=== PATIENT | male | born 1965 | race Caucasian/White ===

== ENCOUNTER → 2019-03-11 11:24 | Outpatient (CLI) | payer BC, SELFPAY ==
[2019-03-11 14:28] LABS: Absolute Neutrophil Count 6.4 X10^3/uL (2.0-7.7); Basophil# 0.02 X10^3/uL; Basophil% 0.2 % (0-1); Eosinophils% 1.1 % (0-5); Hematocrit 37.3 % (40-54); Hemoglobin 11.4 g/dL (13.0-16.5); Lymphocyte % 22.1 % (19-41); Mean Corp Hgb Conc 30.6 g/dL (32-36); Mean Corpuscular Hgb 25.1 pg (27.0-32.0); Mean Corpuscular Volume 82.2 fL (80-94); Mean Platelet Vol. 11.3 fl (6.2-12.0); Monocyte% 8.4 % (0-10); NRBC Flagged by Analyzer 0 % (0-5); Neutrophil # 6.41 X10^3/uL (2.7-7.7); Neutrophil % 67.6 % (47-70); Platelet Count 368 K/mm3 (150-450); RBC Distribution Width CV 14.4 % (11.6-14.6); Red Blood Count 4.54 M/mm3 (4.6-6.2); White Blood Count 9.5 K/mm3 (4.4-11.0)
[2019-03-11 14:42] LABS: 24 Hour Urine Protein 356.9 mg/24HR (<150 MG/24HR); 24HR. UA Prot. Total Volume 2150 mL; Urine Protein (24 Hour) 16.6 mg/dL (<11.9)
[2019-03-11 14:45] LABS: Creat.Clear Total Volume 2150 mL; Creatinine Clearance 103 ml/min (100-200); Creatinine Serum Creat 1.7 mg/dL (0.8-1.3); EST Glomerular Filtration Rate 46 mL/min (>60); Est Glom Filt Rate - Afr Amer 56 mL/min (>60)
[2019-03-11 14:45] LABS: Albumin, Serum 3.2 g/dL (3.2-5.0); BUN 24 mg/dL (7-18); BUN/Creat Ratio 14.5 RATIO (10-20); Calcium,Total 9.5 mg/dL (8.5-10.1); Chloride 104 mmol/L (98-107); Creatinine, Serum 1.66 mg/dL (0.70-1.30); EST Glomerular Filtration Rate 46 mL/min (>60); Est Glom Filt Rate - Afr Amer 56 mL/min (>60); Glucose 102 mg/dL (74-106); Iron 32 ug/dL (65-175); Iron Binding Capacity,Total 239 ug/dL (250-450); PERCENT IRON SATURATION 13.4 % (15.0-55.0); Phosphorus 3.3 mg/dL (2.5-4.9); Sodium Level 138 mmol/L (136-145)
[2019-03-11 14:46] LABS: Vitamin D,25 Hydroxy 8.4 ng/mL (29.95-100.01)
[2019-03-11 14:57] LABS: PTHIN 59.2 pg/mL (18.4-80.1)
[2019-03-15 12:45] LABS: Vitamin D 1,25-Dihydroxy <5.0 pg/mL (19.9-79.3)
== END ==
DX: I12.9 Hypertensive chronic kidney disease with stage 1 through stage 4 chronic kidney disease, or unspecified chronic kidney disease (principal); N18.3 Chronic kidney disease, stage 3 (moderate); R60.0 Localized edema; R60.1 Generalized edema; E55.9 Vitamin D deficiency, unspecified; N25.81 Secondary hyperparathyroidism of renal origin; D50.9 Iron deficiency anemia, unspecified; D63.1 Anemia in chronic kidney disease
CPT/HCPCS: 36415; 80069; 81050; 82306; 82575; 82652; 83540; 83550; 83970; 84156; 85025

== ENCOUNTER → 2019-08-05 15:09 | Outpatient (CLI) | payer SELFPAY ==
[2019-08-05 18:11] LABS: Absolute Lymphocyte Count 2.63 X10^3/uL (0.83-4.51); Absolute Neutrophil Count 4.1 X10^3/uL (2.0-7.7); Basophil# 0.03 X10^3/uL; Basophil% 0.4 % (0-1); Eosinophil# 0.24 X10^3/uL; Eosinophils% 3.1 % (0-5); Hematocrit 41.4 % (40-54); Hemoglobin 13.3 g/dL (13.0-16.5); Lymphocyte # 2.63 X10^3/ul (4.0); Lymphocyte % 34.2 % (19-41); Mean Corp Hgb Conc 32.1 g/dL (32-36); Mean Corpuscular Hgb 27.3 pg (27.0-32.0); Mean Corpuscular Volume 84.8 fL (80-94); Mean Platelet Vol. 11.1 fl (6.2-12.0); Monocyte# 0.67 X10^3/uL; Monocyte% 8.7 % (0-10); NRBC Flagged by Analyzer 0 % (0-5); Neutrophil # 4.06 X10^3/uL (2.7-7.7); Neutrophil % 52.9 % (47-70); Platelet Count 211 K/mm3 (150-450); RBC Distribution Width CV 15.5 % (11.6-14.6); RBC Distribution Width SD 46.6 fl (35.1-43.9); Red Blood Count 4.88 M/mm3 (4.6-6.2); White Blood Count 7.7 K/mm3 (4.4-11.0)
[2019-08-05 18:29] LABS: Vitamin D,25 Hydroxy 72.6 ng/mL
[2019-08-05 18:30] LABS: Albumin, Serum 3.5 g/dL (3.2-5.0); BUN 22 mg/dL (7-18); BUN/Creat Ratio 15.9 RATIO (10-20); Calcium,Total 9.5 mg/dL (8.5-10.1); Chloride 107 mmol/L (98-107); Creatinine, Serum 1.38 mg/dL (0.70-1.30); EST Glomerular Filtration Rate 57 mL/min (>60); Est Glom Filt Rate - Afr Amer 69 mL/min (>60); Ferritin 492 ng/mL (26-388); Glucose 88 mg/dL (74-106); Iron 72 ug/dL (65-175); Iron Binding Capacity,Total 270 ug/dL (250-450); Potassium 4.1 mmol/L (3.5-5.1); Sodium Level 140 mmol/L (136-145)
[2019-08-05 18:35] LABS: Microalbumin,Random Urine 29.5 mg/L (NO RANGE EST.)
[2019-08-06 10:52] LABS: PTHIN 61.2 pg/mL (18.4-80.1)
[2019-08-09 20:37] LABS: Vitamin D 1,25-Dihydroxy 38.6 pg/mL (19.9-79.3)
== END ==
DX: I12.9 Hypertensive chronic kidney disease with stage 1 through stage 4 chronic kidney disease, or unspecified chronic kidney disease (principal); N18.3 Chronic kidney disease, stage 3 (moderate); R60.0 Localized edema; R60.1 Generalized edema; E55.9 Vitamin D deficiency, unspecified; N25.81 Secondary hyperparathyroidism of renal origin; D50.9 Iron deficiency anemia, unspecified; D63.1 Anemia in chronic kidney disease
CPT/HCPCS: 36415; 80069; 82043; 82306; 82570; 82652; 82728; 83540; 83550; 83970; 85025

== ENCOUNTER → 2020-04-18 15:32 | Outpatient (CLI) | payer MEDICAID, SELFPAY ==
[2020-04-18 17:52] LABS: Absolute Lymphocyte Count 2.17 X10^3/uL (0.83-4.51); Absolute Neutrophil Count 4.2 X10^3/uL (2.0-7.7); Basophil# 0.04 X10^3/uL; Basophil% 0.5 % (0-1); Eosinophil# 0.33 X10^3/uL; Eosinophils% 4.5 % (0-5); Hematocrit 43.2 % (40-54); Hemoglobin 13.4 g/dL (13.0-16.5); Lymphocyte # 2.17 X10^3/ul (4.0); Lymphocyte % 29.5 % (19-41); Mean Corpuscular Hgb 27.5 pg (27.0-32.0); Mean Corpuscular Volume 88.7 fL (80-94); Mean Platelet Vol. 11.5 fl (6.2-12.0); Monocyte# 0.53 X10^3/uL; Monocyte% 7.2 % (0-10); NRBC Flagged by Analyzer 0 % (0-5); Neutrophil % 57.1 % (47-70); Platelet Count 261 K/mm3 (150-450); RBC Distribution Width CV 13.4 % (11.6-14.6); RBC Distribution Width SD 43.5 fl (35.1-43.9); Red Blood Count 4.87 M/mm3 (4.6-6.2); White Blood Count 7.4 K/mm3 (4.4-11.0)
[2020-04-18 18:04] LABS: Vitamin D,25 Hydroxy 59.1 ng/mL
[2020-04-18 18:20] LABS: ALB/GLOB Ratio 0.8 RATIO (0.9-2.4); AST(SGOT) 20 U/L (15-37); Alanine Aminotransfer ALT/SGPT 26 U/L (16-61); Albumin, Serum 3.4 g/dL (3.2-5.0); Alkaline Phosphatase 63 U/L (45-117); Anion Gap 8 (5-15); BUN 19 mg/dL (7-18); Calcium,Total 8.8 mg/dL (8.5-10.1); Chloride 107 mmol/L (98-107); Cholesterol 126 mg/dL (200); Creatinine, Serum 1.58 mg/dL (0.70-1.30); EST Glomerular Filtration Rate 49 mL/min (>60); Est Glom Filt Rate - Afr Amer 59 mL/min (>60); Globulin 4.4 g/dL (2.2-4.2); Glucose 91 mg/dL (74-106); High Density Lipoprotein 22 mg/dL; Potassium 4.2 mmol/L (3.5-5.1); Protein, Total 7.8 g/dL (6.4-8.2); Sodium Level 139 mmol/L (136-145); Thyroid Stim Hormone (TSH) 2.24 uIU/mL (0.358-3.74); Triglycerides 102 mg/dL; Uric Acid 11.6 mg/dL (3.5-7.2); Very Low Density Lipoprotein 20 mg/dL (5-40)
== END ==
PROVIDERS: Referring Provider Family Medicine; Visit Provider Family Medicine
DX: M10.00 Idiopathic gout, unspecified site (principal); R94.4 Abnormal results of kidney function studies; I10 Essential (primary) hypertension; Z13.29 Encounter for screening for other suspected endocrine disorder; E55.9 Vitamin D deficiency, unspecified
CPT/HCPCS: 36415; 80053; 80061; 82306; 84443; 84550; 85025

== ENCOUNTER → 2020-05-12 09:05 | Outpatient (CLI) | payer MEDICAID, SELFPAY ==
--- NOTE | 2020-05-12 | IMM_PTH ---
PATIENT: ALEJANDRA THORNTON LOC: LAB U#:[id number] AGE/SX: 59/M ROOM: RE05/12/[address]: Dr. Alfredo Chance MD : 1965 BED: DIS: SPEC #: [id number] RECD: 05/15/20 11:54 STATUS: FLORES REQ #: [id number] GABRIELLE: 05/12/20 00:[address]: Alfredo Chance DEPT: IMMUNOHISTOCHEMISTRY RECD BY: Edwige Marshall ENTERED: 05/15/20 11:56 SP TYPE: IMMUNO OTHR DR: Dr. Rudolph Marquez MD [facility] Tissues: Neck, NOS Procedures: RCC (add) SMA (add) NAPSIN A (add) Asa Ret (add) CD45 (add) CK20 (add) CK5-6 (add) CK7 (add) CK8 (add) DESMIN (add) FLORECITA (add) HEP PAR (add) MART1 (add) MPO (add) P53 (add) TTF1 (add) Vimentin (add) Pankeratin (initial) P40 (add) PSAP (add) S-100 (add) PHYSICIAN & INSTITUTION [place] [id number] SPECIMEN INFORMATION: Tissue Source: FNA, left neck mass Clinical Info: Left neck mass Specimen Number: [id number] CPT code: 21518, 19316 x20 METHODOLOGY: Deparaffinized sections of prefer/formalin-fixed tissue or PAP/DQ stained slides are incubated with monoclonal/polyclonal antibodies/oligonucleotide probes. Localization is made via biotin free immunoperoxidase method. Appropriate controls are performed and reacted as expected. Results on target cell population are indicated in the following table: RESULTS: ANTIBODY / CLONE RESULT AE1-3 (AE1/AE3/PCK26) negative CK7 (OV-TL12/30) negative CK8 (19jpokI99) negative CK20 (KS20.8) negative S-100 (4C4.9) negative TTF-1 (8G7G3/1) negative Napsin A (Rabbit Polyclonal) negative HepPar (OCh1E5) negative RCC (PN-15) negative PSAP (PASE/4LJ) negative CK5-6 (D5 & 1684) negative P40 (BC28) negative P53 (DO-7) negative CD45 (RP2/18) negative MPO (polyclonal) negative Vimentin (V9) positive Actin (1A4) negative Desmin (CE-R-11) negative CALRET (polyclonal) negative FLORECITA (E29) negative MART-1 (A-103) negative These tests were developed and their performance characteristics determined by [facility]. They may not have been cleared or approved by the U.S. Food and Drug Administration. The FDA has determined that such clearance or approval is not necessary. The above immunohistochemical/dualISH markers are ordered and reviewed by the Pathologist. INTERPRETATION: Fine needle aspiration, left neck mass: High-grade non-small cell neoplasm. Comment: The IHC profile does not suggest a particular primary. Clinical correlation is suggested. Case has been reviewed in consultation with Dr. Gonzales who concurs with the above diagnosis. IDC:SJ
--- NOTE | 2020-05-12 | ASPOS_PTH ---
PATIENT: ALEJANDRA THORNTON LOC: LAB U#:[id number] AGE/SX: 59/M ROOM: RE05/12/[address]: Dr. Alfredo Chance MD : 1965 BED: DIS: SPEC #: [id number] RECD: 05/12/20 10:04 STATUS: FLORES CARLIN #: [id number] GABRIELLE: 05/12/20 00:[address]: Alfredo Chance DEPT: CYTOLOGY RECD BY: Tylor Goodman ENTERED: 05/12/20 10:04 SP TYPE: ASP HERE OTHR DR: Dr. Rudolph Marquez MD [facility] Tissues: Neck, NOS Procedures: Surgery Specimen Level IV Cytology Other Fine Needle Asp on Site HEADER OPERATION: Fine needle aspiration left neck mass PRE-OP DIAGNOSIS: Left neck mass TISSUE SUBMITTED: FNA left neck mass DIAGNOSIS CYTOLOGY Fine needle aspiration, left neck mass (smears and cell block): High-grade malignant neoplasm. See comment. AM:milton 05/15/2020 COMMENT The specimen is evaluated at the time of FNA by Dr. Stone. Immediate Evaluation = Positive for malignant cells, non-small cell carcinoma. Immunohistochemistry ([id number]) supports the above diagnosis but does not suggest a primary. Sox-10 positivity can be seen in malignant melanomas. Clinical correlation is suggested. This case is reviewed in consultation with Dr. Vaughn of [employer]. The complete consultative report is viewable in EMR. Case has been reviewed in consultation with Dr. Gonzales who concurs with the above diagnosis. IDC:SJ CYTOLOGY STUDY Slides are reviewed. CYTOLOGY GROSS Received is 0.25 ml of reddish fluid labeled with the patient's name, and designated left neck mass. Four imprints and three paps are made from the submitted fluid and the rest is added to [employer]to[employer] for cell block preparation. Submitted for cytology study. / AM:milton 05/12/2020 TC:0 CPT: 75426, 55836, 25573, 96256 ADDENDUM ADDENDUM ADDENDUM ADDENDUM ADDENDUM ADDENDUM ADDENDUM ADDENDUM ADDENDUM ADDENDUM 07/21/2020 09:52 ADDENDUM 07/21/2020 09:52 ADDENDUM 07/21/2020 09:52 ADDENDUM 07/21/2020 09:52 ADDENDUM 07/21/2020 09:52 This addendum is added to incorporate an outside pathology consultation report. The case was examined at [facility] (#[id number]) and the following diagnosis was rendered. Fine needle aspiration, left neck mass: High grade malignant neoplasm. Please see complete above mentioned consultation report in EMR
== END ==
PROVIDERS: Referring Provider Otolaryngology; Visit Provider Otolaryngology
DX: R22.1 Localized swelling, mass and lump, neck (principal)
CPT/HCPCS: 10021; 88161; 88305; 88341; 88342

== ENCOUNTER → 2020-06-06 16:45 | Outpatient (CLI) | payer MEDICAID, SELFPAY ==
--- NOTE | 2020-06-06 16:00 | PET_ITS ---
EXAMINATION: FDG PET/CT ? Head to Pelvis INDICATIONS: A 54-year-old male with history of head and neck carcinoma presenting for apparent initial staging examination. COMPARISON EXAMINATION: None available INDEX LESION SIZE SUV INTERPRETATION Left lateral neck level IIA-B, III (n=3) 38.8 x 32.6-mm (largest) (frame 292) 15.7 (max) Fulfills quantitative criteria for viable neoplasm TECHNIQUE: Following the intravenous administration of 12.08 mCi of F-18 deoxyglucose via the right antecubital fossa, multiplanar image acquisitions of the head, neck, chest, abdomen and pelvis to level of mid thigh, obtained at one hour post radiopharmaceutical administration contemporaneously interpreted with the current CT of the head, neck, chest, abdomen and pelvis to level of mid thigh, dated 06/06/20 via coregistration reveal: SERUM GLUCOSE LEVEL: 99 mg/dl. HEIGHT: 70 inches. WEIGHT: 308 lbs. FINDINGS: 1. There is an increase in FDG distribution defined in the left lateral neck to include level IIA-B, III in three separate distinct nodular presentations. The calculated maximal standard uptake value is 15.7. The maximal axial diameter of the largest individual metabolic, morphologic abnormality on review of CT of the neck dated 06/06/20 is 38.8-mm (transverse) x 32.6-mm (AP). 2. Normal physiologic distribution of the radiopharmaceutical is apparent in the hepatic (2.9) and splenic parenchyma, both renal units, bladder and visualized intestinal tract. Symmetric glucose metabolism is evident in the occipital, frontal, parietal and temporal lobes of the cerebral cortex, as well as normal visualization of the basal ganglia and cerebellar hemispheres. Diffuse radiopharmaceutical concentration is noted in all four quadrants of the abdomen and pelvis, extending to the distal rectum-rectal vault. Prominent uptake is observed in the glenohumeral compartment of the right shoulder, both wrist articulations most consistent with activated leukocytes associated with an inflammatory process-degenerative arthritis, synovial inflammation. An increase in uptake is observed in the subcarinal mediastinum to the right of the midline which appears associated with the myocardial right atrial appendage. Pertinent CT findings are as follows: CHEST: There is atherosclerotic calcification defined in the thoracic aorta without evidence of dilatation-aneurysm formation. Coronary arterial calcification is observed. There are no parenchymal densities-nodules defined in the right and left hemithorax with discernible increased FDG concentration. Bilateral axillary soft tissue densities with fatty hilus are ametabolic. Subcentimeter mediastinal soft tissue reveals no evidence of increased tracer uptake. ABDOMEN AND PELVIS: There is borderline fatty metamorphosis-steatosis defined in the hepatic parenchyma. Calcifications are manifest in the bilateral kidneys. Bilateral fat containing inguinal hernias are observed. Right and left inguinal soft tissue densities with fatty hilus reveal no evidence of increased tracer uptake. Dystrophic calcification appears evident within the prostate gland, peripheral zones-right base without evidence of facilitated tracer uptake. SKELETAL: Degenerative changes are noted in the cervical, thoracic and lumbar spine without evidence of increased radiopharmaceutical concentration. PET/PET/CT Tumor Base -Thigh Init IMPRESSION: 1. ABNORMAL EXAMINATION INDICATIVE OF MALIGNANT VIABLE NEOPLASM. 2. Increased glucose concentration observed in the left lateral neck, multifocal in presentation fulfills quantitative criteria for viable neoplasm. 3. Enhanced tracer uptake noted in the distal rectum-rectal vault is most consistent with physiologic tracer uptake. If intraluminal soft tissue mass formation is a diagnostic consideration, correlation with direct visualization or digital examination is recommended. (Joselyn et al, Journal of Nuclear Medicine, 30:S276, 2003). 4. No other quantitatively significant hypermetabolic abnormalities are noted. There is no definitive scintigraphic evidence of distant metastatic disease. Electronic Signature Surinder Quan D.O. Accurate Quantification of SUVs for this report are calculated using the exclusive [employer]? Technology.??Exclusive U.S. Patent [employer]an? Technology (U.S. Patent No. [phone]). Electronically Signed: Surinder Quan DO at 15:44 EDT Tel , Service support ,
== END ==
PROVIDERS: Referring Provider Otolaryngology; Visit Provider Otolaryngology
DX: C76.0 Malignant neoplasm of head, face and neck (principal)
CPT/HCPCS: 78815; A9552

== ENCOUNTER → 2020-08-10 11:54 | Outpatient (CLI) | payer MEDICAID, SELFPAY ==
--- NOTE | 2020-08-10 12:12 | RAD_ITS ---
STUDY: X-RAY - LUMBAR SPINE REASON FOR EXAM: Male, 54 years old. LUMBAGO WITH SCIATICA TECHNIQUE: 3 view(s) of the lumbar spine were obtained. COMPARISON: None FINDINGS: Normal lumbar lordosis. There is no substantial scoliosis. There is a normal alignment of the vertebrae. Normal vertebral bodies and endplates. Normal disc space heights. The soft tissue structures are unremarkable. RAD/Lumbar Spine 2 or 3 Views IMPRESSION: Normal x-ray examination of the lumbar spine. Electronically Signed: Tom Swann MD at 12:58 EDT , Service support ,
[2020-08-10 13:06] LABS: PSA,Total - Annual Screen 0.86 ng/mL (0.00-4.00); Uric Acid 9.3 mg/dL (3.5-7.2)
== END ==
DX: M10.9 Gout, unspecified (principal); Z12.5 Encounter for screening for malignant neoplasm of prostate; Z12.11 Encounter for screening for malignant neoplasm of colon; M54.41 Lumbago with sciatica, right side
CPT/HCPCS: 36415; 72100; 84153; 84550; G0103

== ENCOUNTER → 2020-08-15 16:46 | Outpatient (CLI) | payer MEDICAID, SELFPAY | DX: M10.9 Gout, unspecified (principal); Z12.11 Encounter for screening for malignant neoplasm of colon; Z12.5 Encounter for screening for malignant neoplasm of prostate | CPT/HCPCS: 82274 ==

== ENCOUNTER → 2020-09-15 15:40 | Outpatient (CLI) | payer MEDICAID, SELFPAY ==
[2020-09-15 17:34] LABS: Albumin, Serum 3.3 g/dL (3.2-5.0); BUN 20 mg/dL (7-18); BUN/Creat Ratio 14.2 RATIO (10-20); Chloride 109 mmol/L (98-107); Creatinine, Serum 1.41 mg/dL (0.70-1.30); EST Glomerular Filtration Rate 55 mL/min (>60); Est Glom Filt Rate - Afr Amer 67 mL/min (>60); Glucose 143 mg/dL (74-106); Phosphorus 2.2 mg/dL (2.5-4.9); Potassium 3.8 mmol/L (3.5-5.1); Sodium Level 140 mmol/L (136-145); Uric Acid 10.4 mg/dL (3.5-7.2)
[2020-09-18 11:39] LABS: PTHIN 64.7 pg/mL (18.4-80.1)
== END ==
PROVIDERS: Referring Provider Internal Medicine Nephrology; Visit Provider Internal Medicine Nephrology
DX: N18.31 Chronic kidney disease, stage 3a (principal); M10.9 Gout, unspecified
CPT/HCPCS: 36415; 80069; 83970; 84550

== ENCOUNTER 2020-10-06 05:53 | Day surgery (SDC) | payer MEDICAID, SELFPAY ==
[2020-10-02 10:03] VITALS: BMI 43.4
[2020-10-04 10:31] VITALS: BMI 43.7
[2020-10-06 06:23] VITALS: BP 128/70; PULSE 74; RESP 16; TEMP 37; O2SAT 98; BMI 45.3
[2020-10-06] MEDS: Lactated Ringers 1,000 ML 100 ML IV (06:34)
--- NOTE | 2020-10-06 07:04 | PCM.HP.BLA ---
History and Physical Date of Admission: 10/06/20 Date of Service: 10/02/20 MR#:[id number] Acct:[id number] Name: ALEJANDRA THORNTON :1965 Age/Sex: 55/M Rep #:[id number] Provider:Dr. Antonette Tapia MD Location:[facility] Status:Signed Intake Vital Signs 10/02/20 10:02 10/02/20 10:03 Height 5 ft 10.5 in Weight: 306 lb 7.08 oz BMI 43.3 43.4 BP 123/85 H Blood Pressure Location Rt brachial Position Sitting Respiration 16 Intake Visit Reasons: port placement Chief Complaint: port placement Virtual Reality Specialist Required: No Is patient in pain?: No Allergies No Known Allergies Allergy (Verified 10/02/20 10:03) Medications allopurinol 100 mg tablet 100 mg PO DAILY 09/12/20 [History Confirmed 10/02/20] ergocalciferol (vitamin D2) 62.5 mcg (2,500 unit) capsule 5,000 unit PO DAILY cap 09/12/20 [History Confirmed 10/02/20] ferrous sulfate 325 mg (65 mg iron) tablet 325 mg PO DAILY 09/12/20 [History Confirmed 10/02/20] ramipril 10 mg capsule 10 mg PO DAILY 09/12/20 [History Confirmed 10/02/20] PFSH Medical History Arthritis Chronic renal failure Depression Gastroesophageal reflux Hypertension Kidney disease Medullary sponge kidney of both kidneys Morbid obesity Snoring SOB (shortness of breath) Surgical History History of appendectomy History of carpal tunnel surgery History of parotidectomy Family History Mother Liver disease Father Lung cancer Social History Smoking Status: Never smoker second hand exposure: No alcohol intake: never substance use type: does not use yohan/druze: None seatbelt use: never do you feel safe at home: Yes HPI HPI HPI: ALEJANDRA THORNTON, is a 55 M who presents to the office today for port placement due to metastatic melanoma status post left superficial parotidectomy and left selective neck dissection. Patient has chemo teaching on Friday this week. ROS General General: Yes fatigue; No weight change or appetite HEENT HEENT: Yes difficulty swallowing; No eye injury, eye surgery, swollen glands or hoarseness Endo Endocrine: No thyroid disease, diabetes mellitus or cold intolerance Skin Skin: No rash or changing moles Musc Musculoskeletal: Yes gout; No back problems, arthritis, rheumatoid arthritis or joint pain Cardio Cardiovascular: Yes high blood pressure; No murmur, pacemaker, heart disease, atrial fibrillation, heart attack, heart stent, palpitations, shortness of breat with exertion or chest pain Psych Psychiatric: Yes depression and anxiety; No hearing voices Resp Respiratory: Yes shortness of breath, Yes sleep apnea, No cough, No COPD, No asthma, No emphysema and No wheezing Gastro Gastrointestinal: No abdominal pain, No nausea or vomiting, No diarrhea, No constipation, No blood in stool, Yes acid reflux, Yes hemorrhoids, No ulcers, No gallbladder problem and No black,tarry stools Behzad Hematologic: No blood thinners, No blood disorders, No bleeding, No anemia and No blood clots Neuro Neurologic: No abnormal speech, No confusion, No dizziness, No localized weakness, No numbness and No sensory deficit Exam Const General: cooperative, healthy appearing, comfortable and no acute distress Neck Other: Well-healed left neck incision. Normal palpation of the right neck Chest Other: Normal palpation of bilateral upper chest. Resp Effort & Inspection: normal respiratory effort Cardio Rate: regular rate GI Inspection: non-distended Palpation: soft Skin General: no rashes or lesions noted Neuro General: patient oriented x3 Psych Affect: normal affect COVID (Procedure Consent) Procedure Criteria Procedure Criteria: Yes Elective The surgeon/proceduralist and patient have discussed in detail the risk of exposure to and/or potential harm posed by the COVID-19 virus with having a surgery/procedure at this time versus the risk of delaying the surgery/procedure. It is not possible to know either the risk of delaying the surgery or procedure or chance of getting an infection with perfect accuracy, but a joint decision was made between the patient and the surgeon/proceduralist to proceed at this time with the scheduled surgery/procedure as indicated on the consent form. Assessment and Plan Assessment and Plan (1) Encounter for care related to vascular access port: Status: Acute (2) Melanoma metastatic to head and neck region: Status: Acute Plan - Dr. Antonette Tapia MD: I have discussed above with the patient- Port-a-Cath placement. Right IJ Patient has been counseled as to the risks/benefits of the procedure. I have explained the risks of the surgery, including but not limited to: infection, bleeding, injury to any blood vessels/nerves, injury to lungs (such as pneumothorax or hemothorax and need for chest tube), not having any access, nonfunctioning of port due to thrombosis, infection of port, etc. the patient understands and agrees to proceed. I have answered all the patient's questions to the patient?s satisfaction and the patient has no further questions. Antonette Tapia M.D. Pager: [phone] [facility] [address] [place] [address], [address] [place] [address] Office: [phone] Coding Level of Care Code Off vis,new,level 3 Diagnoses Encounter for care related to vascular access port Z45.2 Melanoma metastatic to head and neck region C79.89; C43.9 10/02/20 1025<Electronically signed by Antonette Tapia MD>Date Antonette Tapia MD
[2020-10-06] MEDS: Lidocaine 1% /Epi 1:100 (50ml) 50 ML VIAL (07:36)
[2020-10-06] MEDS: Bupivacaine Mpf 0.5% 30 ML VIAL (07:36)
--- NOTE | 2020-10-06 08:02 | PCM.OPRPT ---
Report of Operation Date of Procedure: 10/06/20 Pre-Operative Diagnosis: z45.2, Malignant melanoma Post-Operative Diagnosis: Same Surgery/Procedure Performed:: 1. Placement of right IJ Port-A-Cath 2. Use of fluoroscopy 3. Use of ultrasound Surgeon: Antonette Tapia Type of Anesthesia: Local MAC Anesthesiologist: Rick Collins Special Medications: Ancef 3 g IV x1 Specimen's removed: None Estimated Blood Loss (mL): < 10 cc Fluids Replaced: 500 cc Description of Procedure: After informed consent was given, the patient was brought to the operating room and placed in the supine position. Appropriate time out protocol was followed. Patient was then given IV conscious sedation for anesthesia. The patient's right upper chest and neck were then prepped with a surgical skin preparation and sterile surgical drapes were placed. After proper landmarks were ascertained, the skin at the upper right chest area was then infiltrated with 1:1 mixture of 1% lidocaine with epinephrine and 0.5% marcaine. A needle trocar was then inserted into the right internal jugular vein with ultrasound guidance-multiple vessels were viewed with u/s and the right IJ was chosen-- and there was good aspiration of venous blood. A wire was then threaded into the needle trocar and this was visualized under fluoroscopy to ensure that the wire was in the superior vena cava. Once this was done, then the needle trocar was removed. A small skin derrell was made with an 11 blade knife at the wire entrance site. The dilator with the introducer sheath attached was then placed over the wire into the right internal jugular vein via the Seldinger technique and this was visualized under fluoroscopy. The dilator and sheath were in proper position as visualized by fluoroscopy. A subcutaneous pocket was then created caudad to the catheter insertion site. A transverse skin incision was made after the skin and subcutaneous tissues were infiltrated with local anesthetic. Blunt dissection was then used to create a space large enough for placement of the subcutaneous port. The catheter was then tunneled into the subcutaneous pocket. The wire and dilator were then removed. The catheter was then threaded into the introducer sheath and was positioned with its tip at the junction of the superior vena cava and the right atrium as visualized under fluoroscopy. The excess catheter was transected. The catheter was then attached to the subcutaneous port using manufacturers guidelines. The catheter was flushed with a heparin saline mixture prior to placement. Hemostasis was carefully controlled with electrocautery. The port was sutured to the subcutaneous fascia using 2-0 Vicryl suture at two sites. The port was then placed in the subcutaneous pocket. The incision were reapproximated with interrupted subdermal 3-0 vicryl sutures. The skin was reapproximated with 3-0 nylon suture in a interrupted fashion. Steristrips were used for reinforcement of the skin closure at IJ insertion site and a sterile opsite dressings were applied. The patient tolerated the procedure well. Implants Used: [employer] PowerPort isp M.R.I. 6Fr Lot [id number] [id number] Grafts/Implants Used: M.R.I. 6Fr Lot [id number] [id number] Complications none
--- NOTE | 2020-10-06 08:05 | DCINST_ITS ---
Discharge Instructions Procedure Port-A-Cath Diet Discharge Diet: Light diet - advance as tolerated Activity May shower in (days): 5 (Keep port site clean and dry x5 days. Neck incision okay to get wet after 1 day. Okay to lower shower and upper sponge bath. OR okay to taper off port site with a Ziploc bag to shower) Lifting Restrictions: No lifting > 15 pounds for 3 days with the arm on the side of the port Dressing / Incision Call your doctor if your incision/area has: Continuous Slow Oozing, Sudden Increased Bleeding, Increased Pain/ Swelling, Increased Redness, Foul Smelling Discharge and Swelling at the incision site Call your doctor if you observe: Fever of 101 or Higher Change Dressing in: 2 days Follow Up Care Please Follow Up With: Antonette Tapia MD When: In 10 days for permanent suture removal?call office for appointment Test Results: Test results from this visit will be discussed in further detail at your follow-up appointment, if applicable. Discharge Plan Admission Attending Provider: Antonette Tapia [facility] Providers: Mariza Coto Discharge Orders/Prescriptions Prescriptions: New hydrocodone-acetaminophen 5-325 mg tablet 1 tab PO Q6H PRN (Reason: pain) 3 Days Qty: 5 RF: 0 Continued allopurinol 100 mg tablet 100 mg PO DAILY RF: 0 ferrous sulfate [FeroSul] 325 mg (65 mg iron) tablet 325 mg PO DAILY RF: 0 ramipril 10 mg capsule 10 mg PO LUNCH RF: 0 ergocalciferol (vitamin D2) 62.5 mcg (2,500 unit) capsule 5,000 unit PO QMONTH RF: 0 lidocaine-prilocaine 2.5-2.5 % cream 1 applic topical ONCE PRN (Reason: Port access) 30 Days Qty: 30 RF: 2 sertraline 25 mg Tablet 25 mg PO DAILY RF: 0 [facility] - Disposition Disposition (needs filled in before D/C Order can be placed): Home, Self Care
[2020-10-06 08:10] VITALS: BP 124/74; BP 128/70; PULSE 67; RESP 16; TEMP 36.1; O2SAT 97
--- NOTE | 2020-10-06 08:13 | RAD_ITS ---
STUDY: X-RAY CHEST REASON FOR EXAM: Male, 55 years old. Port placement. TECHNIQUE: Single AP portable view of the chest. COMPARISON: None. FINDINGS: A right-sided portacatheter has been placed. The tip is at the junction of the superior vena cava and right atrium. The lungs are clear and expanded. There is no demonstrated pleural abnormality. There is mild cardiac enlargement. Normal mediastinum and radha. Normal visualized pulmonary arteries. Normal visualized aortic arch and descending thoracic aorta. There are degenerative changes of the visualized thoracic spine. Normal visualized ribs, clavicles, and shoulders. There is no demonstrated abnormality of the visualized soft tissue structures of the upper abdomen. RAD/CXR for Line Placement IMPRESSION: The tip of the right-sided portacatheter is at the junction of the superior vena cava and right atrium. Electronically Signed: Refugio Ayala MD at 8:34 EDT , Service support ,
[2020-10-06 08:15] VITALS: BP 111/73; BP 128/70; PULSE 73; RESP 16; O2SAT 97
[2020-10-06 08:20] VITALS: BP 115/85; BP 128/70; PULSE 63; RESP 16; O2SAT 96
[2020-10-06 08:25] VITALS: BP 128/70; PULSE 63; RESP 16; TEMP 36.2; O2SAT 96
[2020-10-06 09:00] VITALS: BP 128/70
== END 2020-10-06 09:22 | disposition home or self-care (01) ==
LOC: SDC 05:53 → AC 05:54
PROVIDERS: Referring Provider Surgery; Visit Provider Surgery
PROC: (CPT 36561; principal; 2020-10-06 07:15)
DX: Z45.2 Encounter for adjustment and management of vascular access device (principal); C43.9 Malignant melanoma of skin, unspecified; K21.9 Gastro-esophageal reflux disease without esophagitis; F32.9 Major depressive disorder, single episode, unspecified; I12.9 Hypertensive chronic kidney disease with stage 1 through stage 4 chronic kidney disease, or unspecified chronic kidney disease; N18.9 Chronic kidney disease, unspecified; Q61.5 Medullary cystic kidney; E66.01 Morbid (severe) obesity due to excess calories
CPT/HCPCS: 36561; 71045; 77001; 87426; C9803; J7120

== ENCOUNTER → 2020-11-23 12:59 | Outpatient (CLI) | payer MEDICAID, SELFPAY ==
--- NOTE | 2020-11-23 13:00 | SP.MBSS_ITS ---
Modified Barium Swallow - Patient Information Study Date: 11/23/20 Study Time: 13:00 Direct Billable Minutes: 90 Total Minutes procedure & reportin Diagnosis: Melanoma metastatic to head & neck region C79.89 Referring Physician: Bennie Julian Reason for Referral: Referred following clinical bedside swallowing evaluation completed as an outpatient to further assess the extent to which oropharyngeal swallow function has been impacted by left superficial parotidectomy and left selective neck dissection of levels 1A through 4 and elucidate need for dysphagia intervention w/ improved specificity of treatment to be provided pending objective findings. Medical History: 55-year-old male with stage IIIB (TX, N2B, M0) malignant melanoma with metastases in the left parotid and cervical lymph nodes. The primary was not detected despite ENT and dermatology evaluation and imaging by PET/CT. 07/20/2020: Patient underwent left superficial parotidectomy and left selective neck dissection of levels 1A through 4. : Seen by Dr. Julian, radiation oncology, advised adjuvant radiation but declined. Past Medical History: Arthritis; Cancer; Chronic renal failure; Depression; DVT (deep venous thrombosis); Gastric reflux; Gastroesophageal reflux; Gout; History of edema; Hypertension; Kidney disease; Loose teeth; Low iron; Medullary sponge kidney of both kidneys; Morbid obesity; Non-smoker; Restless legs; Snoring; SOB (shortness of breath) Surgical History: History of appendectomy; History of carpal tunnel surgery; History of parotidectomy Current Diet Ordered: regular textures/thin liquids Dentition: Natural Teeth, Missing Teeth Mental Status: WNL Respiratory Status: Oxygenating on Room Air - Penetration-Aspiration Scale Penetration-Aspiration Scale: OBJECTIVE ASSESSMENT OF SWALLOW FUNCTION (QUANTITATIVE ? PER TRIAL): PENETRATION / ASPIRATION SCALE (MARTIN): 1 = does not enter airway 2 = enters airway/above vocal folds/ejected 3 = enters airway/above vocal folds/not ejected 4 = enters airway/contacts vocal folds/ejected 5 = enters airway/contacts vocal folds/not ejected 6 = enters airway/below vocal folds/ejected 7 = enters airway/below vocal folds/not ejected despite effort 8 = enters airway/below vocal folds/no effort - Penetration-Aspiration Scale Score Thin Liquid via teaspoon Result: 1= does not enter airway Thin Liquid via teaspoon Trial 2 Result: 1= does not enter airway Thin Liquid via small single sip from cup Result: 1= does not enter airway Thin Liquid via sequential sips from cup Result: 2= enter airway/above vocal folds/ejected - undercoated the posterior laryngeal surface of the epiglottic w/ transient penetration, complete ejection Thin Liquid via single sip from straw Result: 1= does not enter airway Pudding Result: 1= does not enter airway Cookie Result: 1= does not enter airway Thin Liquid via small single sip from cup Trial 2 Result: 2= enter airway/above vocal folds/ejected - undercoated the posterior laryngeal surface of the epiglottic w/ transient penetration, complete ejection - Oral Phase Labial Seal: No Labial Escape Tongue Control During Bolus Hold: Cohesive bolus between tongue to palatal seal Bolus Preparation/Mastication: Timely and efficient chewing and mashing Bolus Transport/Lingual Motion: Repetitive/disorganized tongue motion Oral Residue: Residue collection on oral structures - oral tongue/tongue base reside collection - Pharyngeal Phase Initiation of Pharyngeal Swallow: Bolus head in valleculae Soft Palate Elevation: Trace column of contrast/air between soft palate and pharyngeal wall Laryngeal Elevation: Partial superior movement thyroid cart/partial apprx aryt- epig petiole Anterior Hyoid Excursion: Partial anterior movement Epiglottic Movement: Complete inversion Laryngeal Vestibule Closure at Height of Swallow: Complete; no air/contrast in laryngeal vestibule Pharyngeal Stripping Wave: Present - diminished Pharyngoesophageal Segment Opening: Complete distension and complete duration; no obstruction of flow Pharyngeal Residue: Collection of residue within or on pharyngeal structures - collection along aryepiglottic fold, cleared w/ re-swallow - Esophageal Phase Esophageal Clearance: Complete clearance - Treatment Strategies Effects of treatment strategies attemped:: Reduction in bolus volume = effective Double swallow = somewhat effective Liquid wash = somewhat effective - Diagnosis/Impression Diagnosis: mild oropharyngeal dysphagia Impression: This patient presents w/ mild oropharyngeal dysphagia attributed to metastatic melanoma of the head/neck requiring left superficial parotidectomy and left selective neck dissection of levels 1A through 4. Oropharyngeal swallow function is characterized by: * disorganized and repetitive lingual motion utilized for A-P bolus transportation * reduced base of tongue retraction resulting in residue accumulation on the oral tongue and tongue base post deglutition; double swallow and/or liquid wash were somewhat effective to clear residue * trace penetration of contrast between the velum and posterior pharyngeal wall w/out entrance into the nasopharynx * diminished pharyngeal contraction w/ little to no lower 1/2 of pharyngeal stripping wave evident; adequate upper 1/2 pharyngeal stripping wave which compensated to a degree for reduced BOT retraction; residue accumulation along the aryepiglottic folds, clear w/ additional swallow * reduced hyolaryngeal excursion resulting in transient laryngeal vestibule penetration * strong gag reflex noted w/ gagging on pudding texture * esophageal screening for bolus clearance was unremarkable - Recommendations Diet: Regular Textures, Thin Liquids Compensatory Strategies: Small Bites - chew thoroughly, Small Sips, Slow Rate, Multiple Swallows - as needed for oral/pharyngeal residue clearance, Alternate bites/solids and sips/liquids, Sitting upright, Remain sitting upright for 30 minutes after PO intake - GERD precautions Recommend Repeat Modified Barium Swallow: No Need for Skilled Speech Therapy Services: Yes Comment: Skilled dysphagia intervention is recommended for: * further education re: MBSS findings and recommended compensatory strategies * instruction w/ oropharyngeal strengthening exercises to target deficits identified under fluoroscopy for improve swallow function and reduced aspiration risk Recommended Referrals: ENT Consult - Consider further workup via ENT to assess d/t reported bump/lump like an inverted popcorn dowd on oral tongue - unable to visualize d/t strong gag reflex Education Completed: 1. Described result of evaluation., 2. Pt understands evaluation & agrees with goals and treatment plan. Comment: Images were reviewed w/ the patient following MBS conclusion w/ additional time spent providing education re: anatomy/physiology of swallow mechanism and of deficits identified under fluoroscopy. Results, recommendation and plan of care going forward were discussed, with the Patient verbalizing understanding and agreement with all recommendations and education provided. - Status Active ST Patient: Active - Contact Information [facility] Speech Therapy:: Phuong Maher M.A., [facility]-ROOFING MACHINE OPERATOR [facility] [address] [address] [phone] [email or web address] 11/23/20 14:17
== END ==
PROVIDERS: Referring Provider Student in an Organized Health Care Education/Training Program; Visit Provider Student in an Organized Health Care Education/Training Program
DX: C43.9 Malignant melanoma of skin, unspecified (principal); C79.89 Secondary malignant neoplasm of other specified sites
CPT/HCPCS: 74230; 92611

== ENCOUNTER 2020-12-13 06:37 | Day surgery (SDC) | payer MEDICAID, SELFPAY ==
[2020-12-13 06:56] VITALS: BP 133/93; PULSE 104; RESP 97; TEMP 36.3; O2SAT 97; BMI 43.1
[2020-12-13] MEDS: Lactated Ringers 1,000 ML 100 ML IV (07:07)
--- NOTE | 2020-12-13 07:46 | HP.PCM_ITS ---
History and Physical Date of Admission: 12/13/20 Date of Service: 11/20/20 Intake Vital Signs 11/20/20 13:00 Height 5 ft 10 in Weight: 307 lb 8 oz BMI 44.1 BP 107/66 Blood Pressure Location Rt brachial Position Sitting Respiration 20 H Pulse 86 Pulse Source NIBP Temp 97.6 F L Temp Source Temporal Pulse Oximetry (%) 96 Oxygen Delivery Method room air Intake Visit Reasons: CSCOPE, HEMORRHOIDS Chief Complaint: colonoscopy Business Continuity Specialist Required: No Is patient in pain?: No Allergies No Known Allergies Allergy (Verified 11/20/20 13:02) Medications allopurinol 100 mg tablet 100 mg PO DAILY 09/12/20 [History Confirmed 11/20/20] ergocalciferol (vitamin D2) 62.5 mcg (2,500 unit) capsule 5,000 unit PO QMONTH cap 09/12/20 [History Confirmed 11/20/20] ferrous sulfate 325 mg (65 mg iron) tablet 325 mg PO DAILY 09/12/20 [History Confirmed 11/20/20] ramipril 10 mg capsule 10 mg PO LUNCH 09/12/20 [History Confirmed 11/20/20] lidocaine-prilocaine 2.5 %-2.5 % topical cream 1 applic TOPICAL ONCE PRN 30 Days #30 g 10/04/20 [Rx Confirmed 11/20/20] Hydrocortisone 2.5%/lidocaine 5% suppository (cmpd) #1 pkg 11/20/20 [Rx Co nfirmed 11/20/20] pembrolizumab 50 mg intravenous solution 50 mg .ROUTE 11/20/20 [History Confirmed 11/20/20] sertraline 25 mg tablet 50 mg PO DAILY tab 11/20/20 [History Confirmed 11/20/20] PFSH Medical History Arthritis Cancer Chronic renal failure Depression DVT (deep venous thrombosis) Gastric reflux Gastroesophageal reflux Gout History of edema Hypertension Kidney disease Loose, teeth Low iron Medullary sponge kidney of both kidneys Morbid obesity Non-smoker Restless legs Snoring SOB (shortness of breath) Surgical History History of appendectomy History of carpal tunnel surgery History of parotidectomy Family History (Updated 11/20/20 @ 13:06 by Ninoska Cisse) Mother Liver disease Father Lung cancer Hypertension Social History Smoking Status: Never smoker second hand exposure: No alcohol intake: never substance use type: does not use yohan/mandaeism: None seatbelt use: never do you feel safe at home: Yes HPI HPI HPI: ALEJANDRA THORNTON, is a 55 M who presents to the office today for prior red blood per rectum and rectal pain with bowel movements. Patient states he has about 75% of the time states his pain can get as high as 9/10. Patient states he has bowel movements daily but they are hard. Patient is taking a stool softener just increased to 2 softeners daily patient did not take any extra fiber know how much he gets is not sure he drinks enough water as well. Patient is never had a previous colonoscopy. Denies any family history of colon cancer. Does have a significant past medical history for metastatic melanoma which he is currently undergoing treatment. Patient denies any chronic abdominal pain nausea or vomiting. Patient states he has heartburn only about twice a month. Patient states he does have a new issue with gag reflex question whether he feels something on the back of his tongue unable to see due to the gag reflex. Exam Const General: cooperative, healthy appearing, comfortable and no acute distress Neck Neck: normal visual inspection Resp Effort & Inspection: normal respiratory effort Cardio Rate: regular rate GI Inspection: non-distended Palpation: soft, no guarding and nontender Other: JOHNATHON: Internal hemorrhoids on exam at 12:00 there is an area that looks like a possible previously healed fistula as it appears to have a very small tract at 12:00 that Q-tip could fit. Patient denies ever knowing about previously having a fistula or having any wounds in that area. Skin General: no rashes or lesions noted Neuro General: patient oriented x3 Psych Affect: normal affect Assessment and Plan Assessment and Plan (1) BRBPR (bright red blood per rectum): Status: Acute (2) Internal hemorrhoid: Status: Acute (3) Malignant melanoma of unknown origin: Status: Acute (4) Melanoma metastatic to head and neck region: Status: Acute Plan - Dr. Antonette Tapia MD: We will give patient hydrocortisone/lidocaine suppositories for the internal hemorrhoids. Also recommend sitz bath's and increasing fiber and water intake. Discussed with patient that he may need to follow-up with ENT for the questionable feeling of a lump on his posterior tongue as I would not be able to see this well with the EGD. I have discussed the above with the patient. I have offered the patient colonoscopy for evaluation. I have explained the risks/benefits of the procedure and described the procedure. I have discussed the risks with the patient, including but not li mited to: infection, bleeding, perforation of the GI tract requiring emergency surgery, inability to complete the procedure, injury to any internal organs, complications of anesthesia, etc. - the patient understands and agrees to proceed. I have answered all the patient's questions to the patient's satisfaction and the patient has no further questions. The patient has been given instructions for the colon cleansing preparation. 1 day of clears, MiraLAX Dulcolax split prep. Antonette Tapia M.D. Pager: [phone] [facility] [address] [place] [address], [facility], [address] [place] [address] Office: [phone] Plan Details Other Medications: New: Hydrocortisone 2.5%/lidocaine 5% suppository (cmpd) (hydrocortisone 2.5%/lidocaine 5% suppository (compound)) insert into rectum twice daily 1 pkg 1RF Other Orders: Orders: Colonoscopy Today Follow Up: We will schedule colonoscopy Coding Level of Care Code Off vis,est,level 3 Diagnoses BRBPR (bright red blood per rectum) K62.5 Internal hemorrhoid K64.8 Malignant melanoma of unknown origin C43.9 Melanoma metastatic to head and neck region C79.89; C43.9 11/20/20 1326<Electronically signed by Antonette Tapia MD>Date Antonette Tapia MD
--- NOTE | 2020-12-13 08:00 | COLBX_PTH ---
PATIENT: ALEJANDRA THORNTON LOC: EN U#:[id number] AGE/SX: 55/M ROOM: RE12/13/[address]: Dr. Antonette Tapia MD : [id number] BED: DIS: 12/13/2020 SPEC #: [id number] RECD: 12/13/20 11:29 STATUS: FLORES TESFAYE #: [id number] GABRIELLE: 12/13/20 08:[address]: Antonette Tapia DEPT: SURGICAL PATHOLOGY RECD BY: Gela Ron ENTERED: 12/13/20 11:55 SP TYPE: COLON BX OTHR DR: Mariza Coto, [employer] Tissues: Ascending colon Procedures: Surgery Specimen Level IV HEADER OPERATION: Colonoscopy (MAC) PRE-OP DIAGNOSIS: Bright red blood per rectum, internal hemorrhoid TISSUE SUBMITTED: Ascending colon polyp biopsy MICROSCOPIC DIAGNOSIS Ascending colon polyp, biopsy: Tubular adenoma. SJ:milton 12/14/2020 MICROSCOPIC DESCRIPTION Slides are reviewed. GROSS DESCRIPTION Received in fixative is one container labeled with the patient's name and designated ascending polyp biopsy. The specimen consists of one irregular fragment of light rinaldi soft tissue that measures 0.5 x 0.5 x 0.1 cm. The specimen is totally submitted in one cassette. / SJ:milton 12/13/20 TC:1 CPT: 73455
[2020-12-13] MEDS: Glucagon 1 MG/ML Syringe (08:21)
[2020-12-13 08:35] VITALS: BP 107/76; BP 133/93; PULSE 87; RESP 16; TEMP 36.3; O2SAT 93
--- NOTE | 2020-12-13 08:39 | OP.CCLET_ITS ---
12/13/2020 Sherry Fritz [facility] Re : Colonoscopy procedure for Sergey Pringle [facility] This procedure was performed on Sunday, December 13, 2020. My impressions and recommendations are as follows: Impressions : - Hemorrhoids found on perianal exam. - One less than 5 mm polyp in the ascending colon, removed with a cold biopsy forceps. Resected and retrieved. - Non-bleeding internal hemorrhoids. - The examination was otherwise normal. Recommendations : - Discharge patient to home. - Resume previous diet. - Continue present medications. - Await pathology results. - Repeat colonoscopy in 5 years for surveillance based on pathology results. My findings are described in the full procedure note, which is enclosed. If I can be of further assistance, please feel free to contact me at Doctor phone number(s): , Work: . Sincerely, MD Antonette Lopez MD 12/13/2020 8:38:28 AM This report has been signed electronically.
--- NOTE | 2020-12-13 08:39 | OP.COLON_ITS ---
Patient Name: Sergey Curiel Procedure Date: 12/13/2020 7:01 AM Date of : 1965 Age: 55 Procedure: Colonoscopy Indications: Rectal bleeding Providers: Antonette Tapia MD Medicines: Monitored Anesthesia Care Patient Profile: This is a 55 year old male. Last Colonoscopy: none. The patient's first colonoscopy is today. Complications: No immediate complications. Procedure: Pre-Anesthesia Assessment: - Prior to the procedure, a History and Physical was performed, and patient medications and allergies were reviewed. The patient's tolerance of previous anesthesia was also reviewed. The risks and benefits of the procedure and the sedation options and risks were discussed with the patient. All questions were answered, and informed consent was obtained. Prior Anticoagulants: The patient has taken no previous anticoagulant or antiplatelet agents. ASA Grade Assessment: Per anesthesia. After reviewing the risks and benefits, the patient was deemed in satisfactory condition to undergo the procedure. After I obtained informed consent, the scope was passed under direct vision. Throughout the procedure, the patient's blood pressure, pulse, and oxygen saturations were monitored continuously. The pediatric colonoscope was introduced through the anus and advanced to the cecum, identified by the ileocecal valve-unable to intubate the cecum but able to visualize most of the cecum. The patient tolerated the procedure well. The quality of the bowel preparation was good. The colonoscopy was technically difficult and complex due to significant looping. Scope In: 7:54:12 AM Scope Withdrawal Time 0 hours 11 minutes 28 seconds Scope Out: 8:29:48 AM Total Procedure Duration Time 0 hours 35 minutes 36 seconds Findings: Hemorrhoids were found on perianal exam. at 12:00 on anus there is a superficial fistula tract only 1 cm in length. A less than 5 mm polyp was found in the ascending colon. The polyp was sessile. The polyp was removed with a cold biopsy forceps. Resection and retrieval were complete. Non-bleeding internal hemorrhoids were found. The hemorrhoids were Grade I (internal hemorrhoids that do not prolapse). The exam was otherwise without abnormality. Impression: - Hemorrhoids found on perianal exam. - One less than 5 mm polyp in the ascending colon, removed with a cold biopsy forceps. Resected and retrieved. - Non-bleeding internal hemorrhoids. - The examination was otherwise normal. Recommendation: - Discharge patient to home. - Resume previous diet. - Continue present medications. - Await pathology results. - Repeat colonoscopy in 5 years for surveillance based on pathology results. Procedure Code(s): --- Professional --- 93766, Colonoscopy, flexible; with biopsy, single or multiple Diagnosis Code(s): --- Professional --- K64.0, First degree hemorrhoids D12.2, Benign neoplasm of ascending colon K62.5, Hemorrhage of anus and rectum CPT copyright 2017 [employer]. All rights reserved. The codes documented in this report are preliminary and upon professional fee coder review may be revised to meet current compliance requirements. MD Antonette Lopez MD 12/13/2020 8:38:28 AM This report has been signed electronically. Number of Addenda: 0 Note Initiated On: 12/13/2020 7:01 AM
[2020-12-13 08:40] VITALS: BP 112/72; BP 133/93; PULSE 85; RESP 18; O2SAT 94
[2020-12-13 08:45] VITALS: BP 117/83; BP 133/93; PULSE 83; RESP 16; O2SAT 93
[2020-12-13 08:50] VITALS: BP 114/78; BP 133/93; PULSE 79; RESP 16; TEMP 36.4; O2SAT 94
[2020-12-13 09:09] VITALS: BP 133/93
== END 2020-12-13 09:36 | disposition home or self-care (01) ==
LOC: EN 06:37 → AC 06:38
PROVIDERS: Visit Provider Surgery
PROC: 0DJD8ZZ Inspection of Lower Intestinal Tract, Via Natural or Artificial Opening Endoscopic (ICD-10-PCS; CPT 45378; principal; 2020-12-13 07:55)
DX: D12.2 Benign neoplasm of ascending colon (principal); K64.0 First degree hemorrhoids; K62.5 Hemorrhage of anus and rectum; I12.9 Hypertensive chronic kidney disease with stage 1 through stage 4 chronic kidney disease, or unspecified chronic kidney disease; N18.9 Chronic kidney disease, unspecified; K21.9 Gastro-esophageal reflux disease without esophagitis; Q61.5 Medullary cystic kidney; M10.9 Gout, unspecified; F32.9 Major depressive disorder, single episode, unspecified; C43.9 Malignant melanoma of skin, unspecified; C79.89 Secondary malignant neoplasm of other specified sites
CPT/HCPCS: 45380; 88305; J7120; A4216; J1610; J2405

== ENCOUNTER 2020-12-27 14:00 | Outpatient (RCR) | payer MEDICAID, SELFPAY ==
[2020-10-10 10:11] VITALS: BMI 44.2
[2020-10-31 09:27] VITALS: BMI 44.2
--- NOTE | 2020-11-08 16:53 | HP.SP.AD_ITS ---
History - History Date of Eval: 11/08/20 Medical Diagnosis (from RX): Melanoma metastatic to head & neck region C79.89; Malignant melanoma of unk Previous speech therapy: No Other Relevant Medical History/Diagnoses/Surgery: 55-year-old male with stage IIIB (TX, N2B, M0) malignant melanoma with metastases in the left parotid and cervical lymph nodes. The primary was not detected despite ENT and dermatology evaluation and imaging by PET/CT. 05/04/2020: Patient was seen by [facility]. 05/12/2020: FNA of the left neck mass Pathology was consistent with high-grade malignant neoplasm not otherwise characterized. 06/06/2020: PET scan demons trated increased FDG distribution defined in the left lateral neck including level 2A and 3 and separate nodular presentations the maximum SUV is 15.7 and the maximum diameter of the largest lesion is 3.9 x 3.3 mm. No evidence of metastatic disease is identified. 06/14/2020: Pt was seen by ENT. On exam there is noted to be 2 fairly large adenopathy involving 1B and 2 on the left and measures close to 4-5 cm. NPL was carried out which demonstrated no evidence of mucosal lesions. 07/05/2020: CT neck with contrast demonstrated a heterogeneously enhancing nodular mass within level 1B of the neck on the left which measures approximately 43 mm in diameter. There are 2 heterogeneously enhancing nodular mass lesions within the level 2A of the neck on the left that measure 11 and 34 mm respectively. These are consistent with malignant lymph nodes. 07/20/2020: Patient underwent left superficial parotidectomy and left selective neck dissection of levels 1A through 4. Pathology demonstrated high- grade pleomorphic malignancy most consistent with metastatic melanoma measuring 5 cm within the left parotid gland. 2 lymph nodes obtained in this dissection were negative for malignancy 1/8 lymph nodes were positive for metastatic disease measuring 4.1 cm with no extranodal extension and level 1B, 0/8 lymph nodes were positive in level 2, 0/9 lymph nodes were positive in level 3. Submandibular gland was negative for malignancy. The initial superficial margin was 1 mm and reresection was obtained and negative for malignancy. Mitotic activity reaches 10 mitotic figures per 10 high-power danielson. Necrosis is present. No lymph vascular invasion or perineural invasion is present. The lesion is noted less than 1 mm from the superficial, posterior, and anterior margins the inferior margin is positive but is designated as not a true margin by the surgeon. 09/19/[address] Julian, radiation oncology, advised adjuvant radiation but declined. 09/2020 seen by dermatology at [facility], no primary cutaneous melanoma was identified. Past Medical History - Arthritis; Cancer; Chronic renal failure; Depression; DVT (deep venous thrombosis); Gastric reflux; Gastroesophageal reflux; Gout; History of edema; Hypertension; Kidney disease; Loose teeth; Low iron; Medullary sponge kidney of both kidneys; Morbid obesity; Non-smoker; Restless legs; Snoring; SOB (shortness of breath). Surgical History - History of appendectomy; History of carpal tunnel surgery; History of parotidectomy Smoking Status: Never smoker Hx Tobacco Use: No - Pain Is pain an issue with your current prescribed condition?: No Patient Allergies - Allergies Allergies No Known Allergies Allergy (Verified 10/31/20 09:27) Objective Oral Motor - Oral Status Dentition: Missing Teeth, Decay Objective Dysphagia - Administered by Administered by: Self - Thin Liquids Administred via: Cup, Straw, Spoon Symptoms: Throat Clearing Comments: Vocal quality change and throat clearing w/ 1/3 sips via cup. Delayed throat clearing w/ thin via straw. Tolerated sequential swallows via cup w/out overt s/s aspiration - Pureed Patient Report: sensation of residue in throat post deglutition; improved w/ liquid wash Comments: 2-3 swallows per bolus w/ suspected pharyngeal stasis - Regular Impaired Mastication: Mildly prolonged mastication, min oral residue, cleared w/ liquid wash Comments: pharyngeal residue suspected - Results Swallowing Within Normal Limits: No Swallowing Diagnosis: Oropharyngeal Phase Dysphagia Severity: Mild Dysphagia Assessment - Recommendations Modified Barium Swallow/Cookie Swallow Recommended: Yes - Diet Texture Recommendations Solids Other: Regular Liquids: Thin - Safety Saftey Precautions/Swallowing Recommendations (Check all that Apply): Alternate Liquids & Solids FOIS - Functional Oral Intake Scale Total oral diet with no restrictions: Level 7 SP Oncology PSS-HN - PSS-HN Test Normalcy of Diet: Full diet Scale Result:: 100 Public Eating: No restrictions of place, food or companions-eats out any opportunity Public eating scale: 100 Understandability of Speech: Always understandable Understandability of Speech Scale: 100 Other Impressions - Comments Cranial Nerve Examination -: TRIGEMINAL NERVE (V) ? impaired; decreased sensation to R side of the face, reduced floor of mouth tensing w/ jaw contraction. FACIAL NERVE (VII) ? no clinical abnormalities observed. VAGUS NERVE (X) ? no clinical abnormalities observed. HYPOGLOSSAL NERVE (XII) ? no clinical abnormalities observed Plan - Plan Plan: Will recommend the patient for skilled outpatient dysphagia therapy as clinically indicated following completion of recommended Modified Barium Swallow Study to objectively assess extent to which oropharyngeal swallow function has been impacted by left superficial parotidectomy and left selective neck dissection of levels 1A through 4. - Goal #1-5 Goal #1: The patient will consume least restrictive diet textures without overt s/s of aspiration with 90% accuracy with minimal verbal cues for use of compensatory strategies to decrease risk for aspiration. Goal #2: The patient will participate in MBS study to objectively assess swallow function and provide recommendations for safest, least restrictive diet and compensatory strategies to reduce risk for aspiration. Education - Patient has Indicated that the Following Identified Educational Needs: None The Patient has indicated that they have no educational or learning abilities that may effect their care.: Yes - Patient Instruction Patient Education: Diagnosis, Treatment Plan, Goals, Safety Precautions, Diet Level Other Education: Education provided re: impaired swallowing and increased risk for aspiration, aspiration related illnesses, weight loss, and malnutrition. Discussed importance of MBSS completion to objectively evaluate swallow function and to initiate dysphagia intervention as clinically indicated pending MBSS results. Person Taught: Patient Teaching Method: Discussion Response to teaching: Verbalize understanding
== END 2020-12-27 19:00 | disposition home or self-care (01) ==
LOC: SP 14:00
PROVIDERS: Referring Provider Student in an Organized Health Care Education/Training Program; Visit Provider Student in an Organized Health Care Education/Training Program
DX: C79.89 Secondary malignant neoplasm of other specified sites (principal); C43.9 Malignant melanoma of skin, unspecified
CPT/HCPCS: 92526; 92610

== ENCOUNTER → 2020-12-27 14:18 | Outpatient (CLI) | payer MEDICAID, SELFPAY ==
[2020-10-04 10:31] VITALS: BMI 43.7
[2020-12-27 16:17] LABS: Vitamin D,25 Hydroxy 40.4 ng/mL
[2020-12-27 16:21] LABS: Albumin, Serum 3.1 g/dL (3.2-5.0); BUN 23 mg/dL (7-18); Calcium,Total 9.5 mg/dL (8.5-10.1); Chloride 106 mmol/L (98-107); Creatinine, Serum 1.53 mg/dL (0.70-1.30); EST Glomerular Filtration Rate 50 mL/min (>60); Est Glom Filt Rate - Afr Amer 61 mL/min (>60); Glucose 139 mg/dL (74-106); Phosphorus 2.4 mg/dL (2.5-4.9); Potassium 3.9 mmol/L (3.5-5.1); Sodium Level 139 mmol/L (136-145); Uric Acid 9.4 mg/dL (3.5-7.2)
== END ==
PROVIDERS: Referring Provider Internal Medicine Nephrology; Visit Provider Internal Medicine Nephrology
DX: N18.31 Chronic kidney disease, stage 3a (principal); N17.9 Acute kidney failure, unspecified; E55.9 Vitamin D deficiency, unspecified; M10.9 Gout, unspecified
CPT/HCPCS: 36415; 80069; 82306; 84550

== ENCOUNTER → 2021-02-14 17:41 | Outpatient (CLI) | payer MEDICAID, SELFPAY ==
[2021-02-14 18:42] LABS: Free T3 2.9 pg/mL (2.18-3.98); T4 Free Direct 0.98 ng/dL (0.76-1.46)
[2021-02-17 08:53] LABS: Thyroid Peroxidase AB < 8 IU/mL (0-34)
== END ==
PROVIDERS: PCP Nurse Practitioner Adult Health; Visit Provider Nurse Practitioner Adult Health
DX: E03.9 Hypothyroidism, unspecified (principal)
CPT/HCPCS: 36415; 84439; 84481; 86376

== ENCOUNTER → 2021-03-20 07:15 | Outpatient (CLI) | payer MEDICAID, SELFPAY ==
--- NOTE | 2021-03-20 07:19 | CT_ITS ---
INDICATION: METASTATIC MELANOMA RESPONSE TO TREATMENT EXAMINATION: CT CHEST, ABDOMEN AND PELVIS WITH CONTRAST - CT Chest Abdomen And Pelvis W/ Contrast Injection TECHNIQUE: Helically acquired images were obtained of the chest, abdomen, and pelvis following IV contrast. CTA protocol with 3D reformats were performed. A radiation dose optimization technique was used for this scan. IV Contrast dosage and agent: 100 mL of ISOVUE-370 intravenous contrast Oral contrast: None. COMPARISON: 06/06/2020 PET scan.. FINDINGS: ----Chest: LUNGS, PLEURA AND LARGE AIRWAYS: A subtle 5 mm subpleural densities visualized in the lateral aspect of the inferior left lower lobe seen on axial series 8 image 50. The bronchovascular interstitial lung markings other is unremarkable, no evidence of parenchymal lung masses is seen. No evidence of focal lung infiltrates or consolidations. No pleural effusion or thickening. No pneumothorax. THYROID: No thyroid lesions. HEART AND PERICARDIUM: Heart size is normal. No pericardial effusion. VESSELS: Thoracic aorta is not dilated. No aortic dissection. No obvious central pulmonary embolism although this study was not performed with the pulmonary embolism protocol. MEDIASTINUM AND DIO: No mediastinal or hilar adenopathy. Esophagus is unremarkable. No hiatal hernia. BONES: No suspicious lytic or blastic abnormality. Degenerative bone changes seen. CHEST WALL: Right axillary lymph node visualized measuring 1.9 x 0.9 cm seen on axial series 2 image 73 demonstrates increase in size in comparison to the prior study where it was seen on the PET scan fusion images image 131-335. 3.1 x 3.5 x 2.4 cm soft tissue mass visualized in the right breast soft tissues seen on axial series 4image 1, on the prior study there was a subtle irregularity in the superficial/epidermis soft tissues that was seen at approximately the same location on axial series 3 image 130. Subcutaneous cyst visualized in the posterior chest soft tissues measuring 2.3 x 1.9 cm seen on axial series 2 image 1 demonstrates no significant change in comparison to the prior study consistent with a subcutaneous cyst most likely a sebaceous cyst. Abdomen/Pelvis: LIVER: Homogeneous. No focal mass. GALLBLADDER AND BILIARY TREE: No calcified gallstones. No gallbladder distension or wall edema. No intra- or extrahepatic biliary ductal dilation. PANCREAS: No focal cystic or solid mass. SPLEEN: Normal size without focal cystic or solid mass. ADRENAL GLANDS: No nodules. KIDNEYS AND URETERS: Normal renal size and position. No hydronephrosis. Scattered calcifications visualized within the kidneys bilaterally but no evidence of obstructive uropathy. PERITONEUM: No ascites or free air. No other fluid collection. BOWEL: No evidence of acute appendicitis. No stomach or bowel distension. No focal inflammatory change. LYMPH NODES: Scattered pelvic lymph nodes visualized most prominent along the iliac chain however these demonstrate no significant increase in size in comparison to the prior study and also on the prior study they did not demonstrate any increased metabolic activity. Seen on axial series 4 images 105 and 110. Bilateral inguinal lymphadenopathy seen. VESSELS: Aorta is non-dilated. URINARY BLADDER: Thickening of the wall of the urinary bladder however no evidence of bladder wall mass is seen. REPRODUCTIVE ORGANS: No pelvic masses. Calcifications visualized within the prostate gland. ABDOMINAL WALL: Bilateral inguinal hernia. No discrete abdominal or pelvic wall hernia. BONES: No lytic or blastic abnormality. CT/CT Chest, Abd, Pel w/Contrast IMPRESSION: 3.5 cm suspicious mass visualized in the right chest soft tissues demonstrating irregularity in its contour is longer than wider suspicious for malignancy. Right axillary lymph nodes demonstrates increase in size in comparison to the prior study. 2.3 cm cyst visualized in the left upper chest posterior subcutaneous soft tissues suggestive of a sebaceous cyst. Scattered lymph nodes visualized most prominent in the pelvis demonstrate no significant change in comparison to the prior study. Electronically Signed: Domingo Caceres MD at 11:58 EST Tel , Service support ,
--- NOTE | 2021-03-20 07:19 | CT_ITS ---
INDICATION: METASTATIC MELANOMA RESPONSE TO TREATMENT EXAMINATION: CT NECK WITH CONTRAST - CT Soft Tissue Neck W/ Contrast Injection TECHNIQUE: Helically acquired images were obtained of the neck following IV contrast. A radiation dose optimization technique was used for this scan. IV Contrast dosage and agent: 100 mL of ISOVUE-370 was administered. COMPARISON: 06/06/2020. FINDINGS: Surgical clips visualized in the left neck on axial series 3 image 68, the previously visualized the mass that was visualized along the anterior aspect of the left submandibular gland is not visualized this has been surgically excised, also noted is surgical excision of the left submandibular gland. Surgical clips visualized in the inferior posterior left parotid space seen on axial series 3 image 78, the previously visualized the 3.5 x 2.6 cm mass that was seen at this location is not visualized on today''s study, thus it has been surgically excised. Left submental, left level 1A lymph nodes seen on axial series 3 image 66 measuring 0.3 cm, on the prior study at this level there was a 0.5 cm lymph nodes. Suggesting suggestive of decrease in size. The previously visualized left submandibular, level 1B and to a lymph nodes level visualized on the prior study are not seen on today''s study. A 0.8 x 0.7 cm left medial supraclavicular lymph node visualized on axial series 3 image 59 is seen and is prominent in size, this was not seen on the prior study. Right submandibular, right level 1B lymph node is visualized on axial CT series 3 image 72 measuring 1.2 x 0.7 cm demonstrating increase in size in comparison to the prior study where it was visualized on axial series 3 image 62 and had measured 0.9 x 0.5 cm. Right submental, right level 1A lymph node visualized on axial series 3 image 62 measuring 0.6 x 0.7 cm this prominent in size, this was not visualized on the prior study. Right submental, right level 1A lymph node visualized on axial series 3 image 68 measuring 0.7 x 0.6 cm, on the prior study of dislocation there was a 0.4 cm lymph node seen. Right level 2A lymph node measuring 1.6 x 0.76 cm visualized on axial series 3 image 70 demonstrates slight prominence in size in comparison to the prior study where it was visualized on axial series 3 image 62 and had measured 1.3 x 0.73 cm. Multiple smaller right neck lymph nodes are visualized that demonstrates slight prominence in size. NASOPHARYNX: Unremarkable. SUPRAHYOID NECK: Unremarkable oropharynx, oral cavity, parapharyngeal space, and retropharyngeal space. INFRAHYOID NECK: Unremarkable larynx, hypopharynx, and supraglottis. THYROID: No focal lesions. SALIVARY GLANDS: Unremarkable. VASCULAR STRUCTURES: Unremarkable. VISUALIZED PORTIONS OF THE ORBITS, PARANASAL SINUSES, MASTOID AIR CELLS AND SKULL BASE: Unremarkable. BONES: Unremarkable. THORACIC INLET: Clear lung apices. CT/Soft Tissue Neck WITH Contrast IMPRESSION: The previously visualized left neck masses have been surgically excised. No evidence of residual or recurrent masses in the surgical beds. Cervical lymphadenopathy visualized as mentioned above. Electronically Signed: Domingo Caceres MD at 13:34 EST Tel , Service support ,
[2021-03-20] MEDS: 0.9% Saline Lock 10 ML Syringe IV (07:40)
== END ==
PROVIDERS: Referring Provider Internal Medicine Hematology & Oncology; Visit Provider Internal Medicine Hematology & Oncology
DX: C43.9 Malignant melanoma of skin, unspecified (principal); C79.89 Secondary malignant neoplasm of other specified sites
CPT/HCPCS: 70491; 71260; 74177; Q9967; A4216

== ENCOUNTER → 2021-03-22 07:16 | Outpatient (CLI) | payer MEDICAID, SELFPAY ==
--- NOTE | 2021-03-22 07:17 | NM_ITS ---
CLINICAL: 55-year-old male with history of malignant melanoma. WHOLE BODY 99m Tc MDP RADIONUCLIDE BONE SCINTIGRAPHY COMPARISON: [facility] PET/CT study report 06/06/2020 FINDINGS: Following the intravenous administration of 27.5 mCi of 99m Tc MDP, whole body bone images reveal: 1. Asymmetric increased radiopharmaceutical concentration is defined in the caudal aspect of the right sacroiliac joint. 2. Facilitated uptake is observed in the acromioclavicular and sternoclavicular compartments of both shoulders, bilateral knees and ankles, right-left mid and forefoot, sixth and 10th thoracic vertebra posteriorly on the left, second, fourth-fifth lumbar vertebra, bilateral posterior sacrum. 3. The remaining skeletal structures are scintigraphically unremarkable with normal-appearing renal images and urinary bladder activity identified. Enhanced uptake is noted in the bilateral maxilla most consistent with periostitis. NM/Bone Scan Whole Body IMPRESSION: 1. The increase in radiopharmaceutical concentration observed in the right sacroiliac joint, bilateral shoulders, right and left knees, ankles bilaterally, right-left midfoot and forefoot, thoracic and lumbar spine, sacrum is most consistent with degenerative arthritis. Plain film radiography correlation may be of benefit in the region of the right sacroiliac joint in the setting of known malignancy. 2. There is no definitive typical scintigraphic evidence of diffuse axial skeletal metastatic disease on the current examination. Electronically Signed: Surinder Quan DO at 7:15 EST Tel , Service support ,
[2021-03-22] MEDS: 0.9% Saline Lock 10 ML Syringe IV (07:55)
== END ==
PROVIDERS: Visit Provider Internal Medicine Hematology & Oncology
DX: C43.9 Malignant melanoma of skin, unspecified (principal); C79.89 Secondary malignant neoplasm of other specified sites
CPT/HCPCS: 78306; A9503; A4216

== ENCOUNTER 2021-04-04 15:58 | Outpatient (CLI) | payer MEDICAID, SELFPAY ==
--- NOTE | 2021-04-04 14:20 | BRBX_PTH ---
PATIENT: ALEJANDRA THORNTON LOC: [facility] U#:[id number] AGE/SX: 55/M ROOM: RE04/04/[address]: Dr. Alejandra Dimas MD : 1965 BED: DIS: 04/04/2021 SPEC #: [id number] RECD: 04/04/21 15:46 STATUS: FLORES TESFAYE #: [id number] GABRIELLE: 04/04/21 14:[address]: Alejandra Dimas DEPT: SURGICAL PATHOLOGY RECD BY: Gela Ron ENTERED: 04/05/21 07:26 SP TYPE: BREAST BX OTHR DR: [facility] Tissues: Right breast, NOS Procedures: Surgery Specimen Level IV HEADER OPERATION: Right breast biopsy PRE-OP DIAGNOSIS: Right breast mass TISSUE SUBMITTED: Right breast tissue MICROSCOPIC DIAGNOSIS Right breast mass, core biopsy: Consistent with gynecomastia. AM:milton 04/06/2021 MICROSCOPIC DESCRIPTION Slides are reviewed. GROSS DESCRIPTION Received in fixative is one container labeled with the patient's name and designated right breast. The specimen consists of multiple elongated fragments of rinaldi tissue that in aggregate measure 2 x 0.4 x 0.1 cm. The specimen is totally submitted in one cassette. / AM:milton 04/05/2021 TC:5 CPT: 39985
== END 2021-04-04 23:59 | disposition short-term general hospital (02) ==
LOC: LABSPEC 16:00
PROVIDERS: Visit Provider Surgery
DX: N63.10 Unspecified lump in the right breast, unspecified quadrant (principal)
CPT/HCPCS: 88305

== ENCOUNTER 2021-04-11 09:06 | Outpatient (CLI) | payer MEDICAID, SELFPAY ==
--- NOTE | 2021-04-11 09:11 | BI_ITS ---
MAMMOGRAPHY - BILATERAL DIAGNOSTIC REASON FOR EXAM: Male, 55 years old. Right breast mass seen on a CT scan. Prior ultrasound-guided biopsy of the mass in the right retroareolar region. PERTINENT HISTORY: Non-contributory. TECHNIQUE: Digital bilateral breast bernabe (3D mammographic acquisition) in the CC and MLO projections. 2-D mediolateral oblique (MLO) and craniocaudad (CC) views of both breasts were obtained. CAD: Full Field Digital Mammography with Computer Added Detection was performed. COMPARISON: None. FINDINGS: Breast Composition: Asymmetrical breast tissue is seen in the retroareolar region of the right breast. A tissue clip marker is seen within the asymmetrical breast tissue in the retroareolar region of the right breast. Bilateral axillary lymph nodes. The port of the right portacatheter is seen in the right axilla. Possible enlargement of the right axial lymph node. No other significant abnormalities are identified. BI/DIAG MAMM W/CAD, BILAT IMPRESSION: Status post biopsy of the asymmetrical soft tissue density in the retroareolar region of the right breast. Bilateral axillary lymph nodes. ASSESSMENT CATEGORY: BIRADS Category 2: Benign. A letter regarding these results will be sent to the patient by the facility within 30 days. Approximately 10% of breast cancers are not detected by mammography. A normal mammogram should not delay biopsy of a clinically suspicious abnormality. Electronically Signed: Refugio Ayala MD at 10:35 EST , Service support ,
== END 2021-04-11 23:59 | disposition short-term general hospital (02) ==
LOC: OPBI 09:07
PROVIDERS: Referring Provider Surgery; Visit Provider Surgery
DX: N63.10 Unspecified lump in the right breast, unspecified quadrant (principal)
CPT/HCPCS: 77062; 77066; G0279

== ENCOUNTER 2021-04-19 19:56 | Outpatient (CLI) | payer MEDICAID, SELFPAY | END 2021-04-19 23:59 | disposition short-term general hospital (02) | PROVIDERS: Visit Provider Nurse Practitioner Adult Health | DX: G47.00 Insomnia, unspecified (principal) | CPT/HCPCS: 95810 ==

== ENCOUNTER → 2021-12-17 | Outpatient (CLI) | payer MEDICAID, SELFPAY ==
--- NOTE | 2021-12-17 07:44 | CT_ITS ---
STUDY: CT SOFT TISSUE NECK WITH CONTRAST REASON FOR EXAM: Male, 56 years old. F/U MELANOMA WITH METS TO NECK LYMPH NODES. The patient is status post partial left parotidectomy. RADIATION DOSAGE (If Supplied By Facility): CTDIvol = ( 21.34 ) mGy, DLP = ( 2849.75 ) mGycm TECHNIQUE: The patient was scanned in a multi-detector CT scanner. High resolution transaxial imaging was performed following intravenous administration of IV 100mL Isovue-370. Sagittal and coronal images were reconstructed. Individualized dose optimization techniques were used for this CT. COMPARISON: Comparison is made with prior study dated 03/20/2021. FINDINGS: Once again, surgical clips are seen in the left side of the neck anterior to the left sternocleidomastoid muscle. This is unchanged. Surgical clips are once again seen within the deep portion of the left parotid gland. Normal bilateral teacher tutor spaces. Normal bilateral parapharyngeal spaces. Normal bilateral carotid spaces. Normal bilateral sublingual and submandibular glands and spaces. Normal visualized nasopharynx. Normal retropharyngeal space. Normal perivertebral space. Normal visualized bilateral faucial tonsils. The visualized tongue, tongue base and oropharynx are normal. There are minimally enlarged lymph nodes of the neck, with preservation of normal ewelina architecture, consistent with a reactive lymph hyperplasia. There is no demonstrated solid or cystic mass lesion. There is no abnormal contrast enhancement. Normal epiglottis, bilateral vallecula and hypopharynx. The pre-epiglottic and paraglottic adipose spaces are normal. Normal visualized bilateral piriform sinuses, aryepiglottic folds, vocal cords, and arytenoid-cricoid articulations. Normal subglottic trachea. Normal bilateral lobes of the thyroid gland. Normal visualized pulmonary apices. Partial opacification along the inferior aspect of the left maxillary sinus. There is degenerative changes of the cervical spine. CT/Soft Tissue Neck WITH Contrast IMPRESSION: Stable examination. No acute abnormality is seen. Electronically Signed: Refugio Ayala MD at 14:41 EDT ,
--- NOTE | 2021-12-17 07:48 | CT_ITS ---
STUDY: CT CHEST, ABDOMEN T PELVIS WITH CONTRAST REASON FOR EXAM: Male, 56 years old. F/U MELANOMA WITH METS TO NECK LYMPH NODES RADIATION DOSAGE (If Supplied By Facility): CTDIvol = ( 21.34 ) mGy, DLP = ( 2849.75 ) mGycm TECHNIQUE: Transaxial imaging was performed following intravenous administration of IV 100mL Isovue-370. Multiplanar coronal and sagittal images were reformatted. Individualized dose optimization techniques were used for this CT. COMPARISON: Comparison is made with prior examination dated 03/20/2021. FINDINGS: CHEST Stable 2.9 cm nodular density in the subareolar region of the right breast. A tissue clip marker is seen within it. Stable small benign-appearing bilateral axillary lymph nodes. The lungs are normal. There is no demonstrated pleural abnormality. Normal heart and pericardium. Normal mediastinum. Normal hilar regions. Normal unenhanced pulmonary arteries. Normal aorta arch and descending thoracic aorta. There are multi-level degenerative changes of the thoracic spine. There is no demonstrated abnormality of the visualized upper abdomen. ABDOMEN The visualized lung bases are unremarkable. The visualized portions of the heart are within normal limits. There is decreased attenuation of the liver consistent with steatosis. Normal gallbladder and extrahepatic biliary system. Normal spleen. Normal pancreas. Normal bilateral adrenal glands. Stable bilateral nonobstructive intrarenal calculi more prominent in the left kidney. Normal visualized stomach. Normal small intestine. There are scattered colonic diverticula consistent with diverticulosis. The appendix is visualized and appears normal. Normal abdominal aorta. Normal inferior vena cava. There is borderline retroperitoneal lymphadenopathy with enlarged nodes no greater than 10mm in the short axis diameter. There is a right-sided inguinal hernia containing adipose tissue. There are diffuse degenerative changes of the visualized lumbar spine. PELVIS Normal urinary bladder. Central prosthetic calcification. Normal visualized small intestine. Normal visualized colon. There is no pelvic fluid. There is no pelvic lymphadenopathy or mass lesion. Normal visualized pelvic arteries. CT/CT Chest, Abd, Pel w/Contrast IMPRESSION: Stable examination. No acute abnormality is seen. Electronically Signed: Refugio Ayala MD at 14:46 EDT ,
[2021-12-17 08:10] LABS: CREATININE FINGERSTICK 1.2 mg/dL (0.70-1.30); EGFR FINGERSTICK > 60.0000 mL/min (>60)
[2021-12-17 08:51] LABS: Absolute Lymphocyte Count 2.98 X10^3/uL (0.83-4.51); Absolute Neutrophil Count 3.9 X10^3/uL (2.0-7.7); Basophil# 0.03 X10^3/uL; Basophil% 0.4 % (0-1); Eosinophil# 0.34 X10^3/uL; Eosinophils% 4.2 % (0-5); Hematocrit 43.9 % (40-54); Hemoglobin 14.5 g/dL (13.0-16.5); Lymphocyte # 2.98 X10^3/ul (0.83-4.51); Lymphocyte % 36.6 % (19-41); Mean Corpuscular Hgb 29.6 pg (27.0-32.0); Mean Corpuscular Volume 89.6 fL (80-94); Mean Platelet Vol. 11.9 fl (6.2-12.0); Monocyte# 0.78 X10^3/uL; Monocyte% 9.6 % (0-10); NRBC Flagged by Analyzer 0 % (0-5); Neutrophil # 3.94 X10^3/uL (2.7-7.7); Neutrophil % 48.2 % (47-70); Platelet Count 172 K/mm3 (150-450); RBC Distribution Width CV 13.5 % (11.6-14.6); RBC Distribution Width SD 44.2 fl (35.1-43.9); White Blood Count 8.2 K/mm3 (4.4-11.0)
[2021-12-17 09:22] LABS: ALB/GLOB Ratio 0.9 RATIO (0.9-2.4); AST(SGOT) 46 U/L (15-37); Alanine Aminotransfer ALT/SGPT 76 U/L (16-61); Albumin, Serum 3.2 g/dL (3.2-5.0); Alkaline Phosphatase 91 U/L (45-117); Anion Gap 6 (5-15); BUN 21 mg/dL (7-18); BUN/Creat Ratio 14.8 RATIO (10-20); Calcium,Total 8.6 mg/dL (8.5-10.1); Chloride 108 mmol/L (98-107); Creatinine, Serum 1.42 mg/dL (0.70-1.30); EST Glomerular Filtration Rate 55 mL/min (>60); Est Glom Filt Rate - Afr Amer 66 mL/min (>60); Globulin 3.7 g/dL (2.2-4.2); Glucose 128 mg/dL (74-106); Magnesium 2.2 mg/dL (1.6-2.6); Phosphorus 2.8 mg/dL (2.5-4.9); Potassium 3.7 mmol/L (3.5-5.1); Protein, Total 6.9 g/dL (6.4-8.2); Sodium Level 142 mmol/L (136-145); T4 Free Direct 1.07 ng/dL (0.76-1.46); Thyroid Stim Hormone (TSH) 5.06 uIU/mL (0.358-3.74)
== END | disposition home or self-care (01) ==
PROVIDERS: Referring Provider Internal Medicine Hematology & Oncology; Visit Provider Internal Medicine Hematology & Oncology
DX: C43.9 Malignant melanoma of skin, unspecified (principal); C79.89 Secondary malignant neoplasm of other specified sites
CPT/HCPCS: 36415; 70491; 71260; 74177; 80053; 82533; 83735; 84100; 84439; 84443; 85025; Q9967

== ENCOUNTER → 2021-12-21 | Outpatient (CLI) | payer MEDICAID, SELFPAY ==
--- NOTE | 2021-12-21 07:40 | NM_ITS ---
CLINICAL: 56-year-old male history of malignant melanoma. WHOLE BODY 99m Tc MDP RADIONUCLIDE BONE SCINTIGRAPHY COMPARISON: Previous whole body bone scintigraphy study dated 03/22/2021 FINDINGS: Following the intravenous administration of 27.5 mCi of 99m Tc MDP, whole body bone images reveal: 1. Increased radiopharmaceutical concentration is redefined in the seventh and 10th thoracic vertebra, the third lumbar vertebra, right sacroiliac joint, the shoulder and knee articulations bilaterally, the left ankle and bilateral midfoot. 2. The remaining skeletal structures are scintigraphically unremarkable with normal-appearing renal images and urinary bladder activity identified. NM/Bone Scan Whole Body IMPRESSION: 1. The persistently increased radiotracer concentration noted in the thoracic and lumbar spine, right sacroiliac joint, the bilateral shoulders, both knee articulations, the left ankle and right-left midfoot remain consistent with degenerative arthritis. 2. Overall compared to the previous examination dated 03/22/2021, there is no significant interval change. There is no evidence of diffuse axial skeletal metastatic disease. Electronically Signed: Surinder Quan, at 9:03 EDT ,
== END | disposition home or self-care (01) ==
LOC: NM 07:37
PROVIDERS: Referring Provider Internal Medicine Hematology & Oncology; Visit Provider Internal Medicine Hematology & Oncology
DX: C79.89 Secondary malignant neoplasm of other specified sites (principal); C43.9 Malignant melanoma of skin, unspecified
CPT/HCPCS: 78306; A9503

== ENCOUNTER → 2022-04-23 | Outpatient (CLI) | payer MEDICAID, SELFPAY ==
--- NOTE | 2022-04-23 17:29 | CT_ITS ---
HISTORY: F/U MELANOMA, LEFT SIDE OF NECK - PAROTIDECTOMY AND SELECTIVE RESECTION OF MASS ONE YEAR AGO. TECHNIQUE: Helically acquired images were obtained of the neck after the intravenous administration of 100 mL Isovue 370. A radiation dose optimization technique was used for this scan. 324 images. COMPARISON: 12/17/2021, 03/20/2021. FINDINGS: NASOPHARYNX: Unremarkable. SUPRAHYOID NECK: Unremarkable oropharynx, oral cavity, parapharyngeal space, and retropharyngeal space. INFRAHYOID NECK: Unremarkable larynx, hypopharynx, and supraglottis. THYROID: Homogeneous with chronic small calcification in the left lobe. SALIVARY GLANDS: Chronic postoperative changes in the left neck with resection of the left submandibular gland and surgical clips at the deep parotid. Chronic scarring along the left sternocleidomastoid muscle. No rim-enhancing fluid collection or recurrent enhancing mass. LYMPH NODES: Stable 7 x 13 mm right level 2 lymph node. Scattered small lymph nodes in the left neck without pathologic enlargement. VASCULAR STRUCTURES: Mild carotid atherosclerosis. ORBITS: Symmetric contents without fluid collection or enhancing mass. PARANASAL SINUSES, MASTOID AIR CELLS: Mild maxillary and frontoethmoid mucosal thickening. Clear mastoid air cells. OSSEOUS STRUCTURES: Dental and periodontal disease. Mild degenerative changes of the cervical spine. No suspicious osteoblastic or osteolytic lesion. LUNG APICES: Clear. CT/Soft Tissue Neck WITH Contrast IMPRESSION: No significant interval change. Chronic postoperative changes of the left neck. Electronically Signed: Melba Johnson MD at 14:44 EST ,
== END | disposition home or self-care (01) ==
LOC: CT 17:29
PROVIDERS: Visit Provider Internal Medicine Hematology & Oncology
DX: C43.9 Malignant melanoma of skin, unspecified (principal); C79.89 Secondary malignant neoplasm of other specified sites
CPT/HCPCS: 70491; Q9967

== ENCOUNTER → 2022-10-15 | Outpatient (CLI) | payer MEDICAID, SELFPAY ==
--- NOTE | 2022-10-15 08:04 | CT_ITS ---
STUDY: CT SOFT TISSUE NECK WITH CONTRAST REASON FOR EXAM: Male, 57 years old. F/U METS MELANOMA UNKNOWN PRIMARY -- IV CONTRAST ONLY RADIATION DOSAGE (If Supplied By Facility): CTDIvol = ( 21.75 ) mGy, DLP = ( 2950.36 ) mGycm TECHNIQUE: The patient was scanned in a multi-detector CT scanner. High resolution transaxial imaging was performed following intravenous administration of IV 100mL Isovue-300. Sagittal and coronal images were reconstructed. Individualized dose optimization techniques were used for this CT. COMPARISON: Comparison is made with prior study dated April 23, 2022. FINDINGS: Normal bilateral parotid glands. Normal bilateral studio coordinator spaces. Normal bilateral parapharyngeal spaces. Normal bilateral carotid spaces. Once again, the patient is status post partial left neck dissection involving the left submandibular gland. There is postoperative scarring along the left sternocleidomastoid muscle. Normal visualized nasopharynx. Normal retropharyngeal space. Normal perivertebral space. Normal visualized bilateral faucial tonsils. The visualized tongue, tongue base and oropharynx are normal. Stable scattered small benign-appearing cervical lymph nodes. There is no demonstrated solid or cystic mass lesion. There is no abnormal contrast enhancement. Normal epiglottis, bilateral vallecula and hypopharynx. The pre-epiglottic and paraglottic adipose spaces are normal. Normal visualized bilateral piriform sinuses, aryepiglottic folds, vocal cords, and arytenoid-cricoid articulations. Normal subglottic trachea. Normal bilateral lobes of the thyroid gland. Normal visualized pulmonary apices. Normal visualized paranasal sinuses. There is degenerative changes of the cervical spine. CT/Soft Tissue Neck WITH Contrast IMPRESSION: Stable examination. Electronically Signed: Refugio Ayala MD at 13:10 EDT ,
--- NOTE | 2022-10-15 08:04 | CT_ITS ---
INDICATION: F/U METS MELANOMA UNKNOWN PRIMARY EXAMINATION: CT CHEST AND ABDOMEN WITH CONTRAST - CT Chest And Abdomen W/ Contrast Injection TECHNIQUE: Helically acquired images were obtained of the chest and abdomen. A radiation dose optimization technique was used for this scan. IV Contrast dosage and agent: RADIATION DOSE: Total DLP: 2950.36 mgy-cm Oral contrast: None. COMPARISON: December 17, 2021 FINDINGS: ----Chest: LUNGS, PLEURA AND LARGE AIRWAYS: No masses, consolidation, or edema. No pleural effusion or thickening. No pneumothorax. THYROID: No thyroid lesions. HEART AND PERICARDIUM: Heart size is normal. No pericardial effusion. VESSELS: Thoracic aorta is not dilated. MEDIASTINUM AND DIO: No mediastinal or hilar adenopathy. Esophagus is unremarkable. No hiatal hernia. BONES: No suspicious lytic or blastic abnormality. SOFT TISSUES: Again noted is subareolar soft tissue prominence in the breast soft tissues. ----Abdomen (without Pelvis): LIVER: Homogeneous. No focal mass. There is mild diffuse fatty infiltration of the liver. GALLBLADDER AND BILIARY TREE: No calcified gallstones. No gallbladder distension or wall edema. No intra- or extrahepatic biliary ductal dilation. PANCREAS: No focal cystic or solid mass. SPLEEN: Normal size without focal cystic or solid mass. ADRENAL GLANDS: No nodules. KIDNEYS AND URETERS: Punctate nonobstructing stones are noted in both kidneys without evidence for hydronephrosis. PERITONEUM: No ascites or free air. No other fluid collection. BOWEL: No evidence of acute appendicitis. No stomach or bowel distension. No focal inflammatory change. LYMPH NODES: No enlarged mesenteric or retroperitoneal lymph nodes. VESSELS: Aorta is non-dilated. ABDOMINAL WALL: No discrete abdominal wall hernia. BONES: No lytic or blastic abnormality. CT/CT Chest AND Abd W/ Contrast IMPRESSION: No acute intra-abdominal or pelvic pathology. Additional findings as described above. Electronically Signed: Naveed Cho, at 11:11 EDT ,
[2022-10-15 10:12] LABS: Absolute Lymphocyte Count 1.65 X10^3/uL (0.83-4.51); Absolute Neutrophil Count 3.9 X10^3/uL (2.0-7.7); Basophil# 0.02 X10^3/uL; Basophil% 0.3 % (0-1); Eosinophil# 0.22 X10^3/uL; Eosinophils% 3.5 % (0-5); Hematocrit 42.7 % (40-54); Hemoglobin 13.6 g/dL (13.0-16.5); Lymphocyte # 1.65 X10^3/ul (0.83-4.51); Mean Corp Hgb Conc 31.9 g/dL (32-36); Mean Corpuscular Hgb 28.5 pg (27.0-32.0); Mean Corpuscular Volume 89.5 fL (80-94); Monocyte# 0.53 X10^3/uL; Monocyte% 8.3 % (0-10); NRBC Flagged by Analyzer 0 % (0-5); Neutrophil # 3.86 X10^3/uL (2.7-7.7); Neutrophil % 60.8 % (47-70); Platelet Count 126 K/mm3 (150-450); RBC Distribution Width CV 14.3 % (11.6-14.6); RBC Distribution Width SD 46.2 fl (35.1-43.9); Red Blood Count 4.77 M/mm3 (4.6-6.2); White Blood Count 6.4 K/mm3 (4.4-11.0)
[2022-10-15 10:56] LABS: ALB/GLOB Ratio 0.9 RATIO (0.9-2.4); AST(SGOT) 29 U/L (15-37); Alanine Aminotransfer ALT/SGPT 44 U/L (16-61); Alkaline Phosphatase 70 U/L (45-117); Anion Gap 5 (5-15); BUN 23 mg/dL (7-18); BUN/Creat Ratio 16.3 RATIO (10-20); Calcium,Total 9.2 mg/dL (8.5-10.1); Chloride 109 mmol/L (98-107); Creatinine, Serum 1.41 mg/dL (0.70-1.30); EST Glomerular Filtration Rate 55 mL/min (>60); Est Glom Filt Rate - Afr Amer 66 mL/min (>60); Globulin 3.5 g/dL (2.2-4.2); Glucose 146 mg/dL (74-106); Protein, Total 6.5 g/dL (6.4-8.2); Sodium Level 138 mmol/L (136-145); T4 Free Direct 1.09 ng/dL (0.76-1.46)
[2022-10-15 16:45] LABS: Xtra Tube EP Lab EXTRA TUBE
== END | disposition home or self-care (01) ==
PROVIDERS: Referring Provider Internal Medicine Hematology & Oncology; Visit Provider Internal Medicine Hematology & Oncology
DX: C43.9 Malignant melanoma of skin, unspecified (principal); C79.89 Secondary malignant neoplasm of other specified sites
CPT/HCPCS: 36415; 70491; 71260; 74160; 80053; 84439; 84443; 85025; Q9967; A4216

== ENCOUNTER 2023-01-31 08:57 | Emergency (ER) | payer MEDICAID, SELFPAY ==
[2023-01-31 08:58] VITALS: BP 158/117; PULSE 102; RESP 20; TEMP 36; O2SAT 99; BMI 40.5
--- NOTE | 2023-01-31 09:09 | EKG12_ITS ---
Test Reason : DKA Blood Pressure : / mmHG Vent. Rate : 089 BPM Atrial Rate : 089 BPM P-R Int : 174 ms QRS Dur : 102 ms QT Int : 366 ms P-R-T Axes : 037 -02 043 degrees QTc Int : 445 ms Normal sinus rhythm Normal ECG Confirmed by JOSE JUAN KIRK, JADYN ([id number]), development editor KOFFI RAUSCH ([id number]) on 02/03/2023 8:27:14 AM Referred By: Confirmed By:REGGIE MANZANO MD
--- NOTE | 2023-01-31 09:12 | NURSING ---
NO OLD EKG
--- NOTE | 2023-01-31 09:22 | EDS_ITS ---
HPI History of Present Illness Chief Complaint: Flank Pain Detail of Chief Complaint: I feel terrible Informant: patient and spouse/S.O. Onset/Context/Timing Onset: Weeks Context: Gradual Onset Timing: Continuous Quality: Not feeling well, lack of energy, symptoms of new onset diabetes Location: Generalized Current Severity: Moderate Maximum Severity: Moderate Worsened by: Nothing Relieved by: Nothing Associated Symptoms Associated Symptoms: Polyuria, polydipsia and weight loss Narrative Narrative: Patient is a 57-year-old male with history of melanoma, morbid obesity, hypertension, chronic renal disease seen by Dr. Brunson, degenerative joint disease who presents because he does not feel well. He has not felt well for the past several weeks. He endorses thirst, dry mouth, lightheadedness, polyuria, polydipsia and nocturia. He denies history of diabetes. Patient denies headache, he does endorse by lateral blurred vision. He denies d ouble vision. He denies ringing his ears or decreased hearing. He denies rhinorrhea, congestion, postnasal drip or sore throat. He denies chest pain, pressure or tightness. He recently has been sleeping in a chair. He denies PND. He does endorses shortness of breath. He does have a cough. Cough is nonproductive. He has never smoked. He denies vomiting or diarrhea. He denies change in color, consistency or caliber of his stool. Prior similar symptoms: No Recent Illness/Hospitalization: Yes (Recent diagnosis melanoma with metastasis. Patient was seen by both [place]) [facility] Medical History Arthritis Cancer Chronic renal failure Depression DVT (deep venous thrombosis) Encounter for immunotherapy Gastric reflux Gastroesophageal reflux Generalized headaches Gout History of edema Hypertension Immunotherapy Impaired glucose tolerance Kidney disease Loose, teeth Low iron Medullary sponge kidney of both kidneys Morbid obesity Non-smoker Oral candidiasis Restless legs Snoring SOB (shortness of breath) Home Medications ramipril 10 mg capsule 10 mg PO LUNCH bp 09/12/20 [History Last Taken Unknown] Hydrocortisone 2.5%/lidocaine 5% suppository (cmpd) (hydrocortisone 2.5%/lidocaine 5% suppository (compound)) #1 pkg 11/20/20 [Rx Last Taken Unknown] allopurinol 100 mg tablet 300 mg PO DAILY gout 01/23/21 [History Last Taken Unknown] oxygen-air delivery systems 07/31/21 [History Last Taken Unknown] sertraline 100 mg tablet (Zoloft) 100 mg PO DAILY 12/17/21 [History Last Taken Unknown] metformin 500 mg tablet 500 mg PO BID #60 tabs 01/31/23 [Rx Last Taken Unknown] Allergy/AdvReac Type Severity Reaction Status Date / Time No Known Allergies Allergy Verified 10/22/22 13:12 Family History (Reviewed 01/31/23 @ 09: by Dr. Adam Mckeon MD) Mother Liver disease Father Lung cancer Hypertension Surgical History (Reviewed 01/31/23 @ 09: by Dr. Adam Mckeon MD) History of appendectomy History of carpal tunnel surgery History of parotidectomy History of surgery Social History (Reviewed 01/31/23 @ 09: by Dr. Adam Mckeon MD) Smoking Status: Never smoker second hand exposure: No alcohol intake: never substance use type: does not use yohan/catholic: None seatbelt use: never do you feel safe at home: Yes ROS ROS ED Constitutional Constitutional ED: Reports weight loss; Denies chills, fever(s), subjective or sweats Eyes Eyes: Reports blurry vision bilateral; Denies change in vision or diplopia ENT ENT ED: Denies ear pain, rhinorrhea or sore throat Cardiovascular Cardiovascular: Reports orthopnea; Denies chest pain, palpitations, paroxysmal nocturnal dyspnea or racing heartbeat Respiratory/Chest Respiratory/Chest: Reports cough, dyspnea, dyspnea on exertion and orthopnea; Denies paroxysmal nocturnal dyspnea Gastrointestinal Gastrointestinal: Denies abdominal pain, constipation, diarrhea, melena, nausea or vomiting Genitourinary Genitourinary ED: Denies dysuria or urinary frequency Musculoskeletal Musculoskeletal: Denies arthralgias or myalgias Integumentary Denies rash Neurologic Neurologic: Reports weakness; Denies headache(s) or paresthesias Psychiatric Psychiatric: Reports depression Endocrine Endocrinology: Reports polydipsia, polyphagia and polyuria; Denies cold intolerance or heat intolerance Hematologic/Lymphatic Hematologic/Lymphatic: Reports systems reviewed and no addt'l complaints, except as documented Allergic/Immunologic Allergic/Immunologic ED: Denies mouth swelling or tongue swelling EXAM Physical Exam Const Vital Signs: 01/31/23 08:58 01/31/23 09:25 01/31/23 11:35 Temperature 96.8 F L Temperature Source Temporal Pulse Rate 102 H 94 94 Respiratory Rate 20 H 20 H 23 H Blood Pressure 158/117 H 145/106 H 134/89 H Blood Pressure Mean 130 119 104 Pulse Ox 99 Oxygen Delivery Method Room Air Room Air 01/31/23 14:02 Temperature Temperature Source Pulse Rate Respiratory Rate 16 Blood Pressure Blood Pressure Mean Pulse Ox Oxygen Delivery Method Room Air Positive well nourished, well developed, obese and unkempt Constitutional Narrative: Patient appears ill. He does not appear toxic. General Appearance ED: unkempt, well developed and pallor; Negative for cyanotic or diaphoretic Nutritional Appearance: obese HEENT Reports dry mucous membranes HEENT Narrative: Head is atraumatic and normocephalic. Ears are normal. Nares are patent. There is no sinus tenderness, frontal, ethmoid or maxillary. Posterior pharynx is unremarkable. Scars noted neck due to resection of parotid and neck mass. Mouth ED: Yes dry mucous membranes Mouth: dry mucous membranes Eyes PERRL and EOMs intact bilaterally General Eye ED: Negative for pale conjunctiva or scleral icterus Neck no lymphadenopathy, supple and no JVD Chest Wall inspection of chest normal and palpation of chest normal Resp normal respiratory effort and clear to auscultation bilaterally Cardio regular rhythm, S1 normal heart sound, S2 normal heart sound and no murmurs Rate: tachycardic GI normal to inspection, nondistended, normoactive bowel sounds, non-tender, non- distended and no masses; Negative for hepatosplenomegaly Palpation: soft Back/Spine no CVA tenderness Back/Spine Narrative: Normal inspection. Thoracic Spine / Upper Back: Negative for thoracic spinal tenderness Lumbar Spine / Lower Back: Negative for lumbar spinal tenderness Extremity normal to inspection Extremity Narrative: 2 mm depression distal legs and feet. Patient has stigmata PAD. D.P.M. PT pulses are palpable diminished. General Extremety ED: Yes edema; Negative for tenderness General Extremity: edema Neuro oriented x3, CN's II-XII intact bilaterally and no sensory deficits noted Sensorium / Orientation: alert Motor Exam: strength 5/5 throughout Psych Appearance: unkempt Mood & Affect: depressed Skin no rashes or lesions noted and no wounds General Skin Exam: pallor; Negative for elasticity normal or jaundice MDM MDM MDM Narrative Medical decision making narrative: Patient's symptoms are consistent with new onset diabetes. PGT was obtained and is elevated. EKG was obtained to assess for cardiac ischemia and any changes which suggestive of hyperkalemia. ED DKA order set was initiated. Patient received fluids as clinically he is dehydrated. BMP was obtained to assess glucose and CO2 anion gap. Also to assess his electrolytes. Furthermore since he has known kidney disease to determine if his BUN and creatinine are elevated from baseline. Prior records were reviewed. Reviewed Dr. Busby's records. Which is quite complete. The note was authored October 22, 2022. History & Record Review Discussion w/independent historian: Patient and Significant other Additional record(s) reviewed:: Prior outpatient record, Prior ED visit and Prior labs Lab Data Attestation: I reviewed the patient's lab results. Lab results narrative: White count is 3.7 which is low and abnormal for patient. Differential is normal. H&H is normal. BMP is remarked for glucose of 412 with a normal CO2 and anion gap. Creatinine is elevated 1.82 and is elevated from baseline. GFR is 41. Urinalysis is remarkable for protein, glucose, ketones and occult blood. Microscopic is unremarkable. Labs: Laboratory Results - last 24 hr 01/31/23 01/31/23 01/31/23 09:11 09:28 09:39 WBC 3.7 L RBC 5.49 Hgb 15.5 Hct 46.9 MCV 85.4 MCH 28.2 MCHC 33.0 RDW Std Deviation 40.1 RDW Coeff of Kleber 12.9 Plt Count 78 L MPV 12.1 H Immature Gran % (Auto) 0.500 Neut % (Auto) 63.3 Lymph % (Auto) 26.5 Bond % (Auto) 9.1 Eos % (Auto) 0.3 Baso % (Auto) 0.3 Absolute Neuts (auto) 2.4 Absolute Lymphs (auto) 0.99 Nucleated RBC % 0 Platelet Estimate MOD DEC Sodium 131 L Potassium 3.6 Chloride 99 Carbon Dioxide 26.0 Anion Gap 6 BUN 28 H Creatinine 1.82 H Estim Creat Clear Calc 45.68 Est GFR (MDRD) Af Amer 49 L Est GFR (MDRD) Non-Af 41 L BUN/Creatinine Ratio 15.4 Glucose 412 H Hemoglobin A1c 12.7 H Calcium 8.5 Magnesium 1.9 Urine Color Yellow Urine Clarity Clear Urine pH 6.0 Ur Specific [place] 1.010 Urine Protein 30 H Urine Glucose (UA) 1000 H Urine Ketones 15 H Urine Occult Blood 25 H Urine Nitrite Negative Urine Bilirubin Negative Urine Urobilinogen Normal Ur Leukocyte Esterase Negative Urine RBC 0-5 SEEN Urine WBC 0 SEEN Ur Squamous Epith Cells 0-5 SEEN Urine Bacteria 0 SEEN Urine Mucus 0 SEEN POC Glucose 453 H* 01/31/23 01/31/23 01/31/23 11:19 12:14 12:15 WBC RBC Hgb Hct MCV MCH MCHC RDW Std Deviation RDW Coeff of Kleber Plt Count MPV Immature Gran % (Auto) Neut % (Auto) Lymph % (Auto) Bond % (Auto) Eos % (Auto) Baso % (Auto) Absolute Neuts (auto) Absolute Lymphs (auto) Nucleated RBC % Platelet Estimate Sodium 134 L 134 L Potassium 4.0 3.9 Chloride 101 104 Carbon Dioxide 25.0 29.0 Anion Gap 8 1 L BUN 25 H 26 H Creatinine 1.62 H 1.68 H Estim Creat Clear Calc 51.32 49.49 Est GFR (MDRD) Af Amer 57 L 54 L Est GFR (MDRD) Non-Af 47 L 45 L BUN/Creatinine Ratio 15.4 15.5 Glucose 364 H 349 H Hemoglobin A1c Calcium 7.9 L 8.2 L Magnesium Urine Color Urine Clarity Urine pH Ur Specific [place] Urine Protein Urine Glucose (UA) Urine Ketones Urine Occult Blood Urine Nitrite Urine Bilirubin Urine Urobilinogen Ur Leukocyte Esterase Urine RBC Urine WBC Ur Squamous Epith Cells Urine Bacteria Urine Mucus POC Glucose 340 H EKG Initial EKG: Attestation: I personally reviewed and interpreted this EKG as follows: Interpretation: Sinus Rhythm (Rate is 89. EKG is normal. MS interval is 174 ms. Castration 102 ms. QT durations are 6 6 ms. [place] is normal.) Treatment and Re-Evaluation :: Patient was reassessed at 1118. Patient appears better. He reports feeling better. He just received the insulin that was ordered. Will reassess in an hour. He is a candidate for outpatient treatment. He has an appointment to see his doctor in 1 week. He was informed that his creatinine is higher than baseline. He is requesting something to eat. Nurse was told to get him a diabetic diet. Patient was able to eat. Patient's blood sugars improved. Plan is discharged on metformin. He has an appointment with his doctor next week. Discharge Plan Triage Chief Complaint: Flank Pain Other Complaint: Abd Pain ED Provider: Adam Mckeon Dx/Rx/DC Orders Clinical Impression: New onset type 2 diabetes mellitus, Melanoma metastatic to head and neck region, Adult BMI 40.0-44.9 kg/sq m, Acute kidney injury superimposed on chronic kidney disease Instructions: ED Diet: Diabetes, ED Hyperglycemia New Susp Diabetes Prescriptions: New metformin 500 mg tablet 500 mg PO BID Qty: 60 0RF No Action ramipril 10 mg capsule 10 mg PO LUNCH allopurinol 100 mg tablet 300 mg PO DAILY (DME) hydrocortisone 2.5%/lidocaine 5% suppository (compound) Suppository See Rx Instructions .ROUTE .MEDSUPPLY Qty: 1 1RF Rx Instructions: insert into rectum twice daily (DME) Horizon Nasal Cpap System Device MISCELLANEOUS sertraline [Zoloft] 100 mg Tablet 100 mg PO DAILY Primary Care Provider: [facility] Sherry Verduzco Referrals: [facility] Sherry Verduzco [Primary Care Provider] - [facility] appointment Disposition Disposition: Home, Self Care
[2023-01-31 09:25] VITALS: BP 145/106; PULSE 94; RESP 20
[2023-01-31] MEDS: 0.9% Normal Saline (1000mL) 1,000 ML 1000 ML IV (09:27)
[2023-01-31 09:30] LABS: Bedside Glucose 453 mg/dL (74-106)
[2023-01-31 09:45] LABS: Absolute Lymphocyte Count 0.99 X10^3/uL (0.83-4.51); Absolute Neutrophil Count 2.4 X10^3/uL (2.0-7.7); Basophil# 0.01 X10^3/uL; Basophil% 0.3 % (0-1); Eosinophil# 0.01 X10^3/uL; Eosinophils% 0.3 % (0-5); Hematocrit 46.9 % (40-54); Hemoglobin 15.5 g/dL (13.0-16.5); Lymphocyte # 0.99 X10^3/ul (0.83-4.51); Lymphocyte % 26.5 % (19-41); Mean Corpuscular Hgb 28.2 pg (27.0-32.0); Mean Corpuscular Volume 85.4 fL (80-94); Mean Platelet Vol. 12.1 fl (6.2-12.0); Monocyte# 0.34 X10^3/uL; Monocyte% 9.1 % (0-10); NRBC Flagged by Analyzer 0 % (0-5); Neutrophil # 2.36 X10^3/uL (2.7-7.7); Neutrophil % 63.3 % (47-70); POSITIVE COUNT YES; Platelet Count 78 K/mm3 (150-450); RBC Distribution Width CV 12.9 % (11.6-14.6); RBC Distribution Width SD 40.1 fl (35.1-43.9); Red Blood Count 5.49 M/mm3 (4.6-6.2); White Blood Count 3.7 K/mm3 (4.4-11.0)
[2023-01-31 09:46] LABS: Bacteria 0 SEEN /hpf (None Seen); Mucous, Urine 0 SEEN /hpf (<or=2+); White Blood Cells 0 SEEN /hpf (0-5)
[2023-01-31 09:50] LABS: Anion Gap 6 (5-15); BUN 28 mg/dL (7-18); BUN/Creat Ratio 15.4 RATIO (10-20); Calcium,Total 8.5 mg/dL (8.5-10.1); Chloride 99 mmol/L (98-107); Creatinine, Serum 1.82 mg/dL (0.70-1.30); Differential Indicated SCAN CRITERIA MET; EST Glomerular Filtration Rate 41 mL/min (>60); Est Glom Filt Rate - Afr Amer 49 mL/min (>60); Estimated Creatinine Clearance 45.68 ml/min; Glucose 412 mg/dL (74-106); Magnesium 1.9 mg/dL (1.6-2.6); Potassium 3.6 mmol/L (3.5-5.1); Sodium Level 131 mmol/L (136-145)
[2023-01-31 10:17] LABS: Platelet Estimate MOD DEC (ADEQ)
[2023-01-31 10:18] LABS: Color, Urine Yellow (Yellow); Glucose, Dipstick 1000 mg/dl (Normal); Ketone-Dipstick 15 mg/dl (Negative); Leukocyte Esterase-Dipstick Negative /ul (Negative); Nitrite-Dipstick Negative (Negative); Occult Blood-Urine 25 /ul (Negative); Protein-Dipstick 30 mg/dl (Negative); Urine Bilirubin Dipstick Negative (Negative); Urine Clarity Clear (Clear); Urine Urobilinogen Normal (Normal)
[2023-01-31 10:27] LABS: Red Blood Cells-Urine 0-5 SEEN /hpf (0-5); Squamous Epithelial Cells - UA 0-5 SEEN /hpf (0-5)
[2023-01-31 11:07] LABS: Hemoglobin A1c 12.7 % (3.8-5.6)
[2023-01-31] MEDS: Insulin Lispro 100 UNIT/ML INSULN.PEN SC (11:15)
[2023-01-31 11:35] VITALS: BP 134/89; PULSE 94; RESP 23
[2023-01-31 11:52] LABS: Anion Gap 8 (5-15); BUN 25 mg/dL (7-18); BUN/Creat Ratio 15.4 RATIO (10-20); Calcium,Total 7.9 mg/dL (8.5-10.1); Chloride 101 mmol/L (98-107); Creatinine, Serum 1.62 mg/dL (0.70-1.30); EST Glomerular Filtration Rate 47 mL/min (>60); Est Glom Filt Rate - Afr Amer 57 mL/min (>60); Estimated Creatinine Clearance 51.32 ml/min; Glucose 364 mg/dL (74-106); Sodium Level 134 mmol/L (136-145)
[2023-01-31 12:31] LABS: Bedside Glucose 340 mg/dL (74-106)
[2023-01-31 12:38] LABS: Anion Gap 1 (5-15); BUN 26 mg/dL (7-18); BUN/Creat Ratio 15.5 RATIO (10-20); Calcium,Total 8.2 mg/dL (8.5-10.1); Chloride 104 mmol/L (98-107); Creatinine, Serum 1.68 mg/dL (0.70-1.30); EST Glomerular Filtration Rate 45 mL/min (>60); Est Glom Filt Rate - Afr Amer 54 mL/min (>60); Estimated Creatinine Clearance 49.49 ml/min; Glucose 349 mg/dL (74-106); Potassium 3.9 mmol/L (3.5-5.1); Sodium Level 134 mmol/L (136-145)
[2023-01-31 14:02] VITALS: RESP 16
[2023-01-31 14:39] VITALS: BP 125/82; PULSE 75; RESP 18; O2SAT 98
== END 2023-01-31 14:40 | disposition home or self-care (01) ==
PROVIDERS: Emergency Provider Emergency Medicine; Visit Provider Emergency Medicine
DX: N17.9 Acute kidney failure, unspecified (principal); C79.2 Secondary malignant neoplasm of skin; E11.22 Type 2 diabetes mellitus with diabetic chronic kidney disease; E66.01 Morbid (severe) obesity due to excess calories; Z68.41 Body mass index [BMI] 40.0-44.9, adult; Z80.1 Family history of malignant neoplasm of trachea, bronchus and lung; E86.0 Dehydration; M19.90 Unspecified osteoarthritis, unspecified site; R06.02 Shortness of breath; N18.9 Chronic kidney disease, unspecified; I12.9 Hypertensive chronic kidney disease with stage 1 through stage 4 chronic kidney disease, or unspecified chronic kidney disease; Z86.718 Personal history of other venous thrombosis and embolism; Z85.820 Personal history of malignant melanoma of skin
CPT/HCPCS: 80048; 81001; 82962; 83036; 83735; 85025; 93005; 96360; 96361; 99285; J7030; A4216

== ENCOUNTER → 2023-02-14 | Outpatient (CLI) | payer MEDICAID, SELFPAY ==
--- NOTE | 2023-02-14 13:34 | RAD_ITS ---
STUDY: X-RAY CHEST REASON FOR EXAM: Male, 57 years old. Dyspnea. TECHNIQUE: Frontal and lateral views of the chest. COMPARISON: Chest CT dated September 2022. FINDINGS: Mild hyperinflation with diffuse mild interstitial prominence most marked at both bases, right greater than left. There is no demonstrated pleural abnormality. Normal size heart. Normal mediastinum and radha. Normal visualized pulmonary arteries. Normal visualized aortic arch and descending thoracic aorta. Thoracic osteopenia with diffuse moderate thoracic spondylosis. Normal visualized ribs, clavicles, and shoulders. No abnormality of the visualized soft tissue structures of the upper abdomen. RAD/Chest PA and Lateral IMPRESSION: Mild interstitial prominence in both bases, right greater than left. No focal consolidation, acute or emergent finding. Electronically Signed: Yusuf Solomon MD at 14:28 EST ,
== END | disposition home or self-care (01) ==
LOC: RAD 13:31
PROVIDERS: Referring Provider Nurse Practitioner Family; Visit Provider Nurse Practitioner Family
DX: R06.09 Other forms of dyspnea (principal)
CPT/HCPCS: 71046

== ENCOUNTER → 2023-05-06 | Outpatient (CLI) | payer MEDICAID, SELFPAY ==
--- NOTE | 2023-05-06 06:52 | CT_ITS ---
STUDY: CT SOFT TISSUE NECK WITH CONTRAST REASON FOR EXAM: Male, 57 years old. F/U METS MELANOMA -- IV CONTRAST ONLY. History of melanoma in the left side of the neck. RADIATION DOSAGE (If Supplied By Facility): CTDIvol = ( 17.97 ) mGy, DLP = ( 1664.09 ) mGycm TECHNIQUE: The patient was scanned in a multi-detector CT scanner. High resolution transaxial imaging was performed following intravenous administration of IV 100mL Isovue-370. Sagittal and coronal images were reconstructed. Individualized dose optimization techniques were used for this CT. COMPARISON: Comparison is made with prior study dated October 15, 2022. FINDINGS: Normal bilateral parotid glands. Normal bilateral religious activities director spaces. Normal bilateral parapharyngeal spaces. Normal bilateral carotid spaces. Once again, the patient is status post partial left neck dissection involving the left submandibular gland. Stable postoperative scarring of the left sternocleidomastoid muscle. Normal visualized nasopharynx. Normal retropharyngeal space. Normal perivertebral space. Normal visualized bilateral faucial tonsils. The visualized tongue, tongue base and oropharynx are normal. Stable scattered small benign-appearing cervical lymph nodes. There is no demonstrated solid or cystic mass lesion. There is no abnormal contrast enhancement. Normal epiglottis, bilateral vallecula and hypopharynx. The pre-epiglottic and paraglottic adipose spaces are normal. Normal visualized bilateral piriform sinuses, aryepiglottic folds, vocal cords, and arytenoid-cricoid articulations. Normal subglottic trachea. Normal bilateral lobes of the thyroid gland. Normal visualized pulmonary apices. Normal visualized paranasal sinuses. There is degenerative changes of the cervical spine. CT/Soft Tissue Neck WITH Contrast IMPRESSION: Stable examination. Electronically Signed: Refugio Ayala MD at 11:02 EST ,
--- NOTE | 2023-05-06 06:52 | CT_ITS ---
STUDY: CT CHEST T ABDOMEN WITH CONTRAST REASON FOR EXAM: Male, 57 years old. F/U METS MELANOMA IV CONT ONLY RADIATION DOSAGE (If Supplied By Facility): CTDIvol = ( 17.97 ) mGy, DLP = ( 1664.09 ) mGycm TECHNIQUE: Transaxial imaging was performed following intravenous administration of IV 100mL Isovue-370. Multiplanar coronal and sagittal images were reformatted. Individualized dose optimization techniques were used for this CT. COMPARISON: Comparison is made with prior study dated October 15, 2022. FINDINGS: CHEST There is a 2.7 cm x 2 cm well-defined nodule in the subcutaneous tissues just beneath the skin line in the upper left posterior hemithorax. This was not imaged on prior study. This may represent a sebaceous cyst. The lungs are normal. There is no demonstrated pleural abnormality. There are calcifications of the coronary arteries. Normal mediastinum. Normal hilar regions. Normal unenhanced pulmonary arteries. Normal aorta arch and descending thoracic aorta. There are mild degenerative changes of the thoracic spine. There is no demonstrated abnormality of the visualized upper abdomen. ABDOMEN Normal liver. The gallbladder is contracted. There is mild splenomegaly. Normal pancreas. Normal bilateral adrenal glands. Bilateral cortical renal atrophy. There is a 8.4 mm calculus in the lower pole calyx of the left kidney. Normal visualized stomach. Normal small intestine. Normal colon. The appendix is visualized and appears normal. Normal abdominal aorta. Normal inferior vena cava. Normal retroperitoneum. There is a small umbilical hernia containing fat. There are mild degenerative changes of the visualized lumbar spine. CT/CT Chest AND Abd W/ Contrast IMPRESSION: Stable examination. Electronically Signed: Refugio Ayala MD at 11:06 [facility] ,
--- OUTSIDE RECORDS SUMMARY | 2023-05-06 06:54 | XMS RPT_ITS | CCD ---
Author Name Unknown Address [address] [place] [address] Organization [facility] Care Team Providers Care Advertising Sales Associate Name Role Phone None, No PCP Unavailable Unavailable Unavailable Unavailable Dora Darling Unavailable Unavailable Unavailable Unavailable Henri, Dr. Caceres Attending Unavailable Quiqueertsergei, Dr. Caceres Referring Unavailable Henri, Dr. Caceres Referring Unavailable Marisol James, Dr. Willard Fernandez Attending Unavailable Henri, Dr. Caceres Referring Unavailable Lavertu, Dr. Caceres Attending Unavailable Jimmy Julian DO Unavailable Robson KIRK, Alfredo Wilson Unavailable Reva Baeza MD Unavailable MORRIS FORD Attending Unavailable Allergies Allergy Classification Reported Allergen(s) Allergy Type Date of Onset Reaction(s) Facility (1 source) No Alert Propensity to adverse reactions to drug 1 [facility] Medications Current Medications Medication Drug Class(es) Dates Sig (Normalized) Sig (Original) 24 hr buPROPion hydrochloride 150 mg extended release oral tablet (5 sources) Aminoketone Start: 01-31-2023 take 1 tablet by mouth once daily before mealtime buPROPion XL (Wellbutrin XL) 150 mg 24 hr tablet Take 1 tablet (150 mg) by mouth once daily in the morning. Take before meals. 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] Onset: 3 03-12-2023 Chronic Genitourinary symptoms and ill-defined conditions (12 sources) H/O: kidney disease; Translations: [Personal history of other specified urinary system disorders] Episodic Other circulatory disease (12 sources) H/O: hypertension; Translations: [Personal history of other diseases of circulatory system] Episodic Other connective tissue disease (12 sources) H/O: arthritis; Translations: [Personal history of arthritis] Episodic Other ear and sense organ disorders (1 source) Impacted cerumen; Translations: [Impacted cerumen] Episodic Other gastrointestinal disorders (12 sources) History of gastroesophageal reflux disease; Translations: [Personal history of other diseases of digestive system] Episodic Other lower respiratory disease (7 sources) Snoring; Translations: [Other respiratory abnormalities] Episodic Other nutritional; endocrine; and metabolic disorders (4 sources) Body mass index 40+ - severely obese; Translations: [Body Mass Index 40.0-44.9, adult] Chronic Other nutritional; endocrine; and metabolic disorders (4 sources) Severe obesity; Translations: [Morbid obesity] Chronic Other upper respiratory infections (10 sources) Laryngitis due to gastroesophageal reflux; Translations: [Acute laryngitis without mention of obstruction] Episodic Residual codes; unclassified (7 sources) Obstructive sleep apnea syndrome; Translations: [Obstructive sleep apnea (adult)(pediatric)] Onset: 3 03-12-2023 Chronic Residual codes; unclassified (2 sources) Obstructive sleep apnea (adult) (pediatric); Translations: [Obstructive sleep apnea (adult) (pediatric)] Onset: 3 Chronic Residual codes; unclassified (12 sources) History of heartburn; Translations: [Personal history of other diseases of digestive system] Episodic Residual codes; unclassified (12 sources) History of clinical finding in subject; Translations: [Personal history of other specified diseases] Episodic Residual codes; unclassified (5 sources) H/O: respiratory disease; Translations: [Other specified personal history presenting hazards to health] Episodic Residual codes; unclassified (1 source) No current problems or disability; Translations: [Other specified conditions influencing health status] Onset: Episodic Screening and history of mental health and substance abuse codes (12 sources) H/O: depression; Translations: [Personal history of other mental disorders] Episodic Secondary malignancies (12 sources) Metastasis to head and neck lymph node; Translations: [Secondary and unspecified malignant neoplasm of lymph nodes of head, face, and neck] Chronic Past or Other Problems Problem Classification Problem Date Documented Da te Episodic/Chronic Unclassified (1 source) Onset: 03-12-2023 03-12-2023 Results Test Name Value Interpretation Reference Range Facil ity Vital Signs Date Time Vital Sign Value Performing Clinician Facility 03-12-2023 16:04-0500 Body height 177.8 cm Morris Ford MD Work Phone: [facility] 03-12-2023 16:04-0500 Body mass index (BMI) [Ratio] 38.15 kg/m2 Morris Ford MD Work Phone: [facility] 03-12-2023 16:04-0500 Body temperature 97.59 [degF] Morris Ford MD Work Phone: [facility] 03-12-2023 16:04-0500 Body weight 120.61 kg Morris Ford MD Work Phone: [facility] 11-06-2022 16:25-0400 Body height 177.8 cm No PCP None [facility] Work Phone: 11-06-2022 16:25-0400 Body mass index (BMI) [Ratio] 44.16 kg/m2 No PCP None QZ-Vztdmiwdsdbqso-Zn burban Work Phone: 11-06-2022 16:25-0400 Body surface area Derived from formula 2.51 m2 No PCP None FY-Yinobuoddlvkjg-N u burban Work Phone: 11-06-2022 16:25-0400 Body temperature 99 [degF] No PCP None [facility]Otolaryngolo gy-French [facility] Work Phone: 11-06-2022 16:25-0400 Body weight 139.62 kg No PCP None [facility]Otolaryngolog y-French [facility] Work Phone: 05-08-2022 16:22-0500 Body height 177.8 cm No PCP None [facility]tolaryngolog y-We [place] Work Phone: 05-08-2022 16:22-0500 Body mass index (BMI) [Ratio] 43.36 kg/m2 No PCP None TK-Grugbwkahubets-Ex [place] Work Phone: 05-08-2022 16:22-0500 Body surface area Derived from formula 2.49 m2 No PCP None MW-Grxtyrbluumced-T e st[place] Work Phone: 05-08-2022 16:22-0500 Body temperature 96.6 [degF] No PCP None [facility]Otolaryngolo gy-We [place] Work Phone: 05-08-2022 16:22-0500 Body weight 137.07 kg No PCP None [facility]Otolaryngolog y-We [place] Work Phone: 02-07-2021 10:06-0500 Body height 177.8 cm No PCP None [facility]Otolaryngolog y-Se idman Work Phone: 02-07-2021 10:06-0500 Body mass index (BMI) [Ratio] 44.09 kg/m2 No PCP None PX-Exfqdrrduvvdoi-Zl idman Work Phone: 02-07-2021 10:06-0500 Body surface area Derived from formula 2.51 m2 No PCP None MM-Qoahhrvtlipqpz-S e idman Work Phone: 02-07-2021 10:06-0500 Body temperature 96.5 [degF] No PCP None MG[facility]Otolaryngolo gy-Se idman Work Phone: 02-07-2021 10:06-0500 Body weight 139.37 kg No PCP None [facility]Otolaryngolog y-Se idman Work Phone: 02-07-2021 10:06-0500 Respiratory rate 18 /min No PCP None MG[facility]Otolaryngolo gy-Se idman Work Phone: 10-18-2020 16:43-0400 Body height 177.8 cm No PCP None [facility]Otolaryngolog y-French [facility] Work Phone: 10-18-2020 16:43-0400 Body mass index (BMI) [Ratio] 44.69 kg/m2 No PCP None PN-Wtwxzjysjehkbc-Cc burban Work Phone: 10-18-2020 16:43-0400 Body surface area Derived from formula 2.52 m2 No PCP None UT-Ohjoanoefteauj-E u burban Work Phone: 10-18-2020 16:43-0400 Body temperature 97.7 [degF] No PCP None MG-Otolaryngolo gy-French burban Work Phone: 10-18-2020 16:43-0400 Body weight 141.27 kg No PCP None [facility]Otolaryngolog y-French [facility] Work Phone: 07-28-2020 10:30-0400 Body height 177.8 cm No PCP None [facility]Otolaryngolog y-French [facility] Work Phone: 07-28-2020 10:30-0400 Body mass index (BMI) [Ratio] 44.27 kg/m2 No PCP None BE-Gbztgqbrlsiyyo-Fg burban Work Phone: 07-28-2020 10:30-0400 Body surface area Derived from formula 2.51 m2 No PCP None IM-Uirdhtkazmefkw-N u burban Work Phone: 07-28-2020 10:30-0400 Body weight 139.93 kg No PCP None [facility]-Otolaryngolog y-French [facility] Work Phone: 07-17-2020 11:14-0400 Body height 177.8 cm No PCP None [facility]Otolaryngolog y-French [facility] Work Phone: 07-17-2020 11:14-0400 Body mass index (BMI) [Ratio] 46.2 kg/m2 No PCP None BP-Excfvveltbtrpn-Fj burban Work Phone: 07-17-2020 11:14-0400 Body surface area Derived from formula 2.56 m2 No PCP None PO-Lojrfdqauunejf-K u burban Work Phone: 07-17-2020 11:14-0400 Body temperature 96.8 [degF] No PCP None MG-Otolaryngolo gy-French [facility] Work Phone: 07-17-2020 11:14-0400 Body weight 146.06 kg No PCP None [facility]-Otolaryngolog y-French [facility] Work Phone: 1965 00:00-0400 >na< Dora Darling Dept. of Dermato logy Encounters Encounter Date Encounter Type Care Provider Facility Start: 03-12-2023 End: 03-12-2023 ambulatory [facility] Ambulatory Start: 03-12-2023 End: 03-12-2023 Office outpatient visit 15 minutes Morris Ford MD Work Phone: [facility] Procedures Date Procedure Procedure Detail Performing Clinician Start: 09-13-2020 Dora ramirez Appendectomy No PCP None Decompression of median nerve No PCP None Plan of Treatment Date Care Activity Detail Author Start: 09-17-2023 End: 09-17-2023 Patient encounter procedure 09/17/2023 4:45 PM EDT Office Visit [facility] [address] [place] [address] [place] [address] [place] [address] [facility] Start: 03-12-2023 FUV, Provider: Morris Ford, Status: Pen, Time: 4:15 PM FUV, Provider: Morris Ford, Status: Pen, Time: 4:15 PM OA-Wtnunqxsugpbfk-Gpvr rban Work Phone: Start: 11-22-2022 Influenza vaccination Influenza Vacc ine (#1) [facility] Start: 11-06-2022 FUV, Provider: Morris Ford, Status: Pen, Time: 4:15 PM FUV, Provider: Morris Ford, Status: Pen, Time: 4:15 PM [facility] Work Phone: Start: 08-28-2022 FUV, Provider: Morris Ford, Status: Pen, Time: 4:15 PM FUV, Provider: Morris Ford, Status: Pen, Time: 4:15 PM EF-Mbdwakvgsvbcor-Mgcn light Work Phone: Start: 05-22-2022 VIRFUVHOME, Provider : Willard Leyva, Status: Pen, Time: 3:20 PM VIRFUVHOME, Provider: Willard Leyva, Status: Pen, Time: 3:20 PM HS-Owuzujizhzasmy-Xlvy light Work Phone: Start: 01-01-2021 COVID-19 Vaccine (2 - Booster for Jessica series) COVID-19 Vaccine (2 - Booster for Jessica series) [facility] Start: 10-25-2020 FUV, Provider: Morris Ford, Status: Pen, Time: 11:20 AM FUV, Provider: Morris Ford, Status: Pen, Time: 11:20 AM BB-Dhawusbwsoqdbk-Pmhm rban Work Phone: Start: 2014 Zoster Vaccines (1 of 2) Zoste r Vaccines (1 of 2) [facility] Start: 1986 DTaP/Tdap/Td Vaccine s (1 - Tdap) DTaP/Tdap/Td Vaccines (1 - Tdap) [facility] Start: 1982 Hepatitis C screening Hepatitis C Sc reening [facility] Start: 1965 MMR Vaccines (1 of 1 - Standard series) MMR Vaccines (1 of 1 - Standard series) [facility] Start: 1964 Hepatitis B Vaccines (1 of 3 - 3-dose series) Hepatitis B Vaccines (1 of 3 - 3-dose series) [facility] Start: 1964 [facility] Start: 1964 Lipid panel Lipid Panel [facility] Start: 1965 Screening for malign ant neoplasm of colon [facility] Start: 1965 Yearly Adult Physical Yearly Adult P hysical [facility] Immunizations Immunization Date Immunization Notes Care Provider Fa rex 1965 pneumococcal conjuga te vaccine, 7 valent Dora Darling Dept[facility] of Dermatology Payers Date Payer Category Payer Unknown 2020 Unknown [id number] 1965 Unknown [id number] 1965 Unknown [id number] [id number]. [id number] 1965 Unknown [id number] [id number]. [id number] 1965 Unknown [id number] Social History Date Type Detail Facility Start: 03-12-2023 Non-smoker Non-smoker [facility] Work Phone: Start: 09-13-2020 Dept. of D ermatology Start: 1965 Sex Assigned At Male [facility] Start: 03-12-2023 Tobacco smoking status NHIS Never smoked tobacco [facility] Work Phone: Start: 03-12-2023 Tobacco use and exposure Smokeless tobacco non-user [facility] Work Phone: Start: 03-12-20[address] use [address] [facility] [place] [facility] Work Phone: Start: 1965 Sex Assigned At Not on file U [facility] Work Phone: Start: 03-02-2023 End: 03-12-2023 Exposure to SARS-CoV-2 (event) Not sure [facility] Medical Equipment Procedure Code Equipment Code Equipment Origin al Text Equipment Identifier Dates use 1 LANCET to TEST BLOOD SUGAR four times a day [id number] Start: 02-05-2023 use 1 TEST STRIP to TEST BLOOD SUGAR four times a day [id number] Start: 03-06-2023 Goals Date Patient Goal Desired Activity /State History of Present illness Narrative 03-12-2023 Morris Ford MD - 03/12/2023 4:15 PM EST Note Date & Type Note Facility 03-12-2023 History of Present illness Narrative Provider Impressions Status post parotidectomy and neck dissection for what turned out to be a probable high-grade cancer. He was treated with Keytruda. He elected not to go ahead with radiation therapy. I cannot appreciate any obvious tumor recurrence. He will be scanned at home in the near future. Obstructive sleep apnea. Unfortunately the patient has not been able to tolerate the device. He was then tried on some other devices but could not afford the expense. I encouraged him to try to lose some weight. I will see him in 6 months. Chief Complaint Follow-up regarding the management of a neck malignancy. History of Present Illness This gentleman was seen in April at the request of a local colleague. For more than a year or so he had noticed some lumps on the left side of his neck. He denied any symptoms related to the mass and denies any symptoms related to the head and neck. He eventually got a PET scan that showed 2 significant areas of uptake in the left neck. There may be a slight area of uptake in the area of the base of tongue and adjacent lateral pharyngeal wall. He also had an needle aspirate that showed squamous cell carcinoma. After further review this turned out not the a squamous cell carcinoma but an adenocarcinoma. The endoscopy was negative. A CT scan of his neck was performed on July 05, 2020. It shows this lesion to probably arise from the parotid gland. There is a large ewelina metastasis. On July 20, 2020 he underwent a parotidectomy and neck dissection. He did not require any reconstruction. The final pathology report was consistent with a high-grade malignancy most likely a melanoma. He has been further evaluated at home he had a dermatology consult that showed no evidence of any primary lesion. He took Keytruda for about a year afterwards. He elected not to go ahead with radiation therapy. For the past a few months or so he has had a feeling of something stuck in his throat on the left side. He does have some issues with his stomach has frequent episodes of vomiting. He was also diagnosed with sleep apnea and was provided with the machine but was not able to use it and returned it. He had a CT scan of his neck that was done in September 2022. It was felt to be normal. He is due to get some further scanning in March. He had a recent chest x-ray at home. I cannot access those reports. He also has obstructive sleep apnea and has not been able to tolerate the CPAP. We looked at different options recently but his insurance would not cover it. He has lost 40 pounds recently. Physical Exam Examination of the parotid, neck, and thyroid field does not show any evidence of worrisome masses or adenopathies. His facial nerve function is normal. The intraoral exam is also negative for any mucosal lesions. At the same time his tongue occupies his entire mouth. The ear examination is negative. documented in this encounter [facility] Work Phone: History of Present illness Narrative 04-24-2022 Note Date & Type Note Facility 04-24-2022 History of Present illness Narrative This gentleman was seen in April at the request of a local colleague. For more than a year or so he had noticed some lumps on the left side of his neck. He denied any symptoms related to the mass and denies any symptoms related to the head and neck. He eventually got a PET scan that showed 2 significant areas of uptake in the left neck. There may be a slight area of uptake in the area of the base of tongue and adjacent lateral pharyngeal wall. He also had an needle aspirate that showed squamous cell carcinoma. After further review this turned out to not the a squamous cell carcinoma but an adenocarcinoma. The endoscopy was negative. A CT scan of his neck was performed on July 05, 2020. It shows this lesion to probably arise from the parotid gland. There is a large ewelina metastasis. On July 20, 2020 he underwent a parotidectomy and neck dissection. He did not require any reconstruction. The final pathology report was consistent with a high-grade malignancy most likely a melanoma. He has been further evaluated at home he had a dermatology consult that showed no evidence of any primary lesion. He took Keytruda for about a year afterwards. He elected not to go ahead with radiation therapy. For the past a few months or so he has had a feeling of something stuck in his throat on the left side. He does have some issues with his stomach has frequent episodes of vomiting. He was also diagnosed with sleep apnea and was provided with the machine but was not able to use it and returned it. He had a CT scan of his neck that was done on April 23, 2022. I personally reviewed that scan and cannot appreciate anything worrisome. TD-Iimpklxggcuieq-Xwmjgfbs Work Phone: Evaluation note Note Date & Type Note Facility Evaluation note N/A Dept. of Dermato logy Evaluation note Note Date & Type Note Facility documented in this encounter [facility] Work Phone: History of Present illness Narrative Note Date & Type Note Facility History of Present illness Narrative This gentleman was seen in April at the request of a local colleague. For more than a year or so he had noticed some lumps on the left side of his neck. He denied any symptoms related to the mass and denies any symptoms related to the head and neck. He eventually got a PET scan that showed 2 significant areas of uptake in the left neck. There may be a slight area of uptake in the area of the base of tongue and adjacent lateral pharyngeal wall. He also had an needle aspirate that showed squamous cell carcinoma. After further review this turned out to not the a squamous cell carcinoma but an adenocarcinoma. The endoscopy was negative. A CT scan of his neck was performed on July 05, 2020. It shows this lesion to probably arise from the parotid gland. There is a large ewelina metastasis. On July 20, 2020 he underwent a parotidectomy and neck dissection. He did not require any reconstruction. The final pathology report was consistent with a high-grade malignancy most likely a melanoma. He has been further evaluated at home he had a dermatology consult that showed no evidence of any primary lesion. He has been started on Keytruda. He elected not to go ahead with radiation therapy. He will be getting some repeat scans in early 2021.On further questioning this gentleman admits to significant snoring. RZ-Kiwymsghnyjujh-Cplnlex Work Phone: History of Present illness Narrative Note Date & Type Note Facility History of Present illness Narrative Mr. THORNTON , 1965, referred for an initial consultation with a long history of reported loud snoring, waking up feeling unrefreshed, excessive daytime fatigue. [place] Sleepiness Scale Score is [] /24. Fatigue Severity Scale Score is [] /63. Snoring VAS [] /10Sleep study histories: (personally reviewed raw data such as interpretation report, data sheet, hypnogram, and titration table)The patient has been previously diagnosed with obstructive sleep apnea (LILY), in a in lab sleep test performed on 04/19/2021, that showed an Apnea Hypopnea Index (AHI) of 34.3 events per hour. During that night, the lowest 02 saturation was 83 %, and the patient spent 0.8 minutes of total sleep time with 02 sat less than 88%. The apnea index (AI) was 0.0 events per hour. During supine sleep the AHI was N/A events per hour. Rigth side AHI 34.2 and Left side 34.7/hr.For nocturnal symptoms (without or prior to treatment), he endorses that there issnoring, witnessed apneas, nocturia and restless sleep.For daytime symptoms (without or prior to treatment), he endorses that there is morning headaches, irritability and depression.Patient does reports nasal obstruction. It does fluctuate, and has been treated with nasal corticosteroids without significant improvements. He does not have a history of nasal surgery or upper airway surgery. He does not have a history of nasal trauma. He does not describe a history of facial pressure type of headaches. He does not report a history of nasal drainage, denies epistaxis.NOSE- [] / 20Nasal Obstruction VAS- [] /10 [facility] Work Phone: History of Present illness Narrative Note Date & Type Note Facility History of Present illness Narrative This gentleman was seen in April at the request of a local colleague. For more than a year or so he had noticed some lumps on the left side of his neck. He denied any symptoms related to the mass and denies any symptoms related to the head and neck. He eventually got a PET scan that showed 2 significant areas of uptake in the left neck. There may be a slight area of uptake in the area of the base of tongue and adjacent lateral pharyngeal wall. He also had an needle aspirate that showed squamous cell carcinoma. After further review this turned out to not the a squamous cell carcinoma but an adenocarcinoma. The endoscopy was negative. A CT scan of his neck was performed on July 05, 2020. It shows this lesion to probably arise from the parotid gland. There is a large ewelina metastasis. On July 20, 2020 he underwent a parotidectomy and neck dissection. He did not require any reconstruction. The final pathology report was consistent with a high-grade malignancy most likely a melanoma. He has been further evaluated at home he had a dermatology consult that showed no evidence of any primary lesion. He took Keytruda for about a year afterwards. He elected not to go ahead with radiation therapy. For the past a few months or so he has had a feeling of something stuck in his throat on the left side. He does have some issues with his stomach has frequent episodes of vomiting. He was also diagnosed with sleep apnea and was provided with the machine but was not able to use it and returned it. He had a CT scan of his neck that was done in September 2022. I personally reviewed that scan and cannot appreciate anything worrisome. DI-Ddrjmbhukjkeih-Caccacnd Work Phone: Reason for referral (narrative) Note Date & Type Note Facility Dept. of Dermatology Summary Purpose Family History No Family History Records FoundUnknown Family Member Name Dates Details Family history of lung cance r: Other(V16.1, Z80.1) Status:Active Family history of liver dise ase: Other(V18.59, Z83.79) Status:Active Unknown Family Member Name Dates Details Family history of lung cance r: Other(V16.1, Z80.1) Status:Active Family history of liver dise ase: Other(V18.59, Z83.79) Status:Active Unknown Family Member Name Dates Details Family history of lung cance r: Other(V16.1, Z80.1) Status:Active Family history of liver dise ase: Other(V18.59, Z83.79) Status:Active Unknown Family Member Name Dates Details Family history of lung cance r: Other(V16.1, Z80.1) Status:Active Family history of liver dise ase: Other(V18.59, Z83.79) Status:Active Unknown Family Member Name Dates Details Family history of liver dise ase: Other(V18.59, Z83.79) Status:Active Family history of lung cance r: Other(V16.1, Z80.1) Status:Active Unknown Family Member Name Dates Details Family history of lung cance r: Other(V16.1, Z80.1) Status:Active Family history of liver dise ase: Other(V18.59, Z83.79) Status:Active Unknown Family Member Name Dates Details Family history of lung cance r: Other(V16.1, Z80.1) Status:Active Family history of liver dise ase: Other(V18.59, Z83.79) Status:Active Unknown Family Member Name Dates Details Family history of lung cance r: Other(V16.1, Z80.1) Status:Active Family history of liver dise ase: Other(V18.59, Z83.79) Status:Active Unknown Family Member Name Dates Details Family history of lung cance r: Other(V16.1, Z80.1) Status:Active Family history of liver dise ase: Other(V18.59, Z83.79) Status:Active Unknown Family Member Name Dates Details Family history of lung cance r: Other(V16.1, Z80.1) Status:Active Family history of liver dise ase: Other(V18.59, Z83.79) Status:Active Advance Directives No Advanced Directives Records FoundDocuments on File Type Date Recorded 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 Additional Source Comments (unrecognized sect ion and content) No Status Records FoundNo Status Records FoundNo Status Records FoundNo Status Records FoundNo Status Records FoundNo Status Records Found INFORMATION SOURCE (unrecogn ized section and content) DATE CREATED AUTHOR AUTHOR'S ORGANIZ ATION 07/11/2020 [facility] DATE CREATED AUTHOR AUTHOR'S ORGANIZ ATION 11/08/2022 [facility] DATE CREATED AUTHOR AUTHOR'S ORGANIZ ATION 11/08/2022 [employer] DATE CREATED AUTHOR AUTHOR'S ORGANIZ ATION 03/13/2023 [facility] DATE CREATED AUTHOR AUTHOR'S ORGANIZ ATION 03/16/[address] [facility] Reason for Visit (unrecogniz ed section and content) Care Teams (unrecognized sec tion and content) FOR RECORDS PERTAINING TO PATIENTS WHO ARE OR HAVE BEEN ENROLLED IN A CHEMICAL DEPENDENCY/SUBSTANCEABUSE PROGRAM, SOME INFORMATION MAY BE OMITTED. This clinical summary was aggregated from multiple sources. Caution should be exercised in using it in the provision of clinical care. This summary normalizes information from multiple sources, and as a consequence, information in this document may materially change the coding, format and clinical context of patient data. In addition, data may be omitted in some cases. CLINICAL DECISIONS SHOULD BE BASED ON THE PRIMARY CLINICAL RECORDS. [facility] [employer] provides no warranty or guarantee of the accuracy or completeness of information in this document.
[2023-05-06 07:25] LABS: CREATININE FINGERSTICK 2.4 mg/dL (0.70-1.30)
[2023-05-06 07:56] LABS: Absolute Lymphocyte Count 1.91 X10^3/uL (0.83-4.51); Absolute Neutrophil Count 3.5 X10^3/uL (2.0-7.7); Basophil# 0.04 X10^3/uL; Basophil% 0.6 % (0-1); Eosinophil# 0.21 X10^3/uL; Eosinophils% 3.4 % (0-5); Hematocrit 40.3 % (40-54); Hemoglobin 12.4 g/dL (13.0-16.5); Lymphocyte # 1.91 X10^3/ul (0.83-4.51); Lymphocyte % 30.6 % (19-41); Mean Corp Hgb Conc 30.8 g/dL (32-36); Mean Corpuscular Hgb 27.4 pg (27.0-32.0); Mean Platelet Vol. 11.4 fl (6.2-12.0); NRBC Flagged by Analyzer 0 % (0-5); Neutrophil # 3.53 X10^3/uL (2.7-7.7); Neutrophil % 56.6 % (47-70); Platelet Count 184 K/mm3 (150-450); RBC Distribution Width CV 14.7 % (11.6-14.6); RBC Distribution Width SD 47.5 fl (35.1-43.9); Red Blood Count 4.53 M/mm3 (4.6-6.2); White Blood Count 6.2 K/mm3 (4.4-11.0)
[2023-05-06 08:35] LABS: ALB/GLOB Ratio 0.9 RATIO (0.9-2.4); AST(SGOT) 24 U/L (15-37); Alanine Aminotransfer ALT/SGPT 31 U/L (16-61); Albumin, Serum 3.1 g/dL (3.2-5.0); Alkaline Phosphatase 62 U/L (45-117); Anion Gap 6 (5-15); BUN 38 mg/dL (7-18); BUN/Creat Ratio 20.9 RATIO (10-20); Calcium,Total 9.5 mg/dL (8.5-10.1); Chloride 108 mmol/L (98-107); Creatinine, Serum 1.82 mg/dL (0.70-1.30); EST Glomerular Filtration Rate 41 mL/min (>60); Est Glom Filt Rate - Afr Amer 49 mL/min (>60); Globulin 3.6 g/dL (2.2-4.2); Glucose 102 mg/dL (74-106); Potassium 4.3 mmol/L (3.5-5.1); Protein, Total 6.7 g/dL (6.4-8.2); Sodium Level 140 mmol/L (136-145); T4 Free Direct 0.97 ng/dL (0.76-1.46); Thyroid Stim Hormone (TSH) 2.74 uIU/mL (0.358-3.74)
== END | disposition home or self-care (01) ==
PROVIDERS: Referring Provider Internal Medicine Hematology & Oncology; Visit Provider Internal Medicine Hematology & Oncology
DX: C43.9 Malignant melanoma of skin, unspecified (principal); C79.89 Secondary malignant neoplasm of other specified sites
CPT/HCPCS: 36415; 70491; 71260; 74160; 80053; 84439; 84443; 85025; Q9967

== ENCOUNTER → 2023-05-13 | Outpatient (CLI) | payer MEDICAID, SELFPAY ==
[2023-05-13 13:55] LABS: Bacteria 0 SEEN /hpf (None Seen); Mucous, Urine 0 SEEN /hpf (<or=2+); Red Blood Cells-Urine 0 SEEN /hpf (0-5); Squamous Epithelial Cells - UA 0 SEEN /hpf (0-5); White Blood Cells 0 SEEN /hpf (0-5)
[2023-05-13 14:27] LABS: Color, Urine Yellow (Yellow); Glucose, Dipstick Normal (Normal); Ketone-Dipstick Negative (Negative); Leukocyte Esterase-Dipstick 25 /ul (Negative); Nitrite-Dipstick Negative (Negative); Occult Blood-Urine Negative /ul (Negative); Protein-Dipstick Negative (Negative); Urine Bilirubin Dipstick Negative (Negative); Urine Clarity Clear (Clear); Urine Urobilinogen Normal (Normal)
[2023-05-13 14:49] LABS: Microalbumin,Random Urine 15.5 mg/L (NO RANGE EST.); Microalbumin:Creatinine Ratio 15.6 mg/g CRE (<30 mg/g CRE)
== END | disposition home or self-care (01) ==
LOC: LABSPEC 13:54
PROVIDERS: Visit Provider Internal Medicine Nephrology
DX: E11.22 Type 2 diabetes mellitus with diabetic chronic kidney disease (principal)
CPT/HCPCS: 81001; 82043; 82570

== ENCOUNTER → 2023-12-03 | Outpatient (CLI) | payer MEDICAID, SELFPAY ==
--- NOTE | 2023-12-03 08:15 | CT_ITS ---
STUDY: CT CHEST T ABDOMEN WITH CONTRAST REASON FOR EXAM: Male, 58 years old. F/U MELANOMA IV CONTRAST ONLY RADIATION DOSAGE (If Supplied By Facility): CTDIvol = ( 24.15 ) mGy, DLP = ( 943.46 ) mGycm TECHNIQUE: Transaxial imaging was performed following intravenous administration of ISOVUE 370. Multiplanar coronal and sagittal images were reformatted. Individualized dose optimization techniques were used for this CT. COMPARISON: Comparison is made with prior study dated May 06, 2023. FINDINGS: CHEST There is a 2.3 cm x 2.2 cm well-defined nodule in the subcutaneous tissues overlying the left upper posterior hemithorax. The lungs are normal. There is no demonstrated pleural abnormality. Normal heart and pericardium. Normal mediastinum. Normal hilar regions. Normal unenhanced pulmonary arteries. Normal aorta arch and descending thoracic aorta. There are degenerative changes of the thoracic spine. There is no demonstrated abnormality of the visualized upper abdomen. ABDOMEN The visualized lung bases are unremarkable. The visualized portions of the heart are within normal limits. Normal liver. The gallbladder is contracted. Normal spleen. Normal pancreas. Normal bilateral adrenal glands. There are tiny nonobstructive intrarenal calculi in the lower pole of both kidneys. Normal visualized stomach. Normal small intestine. Normal colon. The appendix is visualized and appears normal. Normal abdominal aorta. Normal inferior vena cava. Normal retroperitoneum. Normal abdominal wall. There are mild degenerative changes of the visualized lumbar spine. CT/CT Chest AND Abd W/ Contrast IMPRESSION: Stable examination. Electronically Signed: Refugio Ayala MD at 15:05 EDT ,
--- NOTE | 2023-12-03 08:15 | CT_ITS ---
STUDY: CT SOFT TISSUE NECK WITH CONTRAST REASON FOR EXAM: Male, 58 years old. F/U MELANOMA -- IV CONTRAST ONLY RADIATION DOSAGE (If Supplied By Facility): CTDIvol = ( 16.99 ) mGy, DLP = ( 373.31 ) mGycm TECHNIQUE: The patient was scanned in a multi-detector CT scanner. High resolution transaxial imaging was performed following intravenous administration of ISOVUE 370. Sagittal and coronal images were reconstructed. Individualized dose optimization techniques were used for this CT. COMPARISON: Comparison is made with prior study dated May 06, 2019 FINDINGS: Normal bilateral parotid glands. 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 Normal bilateral parapharyngeal spaces. Normal bilateral carotid spaces. Once again, the patient is status post partial left neck dissection involving the left submandibular gland. Stable scarring involving the left sternocleidomastoid mastoid muscle. Normal visualized nasopharynx. Normal retropharyngeal space. Normal perivertebral space. Normal visualized bilateral faucial tonsils. The visualized tongue, tongue base and oropharynx are normal. The visualized cervical lymph nodes (levels I-) are within normal size limits, and maintain normal morphology. There is no demonstrated solid or cystic mass lesion. There is no abnormal contrast enhancement. Normal epiglottis, bilateral vallecula and hypopharynx. The pre-epiglottic and paraglottic adipose spaces are normal. Normal visualized bilateral piriform sinuses, aryepiglottic folds, vocal cords, and arytenoid-cricoid articulations. Normal subglottic trachea. Normal bilateral lobes of the thyroid gland. Normal visualized pulmonary apices. Normal visualized paranasal sinuses. There is degenerative changes of the cervical spine. CT/Soft Tissue Neck WITH Contrast IMPRESSION: Stable examination. Electronically Signed: Refugio Ayala MD at 15:06 EDT ,
[2023-12-03 08:58] LABS: Absolute Lymphocyte Count 2.54 X10^3/uL (0.83-4.51); Absolute Neutrophil Count 4.1 X10^3/uL (2.0-7.7); Basophil# 0.03 X10^3/uL; Basophil% 0.4 % (0-1); Eosinophils% 2.6 % (0-5); Hematocrit 44.3 % (40-54); Hemoglobin 14.1 g/dL (13.0-16.5); Lymphocyte # 2.54 X10^3/ul (0.83-4.51); Lymphocyte % 33.4 % (19-41); Mean Corp Hgb Conc 31.8 g/dL (32-36); Mean Corpuscular Hgb 27.4 pg (27.0-32.0); Mean Platelet Vol. 10.9 fl (6.2-12.0); Monocyte# 0.67 X10^3/uL; Monocyte% 8.8 % (0-10); NRBC Flagged by Analyzer 0 % (0-5); Neutrophil # 4.12 X10^3/uL (2.7-7.7); Neutrophil % 54.3 % (47-70); Platelet Count 164 K/mm3 (150-450); RBC Distribution Width CV 14.7 % (11.6-14.6); RBC Distribution Width SD 46.6 fl (35.1-43.9); Red Blood Count 5.15 M/mm3 (4.6-6.2); White Blood Count 7.6 K/mm3 (4.4-11.0)
[2023-12-03 09:16] LABS: Microalbumin,Random Urine 16.7 mg/L (NO RANGE EST.); Microalbumin:Creatinine Ratio 13.6 mg/g CRE (<30 mg/g CRE)
[2023-12-03 09:24] LABS: Vitamin B12 426 pg/mL (211-911)
[2023-12-03 09:54] LABS: ALB/GLOB Ratio 0.8 RATIO (0.9-2.4); AST(SGOT) < 3 U/L (15-37); Alanine Aminotransfer ALT/SGPT 20 U/L (16-61); Albumin, Serum 3.2 g/dL (3.2-5.0); Alkaline Phosphatase 77 U/L (45-117); Anion Gap 11 (5-15); BUN 31 mg/dL (7-18); BUN/Creat Ratio 15.8 RATIO (10-20); Calcium,Total 9.1 mg/dL (8.5-10.1); Chloride 103 mmol/L (98-107); Creatinine, Serum 1.96 mg/dL (0.70-1.30); EST Glomerular Filtration Rate 37 mL/min (>60); Est Glom Filt Rate - Afr Amer 45 mL/min (>60); Ferritin 481 ng/mL (26-388); Globulin 3.8 g/dL (2.2-4.2); Glucose 98 mg/dL (74-106); Iron 55 ug/dL (65-175); Iron Binding Capacity,Total 265 ug/dL (250-450); PERCENT IRON SATURATION 20.8 % (15.0-55.0); Potassium 4.2 mmol/L (3.5-5.1); Sodium Level 138 mmol/L (136-145); T4 Free Direct 1.01 ng/dL (0.76-1.46)
== END | disposition home or self-care (01) ==
LOC: CT 08:11
PROVIDERS: Referring Provider Internal Medicine Hematology & Oncology; Visit Provider Internal Medicine Hematology & Oncology
DX: Z01.812 Encounter for preprocedural laboratory examination (principal); C79.89 Secondary malignant neoplasm of other specified sites; C43.9 Malignant melanoma of skin, unspecified; N18.32 Chronic kidney disease, stage 3b; D64.9 Anemia, unspecified
CPT/HCPCS: 36415; 70491; 71260; 74160; 80053; 82043; 82570; 82607; 82728; 83540; 83550; 84100; 84439; 84443; 85025; Q9967

== ENCOUNTER → 2023-12-10 | Outpatient (CLI) | payer MEDICAID, SELFPAY ==
[2023-12-10 13:25] LABS: Cholesterol 151 mg/dL (200); High Density Lipoprotein 24 mg/dL; PSA,Total - Annual Screen 1.16 ng/mL (0.00-4.00); Triglycerides 81 mg/dL; Very Low Density Lipoprotein 16 mg/dL (5-40)
== END | disposition home or self-care (01) ==
LOC: VSLAB 09:07
PROVIDERS: PCP Nurse Practitioner Family; Visit Provider Nurse Practitioner Family
DX: Z13.220 Encounter for screening for lipoid disorders (principal); Z12.5 Encounter for screening for malignant neoplasm of prostate
CPT/HCPCS: 84153; 36415; 80061; G0103

== ENCOUNTER → 2024-01-13 | Outpatient (CLI) | payer MEDICAID, SELFPAY ==
--- NOTE | 2024-01-13 14:40 | RAD_ITS ---
STUDY: X-RAY - LEFT KNEE REASON FOR EXAM: Male, 58 years old. PAIN IN LEFT KNEE TECHNIQUE: 3 views of the left knee. COMPARISON: None. FINDINGS: Normal visualized distal femur. Normal visualized proximal tibia and fibula. Normal proximal tibiofibular articulation. There is no demonstrated fracture. There is moderate degenerative arthrosis of the medial femorotibial compartment with moderate joint space narrowing. There is mild degenerative arthrosis of the lateral femorotibial compartment. There is mild degenerative arthrosis of the patellofemoral articulation. There is a moderate volume joint effusion. The soft tissue structures are unremarkable. 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 Moderate joint effusion. No demonstrated fracture. Electronically Signed: Gray Brunson MD at 15:51 EDT ,
[2024-01-13 17:09] LABS: Absolute Lymphocyte Count 2.24 X10^3/uL (0.83-4.51); Absolute Neutrophil Count 5.2 X10^3/uL (2.0-7.7); Basophil# 0.04 X10^3/uL; Basophil% 0.5 % (0-1); Eosinophils% 2.3 % (0-5); Hematocrit 45.6 % (40-54); Hemoglobin 14.2 g/dL (13.0-16.5); Lymphocyte # 2.24 X10^3/ul (0.83-4.51); Lymphocyte % 26.1 % (19-41); Mean Corp Hgb Conc 31.1 g/dL (32-36); Mean Corpuscular Hgb 26.6 pg (27.0-32.0); Mean Corpuscular Volume 85.4 fL (80-94); Monocyte# 0.84 X10^3/uL; Monocyte% 9.8 % (0-10); NRBC Flagged by Analyzer 0 % (0-5); Neutrophil # 5.21 X10^3/uL (2.7-7.7); Neutrophil % 60.7 % (47-70); Platelet Count 238 K/mm3 (150-450); RBC Distribution Width CV 14.3 % (11.6-14.6); RBC Distribution Width SD 44.1 fl (35.1-43.9); Red Blood Count 5.34 M/mm3 (4.6-6.2); White Blood Count 8.6 K/mm3 (4.4-11.0)
[2024-01-13 17:14] LABS: Uric Acid 8.7 mg/dL (3.5-7.2)
[2024-01-13 17:24] LABS: D-Dimer Quantitative (DVT/PE) 1.03 FEU/ug/m (0.27-0.49)
[2024-01-13 17:39] LABS: Erythrocyte Sedimentation Rate 47 mm/hr (0-20)
== END | disposition home or self-care (01) ==
PROVIDERS: PCP Nurse Practitioner Family; Referring Provider Nurse Practitioner Family; Visit Provider Nurse Practitioner Family
DX: M25.562 Pain in left knee (principal); M79.662 Pain in left lower leg
CPT/HCPCS: 36415; 73562; 84550; 85025; 85379; 85652; 86140

== ENCOUNTER → 2024-01-14 | Outpatient (CLI) | payer MEDICAID, SELFPAY ==
--- NOTE | 2024-01-14 12:59 | VDLE_ITS ---
Reason For Study: LLE PAin RIGHT LEFT FV is compressible, spontaneous, phasic, GSV is normal. competent and demonstrates normal CFV is compressible, spontaneous, phasic, augmentation. competent, and demonstrates normal Procedure augmentation. This is a venous duplex using B-mode, color FV is compressible, spontaneous, phasic, flow and spectral Doppler. competent and demonstrates normal Exam performed in department. augmentation. The exam was diagnostic. POP V is compressible, spontaneous, phasic, A preliminary report was called and/or faxed competent and demonstrates normal to [facility] [place]. augmentation. T/P Trunk is compressible. PTV is compressible. LT PerV is compressible. VL/Venous Duplex US, Unilateral Interpretation Summary Deep veins of the left lower extremity are patent and compressible segmentally. There is no evidence of left lower extremity deep vein thrombosis. Valvular competence appears intac t within the proximal deep venous system on the left . The left great saphenous vein appears patent a nd compressible segmentally. The right femoral vein is patent and compressible. Ordering Physician: Marilyn Carbajal Referring Physician: Marilyn Carbajal Performed By: Srini Taylor, RVKatie
== END | disposition home or self-care (01) ==
LOC: CVS 12:54
PROVIDERS: PCP Nurse Practitioner Family; Referring Provider Nurse Practitioner Family; Visit Provider Nurse Practitioner Family
DX: M79.662 Pain in left lower leg (principal)
CPT/HCPCS: 93971

== ENCOUNTER → 2024-04-09 | Outpatient (CLI) | payer MEDICAID, SELFPAY ==
[2024-04-09 10:50] LABS: Erythrocyte Sedimentation Rate 35 mm/hr (0-20)
[2024-04-09 11:33] LABS: Uric Acid 8.2 mg/dL (3.5-7.2)
== END | disposition home or self-care (01) ==
LOC: LAB 10:24
PROVIDERS: PCP Nurse Practitioner Family
DX: M25.552 Pain in left hip (principal)
CPT/HCPCS: 36415; 84550; 85652; 86140

== ENCOUNTER → 2024-05-20 | Outpatient (CLI) | payer MEDICAID, SELFPAY ==
--- NOTE | 2024-05-20 12:58 | CT_ITS ---
PROCEDURE: CT CHEST AND ABD W/ CONTRAST REASON FOR EXAM: History of melanoma. TECHNIQUE: Chest and abdomen CT with intravenous contrast. No oral contrast. CONTRAST: 100 cc of Isovue-300. COMPARISON: Comparison is made with prior study dated December 03, 2023. FINDINGS: CT CHEST: The previously seen 2.3 cm x 2.2 cm well-defined nodule in the subcutaneous tissues overlying the left upper posterior hemithorax was not imaged at this time. Lymph nodes: No mediastinal, hilar, or axillary lymphadenopathy. Heart and Vasculature: Normal heart size. No pericardial effusion. Thoracic aorta and pulmonary arteries are unremarkable. Coronary artery calcification. Lungs and Airways: The lungs are normally expanded and clear. Pleura: No pleural effusion. No pneumothorax. CT ABDOMEN: Liver: Unremarkable. Gallbladder: Unremarkable. Spleen: Unremarkable. Pancreas: Unremarkable. Adrenals: Unremarkable. Kidneys: Tiny nonobstructive calculus in the lower pole calyx of the right kidney. There is an 8 mm nonobstructive calculus in the lower pole calyx of the left kidney. Bowel: Visualized loops of bowel in the upper abdomen are unremarkable. Lymph nodes: No suspicious lymph node enlargement at the upper abdomen. Vasculature: Major vascular structures at the upper abdomen are unremarkable. Peritoneum / Retroperitoneum: No ascites or free air at the upper abdomen. Bones: Degenerative changes of the spine. CT/CT Chest AND Abd W/ Contrast IMPRESSION: The previously seen nodular density in the upper posterior left hemithorax was not imaged on this examination. The remainder of the examination is unchanged. One or more dose reduction techniques were used (e.g., Automated exposure contr ol, adjustment of the mA and/or kV according to patient size, use of iterative reconstruction technique). Reading Location: [id number]
--- NOTE | 2024-05-20 13:10 | CT_ITS ---
PROCEDURE: CT SOFT TISSUE NECK WITH CONTRAST REASON FOR EXAM: FOLLOW-UP MELANOMA. TECHNIQUE: Contiguous axial scans of 2.5 mm slice thicknesses. Sagittal and coronal reconstruction images were obtained. One or more dose reduction techniques were used (e.g., automated exposure control, adjustment of mA and/or kv according to patient size, use of iterative reconstruction technique). CONTRAST: Isovue 370, 89 ml. COMPARISON: CT soft tissue neck dated 12/03/2023. FINDINGS: Airway: Midline and patent. Salivary glands: The left submandibular gland has been resected. The patient is status post partial left neck dissection. Remaining salivary glands are unremarkable. Lymph nodes: No cervical lymphadenopathy. Thyroid: Unremarkable. Vasculature: Carotid arteries and internal jugular veins are unremarkable. Orbits: Unremarkable at visualized levels. Paranasal sinuses and mastoids: Mild mucoperiosteal thickening, bilateral maxillary sinuses. Lung apices: Clear. Upper mediastinum: Visualized mediastinum is unremarkable. Bones: Unremarkable. Leftward deviation of the nasal septum. Beam hardening artifact related to dental enhancements. Multilevel spondylosis. Soft tissues: Stable scarring of the left sternocleidomastoid muscle. CT/Soft Tissue Neck WITH Contrast IMPRESSION: 1. Stable CT soft tissue neck when compared to the previous study. 2. Status post left partial neck resection. 3. Mild inflammation involving the maxillary sinuses. 4. Other nonacute findings detailed above Reading Location: [place] [id number]
[2024-05-20 13:29] LABS: CREATININE FINGERSTICK 1.6 mg/dL (0.70-1.30)
[2024-05-20 13:58] LABS: Absolute Lymphocyte Count 2.33 X10^3/uL (0.83-4.51); Absolute Neutrophil Count 4.7 X10^3/uL (2.0-7.7); Basophil# 0.06 X10^3/uL; Basophil% 0.7 % (0-1); Eosinophils% 2.5 % (0-5); Hematocrit 43.8 % (40-54); Hemoglobin 14.7 g/dL (13.0-16.5); Lymphocyte # 2.33 X10^3/ul (0.83-4.51); Mean Corp Hgb Conc 33.6 g/dL (32-36); Mean Corpuscular Hgb 28.4 pg (27.0-32.0); Mean Corpuscular Volume 84.6 fL (80-94); Mean Platelet Vol. 11.4 fl (6.2-12.0); Monocyte# 0.69 X10^3/uL; Monocyte% 8.6 % (0-10); NRBC Flagged by Analyzer 0 % (0-5); Neutrophil # 4.66 X10^3/uL (2.7-7.7); Neutrophil % 58.1 % (47-70); Platelet Count 224 K/mm3 (150-450); RBC Distribution Width CV 13.6 % (11.6-14.6); RBC Distribution Width SD 41.6 fl (35.1-43.9); Red Blood Count 5.18 M/mm3 (4.6-6.2)
[2024-05-20 15:01] LABS: ALB/GLOB Ratio 1.4 RATIO (0.9-2.4); AST(SGOT) 16 U/L (<=37); Alanine Aminotransfer ALT/SGPT 21 U/L (<=46); Alkaline Phosphatase 69 U/L (40-129); Anion Gap 10 (5-15); BUN 41 mg/dL (4-19); BUN/Creat Ratio 29.5 RATIO (10-20); Calcium 9.6 mg/dL (7.6-11.0); Carbon Dioxide 22.3 mmol/L (22.0-29.0); Chloride 101 mmol/L (96-108); Cholesterol 135 mg/dL (<=200); Creatinine, Serum 1.4 mg/dL (0.8-1.3); EST Glomerular Filtration Rate 59 (>60); Globulin 2.9 g/dL (2.2-4.2); Glucose 98 mg/dL (70-99); High Density Lipoprotein 26 mg/dL; Low Density Lipoprotein Calc. 82 mg/dL; Phosphorus 3.2 mg/dL (2.7-4.5); Potassium 4.9 mmol/L (3.3-5.1); Protein, Total 6.8 g/dL (5.9-8.4); Sodium Level 134 mmol/L (133-145); Total Bilirubin 0.22 mg/dL (0.00-1.30); Triglycerides 133 mg/dL; Uric Acid 6.6 mg/dL (3.5-7.2); Very Low Density Lipoprotein 27 mg/dL (5-40); cholesterol:hdl ratio screen 5.11
[2024-05-20 16:14] LABS: Microalbumin,Random Urine < 12.0 mg/L (NO RANGE EST.)
== END | disposition home or self-care (01) ==
LOC: CT 12:57
PROVIDERS: PCP Nurse Practitioner Family; Referring Provider Internal Medicine Hematology & Oncology; Visit Provider Internal Medicine Hematology & Oncology
DX: C43.9 Malignant melanoma of skin, unspecified (principal); C79.89 Secondary malignant neoplasm of other specified sites
CPT/HCPCS: 70491; 71260; 74160; 80053; 80061; 82043; 82570; 84100; 84439; 84443; 84550; 85025; Q9967; A4216

== ENCOUNTER → 2024-11-25 | Outpatient (CLI) | payer MEDICAID, SELFPAY ==
--- OUTSIDE RECORDS SUMMARY | 2024-11-25 06:58 | XMS RPT_ITS | CCD ---
Author Organization [facility] Care Team Providers Care Oncology Social Worker Name Role Phone None, No PCP Unavailable Unavailable Unavailable Unavailable Dora Darling Unavailable [facility], [facility] Primary Care Pro vider Peter GUERRIER, SENIOR PROGRAMMER-C Jayashree Attending Provider CHEY Coto-Satya Dawkins Referring Provider Dr. Reva Baeza Attending Provider [facility], [facility] Referring Provid er Dr. Antonette Tapia Attending Provider [facility], [facility] Primary Care Pro vider Dr. Reva Baeza Attending Provider Dr. Rudolph Larios Referring Provider Unavailable Unavailable [facility], [facility] Primary Care Pro vider Dr. Reva Baeza Attending Provider Dr. Rudolph Larios Referring Provider Dr. Morris Ford Attending Unavailable Dr. Morris Ford Referring Unavailable Dr. Morris Ford Referring Unavailable Dr. Willard Leyva Attending Unavailable Dr. Morris Ford Referring Unavailable Henri, Dr. Caceres Attending [facility], [facility] Primary Care Pro vider [facility], [facility] Referring Provid er Dr. Reva Baeza Attending Provider Jimmy Julian DO Unavailable Robson KIRK, Alfredo T Unavailable [phone] Reva Baeza MD Unavailable [facility], [facility] Pro vider [facility], [facility] Referring Provid er Dr. Reva Baeza Attending Provider MORRIS FORD Attending Unavailable MORRIS FORD Attending Unavailable Nelson SENIOR PROGRAMMER-C, Marilyn Primary Care Provider Beam SENIOR PROGRAMMER-C, Zebulun Attending Provider Beam SENIOR PROGRAMMER-C, Zebulun Referring Provider Aryan KIRK, Dr. Ardon Attending Provider Dr. Reva Baeza MD Referring Provider Nelson SENIOR PROGRAMMER-C, Marilyn Referring Provider Reva Baeza Attending Unavailable Reva Baeza Referring Unavailable Jessica Quiñones Consulting Unavailable [facility], [facility] Unavailable Reva Baeza Attending Unavailable Reva Baeza Referring Unavailable Nelson VSC, Marilyn Primary Care UnavailJessica Ferreira Attending Unavailable [facility], [facility] Unavailable Beam VSC, Yancy Attending Unavailable Beam VSC, Zeburadhan Referring Unavailable Nelson VSC, Marilyn Primary Care Unavailabl e Nelson VSC, Marilyn Primary Care Unavailabl e Nelson VSC, Marilyn Attending Unavailabl e Nelson VSC, Marilyn Referring Unavailabl e Nelson VSC, Marilyn Primary Care Unavailabl e Nelson VSC, Marilyn Attending Unavailabl e Nelson VSC, Marilyn Referring Unavailabl e Nelson VSC, Marilyn Primary Care Unavailabl e Nelson VSC, Marilyn Attending Unavailabl e Nelson VSC, Marilyn Attending UnavailJessica Ferreira Referring Unavailable Nelson VSC, Marilyn Primary Care Unavailabl e Reva Baeza Attending Unavailable Nelson VSC, Marilyn Referring Unavailabl e Nelson VSC, Marilyn Primary Care Unavailabl e Nelson VSC, Marilyn Primary Care Unavailabl e Estevan Moreno Attending Unavailable [facility] Referring Reva Patton Attending Unavailable [facility] Referring Arian walls Allergies Allergy Classification Reported Allergen(s) Allergy Type Date of Onset Reaction(s) Facility (1 source) No Alert Propensity to adverse reactions to drug Dept[facility] of [facility]atology Medications Current Medications Medication Drug Class(es) Dates Sig (Normalized) Sig (Original) allopurinol 300 mg oral tablet (20 sources) Xanthine Oxidase Inhibitor Start: 05-13-2023 take 1 tablet by mouth once daily Allopurinol 300 mg tablet Active 300 mg PO DAILY May 13, 2023 1:00am Start: 09-25-2021 Allopurinol 30 0 MG Oral Tablet Quantity: 90 Refills: 0 Ordered: 25-Sep-2021 DO Start : 25-Sep-2021 Active Start: 01-23-2021 End: 02-04-2023 take 3 tablets by mouth once daily Allopurinol 100 mg tablet Discontinued 300 mg PO DAILY January 23, 2021 9:25am February 04, 2023 4:27pm Start: 01-23-2021 End: 02-04-2023 take 300 mg by mouth once daily Allopurinol Discontinu ed 300 MG PO DAILY January 23, 2021 8:25am February 04, 2023 3:27pm Start: 06-15-2020 End: 01-23-2021 take 1 tablet by mouth once daily Allopurinol 100 mg tablet Discontinued 100 mg PO DAILY September 12, 2020 12:00am January 23, 2021 9:26am Hydrocortisone 2.5%/Lidocain e 5% Suppository (Cmpd) [Hydrocortisone 2.5%/Lidocaine 5% Suppository (Compound)] (Hydrocortisone ) suppository (6 sources) Start: 11-20-2020 Hydrocortisone 2.5%/Lidocaine 5% Suppository (Cmpd) [Hydrocortisone 2.5%/Lidocaine 5% Suppository (Compound)] (Hydrocortisone ) suppository Active 0 .ROUTE .MEDSUPPLY November 19, 2020 11:00pm insert into rectum twice daily Start: 11-20-2020 Hydrocortisone 2.5%/Lidocaine 5% Suppository (Cmpd) [Hydrocortisone 2.5%/Lidocaine 5% Suppository (Compound)] (Hydrocortisone ) suppository Active 0 .ROUTE .MEDSUPPLY 1 November 20, 2020 12:00am insert into rectum twice daily metFORMIN hydrochloride 500 mg oral tablet (6 sources) Biguanide Start: 05-27-2024 take 1 tablet by mouth once daily Metformin 500 mg tablet Active 500 mg PO daily May 27, 2024 12:06pm Start: 01-31-2023 End: 05-27-2024 take 1 tablet by mouth twice daily Metformin 500 mg tablet Discontinued 500 mg PO TWICE A DAY 60 January 31, 2023 1:00am May 27, 2024 12:06pm Oxygen-Air Delivery Systems (Horizon Nasal Cpap System) Device (6 sources) Start: 07-31-2021 Oxygen-Air Del migdalia Systems (Horizon Nasal Cpap System) Device Active [facility] July 31, 2021 12:00am Start: 07-31-2021 Oxygen-Air Del migdalia Systems (Horizon Nasal Cpap System) Device Active EACH July 30, 2021 11:00pm Start: 07-31-2021 Oxygen-Air Del migdalia Systems (Horizon Nasal Cpap System) Device Active EACH July 31, 2021 12:00am ramipril 10 mg oral capsule (19 sources) Angiotensin Converting Enzyme Inhibitor Start: 04-13-2020 take 1 capsule by mouth at lunch Ramipril 10 mg capsule Active 10 mg PO WITH LUNCH September 12, 2020 12:00am Completed/Discontinued Medications Medication Drug Class(es) Dates Sig (Normalized) Sig (Original) acetaminophen 325 mg / HYDROcodone bitartrate 5 mg oral tablet (6 sources) Opioid Agonist Start: 10-06-2020 End: 11-08-2020 Hydrocodone-Acetami nophen 5-325 mg tablet Discontinued 1 {tbl} PO EVERY 6 HOURS as needed for pain 5 October 06, 2020 November 08, 2020 8:56am Start: 10-06-2020 End: 11-08-2020 take 1 tablet by mouth every six hours Hydrocodone-Acetaminophen Discontinued 1 TABLET PO EVERY 6 HOURS 5 3 October 06, 2020 November 08, 2020 7:56am amitriptyline hydrochloride 25 mg oral tablet (5 sources) Tricyclic Antidepressant Start: 07-17-2021 take 1-2 tablets by mouth once daily in the evening for sleep Amitriptyline HCl - 25 MG Oral Tablet take 1 to 2 tablets by mouth every evening if needed for sleep Quantity: 60 Refills: 0 Ordered: 17-Jul-2021 DO Start : 17-Jul-2021 Active amoxicillin 500 mg oral capsule (1 source) Penicillin-class Antibacterial Start: 05-05-2022 Amoxicillin 500 MG Oral Capsule Quantity: 30 Refills: 0 Ordered: 05-May-2022 DO Start : 05-May-2022 Active 24 hr buPROPion hydrochloride 150 mg extended release oral tablet (9 sources) Aminoketone Start: 01-31-2023 End: 01-26-2024 take 1 tablet by mouth once daily in the morning Bupropion Hcl (Wellbutrin Xl) 150 mg tablet extended release 24 hr Discontinued 150 mg PO EVERY MORNING February 04, 2023 1:00am January 26, 2024 12:15pm Start: 04-08-2022 take 1 tablet by [facility] once daily in the morning buPROPion HCl ER (XL) 150 MG Oral Tablet Extended Release 24 Hour take 1 tablet by mouth every morning Quantity: 30 Refills: 0 Ordered: 08-Apr-2022 DO Start : 08-Apr-2022 Active ergocalciferol 0.0625 mg oral capsule (14 sources) Provitamin D2 Compound Start: 09-12-2020 End: 09-12-2020 Ergocalciferol (Vitamin D2) 62.5 mcg (2,500 unit) capsule Discontinued 62.5 ug PO DAILY September 12, 2020 12:00am September 12, 2020 11:08am Start: 04-13-2020 take 1 capsule by [facility] every week Vitamin D (Ergocalciferol) 1.25 MG (79477 UT) Oral Capsule take 1 capsule by mouth every week Quantity: 4 Refills: 0 Ordered: 27-May-2020 DO Start : 13-Apr-2020 Active ferrous sulfate 325 mg oral tablet (17 sources) Start: 04-13-2020 End: 07-23-2022 take 1 tablet by mouth once daily Ferrous Sulfate (Ferosul) 325 mg (65 mg iron) tablet Discontinued 325 mg PO DAILY September 12, 2020 12:00am July 23, 2022 1:00pm lidocaine hydrochloride 20 mg/ml mucous membrane topical solution (1 source) Antiarrhythmic, Amide Local Anesthetic Start: 05-05-2022 Lidocaine Viscous HCl - 2 % Mouth/Throat Solution SWISH AND SPIT 15 milliliters six times a day if needed for 5 days Quantity: 500 Refills: 0 Ordered: 05-May-2022 DO Start : 05-May-2022 Active lidocaine 25 mg/ml / prilocaine 25 mg/ml topical cream (4 sources) Antiarrhythmic, Amide Local Anesthetic Start: 10-04-2020 Lidocaine-Prilocai ne 2.5-2.5 % External Cream apply topically to affected area once daily for 30 DAYS if needed for PORT ACCESS Quantity: 30 Refills: 0 Ordered: 04-Oct-2020 DO Start : 04-Oct-2020 Active No Reported Medications (1 source) No Reported Medications Quantity: 0 Refills: 0 Ordered: 06-Nov-2022 DO Active nystatin 161943 unt/ml oral suspension (3 sources) Polyene Antifungal Start: 08-21-2021 take 5 mL by mouth every six hours Nystatin 110949 UNIT/ML Mouth/Throat Suspension swish and swallow 5 milliliters by mouth every 6 hours Quantity: 473 Refills: 0 Ordered: 21-Aug-2021 DO Start : 21-Aug-2021 Active omeprazole 40 mg delayed release oral capsule (1 source) Proton Pump Inhibitor Start: 05-08-2022 take 1 capsule by mouth once daily Omeprazole 40 MG Oral Capsule Delayed Release One (1) capsule by mouth daily Quantity: 90 Refills: 1 Ordered: 08-May-2022 Morris Ford MD Start : 08-May-2022 Active 4 ml pembrolizumab 25 mg/ml injection (7 sources) Programmed Receptor-1 Blocking Antibody Start: 10-18-2020 Keytruda 100 MG/4ML Intravenous Solution Every 3 weeks infusions, first treatment 10/10/20 Quantity: 0 Refills: 0 Ordered: 18-Oct-2020 DO Start : 18-Oct-2020 Active sertraline 100 mg oral tablet (20 sources) Serotonin Reuptake Inhibitor Start: 05-13-2023 End: 05-27-2024 Sertraline (Zoloft) 100 mg tablet Discontinued 150 mg PO DAILY May 13, 2023 4:25pm May 27, 2024 12:06pm Start: 02-04-2023 End: 05-13-2023 Sertraline (Zoloft) 100 mg t ablet Discontinued 50 mg PO DAILY February 04, 2023 4:26pm May 13, 2023 4:26pm Start: 01-31-2023 take 1 tablet by artie th once daily sertraline (Zoloft) 50 mg tablet Take 1 tablet (50 mg) by mouth once daily. 01/31/2023 Active Start: 04-08-2022 Sertraline HCl - 100 MG Oral Tablet Quantity: 45 Refills: 0 Ordered: 08-Apr-2022 DO Start : 08-Apr-2022 Active Start: 12-17-2021 End: 02-04-2023 take 1 tablet by mouth once daily Sertraline (Zoloft) 100 mg Tablet Discontinued 100 mg PO DAILY December 17, 2021 12:00am February 04, 2023 4:27pm Start: 09-06-2021 Sertraline HCl - 50 MG Oral Tablet Quantity: 90 Refills: 0 Ordered: 06-Sep-2021 DO Start : 06-Sep-2021 Active Start: 09-19-2020 End: 11-20-2020 take 1 tablet by mouth once daily Sertraline 25 mg Tablet Discontinued 25 mg PO DAILY October 03, 2020 12:00am November 20, 2020 1:04pm traZODone hydrochloride 50 mg oral tablet (1 source) Serotonin Reuptake Inhibitor Start: 04-08-2022 take 2-3 tablets by mouth 30 minutes before bedtime traZODone HCl - 50 MG Oral Tablet take 2 to 3 tablets by mouth 30 MINUTES BEFORE BEDTIME Quantity: 90 Refills: 0 Ordered: 08-Apr-2022 DO Start : 08-Apr-2022 Active Problems Active Problems Problem Classification Problem Date Documented Da te Episodic/Chronic Acute and unspecified renal failure (3 sources) Acute renal failure syndrome; Translations: [Acute kidney failure, unspecified] 02-08-2023 Episodic Allergic reactions (8 sources) Eruption due to drug; Translations: [Generalized skin eruption due to drugs and medicaments taken internally] Episodic Cancer of head and neck (20 sources) Malignant tumor of parotid gland; Translations: [Malignant neoplasm of parotid gland] Onset: 03-12-2023 Chronic Chronic kidney disease (6 sources) Chronic renal failure; Translations: [Chronic kidney disease, unspecified] 09-28-2020 Chronic Chronic kidney disease (1 source) Chronic kidney disease; Translations: [Chronic kidney disease, stage 3b] Onset: 4 Diabetes mellitus with complications (1 source) Type 2 diabetes mellitus with diabetic chronic kidney disease; Translations: [Type 2 diabetes mellitus with diabetic chronic kidney disease] Onset: 4 Chronic Diabetes mellitus without complication (4 sources) Type 2 diabetes mellitus; Translations: [Type 2 diabetes mellitus without complications] Onset: 5 02-08-2023 Chronic Diabetes mellitus without complication (6 sources) Impaired glucose tolerance; Translations: [Impaired glucose tolerance (oral)] 04-16-2022 Episodic Esophageal disorders (6 sources) Gastroesophageal reflux disease; Translations: [Gastro-esophageal reflux disease without esophagitis] 09-28-2020 Chronic Essential hypertension (6 sources) Hypertensive disorder; Translations: [Essential (primary) hypertension] 10-03-2020 Chronic Comment on above: controlled on meds Gastrointestinal hemorrhage (6 sources) Gastrointestinal hemorrhage; Translations: [Hemorrhage of anus and rectum] 11-20-2020 Episodic Genitourinary congenital anomalies (6 sources) Bilateral medullary sponge kidney; Translations: [Medullary cystic kidney] 09-28-2020 Chronic Genitourinary symptoms and ill-defined conditions (12 sources) H/O: kidney disease; Translations: [Personal history of other specified urinary system disorders] Episodic Headache; including migraine (6 sources) Generalized headache; Translations: [Generalized headache] 06-21-2021 Episodic Comment on above: Has not occurred in several days. No other [employer]CH complaints, neuro exam unchanged. Patient is to contact our office if headaches were to reoccur and we will discuss imaging. Hemorrhoids (6 sources) Internal hemorrhoids; Translations: [Other hemorrhoids] 11-20-2020 Episodic Melanomas of skin (16 sources) Malignant melanoma of unknown origin; Translations: [Malignant melanoma of skin, unspecified] Onset: 5 Chronic Mycoses (6 sources) Candidiasis of mouth; Translations: [Candidal stomatitis] 08-21-2021 Episodic Nonmalignant breast conditions (6 sources) Breast lump; Translations: [Unspecified lump in the right breast, unspecified quadrant] 04-04-2021 Episodic Osteoarthritis (1 source) Osteoarthritis of left knee joint; Translations: [Unilateral primary osteoarthritis, left knee] 01-26-2024 Chronic Other aftercare (6 sources) Device in situ; Translations: [Encounter for adjustment and management of vascular access device] 10-02-2020 Episodic Other aftercare (1 source) Encounter for adjustment and management of vascular access device; Translations: [Fitting and adjustment of vascular catheter] Episodic Other circulatory disease (12 sources) H/O: [...] Episodic Other nutritional; endocrine; and metabolic disorders (6 sources) Morbid obesity; Translations: [Morbid (severe) obesity due to excess calories] 09-28-2020 Chronic Other nutritional; endocrine; and metabolic disorders (10 sources) Body mass index 40+ - severely obese; Translations: [Body mass index (BMI) 40.0-44.9, adult] 05-03-2021 Chronic Other nutritional; endocrine; and metabolic disorders (4 sources) Severe obesity; Translations: [Morbid obesity] Chronic Other upper respiratory infections (10 sources) Laryngitis due to gastroesophageal reflux; Translations: [Acute laryngitis without mention of obstruction] Episodic Residual codes; unclassified (15 sources) Obstructive sleep apnea syndrome; Translations: [Obstructive sleep apnea (adult) (pediatric)] Onset: 3 05-03-2021 Chronic Comment on above: Overall AHI 34.3 Residual codes; unclassified (2 sources) Obstructive sleep [...] [Other specified conditions influencing health status] Onset: 1 Episodic Residual codes; unclassified (6 sources) Patient encounter status; Translations: [Encounter for other specified prophylactic measures] 06-21-2021 Episodic Residual codes; unclassified (1 source) Encounter for other specified prophylactic measures; Translations: [Need for prophylactic immunotherapy] Episodic Screening and history of mental health and substance abuse codes (12 sources) H/O: depression; Translations: [Personal history of other mental disorders] Episodic Secondary malignancies (12 sources) Metastasis to head and neck lymph node; Translations: [Secondary and unspecified malignant neoplasm of lymph nodes of head, face, and neck] Chronic Secondary malignancies (7 sources) Metastatic malignant melanoma ; Translations: [Secondary malignant neoplasm of other specified sites] 09-19-2020 Chronic Secondary malignancies (9 sources) Secondary malignant neoplasm of other specified sites; Translations: [Secondary malignant neoplasm of other specified sites] Onset: 5 Chronic Thyroid disorders (1 source) Hypothyroidism, unspecified; Translations: [Hypothyroidism, unspecified] Onset: 5 Chronic Past or Other Problems Problem Classification Problem Date Documented Da te Episodic/Chronic Other connective tissue disease (1 source) Pain in left lower leg; Translations: [Pain in left lower leg] Onset: 02-05-2024 Episodic Other non-traumatic joint disorders (1 source) Pain in left hip; Translations: [Pain in left hip] Onset: 05-05-2024 Episodic Other non-traumatic joint disorders (1 source) Pain in left knee; Translations: [Pain in left knee] Onset: 02-03-2024 Episodic Other screening for suspected conditions (not mental disorders or infectious disease) (2 sources) Encounter for screening for lipoid disorders; Translations: [Encounter for screening for lipoid disorders] Onset: 01-01-2024 Episodic Unclassified (2 sources) Onset: 03-12-2023 Resolved: 09-17-2023 03-12-2023 Results Test Name Value Interpretation Reference Range Facility Oncology Visit Reporton Oncology Visit Report [facility] [address] [place] [address] OFFICE VISIT Date of Service: 05/27/24 1056 MR#: [id number] Acct: [id number] Name: ALEJANDRA THORNTON Rep #: [id number] 2 : 1965 From: Reva Baeza MD Age/Sex: 58/M [place] [facility] [place]: Signed HPI Subjective Date of Service 05/27/24 Chief Complaint Metastatic melanoma History of Present Illness Alejandra Thornton is a 58-year-old male who noted a painless, progressively enlarging mass in the left neck/parotid area for almost a year before seeking any medical attention. His past medical history is notable for morbid obesity, hypertension, chronic renal failure (under care of Dr. Quiñones at [place]) and chronic degenerative joint disease. 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 05/04/2020: Patient was seen by [facility]. 05/12/2020: FNA of the left neck mass Pathology was consistent with high-grade malignant neoplasm not otherwise characterized. 06/06/2020: PET scan demonstrated increased FDG distribution defined in the left lateral neck including level 2A and 3 and separate nodular presentations the maximum SUV is 15.7 and the maximum diameter of the largest lesion is 3.9 x 3.3 mm. No evidence of metastatic disease is identified. 06/14/2020: was seen by ENT. On exam there is noted to be 2 fairly large adenopathy involving 1B and 2 on the left and measures close to 4-5 cm. NPL was carried out which demonstrated no evidence of mucosal lesions. 07/05/2020: CT neck with contrast demonstrated a heterogeneously enhancing nodular mass within level 1B of the neck on the left which measures approximately 43 mm in diameter. There are 2 heterogeneously enhancing nodular mass lesions within the level 2A of the neck on the left that measure 11 and 34 mm respectively. These are consistent with malignant lymph nodes. 07/20/2020: Patient underwent left superficial parotidectomy and left selective neck dissection of levels 1A through 4. Pathology demonstrated high-grade pleomorphic malignancy most consistent with metastatic melanoma measuring 5 cm within the left parotid gland. 2 lymph nodes obtained in this dissection were negative for malignancy 1/8 lymph nodes were positive for metastatic disease measuring 4.1 cm with no extranodal extension and level 1B, 0/8 lymph nodes were positive in level 2, 0/9 lymph nodes were positive in level 3. Submandibular gland was negative for malignancy. The initial superficial margin was 1 mm and reresection was obtained and negative for malignancy. Mitotic activity reaches 10 mitotic figures per 10 high-power danielson. Necrosis is present. No lymph vascular invasion or perineural invasion is present. The lesion is noted less than 1 mm from the superficial, posterior, and anterior margins the inferior margin is positive but is designated as not a true margin by the surgeon. 09/19/[address] Julian, radiation oncology, advised adjuvant radiation but declined. September 2020 seen by dermatology at [facility], no primary cutaneous melanoma was identified. March 20, 2021: CT soft tissue of the neck: IMPRESSION: The previously visualized left neck masses have been surgically excised. No evidence of residual or recurrent masses in the surgical beds. Cervical lymphadenopathy CT chest and abdomen: IMPRESSION: 3.5 cm suspicious mass visualized in the right chest soft tissues demonstrating irregularity in its contour is longer than wider suspicious for malignancy. Right axillary lymph nodes demonstrates increase in size in comparison to the prior study. 2.3 cm cyst visualized in the left upper chest posterior subcutaneous soft tissues suggestive of a sebaceous cyst. Scattered lymph nodes visualized most prominent in the pelvis demonstrate no significant change in comparison to the prior study. Bone scan: IMPRESSION: 1. The increase in radiopharmaceutical concentration observed in the right sacroiliac joint, bilateral shoulders, right and left knees, ankles bilaterally, right-left midfoot and forefoot, thoracic and lumbar spine, sacrum is most consistent with degenerative arthritis. Plain film radiography correlation may be of benefit in the region of the right sacroiliac joint in the setting of known malignancy. 2. There is no definitive typical scintigraphic evidence of diffuse axial skeletal metastatic disease on the current examination. December 17, 2021 CT soft tissues of the neck: IMPRESSION: Stable examination.??? No acute abnormality is seen. December 17, 2021 CT chest abdomen and pelvis: IMPRESSION: Stable examination.??? No acute abnormality is seen. December 21, 2021 bone scan: IMPRESSION: 1. The persistently increased radiotracer concentratio (more content not included)... Normal [facility] Absolute neutrophil countOrd ered By: Reva Baeza on 05-20-2024 Neutrophils (Bld) [#/Vol] 4.7 10*3/uL 2.0-7.7 [facility] Albumin DL <= 20 mg/L (U) [M ass/Vol]Ordered By: Reva Baeza on 05-20-2024 Urine Random Microalbumin < 12.0 mg/L NO RANGE EST. [facility] BUN/creatinine ratioOrdered By: [facility] 05-20-2024 Urea nitrogen/Creatinine [Mass ratio] 29.5 mg/mg High 10-20 [facility] Basophil percentageOrdered B y: Reva Baeza on 05-20-2024 Basophils/100 WBC (Bld) 0.7 % 0-1 [facility] Bilirubin, totalOrdered By: [facility] on 05-20-2024 Bilirubin [Mass/Vol] 0.22 mg/dL 0.00-1.30 [facility] CBC W/Diff, Automatedon 04-25 Absolute Lymph 2.33 X10 3/uL Normal 0.83-4.51 [facility] [facility] Comment on above: Order Comment: DR ROCHA ORDERED SHEREE RENAL ERIK CARBAJAL ORDERED CMP BCD TSH T4F TSHDR BAEZA ORDERED CBCD CMP TSH T4F Performed By: #### L 501.1400, L502.0250, L500.4050, L100.0100, L501.2300, L500.4100, L506.0400, L501.9520 ####[facility] [address] [place], [place], [id number] Absolute Neut 4.7 X10 3/uL Normal 2.0-7.7 [facility] Comment on above: Order Comment: DR ROCHA ORDERED SHEREE RENAL URICMARILYN CARBAJAL ORDERED CMP BCD TSH T4F TSHDR BAEZA ORDERED CBCD CMP TSH T4F Performed By: #### L 501.1400, L502.0250, L500.4050, L100.0100, L501.2300, L500.4100, L506.0400, L501.9520 ####[facility] [address] [place], [address] Basophils/100 WBC (Bld) 0.7 % Normal 0-1 [facility] Comment on above: Order Comment: DR ROCHA ORDERED SHEREE RENAL URICJOCELYNESSGARDENIA CARBAJAL ORDERED CMP BCD TSH T4F TSHDR ISCKARUS ORDERED CBCD CMP TSH T4F Performed By: #### L 501.1400, L502.0250, L500.4050, L100.0100, L501.2300, L500.4100, L506.0400, L501.9520 ####[facility] [address] [place], [address] Eosinophils/100 WBC (Bld) 2.5 % Normal 0-5 [facility] Comment on above: Order Comment: DR ROCHA ORDERED SHEREE RENAL URICMARILYN CARBAJAL ORDERED CMP BCD TSH T4F TSHDR ISCKARUS ORDERED CBCD CMP TSH T4F Performed By: #### L 501.1400, L502.0250, L500.4050, L100.0100, L501.2300, L500.4100, L506.0400, L501.9520 ####[facility] [address] [place], [address] Erythrocyte distribution width (RBC) [Ratio] 13.6 % Normal 11.6-14.6 [facility] Comment on above: Order Comment: DR ROCHA ORDERED MIACRE RENAL URICJOCELYNESSICA NELSON ORDERED CMP BCD TSH T4F TSHDR ISCKARUS ORDERED CBCD CMP TSH T4F Performed By: #### L 501.1400, L502.0250, L500.4050, L100.0100, L501.2300, L500.4100, L506.0400, L501.9520 ####[facility] [address] [place], [address] Hematocrit (Bld) [Volume fraction] 43.8 % Normal 40-54 [facility] Comment on above: Order Comment: DR ROCHA ORDERED MIACRE RENAL URICJESSICA NELSON ORDERED CMP BCD TSH T4F TSHDR ISCKARUS ORDERED CBCD CMP TSH T4F Performed By: #### L 501.1400, L502.0250, L500.4050, L100.0100, L501.2300, L500.4100, L506.0400, L501.9520 ####[facility] [address] [place], [address] Hemoglobin (Bld) [Mass/Vol] 14.7 g/dL Normal 13.0-16.5 [facility] Comment on above: Order Comment: DR ROCHA ORDERED SHEREE RENAL URICJESSICA NELSON ORDERED CMP BCD TSH T4F TSHDR ISCKARUS ORDERED CBCD CMP TSH T4F Performed By: #### L 501.1400, L502.0250, L500.4050, L100.0100, L501.2300, L500.4100, L506.0400, L501.9520 ####[facility] [address] [place], [address] IG% 1.100 High 0.0-0.9 [facility] Comment on above: Order Comment: DR ROCHA ORDERED SHEREE RENAL URICJOCELYNESSICA NELSON ORDERED CMP BCD TSH T4F TSHDR ISCKARUS ORDERED CBCD CMP TSH T4F Result Comment: IG% - Immature Granulocytes (promyelocytes, myelocytes and metamyelocytes) > 1% indicates that a LEFT SHIFT is Present. Performed By: #### L 501.1400, L502.0250, L500.4050, L100.0100, L501.2300, L500.4100, L506.0400, L501.9520 ####[facility] [address] [place], [address] Lymphocytes/100 WBC (Bld) 29.0 % Normal 19-41 [facility] Comment on above: Order Comment: DR ROCHA ORDERED SHEREE RENAL URICJOCELYNESSICA NELSON ORDERED CMP BCD TSH T4F TSHDR ISCKARUS ORDERED CBCD CMP TSH T4F Performed By: #### L 501.1400, L502.0250, L500.4050, L100.0100, L501.2300, L500.4100, L506.0400, L501.9520 ####[facility] [address] [place], [address] MCH (RBC) [Entitic mass] 28.4 pg Normal 27.0-32.0 [facility] Comment on above: Order Comment: DR ROCHA ORDERED SHEREE RENAL URICJOCELYNESSICA NELSON ORDERED CMP BCD TSH T4F TSHDR ISCKARUS ORDERED CBCD CMP TSH T4F Performed By: #### L 501.1400, L502.0250, L500.4050, L100.0100, L501.2300, L500.4100, L506.0400, L501.9520 ####[facility] [address] [place], [address] MCHC (RBC) [Mass/Vol] 33.6 g/dL Normal 32-36 [facility] Comment on above: Order Comment: DR ROCHA ORDERED SHEREE RENAL URICMARILYN CARBAJAL ORDERED CMP BCD TSH T4F TSHDR ISCKARUS ORDERED CBCD CMP TSH T4F Performed By: #### L 501.1400, L502.0250, L500.4050, L100.0100, L501.2300, L500.4100, L506.0400, L501.9520 ####[facility] [address], [address] MCV (RBC) [Entitic vol] 84.6 fL Normal 80-94 [facility] Comment on above: Order Comment: DR ROCHA ORDERED SHEREE RENAL URICJOCELYNESSICA NELSON ORDERED CMP BCD TSH T4F TSHDR ISCKARUS ORDERED CBCD CMP TSH T4F Performed By: #### L 501.1400, L502.0250, L500.4050, L100.0100, L501.2300, L500.4100, L506.0400, L501.9520 ####[facility] [address] [place], [address] Monocytes/100 WBC (Bld) 8.6 % Normal 0-10 [facility] Comment on above: Order Comment: DR ROCHA ORDERED MIACRE RENAL URICJESSICA NELSON ORDERED CMP BCD TSH T4F TSHDR ISCKARUS ORDERED CBCD CMP TSH T4F Performed By: #### L 501.1400, L502.0250, L500.4050, L100.0100, L501.2300, L500.4100, L506.0400, L501.9520 ####[facility] [address] [place], [address] Neutrophils/100 WBC (Bld) 58.1 % Normal 47-70 [facility] Comment on above: Order Comment: DR ROCHA ORDERED SHEREE RENAL URICJOCELYNESSICA NELSON ORDERED CMP BCD TSH T4F TSHDR ISCKARUS ORDERED CBCD CMP TSH T4F Performed By: #### L 501.1400, L502.0250, L500.4050, L100.0100, L501.2300, L500.4100, L506.0400, L501.9520 ####[facility] [address] [place], [address] Nucleated RBC (Bld) [#/Vol] 0 10*3/uL Normal 0-5 [facility] Comment on above: Order Comment: DR ROCHA ORDERED SHEREE RENAL URICJOCELYNESSICA NELSON ORDERED CMP BCD TSH T4F TSHDR ISCKARUS ORDERED CBCD CMP TSH T4F Performed By: #### L 501.1400, L502.0250, L500.4050, L100.0100, L501.2300, L500.4100, L506.0400, L501.9520 ####[facility] [address] [place], [address] Platelet mean volume (Bld) [Entitic vol] 11.4 fL Normal 6.2-12.0 [facility] Comment on above: Order Comment: DR ROCHA ORDERED MIACRE RENAL URICJESSICA NELSON ORDERED CMP BCD TSH T4F TSHDR ISCKARUS ORDERED CBCD CMP TSH T4F Performed By: #### L 501.1400, L502.0250, L500.4050, L100.0100, L501.2300, L500.4100, L506.0400, L501.9520 ####[facility] [address] [place], [address] Platelets (Bld) [#/Vol] 224 10*3/uL Normal 150-450 [facility] Comment on above: Order Comment: DR ROCHA ORDERED BENJAMINCRE RENAL URICJESSICA NELSON ORDERED CMP BCD TSH T4F TSHDR ISCKARUS ORDERED CBCD CMP TSH T4F Performed By: #### L 501.1400, L502.0250, L500.4050, L100.0100, L501.2300, L500.4100, L506.0400, L501.9520 ####[facility] [address] [place], [address] RBC (Bld) [#/Vol] 5.18 10*6/uL Normal 4.6-6.2 [facility] Comment on above: Order Comment: DR ROCHA ORDERED SHEREE RENAL URICJOCELYNESSICA NELSON ORDERED CMP BCD TSH T4F TSHDR ISCKARUS ORDERED CBCD CMP TSH T4F Performed By: #### L 501.1400, L502.0250, L500.4050, L100.0100, L501.2300, L500.4100, L506.0400, L501.9520 ####[facility] [address] [place], [address] RDW SD 41.6 fl Normal 35.1-43.9 [facility] Comment on above: Order Comment: DR ROCHA ORDERED MIACRE RENAL URICJESSICA NELSON ORDERED CMP BCD TSH T4F TSHDR ISCKARUS ORDERED CBCD CMP TSH T4F Performed By: #### L 501.1400, L502.0250, L500.4050, L100.0100, L501.2300, L500.4100, L506.0400, L501.9520 ####[facility] [address] [place], [address] WBC (Bld) [#/Vol] 8.0 10*3/uL Normal 4.4-11.0 [facility] Comment on above: Order Comment: DR ROCHA ORDERED MIACRE RENAL URICMARILYN CARBAJAL ORDERED CMP BCD TSH T4F TSHDR ARYAN ORDERED CBCD CMP TSH T4F Performed By: #### L 501.1400, L502.0250, L500.4050, L100.0100, L501.2300, L500.4100, L506.0400, L501.9520 ####[facility] [address] [place], [address] CREATININE FINGERSTICKon Creatinine [Mass/Vol] 1.6 mg/dL High 0.70-1.30 [facility] Comment on above: Performed By: #### L 9100.0200 ####[facility] [address] [place], [address] GFR/1.73 sq M.predicted among non-blacks MDRD (S/P/Bld) [Vol rate/Area] 47.0000 mL/min/{1.73_m2} Low >60 [facility] Comment on above: Performed By: #### L 9100.0200 ####[facility] [address] 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 TECHNIQUE: Chest and abdomen CT with intravenous contrast. No oral contrast. CONTRAST: 100 cc of Isovue-300. COMPARISON: Comparison is made with prior study dated December 03, 2023. FINDINGS: CT CHEST: The previously seen 2.3 cm x 2.2 cm well-defined nodule in the subcutaneous tissues overlying the left upper posterior hemithorax was not imaged at this time. Lymph nodes: No mediastinal, hilar, or axillary lymphadenopathy. Heart and Vasculature: Normal heart size. No pericardial effusion. Thoracic aorta and pulmonary arteries are unremarkable. Coronary artery calcification. Lungs and Airways: The lungs are normally expanded and clear. Pleura: No pleural effusion. No pneumothorax. CT ABDOMEN: Liver: Unremarkable. Gallbladder: Unremarkable. Spleen: Unremarkable. Pancreas: Unremarkable. Adrenals: Unremarkable. Kidneys: Tiny nonobstructive calculus in the lower pole calyx of the right kidney. There is an 8 mm nonobstructive calculus in the lower pole calyx of the left kidney. Bowel: Visualized loops of bowel in the upper abdomen are unremarkable. Lymph nodes: No suspicious lymph node enlargement at the upper abdomen. Vasculature: Major vascular structures at the upper abdomen are unremarkable. Peritoneum / Retroperitoneum: No ascites or free air at the upper abdomen. Bones: Degenerative changes of the spine. CT/CT Chest AND Abd W/ Contrast IMPRESSION: The previously seen nodular density in the upper posterior left hemithorax was not imaged on this examination. The remainder of the examination is unchanged. One or more dose reduction techniques were used (e.g., Automated exposure control, adjustment of the mA and/or kV according to patient size, use of iterative reconstruction technique). Reading Location: [id number] CC: [facility] ADELINE Carbajal; Dr. Reva Baeza MD Oenologist: Signed Normal [facility] Calculated very low density lipoprotein (VLDL) cholesterol measurementOrdered By: Reva Baeza on 05-20-2024 VLDL Cholesterol 27 mg/dL 5-40 [facility] Carbon dioxide measurementOr dered By: Reva Baeza on 05-20-2024 CO2 [Moles/Vol] 22.3 mmol/L 22.0-29.0 [facility] Chloride measurementOrdered By: Reva Baeza on 05-20-2024 Chloride [Moles/Vol] 101 mmol/L 96-108 [facility] Comprehensive Metabolic Prof ilon 05-20-2024 Albumin [Mass/Vol] 4.0 g/dL Normal 3.5-5.0 [facility] Comment on above: Order Comment: DR ROCHA ORDERED SHEREE RENAL URICMARILYN CARBAJAL ORDERED CMP BCD TSH T4F TSHDR ARYAN ORDERED CBCD CMP TSH T4F Performed By: #### L 501.1400, L502.0250, L500.4050, L100.0100, L501.2300, L500.4100, L506.0400, L501.9520 ####[facility] [address] [place], [place], [phone] Albumin/Globulin [Mass ratio] 1.4 {ratio} Normal 0.9-2.4 [facility] Comment on above: Order Comment: DR ROCHA ORDERED SHEREE RENAL ERIK CARBAJAL ORDERED CMP BCD TSH T4F TSHDR ARYAN ORDERED CBCD CMP TSH T4F Performed By: #### L 501.1400, L502.0250, L500.4050, L100.0100, L501.2300, L500.4100, L506.0400, L501.9520 ####[facility] [address] [place], [place], [phone] ALK PHOS 69 U/L Normal 40-129 [facility] Comment on above: Order Comment: DR ROCHA ORDERED SHEREE RENAL URICMARILYN CARBAJAL ORDERED CMP BCD TSH T4F TSHDR ARYAN ORDERED CBCD CMP TSH T4F Performed By: #### L 501.1400, L502.0250, L500.4050, L100.0100, L501.2300, L500.4100, L506.0400, L501.9520 ####[facility] [address] [place], [place], [phone] ALT [Catalytic activity/Vol] 21 U/L Normal <=46 [facility] Comment on above: Order Comment: DR ROCHA ORDERED MIACRE RENAL URICJOCELYNESSICA NELSON ORDERED CMP BCD TSH T4F TSHDR ISCKARUS ORDERED CBCD CMP TSH T4F Performed By: #### L 501.1400, L502.0250, L500.4050, L100.0100, L501.2300, L500.4100, L506.0400, L501.9520 ####[facility] [address] [place], [address] Anion gap [Moles/Vol] 10 mmol/L Normal 5-15 [facility] Comment on above: Order Comment: DR ROCHA ORDERED BENJAMINCRE RENAL URICJOCELYNESSICA NELSON ORDERED CMP BCD TSH T4F TSHDR ISCKARUS ORDERED CBCD CMP TSH T4F Performed By: #### L 501.1400, L502.0250, L500.4050, L100.0100, L501.2300, L500.4100, L506.0400, L501.9520 ####[facility] [address] [place], [place], [phone] AST [Catalytic activity/Vol] 16 U/L Normal <=37 [facility] Comment on above: Order Comment: DR ROCHA ORDERED SHEREE RENAL URICJOCELYNESSICA NELSON ORDERED CMP BCD TSH T4F TSHDR ISCKARUS ORDERED CBCD CMP TSH T4F Performed By: #### L 501.1400, L502.0250, L500.4050, L100.0100, L501.2300, L500.4100, L506.0400, L501.9520 ####[facility] [address] [place], [place], [phone] Bilirubin [Mass/Vol] 0.22 mg/dL Normal 0.00-1.30 [facility] Comment on above: Order Comment: DR ROCHA ORDERED MIACRE RENAL URICJESSICA NELSON ORDERED CMP BCD TSH T4F TSHDR ISCKARUS ORDERED CBCD CMP TSH T4F Performed By: #### L 501.1400, L502.0250, L500.4050, L100.0100, L501.2300, L500.4100, L506.0400, L501.9520 ####[facility] [address] [place], [address] BUN/CRE 29.5 RATIO High 10-20 [facility] Comment on above: Order Comment: DR ROCHA ORDERED MIACRE RENAL URICJESSICA NELSON ORDERED CMP BCD TSH T4F TSHDR ISCKARUS ORDERED CBCD CMP TSH T4F Performed By: #### L 501.1400, L502.0250, L500.4050, L100.0100, L501.2300, L500.4100, L506.0400, L501.9520 ####[facility] [address] [place], [place], [phone] Calcium [Mass/Vol] 9.6 mg/dL Normal 7.6-11.0 [facility] Comment on above: Order Comment: DR ROCHA ORDERED SHEREE RENAL URICJOCELYNESSICA NELSON ORDERED CMP BCD TSH T4F TSHDR ISCKARUS ORDERED CBCD CMP TSH T4F Performed By: #### L 501.1400, L502.0250, L500.4050, L100.0100, L501.2300, L500.4100, L506.0400, L501.9520 ####[facility] [address] [place], [address] Chloride [Moles/Vol] 101 mmol/L Normal 96-108 [facility] Comment on above: Order Comment: DR ROCHA ORDERED MIAISAÍAS RENAL URICJOCELYNESSICA NELSON ORDERED CMP BCD TSH T4F TSHDR ISCKARUS ORDERED CBCD CMP TSH T4F Performed By: #### L 501.1400, L502.0250, L500.4050, L100.0100, L501.2300, L500.4100, L506.0400, L501.9520 ####[facility] [address] [place], [address] CO2 [Moles/Vol] 22.3 mmol/L Normal 22.0-29.0 [facility] Comment on above: Order Comment: DR ROCHA ORDERED SHEREE RENAL URICMARILYN CARBAJAL ORDERED CMP BCD TSH T4F TSHDR ISCKARUS ORDERED CBCD CMP TSH T4F Performed By: #### L 501.1400, L502.0250, L500.4050, L100.0100, L501.2300, L500.4100, L506.0400, L501.9520 ####[facility] [address] [place], [place], [phone]) Creatinine [Mass/Vol] 1.4 mg/dL High 0.8-1.3 [facility] Comment on above: Order Comment: DR ROCHA ORDERED SHEREE RENAL ERIK CARBAJAL ORDERED CMP BCD TSH T4F TSHDR ISCKARUS ORDERED CBCD CMP TSH T4F Performed By: #### L 501.1400, L502.0250, L500.4050, L100.0100, L501.2300, L500.4100, L506.0400, L501.9520 ####[facility] [address] [place], [place], [phone]) GFR/1.73 sq M.predicted among non-blacks MDRD (S/P/Bld) [Vol rate/Area] 59 mL/min/{1.73_m2} Low >60 [facility] Comment on above: Order Comment: DR ROCHA ORDERED SHEREE RENAL ERIK CARBAJAL ORDERED CMP BCD TSH T4F TSHDR ISCKARUS ORDERED CBCD CMP TSH T4F Result Comment: mL/m in/1.73m2 CKD-EPI Creatinine Equation (2020) Performed By: #### L 501.1400, L502.0250, L500.4050, L100.0100, L501.2300, L500.4100, L506.0400, L501.9520 ####[facility] [address] [place], [address] Globulin (S) [Mass/Vol] 2.9 g/dL Normal 2.2-4.2 [facility] Comment on above: Order Comment: DR ROCHA ORDERED MIACRE RENAL URICJESSICA NELSON ORDERED CMP BCD TSH T4F TSHDR ISCKARUS ORDERED CBCD CMP TSH T4F Performed By: #### L 501.1400, L502.0250, L500.4050, L100.0100, L501.2300, L500.4100, L506.0400, L501.9520 ####[facility] [address] [place], [address] Glucose [Mass/Vol] 98 mg/dL Normal 70-99 [facility] Comment on above: Order Comment: DR ROCHA ORDERED MIACRE RENAL URICJESSICA NELSON ORDERED CMP BCD TSH T4F TSHDR ISCKARUS ORDERED CBCD CMP TSH T4F Performed By: #### L 501.1400, L502.0250, L500.4050, L100.0100, L501.2300, L500.4100, L506.0400, L501.9520 ####[facility] [address] [place], [address] Potassium [Moles/Vol] 4.9 mmol/L Normal 3.3-5.1 [facility] Comment on above: Order Comment: DR ROCHA ORDERED MIACRE RENAL URICJOCELYNESSICA NELSON ORDERED CMP BCD TSH T4F TSHDR ISCKARUS ORDERED CBCD CMP TSH T4F Performed By: #### L 501.1400, L502.0250, L500.4050, L100.0100, L501.2300, L500.4100, L506.0400, L501.9520 ####[facility] [address] [place], [address] Sodium [Moles/Vol] 134 mmol/L Normal 133-145 [facility] Comment on above: Order Comment: DR ROCHA ORDERED MIACRE RENAL URICJESSICA NELSON ORDERED CMP BCD TSH T4F TSHDR ISCKARUS ORDERED CBCD CMP TSH T4F Performed By: #### L 501.1400, L502.0250, L500.4050, L100.0100, L501.2300, L500.4100, L506.0400, L501.9520 ####[facility] [address] [place], [place], [phone] T PROT 6.8 g/dL Normal 5.9-8.4 [facility] Comment on above: Order Comment: DR ROCHA ORDERED SHEREE RENAL URICJOCELYNESSICA NELSON ORDERED CMP BCD TSH T4F TSHDR ARYAN ORDERED CBCD CMP TSH T4F Performed By: #### L 501.1400, L502.0250, L500.4050, L100.0100, L501.2300, L500.4100, L506.0400, L501.9520 ####[facility] [address] [place], [place], [phone] Urea nitrogen [Mass/Vol] 41 mg/dL High 4-19 [facility] Comment on above: Order Comment: DR ROCHA ORDERED SHEREE RENAL URICJOCELYNESSICA NELSON ORDERED CMP BCD TSH T4F TSHDR ISCROSALESUS ORDERED CBCD CMP TSH T4F Performed By: #### L 501.1400, L502.0250, L500.4050, L100.0100, L501.2300, L500.4100, L506.0400, L501.9520 ####[facility] [address] [place], [place], [phone] Creatinine Unsp time (U) [Ma ss/Vol]Ordered By: Reva Baeza on 05-20-2024 Creatinine (U) [Mass/Vol] 44.40 mg/dL NO RANGE EST. [facility] Creatinine measurement at dsideOrdered By: Reva Baeza on 05-20-2024 Creatinine [Mass/Vol] 1.6 mg/dL High 0.70-1.30 [facility] EGFROrdered By: Reva chaudhary on 05-20-2024 GFR/1.73 sq M.predicted among non-blacks MDRD (S/P/Bld) [Vol rate/Area] 47.0000 mL/min/{1.73_m2} Low >60 [facility] Eosinophil percentageOrdered By: Reva Baeza on 05-20-2024 Eosinophils/100 WBC (Bld) 2.5 % 0-5 [facility] Erythrocyte distribution wid th ratioOrdered By: Reva Baeza on 05-20-2024 Erythrocyte distribution width (RBC) [Ratio] 13.6 % 11.6-14.6 [facility] Erythrocyte distribution wid th standard deviationOrdered By: Reva Baeza on 05-20-2024 Erythrocyte distribution width (RBC) [Entitic vol] 41.6 fL 35.1-43.9 [facility] GFR/1.73 sq M.predicted jen g non-blacks MDRD (S/P/Bld) [Vol rate/Area]Ordered By: Reva Baeza on 05-20-2024 Estimated GFR (MDRD) Non-Af Amer 59 Low >60 [facility] Comment on above: mL/min/1.73m2 CKD-EP I Creatinine Equation (2020) Hematocrit Auto (Bld) [Volum e fraction]Ordered By: Reva Baeza on 05-20-2024 Hematocrit (Bld) [Volume fraction] 43.8 % 40-54 [facility] Hemoglobin measurementOrdere d By: Reva Baeza on 05-20-2024 Hemoglobin (Bld) [Mass/Vol] 14.7 g/dL 13.0-16.5 [facility] Immature granulocytes/100 WB C Auto (Bld)Ordered By: Reva Baeza on 05-20-2024 Immature granulocytes/100 WBC (Bld) 1.100 % High 0.0-0.9 [facility] Comment on above: IG% - Immature Granu locytes (promyelocytes, myelocytes and metamyelocytes) > 1% indicates that a LEFT SHIFT is Present. LDL calc ser/plasOrdered By: Reva Baeza on 05-20-2024 LDL Cholesterol, Calculated 82 mg/dL [facility] Comment on above: Xscjelufrj=883-200 m g/dL & Higher Byvz=686 mg/dL or greater Laboratory - Chemistry and C hemistry - challengeOrdered By: Reva Baeza on 05-20-2024 AST [Catalytic activity/Vol] 16 U/L <38 [facility] Lipid Profileon 05-20-2024 CHOL:HDL 5.11 Normal [facility] Comment on above: Order Comment: DR ROCHA ORDERED MIACRE RENAL URICJESSICA NELSON ORDERED CMP BCD TSH T4F TSHDR ISCYULISSA ORDERED CBCD CMP TSH T4F Performed By: #### L 501.1400, L502.0250, L500.4050, L100.0100, L501.2300, L500.4100, L506.0400, L501.9520 ####[facility] [address] [place], [place], [phone] Cholesterol [Mass/Vol] 135 mg/dL Normal <=200 [facility] Comment on above: Order Comment: DR ROCHA ORDERED MIACRE RENAL URICJOCELYNESSICA NELSON ORDERED CMP BCD TSH T4F TSHDR ARYAN ORDERED CBCD CMP TSH T4F Result Comment: Chol esterol level, Desirable <200 mg/dL Borderline high cholesterol 200-239 mg/dL High cholesterol >=240 mg/dL Recommendations of the NCEP Adult Treatment Panel for the following risk-cutoff thresholds for the [place] population. Performed By: #### L 501.1400, L502.0250, L500.4050, L100.0100, L501.2300, L500.4100, L506.0400, L501.9520 ####[facility] [id number] [place], [place], [id number] Cholesterol in HDL [Mass/Vol] 26 mg/dL Low [facility] Comment on above: Order Comment: DR ROCHA ORDERED MIACRE RENAL URICJOCELYNESSICA NELSON ORDERED CMP BCD TSH T4F TSHDR ARYAN ORDERED CBCD CMP TSH T4F Result Comment: [place] on[facility] Cholesterol Education Program (NCEP) guidelines: <40 mg/dL: Low HDL-cholesterol (major risk factor for CHD) >= 60 mg/dL: High HDL-cholesterol (negative risk factor for CHD) HDL-cholesterol is affected by a number of factors, e.g. smoking, exercise, hormones, sex and age. Performed By: #### L 501.1400, L502.0250, L500.4050, L100.0100, L501.2300, L500.4100, L506.0400, L501.9520 ####[facility] [id number] [place], [address] Cholesterol in LDL [Mass/Vol] 82 mg/dL Normal [facility] Comment on above: Order Comment: DR ROHCA ORDERED MIACRE RENAL URICJESSICA NELSON ORDERED CMP BCD TSH T4F TSHDR ISCKARUS ORDERED CBCD CMP TSH T4F Result Comment: Bord xsaqoc=541-897 mg/dL Higher Wlts=806 mg/dL or greater Performed By: #### L 501.1400, L502.0250, L500.4050, L100.0100, L501.2300, L500.4100, L506.0400, L501.9520 ####[facility] [id number] [place], [place], [phone] Cholesterol in VLDL [Mass/Vol] 27 mg/dL Normal 5-40 [facility] Comment on above: Order Comment: DR ROCHA ORDERED SHEREE RENAL URICJESSICA NELSON ORDERED CMP BCD TSH T4F TSHDR ISCKARUS ORDERED CBCD CMP TSH T4F Performed By: #### L 501.1400, L502.0250, L500.4050, L100.0100, L501.2300, L500.4100, L506.0400, L501.9520 ####[facility] [id number] [place], [address] Triglyceride [Mass/Vol] 133 mg/dL Normal [facility] Comment on above: Order Comment: DR ROCHA ORDERED MIACRE RENAL URICJESSICA NELSON ORDERED CMP BCD TSH T4F TSHDR ISCKARUS ORDERED CBCD CMP TSH T4F Result Comment: The drugs N-Acetylcysteine and Metamizole may falsely depress this assay. Normal range: <150 mg/dL Borderline High: 150-199 mg/dL High: 200-499 mg/dL Very High: >500 mg/dL Performed By: #### L 501.1400, L502.0250, L500.4050, L100.0100, L501.2300, L500.4100, L506.0400, L501.9520 ####[facility] [id number] [place], [address] Lymphocytes Auto (Unsp spec) [#/Vol]Ordered By: Reva Baeza on 05-20-2024 Lymphocytes (Bld) [#/Vol] 2.33 10*3/uL 0.83-4.51 [facility] Lymphocytes/100 WBC Auto (Un sp spec)Ordered By: Reva Baeza on 05-20-2024 Lymphocytes/100 WBC (Bld) 29.0 % 19-41 [facility] MCV (mean corpuscular volume ) determinationOrdered By: Reva Baeza on 05-20-2024 MCV (RBC) [Entitic vol] 84.6 fL 80-94 [facility] Mean corpuscular hemoglobin (MCH) determinationOrdered By: Reva Baeza on 05-20-2024 MCH (RBC) [Entitic mass] 28.4 pg 27.0-32.0 [facility] Mean corpuscular hemoglobin concentration (MCHC) determinationOrdered By: Reva Baeza on 05-20-2024 MCHC (RBC) [Mass/Vol] 33.6 g/dL 32-36 [facility] Mean platelet volume determi nationOrdered By: [facility] on 05-20-2024 Platelet mean volume (Bld) [Entitic vol] 11.4 fL 6.2-12.0 [facility] Microalb:Creat Ratio,Random URon 05-20-2024 MALB:CREAT Normal [facility] Comment on above: Result Comment: UNAB LE TO CALCULATE Performed By: #### L 9100.0200 #### [facility] [address] [place], [id number] Microalbumin/creat ratio urO rdered By: Reva Baeza on 05-20-2024 Urine Microalbumin/Creatinin e Ratio See comment [facility] Comment on above: UNABLE TO CALCULATE Monocyte percentageOrdered B y: Reva Baeza on 05-20-2024 Monocytes/100 WBC (Bld) 8.6 % 0-10 [facility] Neutrophil percentageOrdered By: Reva Baeza on 05-20-2024 Neutrophils/100 WBC (Bld) 58.1 % 47-70 [facility] Nucleated red blood cell per centageOrdered By: Reva Baeza on 05-20-2024 Nucleated RBC/100 WBC (Bld) [Ratio] 0 % 0-5 [facility] Phosphoruson 05-20-2024 Phosphate [Mass/Vol] 3.2 mg/dL Normal 2.7-4.5 [facility] Comment on above: Order Comment: DR ROCHA ORDERED MIACRE RENAL URICJELORENE CARBAJAL ORDERED CMP BCD TSH T4F TSHDR ARYAN ORDERED CBCD CMP TSH T4F Performed By: #### L 501.1400, L502.0250, L500.4050, L100.0100, L501.2300, L500.4100, L506.0400, L501.9520 ####[facility] [address] [place], [address] Platelet countOrdered By: Robert Baeza on 05-20-2024 Platelets (Bld) [#/Vol] 224 10*3/uL 150-450 [facility] RBC Auto (Bld) [#/Vol]Ordere d By: Reva Baeza on 05-20-2024 RBC (Bld) [#/Vol] 5.18 10*6/uL 4.6-6.2 [facility] Screening total cholesterol/ high density lipoprotein (HDL) cholesterol ratioOrdered By: Reva Baeza on 05-20-2024 Cholesterol.total/Chol esterol in HDL [Mass ratio] 5.11 {ratio} [facility] Serum creatinine measurement (mass/volume)Ordered By: Reva Baeza on 05-20-2024 Creatinine [Mass/Vol] 1.4 mg/dL High 0.70-1.20 [facility] Serum globulin measurementOr dered By: Reva Baeza on 05-20-2024 Globulin (S) [Mass/Vol] 2.9 g/dL 2.2-4.2 [facility] Serum glucose measurement (m ass/volume)Ordered By: Reva Baeza on 05-20-2024 Glucose [Mass/Vol] 98 mg/dL 70-99 [facility] Serum or plasma alanine hutchins otransferase (ALT) measurementOrdered By: Reva Baeza on 05-20-2024 ALT [Catalytic activity/Vol] 21 U/L <47 [facility] Serum or plasma albumin chandrakant urement (mass/volume)Ordered By: Reva Baeza on 05-20-2024 Albumin [Mass/Vol] 4.0 g/dL 3.5-5.0 [facility] Serum or plasma albumin/glob ulin mass ratioOrdered By: Reva Baeza on 05-20-2024 Albumin/Globulin [Mass ratio] 1.4 {ratio} 0.9-2.4 [facility] Serum or plasma alkaline lary sphatase measurementOrdered By: Reva Baeza on 05-20-2024 ALP [Catalytic activity/Vol] 69 U/L 40-129 [facility] Serum or plasma anion gap de termination (moles/volume)Ordered By: Reva Baeza on 05-20-2024 Anion gap [Moles/Vol] 10 mmol/L 5-15 [facility] Serum or plasma calcium chandrakant urement (mass/volume)Ordered By: Reva Baeza on 05-20-2024 Calcium [Mass/Vol] 9.6 mg/dL 7.6-11.0 [facility] Serum or plasma cholesterol in HDL measurement (mass/volume)Ordered By: Reva Baeza on 05-20-2024 Cholesterol in HDL [Mass/Vol] 26 mg/dL Low >40 [facility] Comment on above: National Cholesterol Education Program (NCEP) guidelines:<40 mg/dL: Low HDL-cholesterol (major risk factor for CHD)>= 60 mg/dL: High HDL-cholesterol (negative risk factor for CHD)HDL-cholesterol is affected by a number of factors, e.g. smoking, exercise, hormones, sex and age. Serum or plasma cholesterol measurement (mass/volume)Ordered By: Reva Baeza on 05-20-2024 Cholesterol [Mass/Vol] 135 mg/dL <201 [facility] Comment on above: Cholesterol level, D esirable <200 mg/dLBorderline high cholesterol 200-239 mg/dLHigh cholesterol >=240 mg/dLRecommendations of the NCEP Adult Treatment Panel for the following risk-cutoff thresholds for the [place] population. Serum or plasma potassium me asurementOrdered By: Reva Baeza on 05-20-2024 Potassium [Moles/Vol] 4.9 mmol/L 3.3-5.1 [facility] Serum or plasma sodium measu rement (moles/volume)Ordered By: Reva Baeza on 05-20-2024 Sodium [Moles/Vol] 134 mmol/L 133-145 [facility] Serum or plasma urea nitroge n measurement (mass/volume)Ordered By: Reva Baeza on 05-20-2024 Urea nitrogen [Mass/Vol] 41 mg/dL High 4-19 [facility] Serum or plasma uric acid me asurement (mass/volume)Ordered By: Reva Baeza on 05-20-2024 Urate [Mass/Vol] 6.6 mg/dL 3.5-7.2 [facility] Comment on above: The drugs N-Acetylcy steine and Metamizole may falsely depress this assay. Serum phosphorus measurement Ordered By: Reva Baeza on 05-20-2024 Phosphorus Level 3.2 mg/dL 2.7-4.5 [facility] Soft Tissue Neck WITH Contra ston 05-20-2024 Soft Tissue Neck WITH Contrast [facility] [address] [place], [place] [id number] Soft Tissue Neck WITH Contrast MR#: [id number] Acct: [id number] Name: ALEJANDRA THORNTON Rep #: [id number] : 1965 M 58 From: Rudolph French MD PCP: IRAIDA Jack, SENIOR PROGRAMMER-C Status: REG CLI Study: Soft Tissue Neck WITH Contrast Date of Exam: 0 05/20/24 Exam# [id number] Ordering Dr: Reva Baeza MD PROCEDURE: CT SOFT TISSUE NECK WITH CONTRAST REASON FOR EXAM: FOLLOW-UP MELANOMA. TECHNIQUE: Contiguous axial scans of 2.5 mm slice thicknesses. Sagittal and coronal reconstruction images were obtained. One or more dose reduction techniques were used (e.g., automated exposure control, adjustment of mA and/or kv according to patient size, use of iterative reconstruction technique). CONTRAST: Isovue 370, 89 ml. COMPARISON: CT soft tissue neck dated 12/03/2023. FINDINGS: Airway: Midline and patent. Salivary glands: The left submandibular gland has been resected. The patient is status post partial left neck dissection. Remaining salivary glands are unremarkable. Lymph nodes: No cervical lymphadenopathy. Thyroid: Unremarkable. Vasculature: Carotid arteries and internal jugular veins are unremarkable. Orbits: Unremarkable at visualized levels. Paranasal sinuses and mastoids: Mild mucoperiosteal thickening, bilateral maxillary sinuses. Lung apices: Clear. Upper mediastinum: Visualized mediastinum is unremarkable. Bones: Unremarkable. Leftward deviation of the nasal septum. Beam hardening artifact related to dental enhancements. Multilevel spondylosis. Soft tissues: Stable scarring of the left sternocleidomastoid muscle. CT/Soft Tissue Neck WITH Contrast IMPRESSION: 1. Stable CT soft tissue neck when compared to the previous study. 2. Status post left partial neck resection. 3. Mild inflammation involving the maxillary sinuses. 4. Other nonacute findings detailed above Reading Location: [place] [address] CC: [facility] SENIOR PROGRAMMER-C Marilyn Carbajal; Dr. Reva Baeza MD Oenologist: Signed Normal [facility] T4 Free Directon 05-20-2024 T4 FREE DIRECT 1.20 ng/dL Normal 0.76-1.46 [facility] Comment on above: Order Comment: DR ROCHA ORDERED MIACRE RENAL URICMARILYN CARBAJAL ORDERED CMP BCD TSH T4F TSHDR ARYAN ORDERED CBCD CMP TSH T4F Performed By: #### L 9100.0200 #### [facility] [address] [place], [address] T4 freeOrdered By: Reva rangel on 05-20-2024 Free T4 [Mass/Vol] 1.20 ng/dL 0.76-1.46 [facility] TSH DL <= 0.005 mIU/L QnOrde red By: Reva Kleinus on 05-20-2024 Thyroid Stimulating Hormone (TSH) 3.620 uIU/mL 0.300-4.200 [facility] Thyroid Stim Hormone (TSH)on 05-20-2024 TSH 3.620 uIU/mL Normal 0.300-4.200 [facility] Comment on above: Order Comment: DR ROCHA ORDERED SHEREE RENAL URICMARILYN CARBAJAL ORDERED CMP BCD TSH T4F TSHDR BAEAZ ORDERED CBCD CMP TSH T4F Performed By: #### L 501.1400, L502.0250, L500.4050, L100.0100, L501.2300, L500.4100, L506.0400, L501.9520 ####[facility] [address] [place], [place], [id number] Total proteinOrdered By: Ricco burnham Aryan on 05-20-2024 Protein [Mass/Vol] 6.8 g/dL 5.9-8.4 [facility] Triglycerides measurementOrd ered By: Reva Aryan on 05-20-2024 Triglyceride [Mass/Vol] 133 mg/dL <199 [facility] Comment on above: The drugs N-Acetylcy steine and Metamizole may falsely depress this assay. Normal range: <150 mg/dLBorderline High: 150-199 mg/dLHigh: 200-499 mg/dLVery High: >500 mg/dL Uric Acidon 05-20-2024 URIC 6.6 mg/dL Normal 3.5-7.2 [facility] Comment on above: Order Comment: DR ROCHA ORDERED SHEREE RENAL URICMARILYN CARBAJAL ORDERED CMP BCD TSH T4F TSHDR BAEZA ORDERED CBCD CMP TSH T4F Result Comment: The drugs N-Acetylcysteine and Metamizole may falsely depress this assay. Performed By: #### L 501.1400, L502.0250, L500.4050, L100.0100, L501.2300, L500.4100, L506.0400, L501.9520 ####[facility] [address] [place], [place], [id number] White blood cell (WBC) count Ordered By: Reva Baeza on 05-20-2024 WBC (Bld) [#/Vol] 8.0 10*3/uL 4.4-11.0 [facility] C-reactive protein measureme nt by high sensitivity methodOrdered By: Martinelun Beam on 04-09-2024 C-Reactive Protein Extended Range 129.00 mg/L High 0.0-3.0 [facility] Comment on above: C-Reactive Protein ( CRP) provides useful information for thediagnosis, therapy and monitoring of inflammatory processesand associated diseases. For the evaluation of Relative Riskfor Cardiovascular Disease, a High Sensitivity CRP (HSCRP)should be ordered. CRPon 04-09-2024 C-REACTIVE PROT 129.00 mg/L High 0.0-3.0 [facility] Comment on above: Result Comment: C-Re active Protein (CRP) provides useful information for the diagnosis, therapy and monitoring of inflammatory processes and associated diseases. For the evaluation of Relative Risk for Cardiovascular Disease, a High Sensitivity CRP (HSCRP) should be ordered. Performed By: #### L 501.1400, L101.9900, L501.6710 ####[facility] [address] [place], [place], [id number] Erythrocyte Sed Rateon 04-09 SED RATE 35 mm/hr High 0-20 [facility] Comment on above: Performed By: #### L 501.1400, L101.9900, L501.6710 ####[facility] [address] [place], [address] Erythrocyte sedimentation ra teOrdered By: Marcelinobulun Beam on 04-09-2024 ESR (Bld) [Velocity] 35 mm/h High 0-20 [facility] Serum or plasma uric acid me asurement (mass/volume)Ordered By: Eunicen Beam on 04-09-2024 Urate [Mass/Vol] 8.2 mg/dL High 3.5-7.2 [facility] Comment on above: The drugs N-Acetylcy steine and Metamizole may falsely depress this assay. Uric Acidon 01-17-2025 URIC 8.2 mg/dL High 3.5-7.2 [facility] Comment on above: Result Comment: The drugs N-Acetylcysteine and Metamizole may falsely depress this assay. Performed By: #### L 501.1400, L101.9900, L501.6710 ####[facility] [address] [place], [address] Orthopedic Visit Reporton Orthopedic Visit Report [facility] [address] [place] [address] 5 [place] [address] OFFICE VISIT Date of Service: 01/26/24 MR#: [id number] Acct: [id number] Name: ALEJANDRA THORNTON Rep #: [id number] : 1965 Provider: Dr. Estevan Whalen so, DO Age/Sex: 58/M Location: [facility] [place] Status: Signed Intake Vital Signs 12/11/23 12:09 01/14/24 16:13 01/26/24 11:14 Height 5 ft 10 in 5 ft 10 in 5 ft 10 in Weight: 257 lb 260 lb 8 oz BMI 36.8 37.3 BP 109/77 Blood Pressure Location Lt brachial Position Sitting Respiration 16 Pulse 78 Pulse Source Monitor Temp 97.9 F Pulse Oximetry (%) 97 Oxygen Delivery Method room air Intake Visit Reasons: LEFT KNEE Chief Complaint: left knee Accompanied by: Self Allergies No Known Allergies Allergy (Verified 01/26/24 11:14) Medications ???Medication ???Instructions ???Recorded ???Confirmed ???Type ramipril 10 mg capsule 10 mg PO LUNCH bp 09/12/20 01/26/24 History Hydrocortisone 2.5%/lidocaine 5% #1 pkg 11/20/20 01/26/24 Rx suppository (cmpd) (hydrocortisone 2.5%/lidocaine 5% suppository (compound)) oxygen-air delivery systems 07/31/21 01/26/24 History metformin 500 mg tablet 500 mg PO BID #60 tabs 01/31/23 01/26/24 Rx allopurinol 300 mg tablet 300 mg PO DAILY 05/13/23 01/26/24 History sertraline 100 mg tablet (Zoloft) 150 mg PO DAILY 05/13/23 01/26/24 History PFSH Medical History Diabetes Impaired glucose tolerance Oral candidiasis Generalized headaches Encounter for immunotherapy Immunotherapy Loose, teeth Cancer Gout Low iron DVT (deep venous thrombosis) Restless legs Gastric reflux Non-smoker History of edema Medullary sponge kidney of both kidneys Morbid obesity Chronic renal failure Snoring SOB (shortness of breath) Kidney disease Hypertension Gastroesophageal reflux Depression Arthritis Surgical History History of surgery History of parotidectomy History of carpal tunnel surgery History of appendectomy Family History Mother Liver disease Father Lung cancer Hypertension Social History Smoking Status: Never smoker second hand exposure: No alcohol intake: never substance use type: does not use yohan/islam: None seatbelt use: never do you feel safe at home: Yes HPI LEFT KNEE Details: This documentation accurately reflects the service provided and the decisions made by me, Dr. Estevan Moreno, DO 01/26/24 0805. Part of today???s visit was documented by Camryn IGLESIAS, acting as scribe. ALEJANDRA THORNTON is a 58 year old M with medical history significant for but not limited to obesity, LILY, malignant melanoma, immunotherapy, gout, history of DVT, GI bleed, medullary sponge kidney, renal failure, oral candidiasis, diabetes here today for left knee pain. He states the knee has bothered him intermittently for many years but 6-8 weeks ago his knee swelled and he had to use crutches. He also had been taking naproxen which helped take the edge off. The pain then subsided but came back a week later and went to an urgent care and was prescribed a steroid for 5 days then [facility] and [facility] did some blood work and gave him a steroid dose pack. He states that the steroids give him a lot of relief. He states that the pain has been in different areas on the knee. He denies injury or previous surgery. Denies injections and physical therapy. Denies mechanical symptoms. He occasionally feel instability in the knee. He was diagnsed with the melanoma about 4 years ago and was on Keytruda for 2-3 years. He did have it removed. Ortho Exam General General: Yes no acute distress Neurologic: Yes alert and Yes oriented x3 Psychologic: Yes reasonable and appropriate Right Knee Patella Translation: 1 Left Knee Skin/Wound: No ecchymosis and No erythema Knee ROM: Yes ROM-Extension -20 to 0 and Yes ROM-Flexion 0-140 (118) Examination: No med jt line tenderness, No Lat jt line tenderness, No TTP inf pole patella, No Crepitus, No Pain with flexion and No Pina's Test Stability: NML: Anterior Drawer, NML: Edouard, NML: Posterior Drawer, NML: Valgus 0, NML: Valgus 30 and NML: Varus 0 Patella Translation: 1 Patella Grind: No KNEE: prominent tibial tubercle fixed verus deformity Supplemental Info 01/13/2024 x-ray left knee: There is moderate medial joint space narrowing with subchondral cystic changes and spurring varus deformity 12/21/2021 bone scan: 1. The persistently increased radiotracer concentration noted in the thoracic and lumbar spine, right sacroiliac joint, the bilateral shoulders (more content not included)... Normal [facility] Venous Duplex US, Unilateral on 01-14-2024 Venous Duplex US, Unilateral [facility] [address] [place] [address] Venous Duplex US, Unilateral 01/14/24 1302 MR#: [id number] Acct: [id number] Name: ALEJANDRA THORNTON Rep #: [id number] : 1965 58 From: Del Doll MD Attending Dr: Marilyn Carbajal, [facility], SENIOR PROGRAMMER-C Status : REG CLI Ordering Dr: Marilyn Carbajal [facility] SENIOR PROGRAMMER-C Date: 01/13 Location: [facility] Sex: M C Admitted: Reason For Study: LLE PAin RIGHT LEFT FV is compressible, spontaneous, phasic, GSV is normal. competent and demonstrates normal CFV is compressible, spontaneous, phasic, augmentation. competent, and demonstrates normal Procedure augmentation. This is a venous duplex using B-mode, color FV is compressible, spontaneous, phasic, flow and spectral Doppler. competent and demonstrates normal Exam performed in department. augmentation. The exam was diagnostic. POP V is compressible, spontaneous, phasic, A preliminary report was called and/or faxed competent and demonstrates normal to [facility]. augmentation. T/P Trunk is compressible. PTV is compressible. LT PerV is compressible. VL/Venous Duplex US, Unilateral Interpretation Summary Deep veins of the left lower extremity are patent and compressible segmentally. There is no evidence of left lower extremity deep vein thrombosis. Valvular competence appears intact within the proximal deep venous system on the left . The left great saphenous vein appears patent and compressible segmentally. The right femoral vein is patent and compressible. ___ Ordering Physician: Marilyn Carbajal Referring Physician: Marilyn Carbajal Performed By: Srini Taylor, RVT 01/14/241736 Date Del Doll MD CC: [facility] SENIOR PROGRAMMER-C Marilyn Carbajal Date Dictated: 01/14/24 1302 Date Transcribed: 01/14/241736 Oenologist: Signed Normal [facility] CBC W/Diff, Automatedon 10-2 Absolute Lymph 2.24 X10 3/uL Normal 0.83-4.51 [facility] Comment on above: Performed By: #### L 501.6710, L300.8000, L501.1400, L101.9900, L100.0100 ####[facility] [address] [place], [address] Absolute Neut 5.2 X10 3/uL Normal 2.0-7.7 [facility] Comment on above: Performed By: #### L 501.6710, L300.8000, L501.1400, L101.9900, L100.0100 ####[facility] [address] [place], [address] Basophils/100 WBC (Bld) 0.5 % Normal 0-1 [facility] Comment on above: Performed By: #### L 501.6710, L300.8000, L501.1400, L101.9900, L100.0100 ####[facility] [address] [place], [address] Eosinophils/100 WBC (Bld) 2.3 % Normal 0-5 [facility] Comment on above: Performed By: #### L 501.6710, L300.8000, L501.1400, L101.9900, L100.0100 ####[facility] [address] [place], [address] Erythrocyte distribution width (RBC) [Ratio] 14.3 % Normal 11.6-14.6 [facility] Comment on above: Performed By: #### L 501.6710, L300.8000, L501.1400, L101.9900, L100.0100 ####[facility] [address] [place], [address] Hematocrit (Bld) [Volume fraction] 45.6 % Normal 40-54 [facility] Comment on above: Performed By: #### L 501.6710, L300.8000, L501.1400, L101.9900, L100.0100 ####[facility] [address] [place], [address] Hemoglobin (Bld) [Mass/Vol] 14.2 g/dL Normal 13.0-16.5 [facility] Comment on above: Performed By: #### L 501.6710, L300.8000, L501.1400, L101.9900, L100.0100 ####[facility] [address] [place], [address] IG% 0.600 Normal 0.0-0.9 [facility] Comment on above: Result Comment: IG% - Immature Granulocytes (promyelocytes, myelocytes and metamyelocytes) > 1% indicates that a LEFT SHIFT is Present. Performed By: #### L 501.6710, L300.8000, L501.1400, L101.9900, L100.0100 ####[facility] [address] [place], [address] Lymphocytes/100 WBC (Bld) 26.1 % Normal 19-41 [facility] Comment on above: Performed By: #### L 501.6710, L300.8000, L501.1400, L101.9900, L100.0100 ####[facility] [address] [place], [address] MCH (RBC) [Entitic mass] 26.6 pg Low 27.0-32.0 [facility] Comment on above: Performed By: #### L 501.6710, L300.8000, L501.1400, L101.9900, L100.0100 ####[facility] [address] [place], [address] MCHC (RBC) [Mass/Vol] 31.1 g/dL Low 32-36 [facility] Comment on above: Performed By: #### L 501.6710, L300.8000, L501.1400, L101.9900, L100.0100 ####[facility] [address] [place], [address] MCV (RBC) [Entitic vol] 85.4 fL Normal 80-94 [facility] Comment on above: Performed By: #### L 501.6710, L300.8000, L501.1400, L101.9900, L100.0100 ####[facility] [address] [place], [address] Monocytes/100 WBC (Bld) 9.8 % Normal 0-10 [facility] Comment on above: Performed By: #### L 501.6710, L300.8000, L501.1400, L101.9900, L100.0100 ####[facility] [address] [place], [address] Neutrophils/100 WBC (Bld) 60.7 % Normal 47-70 [facility] Comment on above: Performed By: #### L 501.6710, L300.8000, L501.1400, L101.9900, L100.0100 ####[facility] [address] [place], [address] Nucleated RBC (Bld) [#/Vol] 0 10*3/uL Normal 0-5 [facility] Comment on above: Performed By: #### L 501.6710, L300.8000, L501.1400, L101.9900, L100.0100 ####[facility] [address] [place], [address] Platelet mean volume (Bld) [Entitic vol] 11.0 fL Normal 6.2-12.0 [facility] Comment on above: Performed By: #### L 501.6710, L300.8000, L501.1400, L101.9900, L100.0100 ####[facility] [address] [place], [address] Platelets (Bld) [#/Vol] 238 10*3/uL Normal 150-450 [facility] Comment on above: Performed By: #### L 501.6710, L300.8000, L501.1400, L101.9900, L100.0100 ####[facility] [address] [place], [address] RBC (Bld) [#/Vol] 5.34 10*6/uL Normal 4.6-6.2 [facility] Comment on above: Performed By: #### L 501.6710, L300.8000, L501.1400, L101.9900, L100.0100 ####[facility] [address] [place], [address] RDW SD 44.1 fl High 35.1-43.9 [facility] Comment on above: Performed By: #### L 501.6710, L300.8000, L501.1400, L101.9900, L100.0100 ####[facility] [address] [place], [address] WBC (Bld) [#/Vol] 8.6 10*3/uL Normal 4.4-11.0 [facility] Comment on above: Performed By: #### L 501.6710, L300.8000, L501.1400, L101.9900, L100.0100 ####[facility] [address] [place], [address] CRPon 01-13-2024 C-REACTIVE PROT 17.60 mg/L High 0.0-3.0 [facility] Comment on above: Result Comment: C-Re active Protein (CRP) provides useful information for the diagnosis, therapy and monitoring of inflammatory processes and associated diseases. For the evaluation of Relative Risk for Cardiovascular Disease, a High Sensitivity CRP (HSCRP) should be ordered. Performed By: #### L 501.6710, L300.8000, L501.1400, L101.9900, L100.0100 ####[facility] [address] [place], [address] D-Dimer Quantitative (DVT/PE )on 01-13-2024 D-DIMER QUANT 1.03 FEU/ug/m Invalid Interpretation Code 0.27-0.49 [facility] Comment on above: Result Comment: D-Di chris ELEVATED (>0.49): Additional studies and clinical assessments are indicated to conclude diagnosis of: Deep Vein Thrombosis (DVT) or Pulmonary Embolism (PE) Performed By: #### L 501.6710, L300.8000, L501.1400, L101.9900, L100.0100 ####[facility] [address] [place], [address] Erythrocyte Sed Rateon 01-12 SED RATE 47 mm/hr High 0-20 [facility] Comment on above: Performed By: #### L 501.6710, L300.8000, L501.1400, L101.9900, L100.0100 ####[facility] [address] [place], [address] Knee 3 Viewson 01-13-2024 Knee 3 Views [facility] [address] [place] [address] Knee 3 Views MR#: [id number] Acct: [id number] Name: ALEJANDRA THORNTON Rep #: [id number] : 1965 M 58 From: Gray Quiñones MD PCP: Marilyn Carbajal Satya, SENIOR PROGRAMMER-C Status: REG CLI Study: Knee 3 Views Date of Exam: 01/13/24 Exam# [id number] Ordering Dr: Marilyn Carbajal Satya SENIOR PROGRAMMER-C [id number] STUDY: X-RAY - LEFT KNEE REASON FOR EXAM: Male, 58 years old. PAIN IN LEFT KNEE TECHNIQUE: 3 views of the left knee. COMPARISON: None. FINDINGS: Normal visualized distal femur. Normal visualized proximal tibia and fibula. Normal proximal tibiofibular articulation. There is no demonstrated fracture. There is moderate degenerative arthrosis of the medial femorotibial compartment with moderate joint space narrowing. There is mild degenerative arthrosis of the lateral femorotibial compartment. There is mild degenerative arthrosis of the patellofemoral articulation. There is a moderate volume joint effusion. The soft tissue structures are unremarkable. 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 Moderate joint effusion. No demonstrated fracture. Electronically Signed: Gray Quiñones MD at 15:51 EDT Reading Location ID and State: [facility] / [place] , Service support , CC: [facility] ADELINE Carbajal Oenologist: Signed Normal [facility] Uric Acidon 01-13-2024 URIC 8.7 mg/dL High 3.5-7.2 [facility] Comment on above: Result Comment: The drugs N-Acetylcysteine and Metamizole may falsely depress this assay. Performed By: #### L 501.6710, L300.8000, L501.1400, L101.9900, L100.0100 ####[facility] [address] [facility] [place], [address] Oncology Visit Reporton 11-22 Oncology Visit Report [facility] [address] [facility] [place] [address] OFFICE VISIT Date of Service: 12/11/23 1204 MR#: [id number] Acct: [id number] Name: ALEJANDRA THORNTON Rep #: [id number] : 1965 From: Reva Baeza MD Age/Sex: 58/M Location: [facility] Status: Signed HPI Subjective Date of Service 12/11/23 Chief Complaint Metastatic melanoma History of Present Illness Alejandra Thornton is a 58-year-old male who noted a painless, progressively enlarging mass in the left neck/parotid area for almost a year before seeking any medical attention. His past medical history is notable for morbid obesity, hypertension, chronic renal failure (under care of Dr. Quiñones at [facility]) and chronic degenerative joint disease. 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 05/04/2020: Patient was seen by [facility]. 05/12/2020: FNA of the left neck mass Pathology was consistent with high-grade malignant neoplasm not otherwise characterized. 06/06/2020: PET scan demonstrated increased FDG distribution defined in the left lateral neck including level 2A and 3 and separate nodular presentations the maximum SUV is 15.7 and the maximum diameter of the largest lesion is 3.9 x 3.3 mm. No evidence of metastatic disease is identified. 06/14/2020: was seen by ENT. On exam there is noted to be 2 fairly large adenopathy involving 1B and 2 on the left and measures close to 4-5 cm. NPL was carried out which demonstrated no evidence of mucosal lesions. 07/05/2020: CT neck with contrast demonstrated a heterogeneously enhancing nodular mass within level 1B of the neck on the left which measures approximately 43 mm in diameter. There are 2 heterogeneously enhancing nodular mass lesions within the level 2A of the neck on the left that measure 11 and 34 mm respectively. These are consistent with malignant lymph nodes. 07/20/2020: Patient underwent left superficial parotidectomy and left selective neck dissection of levels 1A through 4. Pathology demonstrated high-grade pleomorphic malignancy most consistent with metastatic melanoma measuring 5 cm within the left parotid gland. 2 lymph nodes obtained in this dissection were negative for malignancy 1/8 lymph nodes were positive for metastatic disease measuring 4.1 cm with no extranodal extension and level 1B, 0/8 lymph nodes were positive in level 2, 0/9 lymph nodes were positive in level 3. Submandibular gland was negative for malignancy. The initial superficial margin was 1 mm and reresection was obtained and negative for malignancy. Mitotic activity reaches 10 mitotic figures per 10 high-power danielson. Necrosis is present. No lymph vascular invasion or perineural invasion is present. The lesion is noted less than 1 mm from the superficial, posterior, and anterior margins the inferior margin is positive but is designated as not a true margin by the surgeon. 09/19/[address] Julian, radiation oncology, advised adjuvant radiation but declined. September 2020 seen by dermatology at [facility], no primary cutaneous melanoma was identified. March 20, 2021: CT soft tissue of the neck: IMPRESSION: The previously visualized left neck masses have been surgically excised. No evidence of residual or recurrent masses in the surgical beds. Cervical lymphadenopathy CT chest and abdomen: IMPRESSION: 3.5 cm suspicious mass visualized in the right chest soft tissues demonstrating irregularity in its contour is longer than wider suspicious for malignancy. Right axillary lymph nodes demonstrates increase in size in comparison to the prior study. 2.3 cm cyst visualized in the left upper chest posterior subcutaneous soft tissues suggestive of a sebaceous cyst. Scattered lymph nodes visualized most prominent in the pelvis demonstrate no significant change in comparison to the prior study. Bone scan: IMPRESSION: 1. The increase in radiopharmaceutical concentration observed in the right sacroiliac joint, bilateral shoulders, right and left knees, ankles bilaterally, right-left midfoot and forefoot, thoracic and lumbar spine, sacrum is most consistent with degenerative arthritis. Plain film radiography correlation may be of benefit in the region of the right sacroiliac joint in the setting of known malignancy. 2. There is no definitive typical scintigraphic evidence of diffuse axial skeletal metastatic disease on the current examination. December 17, 2021 CT soft tissues of the neck: IMPRESSION: Stable examination.??? No acute abnormality is seen. December 17, 2021 CT chest abdomen and pelvis: IMPRESSION: Stable examination.??? No acute abnormality is seen. December 21, 2021 bone scan: IMPRESSION: 1. The persistently increased radiotracer concentratio (more content not included)... Normal [facility] Lipid Profileon 12-10-2023 Cholesterol [Mass/Vol] 151 mg/dL Normal 200 [facility] Comment on above: Result Comment: <200 mg/dL Desirable 200-240 mg/dL Borderline >240 mg/dL High Risk Performed By: #### L 501.9910, L500.4100 ####[facility] [address] [place], [address] Cholesterol in HDL [Mass/Vol] 24 mg/dL Low [facility] Comment on above: Result Comment: The drugs N-Acetylcysteine and Metamizole may falsely depress this assay. Reference Range HDL <40 mg/dL Low HDL Cholesterol HDL >or= 60 mg/dL High HDL Cholesterol Performed By: #### L 501.9910, L500.4100 ####[facility] [address] [place], [address] Cholesterol in LDL [Mass/Vol] 111 mg/dL Normal 0-130 [facility] Comment on above: Performed By: #### L 501.9910, L500.4100 ####[facility] [address] [place], [address] Cholesterol in VLDL [Mass/Vol] 16 mg/dL Normal 5-40 [facility] Comment on above: Performed By: #### L 501.9910, L500.4100 ####[facility] [address] [place], [address] Triglyceride [Mass/Vol] 81 mg/dL Normal [facility] Comment on above: Result Comment: The drugs N-Acetylcysteine and Metamizole may falsely depress this assay. Serum Triglycerides Reference Interval Normal <150 mg/dL Borderline high 150 - 199 mg/dL High 200 - 499 mg/dL Very High > or = 500 mg/dL Performed By: #### L 501.9910, L500.4100 ####[facility] [address] [place], [address] PSA,Total - Annual Screenon 12-10-2023 PSA,TOT SCREEN 1.16 ng/mL Normal 0.00-4.00 [facility] Comment on above: Result Comment: This test was performed using the TPSA assay method for the SAVORTEX chemistry system. Values obtained with different assay methods cannot be used interchangably. When changing PSA assays in the course of monitoring a patient, additional sequential testing should be carried out to confirm baseline values. Performed By: #### L 501.9910, L500.4100 ####[facility] [address] [place], [address] CBC W/Diff, Automatedon 11-22 Absolute Lymph 2.54 X10 3/uL Normal 0.83-4.51 [facility] Comment on above: Order Comment: RENAL AND URINE FOR DR. QUIÑONES Performed By: #### L 503.6550, L503.0105, L100.0100, L502.0250, L503.6030, L500.4050, L501.2300, L501.9520, L506.0400 #### [facility] [address] [place], [address] Absolute Neut 4.1 X10 3/uL Normal 2.0-7.7 [facility] Comment on above: Order Comment: RENAL AND URINE FOR DR. QUIÑONES Performed By: #### L 503.6550, L503.0105, L100.0100, L502.0250, L503.6030, L500.4050, L501.2300, L501.9520, L506.0400 #### [facility] [address] [place], [address] Basophils/100 WBC (Bld) 0.4 % Normal 0-1 [facility] Comment on above: Order Comment: RENAL AND URINE FOR DR. QUIÑONES Performed By: #### L 503.6550, L503.0105, L100.0100, L502.0250, L503.6030, L500.4050, L501.2300, L501.9520, L506.0400 #### [facility] [address] [place], [address] Eosinophils/100 WBC (Bld) 2.6 % Normal 0-5 [facility] Comment on above: Order Comment: RENAL AND URINE FOR DR. QUIÑONES Performed By: #### L 503.6550, L503.0105, L100.0100, L502.0250, L503.6030, L500.4050, L501.2300, L501.9520, L506.0400 #### [facility] [address] [place], [address] Erythrocyte distribution width (RBC) [Ratio] 14.7 % High 11.6-14.6 [facility] Comment on above: Order Comment: RENAL AND URINE FOR DR. QUIÑONES Performed By: #### L 503.6550, L503.0105, L100.0100, L502.0250, L503.6030, L500.4050, L501.2300, L501.9520, L506.0400 #### [facility] [address] [place], [address] Hematocrit (Bld) [Volume fraction] 44.3 % Normal 40-54 [facility] Comment on above: Order Comment: RENAL AND URINE FOR DR. QUIÑONES Performed By: #### L 503.6550, L503.0105, L100.0100, L502.0250, L503.6030, L500.4050, L501.2300, L501.9520, L506.0400 #### [facility] [address] [place], [address] Hemoglobin (Bld) [Mass/Vol] 14.1 g/dL Normal 13.0-16.5 [facility] Comment on above: Order Comment: RENAL AND URINE FOR DR. QUIÑONES Performed By: #### L 503.6550, L503.0105, L100.0100, L502.0250, L503.6030, L500.4050, L501.2300, L501.9520, L506.0400 #### [facility] [address] [place], [address] IG% 0.500 Normal 0.0-0.9 [facility] Comment on above: Order Comment: RENAL AND URINE FOR DR. QUIÑONES Result Comment: IG% - Immature Granulocytes (promyelocytes, myelocytes and metamyelocytes) > 1% indicates that a LEFT SHIFT is Present. Performed By: #### L 503.6550, L503.0105, L100.0100, L502.0250, L503.6030, L500.4050, L501.2300, L501.9520, L506.0400 #### [facility] [address] [place], [address] Lymphocytes/100 WBC (Bld) 33.4 % Normal 19-41 [facility] Comment on above: Order Comment: RENAL AND URINE FOR DR. QUIÑONES Performed By: #### L 503.6550, L503.0105, L100.0100, L502.0250, L503.6030, L500.4050, L501.2300, L501.9520, L506.0400 #### [facility] [address] [facility] [place], [address] MCH (RBC) [Entitic mass] 27.4 pg Normal 27.0-32.0 [facility] Comment on above: Order Comment: RENAL AND URINE FOR DR. QUIÑONES Performed By: #### L 503.6550, L503.0105, L100.0100, L502.0250, L503.6030, L500.4050, L501.2300, L501.9520, L506.0400 #### [facility] [address] [facility] [place], [address] MCHC (RBC) [Mass/Vol] 31.8 g/dL Low 32-36 [facility] Comment on above: Order Comment: RENAL AND URINE FOR DR. QUIÑONES Performed By: #### L 503.6550, L503.0105, L100.0100, L502.0250, L503.6030, L500.4050, L501.2300, L501.9520, L506.0400 #### [facility] [address] [facility] [place], [address] MCV (RBC) [Entitic vol] 86.0 fL Normal 80-94 [facility] Comment on above: Order Comment: RENAL AND URINE FOR DR. QUIÑONES Performed By: #### L 503.6550, L503.0105, L100.0100, L502.0250, L503.6030, L500.4050, L501.2300, L501.9520, L506.0400 #### [facility] [address] [facility] [place], [address] Monocytes/100 WBC (Bld) 8.8 % Normal 0-10 [facility] Comment on above: Order Comment: RENAL AND URINE FOR DR. QUÑIONES Performed By: #### L 503.6550, L503.0105, L100.0100, L502.0250, L503.6030, L500.4050, L501.2300, L501.9520, L506.0400 #### [facility] [address] [place], [address] Neutrophils/100 WBC (Bld) 54.3 % Normal 47-70 [facility] Comment on above: Order Comment: RENAL AND URINE FOR DR. QUIÑONES Performed By: #### L 503.6550, L503.0105, L100.0100, L502.0250, L503.6030, L500.4050, L501.2300, L501.9520, L506.0400 #### [facility] [address] [place], [address] Nucleated RBC (Bld) [#/Vol] 0 10*3/uL Normal 0-5 [facility] Comment on above: Order Comment: RENAL AND URINE FOR DR. QUIÑONES Performed By: #### L 503.6550, L503.0105, L100.0100, L502.0250, L503.6030, L500.4050, L501.2300, L501.9520, L506.0400 #### [facility] [address] [place], [address] Platelet mean volume (Bld) [Entitic vol] 10.9 fL Normal 6.2-12.0 [facility] Comment on above: Order Comment: RENAL AND URINE FOR DR. QUIÑONES Performed By: #### L 503.6550, L503.0105, L100.0100, L502.0250, L503.6030, L500.4050, L501.2300, L501.9520, L506.0400 #### [facility] [address] [place], [address] Platelets (Bld) [#/Vol] 164 10*3/uL Normal 150-450 [facility] Comment on above: Order Comment: RENAL AND URINE FOR DR. QUIÑONES Performed By: #### L 503.6550, L503.0105, L100.0100, L502.0250, L503.6030, L500.4050, L501.2300, L501.9520, L506.0400 #### [facility] [address] [place], [address] RBC (Bld) [#/Vol] 5.15 10*6/uL Normal 4.6-6.2 [facility] Comment on above: Order Comment: RENAL AND URINE FOR DR. QUIÑONES Performed By: #### L 503.6550, L503.0105, L100.0100, L502.0250, L503.6030, L500.4050, L501.2300, L501.9520, L506.0400 #### [facility] [address] [place], [place], [phone] (762) RDW SD 46.6 fl High 35.1-43.9 [facility] Comment on above: Order Comment: RENAL AND URINE FOR DR. QUIÑONES Performed By: #### L 503.6550, L503.0105, L100.0100, L502.0250, L503.6030, L500.4050, L501.2300, L501.9520, L506.0400 #### [facility] [address] [place], [address] WBC (Bld) [#/Vol] 7.6 10*3/uL Normal 4.4-11.0 [facility] Comment on above: Order Comment: RENAL AND URINE FOR DR. QUIÑONES Performed By: #### L 503.6550, L503.0105, L100.0100, L502.0250, L503.6030, L500.4050, L501.2300, L501.9520, L506.0400 #### [facility] [address] [place], [place], [phone] ([phone]) CREATININE FINGERSTICKon Creatinine [Mass/Vol] 2.0 mg/dL High 0.70-1.30 [facility] Comment on above: Performed By: #### L 9100.0200 #### [facility] [address] [place], [address] GFR/1.73 sq M.predicted among non-blacks MDRD (S/P/Bld) [Vol rate/Area] 37.0000 mL/min/{1.73_m2} Low >60 [facility] Comment on above: Performed By: #### L 9100.0200 #### [facility] [address] [place], [address] CT Chest AND Abd W/ Contrast on 12-03-2023 CT Chest AND Abd W/ Contrast [facility] Imaging Services [address] [facility] [place], [place] [address] CT Chest AND Abd W/ Contrast MR#: [id number] Acct: [id number] Name: ALEJANDRA THORNTON Rep #: [id number] : 1965 M 58 From: Refugio mary MD PCP: [facility] Status: REG CLI Study: CT Chest AND Abd W/ Contrast Date of Exam: 02/14 Exam# [id number] Ordering Dr: Reva Baeza MD [id number] STUDY: CT CHEST T ABDOMEN WITH CONTRAST REASON FOR EXAM: Male, 58 years old. F/U MELANOMA IV CONTRAST ONLY RADIATION DOSAGE (If Supplied By Facility): CTDIvol = ( 24.15 ) mGy, DLP = ( 943.46 ) mGycm TECHNIQUE: Transaxial imaging was performed following intravenous administration of ISOVUE 370. Multiplanar coronal and sagittal images were reformatted. Individualized dose optimization techniques were used for this CT. COMPARISON: Comparison is made with prior study dated May 06, 2023. FINDINGS: CHEST There is a 2.3 cm x 2.2 cm well-defined nodule in the subcutaneous tissues overlying the left upper posterior hemithorax. The lungs are normal. There is no demonstrated pleural abnormality. Normal heart and pericardium. Normal mediastinum. Normal hilar regions. Normal unenhanced pulmonary arteries. Normal aorta arch and descending thoracic aorta. There are degenerative changes of the thoracic spine. There is no demonstrated abnormality of the visualized upper abdomen. ABDOMEN The visualized lung bases are unremarkable. The visualized portions of the heart are within normal limits. Normal liver. The gallbladder is contracted. Normal spleen. Normal pancreas. Normal bilateral adrenal glands. There are tiny nonobstructive intrarenal calculi in the lower pole of both kidneys. Normal visualized stomach. Normal small intestine. Normal colon. The appendix is visualized and appears normal. Normal abdominal aorta. Normal inferior vena cava. Normal retroperitoneum. Normal abdominal wall. There are mild degenerative changes of the visualized lumbar spine. CT/CT Chest AND Abd W/ Contrast IMPRESSION: Stable examination. Electronically Signed: Refugio Ayala MD at 15:05 EDT Reading Location ID and State: [facility] / [place] , Service support , CC: Dr. Reva Baeza MD; [facility] Oenologist: Signed Normal [facility] Comprehensive Metabolic Prof neon 12-03-2023 Albumin [Mass/Vol] 3.2 g/dL Normal 3.2-5.0 [facility] Comment on above: Order Comment: RENAL AND URINE FOR DR. NURIA MORENO ORDERS DONE NOW-SWRIGHT Performed By: #### L 503.3550, L503.0105, L100.0100, L502.0250, L503.6030, L500.4050, L501.2300, L501.9520, L506.0400 #### [facility] [place], [address] Albumin/Globulin [Mass ratio] 0.8 {ratio} Low 0.9-2.4 [facility] Comment on above: Order Comment: RENAL AND URINE FOR DR. NURIA SUMMERS WANTED ISKARUS ORDERS DONE NOW-SWRIGHT Performed By: #### L 503.6550, L503.0105, L100.0100, L502.0250, L503.6030, L500.4050, L501.2300, L501.9520, L506.0400 #### [facility] [address] [place], [address] ALK P 77 U/L Normal 45-117 [facility] Comment on above: Order Comment: RENAL AND URINE FOR DR. NURIA SUMMERS WANTED ISKARUS ORDERS DONE NOW-SWRIGHT Performed By: #### L 503.6550, L503.0105, L100.0100, L502.0250, L503.6030, L500.4050, L501.2300, L501.9520, L506.0400 #### [facility] [address] [place], [address] ALT [Catalytic activity/Vol] 20 U/L Normal 16-61 [facility] Comment on above: Order Comment: RENAL AND URINE FOR DR. NURIA SUMMERS WANTED ISKARUS ORDERS DONE NOW-SWRIGHT Performed By: #### L 503.6550, L503.0105, L100.0100, L502.0250, L503.6030, L500.4050, L501.2300, L501.9520, L506.0400 #### [facility] [address] [place], [address] AST [Catalytic activity/Vol] U/L Low 15-37 [facility] Comment on above: Order Comment: RENAL AND URINE FOR DR. NURIA SUMMERS WANTED ISKARUS ORDERS DONE NOW-SWRIGHT Performed By: #### L 503.6550, L503.0105, L100.0100, L502.0250, L503.6030, L500.4050, L501.2300, L501.9520, L506.0400 #### [facility] [address] [place], [address] Bilirubin [Mass/Vol] 0.60 mg/dL Normal 0.20-1.00 [facility] Comment on above: Order Comment: RENAL AND URINE FOR DR. NURIA SUMMERS WANTED ISKARUS ORDERS DONE NOW-SWRIGHT Result Comment: For patients on eltrombopag therapy, use of Dimension [place] TBIL is not recommended. Performed By: #### L 503.6550, L503.0105, L100.0100, L502.0250, L503.6030, L500.4050, L501.2300, L501.9520, L506.0400 #### [facility] [address] [place], [address] BUN/CRE 15.8 RATIO Normal 10-20 [facility] Comment on above: Order Comment: RENAL AND URINE FOR DR. NURIA SUMMERS WANTED ISKARUS ORDERS DONE NOW-SWRIGHT Performed By: #### L 503.6550, L503.0105, L100.0100, L502.0250, L503.6030, L500.4050, L501.2300, L501.9520, L506.0400 #### [facility] [address] [place], [address] CA,Total 9.1 mg/dL Normal 8.5-10.1 [facility] Comment on above: Order Comment: RENAL AND URINE FOR DR. NURIA SUMMERS WANTED ISKARUS ORDERS DONE NOW-SWRIGHT Performed By: #### L 503.6550, L503.0105, L100.0100, L502.0250, L503.6030, L500.4050, L501.2300, L501.9520, L506.0400 #### [facility] [address] [place], [address] Chloride [Moles/Vol] 103 mmol/L Normal 98-107 [facility] Comment on above: Order Comment: RENAL AND URINE FOR DR. NURIA SUMMERS WANTED ISKARUS ORDERS DONE NOW-SWRIGHT Performed By: #### L 503.6550, L503.0105, L100.0100, L502.0250, L503.6030, L500.4050, L501.2300, L501.9520, L506.0400 #### [facility] [address] [place], [address] CO2 [Moles/Vol] 24.0 mmol/L Normal 21.0-32.0 [facility] Comment on above: Order Comment: RENAL AND URINE FOR DR. NURIA SUMMERS WANTED ISKARUS ORDERS DONE NOW-SWRIGHT Performed By: #### L 503.6550, L503.0105, L100.0100, L502.0250, L503.6030, L500.4050, L501.2300, L501.9520, L506.0400 #### [facility] [address] [place], [address] Creatinine [Mass/Vol] 1.96 mg/dL High 0.70-1.30 [facility] Comment on above: Order Comment: RENAL AND URINE FOR DR. NURIA SUMMERS WANTED ISKARUS ORDERS DONE NOW-SWRIGHT Result Comment: The validity of the calculated GFR GFRAA in patients over 70 years has not been determined. Clinical correlation is essential. Performed By: #### L 503.6550, L503.0105, L100.0100, L502.0250, L503.6030, L500.4050, L501.2300, L501.9520, L506.0400 #### [facility] [address] [place], [address] EST GFR - AA 45 mL/min Low >60 [facility] Comment on above: Order Comment: RENAL AND URINE FOR DR. NURIA SUMMERS WANTED ISKARUS ORDERS DONE NOW-SWRIGHT Result Comment: Afri can [place] GFR Calc Performed By: #### L 503.6550, L503.0105, L100.0100, L502.0250, L503.6030, L500.4050, L501.2300, L501.9520, L506.0400 #### [facility] [address] [place], [place], [phone] (608) GAP 11 Normal 5-15 [facility] Comment on above: Order Comment: RENAL AND URINE FOR DR. NURIA SUMMERS WANTED ISKARUS ORDERS DONE NOW-SWRIGHT Performed By: #### L 503.6550, L503.0105, L100.0100, L502.0250, L503.6030, L500.4050, L501.2300, L501.9520, L506.0400 #### [facility] [address] [place], [place], [id number] GFR/1.73 sq M.predicted among non-blacks MDRD (S/P/Bld) [Vol rate/Area] 37 mL/min/{1.73_m2} Low >60 [facility] Comment on above: Order Comment: RENAL AND URINE FOR DR. NURIA SUMMERS WANTED ISKARUS ORDERS DONE NOW-SWRIGHT Result Comment: Non- GFR Calc Performed By: #### L 503.6550, L503.0105, L100.0100, L502.0250, L503.6030, L500.4050, L501.2300, L501.9520, L506.0400 #### [facility] [address] [place], [place], [id number] Globulin (S) [Mass/Vol] 3.8 g/dL Normal 2.2-4.2 [facility] Comment on above: Order Comment: RENAL AND URINE FOR DR. NURIA SUMMERS WANTED ISKARUS ORDERS DONE NOW-SWRIGHT Performed By: #### L 503.6550, L503.0105, L100.0100, L502.0250, L503.6030, L500.4050, L501.2300, L501.9520, L506.0400 #### [facility] [address] [place], [address] Glucose [Mass/Vol] 98 mg/dL Normal 74-106 [facility] Comment on above: Order Comment: RENAL AND URINE FOR DR. NURIA SUMMERS WANTED ISKARUS ORDERS DONE NOW-SWRIGHT Performed By: #### L 503.6550, L503.0105, L100.0100, L502.0250, L503.6030, L500.4050, L501.2300, L501.9520, L506.0400 #### [facility] [address] [place], [address] Potassium [Moles/Vol] 4.2 mmol/L Normal 3.5-5.1 [facility] Comment on above: Order Comment: RENAL AND URINE FOR DR. NURIA SUMMERS WANTED ISKARUS ORDERS DONE NOW-SWRIGHT Performed By: #### L 503.6550, L503.0105, L100.0100, L502.0250, L503.6030, L500.4050, L501.2300, L501.9520, L506.0400 #### [facility] [address] [place], [address] Sodium [Moles/Vol] 138 mmol/L Normal 136-145 [facility] Comment on above: Order Comment: RENAL AND URINE FOR DR. NURIA SUMMERS WANTED ISKARUS ORDERS DONE NOW-SWRIGHT Performed By: #### L 503.6550, L503.0105, L100.0100, L502.0250, L503.6030, L500.4050, L501.2300, L501.9520, L506.0400 #### [facility] [address] [place], [address] T PROT 7.0 g/dL Normal 6.4-8.2 [facility] Comment on above: Order Comment: RENAL AND URINE FOR DR. NURIA SUMMERS WANTED ISKARUS ORDERS DONE NOW-SWRIGHT Performed By: #### L 503.6550, L503.0105, L100.0100, L502.0250, L503.6030, L500.4050, L501.2300, L501.9520, L506.0400 #### [facility] [address] [place], [place], [id number] Urea nitrogen [Mass/Vol] 31 mg/dL High 7-18 [facility] Comment on above: Order Comment: RENAL AND URINE FOR DR. NURIA MORENO ORDERS DONE NOW-SWRIGHT Performed By: #### L 503.6550, L503.0105, L100.0100, L502.0250, L503.6030, L500.4050, L501.2300, L501.9520, L506.0400 #### [facility] [address] [place], [address] (334) Ferritinon 12-03-2023 Ferritin [Mass/Vol] 481 ng/mL High 26-388 [facility] Comment on above: Order Comment: RENAL AND URINE FOR DR. JE MORENO ORDERS DONE NOW-SWRIGHT Performed By: #### L 503.6550, L503.0105, L100.0100, L502.0250, L503.6030, L500.4050, L501.2300, L501.9520, L506.0400 ####[facility] [id number] [place], [address] Iron+Iron Binding Capacityon 12-03-2023 Iron [Mass/Vol] 55 ug/dL Low 65-175 [facility] Comment on above: Order Comment: RENAL AND URINE FOR DR. JE MORENO ORDERS DONE NOW-SWRIGHT Performed By: #### L 503.6550, L503.0105, L100.0100, L502.0250, L503.6030, L500.4050, L501.2300, L501.9520, L506.0400 ####[facility] [id number] [place], [address] IRON SATURATION 20.8 Normal 15.0-55.0 [facility] Comment on above: Order Comment: RENAL AND URINE FOR DR. WOOTEN WANTED ISROSALESUS ORDERS DONE NOW-SWRIGHT Performed By: #### L 503.6550, L503.0105, L100.0100, L502.0250, L503.6030, L500.4050, L501.2300, L501.9520, L506.0400 ####[facility] [address] [facility] [place], [address] TIBC 265 ug/dL Normal 250-450 [facility] Comment on above: Order Comment: RENAL AND URINE FOR DR. WOOTEN WANTED ISKARUS ORDERS DONE NOW-SWRIGHT Performed By: #### L 503.6550, L503.0105, L100.0100, L502.0250, L503.6030, L500.4050, L501.2300, L501.9520, L506.0400 ####[facility] [id number] [facility] [place], [place], [id number] Microalb:Creat Ratio,Random URon 12-03-2023 Creatinine [Mass/Vol] 123.00 mg/dL Normal NO RAN GE EST. [facility] Comment on above: Order Comment: RENAL AND URINE FOR DR. QUIÑONES Performed By: #### L 503.6550, L503.0105, L100.0100, L502.0250, L503.6030, L500.4050, L501.2300, L501.9520, L506.0400 #### [facility] [address] [place], [place], [id number] MALB:CRE 13.6 mg/g CRE Normal <30 mg/g CRE [facility] Comment on above: Order Comment: RENAL AND URINE FOR DR. QUIÑONES Performed By: #### L 503.6550, L503.0105, L100.0100, L502.0250, L503.6030, L500.4050, L501.2300, L501.9520, L506.0400 #### [facility] [address] [place], [address] MICROALBUMIN,UR 16.7 mg/L Normal NO RANGE EST. [facility] Comment on above: Order Comment: RENAL AND URINE FOR DR. QUIÑONES Performed By: #### L 503.6550, L503.0105, L100.0100, L502.0250, L503.6030, L500.4050, L501.2300, L501.9520, L506.0400 #### [facility] [address] [place], [address] Phosphoruson 12-03-2023 Phosphate [Mass/Vol] 3.0 mg/dL Normal 2.5-4.9 [facility] Comment on above: Order Comment: RENAL AND URINE FOR DR. QUIÑONES PT FERMIN MORENO ORDERS DONE NOW-SWRIGHT Performed By: #### L 503.6550, L503.0105, L100.0100, L502.0250, L503.6030, L500.4050, L501.2300, L501.9520, L506.0400 #### [facility] [address] [place], [address] Soft Tissue Neck WITH Contra ston 12-03-2023 Soft Tissue Neck WITH Contrast [facility] [address] [place] [address] Soft Tissue Neck WITH Contrast MR#: [id number] Acct: [id number] Name: ALEJANDRA THORNTON Rep #: [id number] : 1965 M 58 From: Refugio mary MD PCP: [facility] Status: REG CLI Study: Soft Tissue Neck WITH Contrast Date of Exam: 0 12/03/23 Exam# [id number] Ordering Dr: Reva Baeza MD [id number] STUDY: CT SOFT TISSUE NECK WITH CONTRAST REASON FOR EXAM: Male, 58 years old. F/U MELANOMA -- IV CONTRAST ONLY RADIATION DOSAGE (If Supplied By Facility): CTDIvol = ( 16.99 ) mGy, DLP = ( 373.31 ) mGycm TECHNIQUE: The patient was scanned in a multi-detector CT scanner. High resolution transaxial imaging was performed following intravenous administration of ISOVUE 370. Sagittal and coronal images were reconstructed. Individualized dose optimization techniques were used for this CT. COMPARISON: Comparison is made with prior study dated May 06, 2019 FINDINGS: Normal bilateral parotid glands. Normal bilateral equipment monitor phototypesetting spaces. Normal bilateral parapharyngeal spaces. Normal bilateral carotid spaces. Once again, the patient is status post partial left neck dissection involving the left submandibular gland. Stable scarring involving the left sternocleidomastoid mastoid muscle. Normal visualized nasopharynx. Normal retropharyngeal space. Normal perivertebral space. Normal visualized bilateral faucial tonsils. The visualized tongue, tongue base and oropharynx are normal. The visualized cervical lymph nodes (levels I-) are within normal size limits, and maintain normal morphology. There is no demonstrated solid or cystic mass lesion. There is no abnormal contrast enhancement. Normal epiglottis, bilateral vallecula and hypopharynx. The pre-epiglottic and paraglottic adipose spaces are normal. Normal visualized bilateral piriform sinuses, aryepiglottic folds, vocal cords, and arytenoid-cricoid articulations. Normal subglottic trachea. Normal bilateral lobes of the thyroid gland. Normal visualized pulmonary apices. Normal visualized paranasal sinuses. There is degenerative changes of the cervical spine. CT/Soft Tissue Neck WITH Contrast IMPRESSION: Stable examination. Electronically Signed: Refugio Ayala MD at 15:06 EDT , CC: Dr. Reva Baeza MD; [facility] Oenologist: Signed Normal [facility] T4 Free Directon 12-03-2023 T4 FREE DIRECT 1.01 ng/dL Normal 0.76-1.46 [facility] Comment on above: Order Comment: RENAL AND URINE FOR DR. QUIÑONESPT WANTED ISKARUS ORDERS DONE NOW-SWRIGHT Performed By: #### L 503.6550, L503.0105, L100.0100, L502.0250, L503.6030, L500.4050, L501.2300, L501.9520, L506.0400 ####[facility] [address] [place], [address] Thyroid Stim Hormone (TSH)on 12-03-2023 TSH 3.800 uIU/mL High 0.358-3.740 [facility] Comment on above: Order Comment: RENAL AND URINE FOR DR. QUIÑONES PT WANTED ISKARUS ORDERS DONE NOW-SWRIGHT Performed By: #### L 503.6550, L503.0105, L100.0100, L502.0250, L503.6030, L500.4050, L501.2300, L501.9520, L506.0400 #### [facility] [address] [place], [address] Vitamin B12on 12-03-2023 Cobalamin (Vitamin B12) [Mass/Vol] 426 pg/mL Normal 211-911 [facility] Comment on above: Order Comment: RENAL AND URINE FOR DR. QUIÑONES Performed By: #### L 503.6550, L503.0105, L100.0100, L502.0250, L503.6030, L500.4050, L501.2300, L501.9520, L506.0400 #### [facility] [address] [place], [address] Absolute lymphocyte countOrd ered By: Reva Baeza on 05-06-2023 Lymphocytes Auto (Unsp spec) [#/Vol] 1.91 10*3/uL 0.83-4.51 [facility] Automated lymphocyte count a s percentage of total leukocytesOrdered By: Reva Baeza on 05-06-2023 Lymphocytes/100 WBC Auto (Unsp spec) 30.6 % 19-41 [facility] Basophil percentageOrdered B y: Reva Baeza on 05-06-2023 Basophils/100 WBC (Bld) 0.6 % 0-1 [facility] Bilirubin [Mass/Vol] 0.30 mg/dL 0.20-1.00 [facility] Comment on above: For patients on eltr ombopag therapy, use of Dimension [place] TBIL is not recommended. Chloride [Moles/Vol] 108 mmol/L 98-107 [facility] Eosinophils/100 WBC (Bld) 3.4 % 0-5 [facility] Glucose [Mass/Vol] 102 mg/dL 74-106 [facility] Comment on above: Fasting Glucose resu lt from 100 to 125 mg/dL suggests IMPAIRED HOMEOSTASIS per A.D.A. criteria. Hemoglobin (Bld) [Mass/Vol] 12.4 g/dL 13.0-16.5 [facility] Monocytes/100 WBC (Bld) 8.0 % 0-10 [facility] Neutrophils (Bld) [#/Vol] 3.5 10*3/uL 2.0-7.7 [facility] Neutrophils/100 WBC (Bld) 56.6 % 47-70 [facility] Potassium [Moles/Vol] 4.3 mmol/L 3.5-5.1 [facility] Protein [Mass/Vol] 6.7 g/dL 6.4-8.2 [facility] Sodium [Moles/Vol] 140 mmol/L 136-145 [facility] WBC (Bld) [#/Vol] 6.2 10*3/uL 4.4-11.0 [facility] Creatinine [Mass/Vol] 2.4 mg/dL 0.70-1.30 [facility] Determination of erythrocyte mean corpuscular volume (MCV)Ordered By: Reva Baeza on 05-06-2023 MCV (RBC) [Entitic vol] 89.0 fL 80-94 [facility] Erythrocyte distribution wid th ratioOrdered By: [facility] Aryan on 05-06-2023 Erythrocyte distribution width (RBC) [Ratio] 14.7 % 11.6-14.6 [facility] Erythrocyte distribution wid th standard deviationOrdered By: [facility] Aryan on 05-06-2023 Erythrocyte distribution width (RBC) [Entitic vol] 47.5 fL 35.1-43.9 [facility] Hematocrit Auto (Bld) [Volum e fraction]Ordered By: [facility] Aryan on 05-06-2023 Hematocrit (Bld) [Volume fraction] 40.3 % 40-54 [facility] Immature granulocytes/100 WB C Auto (Bld)Ordered By: [facility] Aryan on 05-06-2023 Immature granulocytes/100 WBC (Bld) 0.800 % 0.0-0.9 [facility] Comment on above: IG% - Immature Granu locytes (promyelocytes, myelocytes and metamyelocytes) > 1% indicates that a LEFT SHIFT is Present. Laboratory - Chemistry and C hemistry - challengeOrdered By: [facility] Aryan on 05-06-2023 Albumin/Globulin [Mass ratio] 0.9 {ratio} 0.9-2.4 [facility] ALP [Catalytic activity/Vol] 62 U/L 45-117 [facility] ALT [Catalytic activity/Vol] 31 U/L 16-61 [facility] CO2 [Moles/Vol] 26.0 mmol/L 21.0-32.0 [facility] Globulin (S) [Mass/Vol] 3.6 g/dL 2.2-4.2 [facility] Urea nitrogen/Creatinine [Mass ratio] 20.9 mg/mg 10-20 [facility] GFR/1.73 sq M.predicted among non-blacks MDRD (S/P/Bld) [Vol rate/Area] 30.0000 mL/min/{1.73_m2} >60 [facility] - Hematology and Cell countsOrdered By: [facility] Aryan on 05-06-2023 MCH (RBC) [Entitic mass] 27.4 pg 27.0-32.0 [facility] MCHC (RBC) [Mass/Vol] 30.8 g/dL 32-36 [facility] Nucleated RBC/100 WBC (Bld) [Ratio] 0 % 0-5 [facility] Platelet mean volume (Bld) [Entitic vol] 11.4 fL 6.2-12.0 [facility] Platelets (Bld) [#/Vol] 184 10*3/uL 150-450 [facility] No Panel InformationOrdered By: Reva Baeza on 05-06-2023 Estimated GFR (MDRD) Amer 49 mL/min >60 [facility] Comment on above: GFR Calc Estimated GFR (MDRD) Non-Af Amer 41 mL/min >60 [facility] Comment on above: Non- GFR Calc RBC Auto (Bld) [#/Vol]Ordere d By: Reva Baeza on 05-06-2023 RBC (Bld) [#/Vol] 4.53 10*6/uL 4.6-6.2 [facility] Serum or plasma calcium chandrakant urement (mass/volume)Ordered By: Reva Baeza on 05-06-2023 Calcium [Mass/Vol] 9.5 mg/dL 8.5-10.1 [facility] Serum or plasma creatinine m easurement (mass/volume)Ordered By: Reva Baeza on 05-06-2023 Creatinine [Mass/Vol] 1.82 mg/dL 0.70-1.30 [facility] Comment on above: The validity of the calculated GFR & GFRAA in patients over 70 years has not been determined. Clinical correlation is essential. Serum or plasma thyroid stim ulating hormone (TSH) measurement (units/volume)Ordered By: Reva Baeza on 05-06-2023 TSH Qn 2.74 uIU/mL 0.358-3.74 [facility] Serum or plasma urea nitroge n measurement (mass/volume)Ordered By: Reva Baeza on 05-06-2023 Urea nitrogen [Mass/Vol] 38 mg/dL 7-18 [facility] Thin prep Papanicolaou smear with manual screeningOrdered By: Reva Baeza on 05-06-2023 Thin prep Papanicolaou smear with manual screening 3.1 g/dL 3.2-5.0 [facility] Thin prep Papanicolaou smear with manual screening 24 U/L 15-37 [facility] Thin prep Papanicolaou smear with manual screening 6 5-15 [facility] Thin prep Papanicolaou smear with manual screening 0.97 ng/dL 0.76-1.46 [facility] CBC panel Auto (Bld)on 03-10 Erythrocyte distribution width (RBC) [Ratio] 13.6 % Normal 11.5-15.0 [facility] Comment on above: Order Comment: Speci men Type: BLOOD SPECIMEN Ordering Facility: [facility] Address: [address] [place] [address] Performed By: #### 5 8410-2 #### [facility] CLIA [id number] [address] [place] [address] [place] Hematocrit (Bld) [Volume fraction] 42.0 % Normal 39.0-51.0 [facility] Comment on above: Order Comment: Speci men Type: BLOOD SPECIMEN Ordering Facility: [facility] Address: [address] [place] [address] Performed By: #### 5 8410-2 #### [facility] CLIA [id number] [address] [place] [address] [place] Hemoglobin (Bld) [Mass/Vol] 13.7 g/dL Normal 13.0-17.0 [facility] Comment on above: Order Comment: Speci men Type: BLOOD SPECIMEN Ordering Facility: [facility] Address: [address] [place] [address] Performed By: #### 5 8410-2 #### [facility] CLIA [id number] [address] [place] [address] [place] MCH (RBC) [Entitic mass] 28.2 pg Normal 26.0-34.0 [facility] Comment on above: Order Comment: Speci men Type: BLOOD SPECIMEN Ordering Facility: [facility] Address: [address] [place] [address] Performed By: #### 5 8410-2 #### [facility] CLIA [id number] [address] [place] [address] [place] MCHC (RBC) [Mass/Vol] 32.6 g/dL Normal 30.5-36.0 [facility] Comment on above: Order Comment: Speci men Type: BLOOD SPECIMEN Ordering Facility: [facility] Address: [address] [place] [address] Performed By: #### 5 8410-2 #### [facility] CLIA [id number] [address] [place] [address] [place] MCV (RBC) [Entitic vol] 86.4 fL Normal 80.0-100.0 [facility] Comment on above: Order Comment: Speci men Type: BLOOD SPECIMEN Ordering Facility: [facility] Address: [address] [place] [address] Performed By: #### 5 8410-2 #### [facility] CLIA [id number] [address] [place] [address] [place] Nucleated RBC (Bld) [#/Vol] 10*3/uL Normal <0.01 [facility] Comment on above: Order Comment: Speci men Type: BLOOD SPECIMEN Ordering Facility: [facility] Address: [address] [place] [address] Performed By: #### 5 8410-2 #### [facility] CLIA [id number] [address] [place] [address] [place] Platelet mean volume (Bld) [Entitic vol] 12.0 fL Normal 9.0-12.7 [facility] Comment on above: Order Comment: Speci men Type: BLOOD SPECIMEN Ordering Facility: [facility] Address: [address] [place] [address] Performed By: #### 5 8410-2 #### [facility] CLIA [id number] [address] [place] [address] [place] Platelets (Bld) [#/Vol] 284 10*3/uL Normal 150-400 [facility] Comment on above: Order Comment: Speci men Type: BLOOD SPECIMEN Ordering Facility: [facility] Address: [address] [place] [address] Performed By: #### 5 8410-2 #### [facility] CLIA [id number] [address] [place] [address] [place] RBC (Bld) [#/Vol] 4.86 10*6/uL Normal 4.20-6.00 [facility] Comment on above: Order Comment: Speci men Type: BLOOD SPECIMEN Ordering Facility: [facility] Address: [address] [place] [address] Performed By: #### 5 8410-2 #### [facility] CLIA [id number] [facility] [place] [address] [place] WBC (Bld) [#/Vol] 8.89 10*3/uL Normal 3.70-11.00 [facility] Comment on above: Order Comment: Speci men Type: BLOOD SPECIMEN Ordering Facility: [facility] Address: [address] [place] [address] Performed By: #### 5 8410-2 #### [facility] CLIA [id number] [facility] [place] [address] [place] CRP SerPl-mCncon 03-10-2023 CRP [Mass/Vol] 9.8 mg/dL High <0.9 [facility] Comment on above: Order Comment: Speci men Type: BLOOD SPECIMEN Ordering Facility: [facility] Address: [address] [place] [address] Performed By: #### 1 988-5, 3024-7, 61045-6, 3016-3 #### [facility] CLIA [id number] [address] [place] [address] [place] Comprehensive metabolic 2000 panelon 03-10-2023 Albumin [Mass/Vol] 3.8 g/dL Low 3.9-4.9 [facility] Comment on above: Order Comment: Speci men Type: BLOOD SPECIMEN Ordering Facility: [facility] Address: [address] [place] [address], [place] [address] Performed By: #### 1 988-5, 3024-7, 26960-4, 3016-3 #### [facility] CLIA [id number] [address] [place] [address] [place] ALP [Catalytic activity/Vol] 80 U/L Normal 38-113 [facility] Comment on above: Order Comment: Speci men Type: BLOOD SPECIMEN Ordering Facility: [facility] Address: [address] [place] [address] Performed By: #### 1 988-5, 3024-7, 54912-4, 3016-3 #### [facility] CLIA [id number] [address] [place] [address] [place] ALT [Catalytic activity/Vol] 41 U/L Normal 10-54 [facility] Comment on above: Order Comment: Speci men Type: BLOOD SPECIMEN Ordering Facility: [facility] Address: [address] [place] [address] Performed By: #### 1 988-5, 3024-7, 26287-8, 3016-3 #### [facility] CLIA [id number] [address] [place] [address] [place] Anion gap [Moles/Vol] 16 mmol/L Normal 9-18 [facility] Comment on above: Order Comment: Speci men Type: BLOOD SPECIMEN Ordering Facility: [facility] Address: [address] [place] [address] Performed By: #### 1 988-5, 3024-7, 78209-5, 3016-3 #### [facility] CLIA [id number] [address] [place], [place] [address] [place] AST [Catalytic activity/Vol] 55 U/L High 14-40 [facility] Comment on above: Order Comment: Speci men Type: BLOOD SPECIMEN Ordering Facility: [facility] Address: [address] [place] [address] Performed By: #### 1 988-5, 3024-7, 99630-6, 3016-3 #### [facility] CLIA [id number] [address] [place] [address] [place] Bilirubin [Mass/Vol] 0.5 mg/dL Normal 0.2-1.3 [facility] Comment on above: Order Comment: Speci men Type: BLOOD SPECIMEN Ordering Facility: [facility] Address: [address] [place] [address] Performed By: #### 1 988-5, 3024-7, 36254-6, 3016-3 #### [facility] CLIA [id number] [address] [place] [address] [place] Calcium [Mass/Vol] 10.1 mg/dL Normal 8.5-10.2 [facility] Comment on above: Order Comment: Speci men Type: BLOOD SPECIMEN Ordering Facility: [facility] Address: [address] [place] [address] Performed By: #### 1 988-5, 3024-7, 91404-1, 3016-3 #### [facility] CLIA [id number] [address] [place] [address] [place] Chloride [Moles/Vol] 104 mmol/L Normal 97-105 [facility] Comment on above: Order Comment: Speci men Type: BLOOD SPECIMEN Ordering Facility: [facility] Address: [address] [place] [address] Performed By: #### 1 988-5, 3024-7, 23106-4, 3016-3 #### [facility] CLIA [id number] [address] [place] [id number] [place] CO2 [Moles/Vol] 16 mmol/L Low 22-30 [facility] Comment on above: Order Comment: Speci men Type: BLOOD SPECIMEN Ordering Facility: [facility] Address: [address] [place] [address] Performed By: #### 1 988-5, 3024-7, 88942-9, 3016-3 #### [facility] CLIA [id number] [address] [place] [id number] [place] Creatinine [Mass/Vol] 1.51 mg/dL High 0.73-1.22 [facility] Comment on above: Order Comment: Speci men Type: BLOOD SPECIMEN Ordering Facility: [facility] Address: [address] [place] [address] Performed By: #### 1 988-5, 3024-7, 73301-9, 3016-3 #### [facility] CLIA [id number] [address] [place] [address] [place] Creatinine and Glomerular filtration rate.predicted panel (S/P/Bld) 53 mL/min/1.73m??? Low >=60 [facility] Comment on above: Order Comment: Speci men Type: BLOOD SPECIMEN Ordering Facility: [facility] Address: [address] [place] [address] Result Comment: Kristen mated Glomerular Filtration Rate (eGFR) is calculated using the 2020 CKD-EPI creatinine equation. This equation utilizes serum creatinine, sex, and age as parameters. The creatinine assay has traceable calibration to isotope dilution-mass spectrometry. Refer to KDIGO guidelines for clinical interpretation. In patients with unstable renal function, e.g. those with acute kidney injury, the eGFR may not accurately reflect actual GFR. Performed By: #### 1 988-5, 3024-7, 50905-0, 3016-3 #### [facility] CLIA [id number] [address] [address] [place] Glucose [Mass/Vol] 97 mg/dL Normal 74-99 [facility] Comment on above: Order Comment: Speci men Type: BLOOD SPECIMEN Ordering Facility: [facility] Address: [address] [place] [address], [place] [address] Result Comment: The [place] [employer] (ADA) provides guidance for cutoff values for fasting glucose and random glucose. The ADA defines fasting as no caloric intake for at least 8 hours. Fasting plasma glucose results between 100 to 125 mg/dL indicate increased risk for diabetes (prediabetes). Fasting plasma glucose results greater than or equal to 126 mg/dL meet the criteria for diagnosis of diabetes. In the absence of unequivocal hyperglycemia, results should be confirmed by repeat testing. In a patient with classic symptoms of hyperglycemia or hyperglycemic crisis, random plasma glucose results greater than or equal to 200 mg/dL meet the criteria for diagnosis of diabetes. Reference: Standards of Medical Care in Diabetes 2016, [place] [employer]. Diabetes Care. 2016.39(Suppl 1). Performed By: #### 1 988-5, 3024-7, 46570-0, 3016-3 #### [facility] CLIA [id number] [address] [place] [address] [place] Potassium [Moles/Vol] 5.1 mmol/L Normal 3.7-5.1 [facility] Comment on above: Order Comment: Mikhail persaud Type: BLOOD SPECIMEN Ordering Facility: [facility] Address: [address] [place] [address] Performed By: #### 1 988-5, 3024-7, 84558-5, 3016-3 #### [facility] CLIA [id number] [address] [place] [address] [place] Protein [Mass/Vol] 7.9 g/dL Normal 6.3-8.0 [facility] Comment on above: Order Comment: Mikhail persaud Type: BLOOD SPECIMEN Ordering Facility: [facility] Address: [address] [place], [place] [id number] Performed By: #### 1 988-5, 3024-7, 31342-4, 3016-3 #### [facility] CLIA [id number] [address] [id number] [place] Sodium [Moles/Vol] 136 mmol/L Normal 136-144 [facility] Comment on above: Order Comment: Speci men Type: BLOOD SPECIMEN Ordering Facility: [facility] Address: [address] [place] [address], [place] [address] Performed By: #### 1 988-5, 3024-7, 01093-6, 3016-3 #### [facility] CLIA [id number] [address] [place] [address] [place] Urea nitrogen [Mass/Vol] 35 mg/dL High 9-24 [facility] Comment on above: Order Comment: Speci men Type: BLOOD SPECIMEN Ordering Facility: [facility] Address: [address] [place] [address], [place] [address] Performed By: #### 1 988-5, 3024-7, 37273-0, 3016-3 #### [facility] CLIA [id number] [address] [place], [place] [id number] [place] T4 Free SerPl-mCncon 023 Free T4 [Mass/Vol] 1.4 ng/dL Normal 0.9-1.7 [facility] Comment on above: Order Comment: Speci men Type: BLOOD SPECIMEN Ordering Facility: [facility] Address: [address] [place] [address], [place] [address] Performed By: #### 1 988-5, 3024-7, 49786-3, 3016-3 #### [facility] CLIA [id number] [address] [place] [address] [place] TSH SerPl-aCncon 03-10-2023 TSH Qn 4.180 m[IU]/L Normal 0.270-4.200 [facility] Comment on above: Order Comment: Speci men Type: BLOOD SPECIMEN Ordering Facility: [facility] Address: [address] [place] [address], [place] [address] Performed By: #### 1 988-5, 3024-7, 63973-0, 3016-3 #### [facility] CLIA [id number] [address] [place] [address] [place] Urate SerPl-mCncon 3 Urate [Mass/Vol] 10.1 mg/dL High 4.0-8.[address] [facility] Comment on above: Order Comment: Speci men Type: BLOOD SPECIMEN [facility] Address: [address], [place] [address] Performed By: #### 3 084-1 #### [facility] CLIA [id number] [facility] [address] [place] Absolute lymphocyte countOrd ered By: Reva Baeza on 02-04-2023 Lymphocytes Auto (Unsp spec) [#/Vol] 2.08 10*3/uL 0.83-4.51 [facility] Basophil percentageOrdered B y: Reva Baeza on 02-04-2023 Basophils/100 WBC (Bld) 0.7 % 0-1 [facility] Bilirubin [Mass/Vol] 0.70 mg/dL 0.20-1.00 [facility] Comment on above: For patients on eltr ombopag therapy, use of Dimension [place] TBIL is not recommended. Chloride [Moles/Vol] 107 mmol/L 98-107 [facility] Eosinophils/100 WBC (Bld) 1.4 % 0-5 [facility] Glucose [Mass/Vol] 152 mg/dL 74-106 [facility] Comment on above: Fasting Glucose resu lt greater than or equal to 126 mg/dL suggests DIABETES MELLITUS per A.D.A. criteria. Neutrophils (Bld) [#/Vol] 2.8 10*3/uL 2.0-7.7 [facility] Neutrophils/100 WBC (Bld) 50.1 % 47-70 [facility] Potassium [Moles/Vol] 3.8 mmol/L 3.5-5.1 [facility] Protein [Mass/Vol] 7.0 g/dL 6.4-8.2 [facility] Sodium [Moles/Vol] 138 mmol/L 136-145 [facility] WBC (Bld) [#/Vol] 5.6 10*3/uL 4.4-11.0 [facility] Blood erythrocytes count (nu mber/volume)Ordered By: Reva Baeza on 02-04-2023 RBC (Bld) [#/Vol] 5.42 10*6/uL 4.6-6.2 [facility] Blood hemoglobin measurement (mass/volume)Ordered By: Reva Baeza on 02-04-2023 Hemoglobin (Bld) [Mass/Vol] 15.1 g/dL 13.0-16.5 [facility] Blood lymphocytes/100 leukoc ytesOrdered By: [facility] on 02-04-2023 Lymphocytes/100 WBC (Bld) 37.0 % 19-41 [facility] Blood monocytes/100 leukocyt esOrdered By: [facility] on 02-04-2023 Monocytes/100 WBC (Bld) 9.6 % 0-10 [facility] Blood platelet mean volumeOr dered By: [facility] on 02-04-2023 Platelet mean volume (Bld) [Entitic vol] 12.2 fL 6.2-12.0 [facility] Determination of erythrocyte mean corpuscular volume (MCV)Ordered By: [facility] on 02-04-2023 MCV (RBC) [Entitic vol] 85.1 fL 80-94 [facility] Hematocrit Auto (Bld) [Volum e fraction]Ordered By: [facility] on 02-04-2023 Hematocrit (Bld) [Volume fraction] 46.1 % 40-54 [facility] - Chemistry and C hemistry - challengeOrdered By: [facility] on 02-04-2023 ALP [Catalytic activity/Vol] 96 U/L 45-117 [facility] ALT [Catalytic activity/Vol] 86 U/L 16-61 [facility] CO2 [Moles/Vol] 21.0 mmol/L 21.0-32.0 [facility] Globulin (S) [Mass/Vol] 4.1 g/dL 2.2-4.2 [facility] Urea nitrogen/Creatinine [Mass ratio] 18.4 mg/mg 10-20 [facility] - Hematology and Cell countsOrdered By: Reva Baeza on 02-04-2023 Erythrocyte distribution width (RBC) [Entitic vol] 41.7 fL 35.1-43.9 [facility] Erythrocyte distribution width (RBC) [Ratio] 13.5 % 11.6-14.6 [facility] Immature granulocytes/100 WBC (Bld) 1.200 % 0.0-0.9 [facility] Comment on above: IG% - Immature Granu locytes (promyelocytes, myelocytes and metamyelocytes) > 1% indicates that a LEFT SHIFT is Present. MCH (RBC) [Entitic mass] 27.9 pg 27.0-32.0 [facility] Nucleated RBC/100 WBC (Bld) [Ratio] 0 % 0-5 [facility] MCHC Auto (RBC) [Mass/Vol]Or dered By: Reva Baeza on 02-04-2023 MCHC (RBC) [Mass/Vol] 32.8 g/dL 32-36 [facility] No Panel InformationOrdered By: Reva Baeza on 02-04-2023 Estimated Creatinine Clearance Calc 52.62 ml/min [facility] Estimated GFR (MDRD) Amer 58 mL/min >60 [facility] Comment on above: GFR Calc Estimated GFR (MDRD) Non-Af Amer 48 mL/min >60 [facility] Comment on above: Non- GFR Calc Platelets bldOrdered By: Ricco Baeza on 02-04-2023 Platelets (Bld) [#/Vol] 119 10*3/uL 150-450 [facility] Serum or plasma albumin chandrakant urement (mass/volume)Ordered By: Reva Baeza on 02-04-2023 Albumin [Mass/Vol] 2.9 g/dL 3.2-5.0 [facility] Serum or plasma albumin/glob ulin mass ratioOrdered By: Reva Baeza on 02-04-2023 Albumin/Globulin [Mass ratio] 0.7 {ratio} 0.9-2.4 [facility] Serum or plasma calcium chandrakant urement (mass/volume)Ordered By: Reva Baeza on 02-04-2023 Calcium [Mass/Vol] 8.5 mg/dL 8.5-10.1 [facility] Serum or plasma creatinine m easurement (mass/volume)Ordered By: [facility] on 02-04-2023 Creatinine [Mass/Vol] 1.58 mg/dL 0.70-1.30 [facility] Comment on above: The validity of the calculated GFR & GFRAA in patients over 70 years has not been determined. Clinical correlation is essential. Serum or plasma urea nitroge n measurement (mass/volume)Ordered By: [facility] Aryan on 02-04-2023 Urea nitrogen [Mass/Vol] 29 mg/dL 7-18 [facility] Thin prep Papanicolaou smear with manual screeningOrdered By: [facility] 02-04-2023 Thin prep Papanicolaou smear with manual screening 67 U/L 15- [facility] Thin prep Papanicolaou smear with manual screening 10 5-15 [facility] Absolute lymphocyte countOrd ered By: Adam Mckeon on 01-31-2023 Lymphocytes Auto (Unsp spec) [#/Vol] 0.99 10*3/uL 0.83-4.51 [facility] Basophil percentageOrdered B y: Adam Mckeon on 01-31-2023 Chloride [Moles/Vol] 104 mmol/L 98-107 [facility] Glucose [Mass/Vol] 349 mg/dL 74-106 [facility] Comment on above: Glucose result great er than or equal to 200 mg/dLsuggests DIABETES MELLITUS per A.D.A. criteria. Potassium [Moles/Vol] 3.9 mmol/L 3.5-5.1 [facility] Sodium [Moles/Vol] 134 mmol/L 136-145 [facility] Basophil percentage 0 SEEN /hpf 0-5 [facility] Basophils/100 WBC (Bld) 0.3 % 0-1 [facility] Eosinophils/100 WBC (Bld) 0.3 % 0-5 [facility] Neutrophils (Bld) [#/Vol] 2.4 10*3/uL 2.0-7.7 [facility] Neutrophils/100 WBC (Bld) 63.3 % 47-70 [facility] WBC (Bld) [#/Vol] 3.7 10*3/uL 4.4-11.0 [facility] Bilirubin Test strip Ql (U)O rdered By: Adam Mckeon on 01-31-2023 Bilirubin Ql (U) Negative Negative [facility] Blood erythrocytes count (nu mber/volume)Ordered By: Adamjaja Mckeon on 01-31-2023 RBC (Bld) [#/Vol] 5.49 10*6/uL 4.6-6.2 [facility] Blood hemoglobin measurement (mass/volume)Ordered By: Adamjaja Mckeon on 01-31-2023 Hemoglobin (Bld) [Mass/Vol] 15.5 g/dL 13.0-16.5 [facility] Blood lymphocytes/100 leukoc ytesOrdered By: Adamjaja Mckeon on 01-31-2023 Lymphocytes/100 WBC (Bld) 26.5 % 19-41 [facility] Blood monocytes/100 leukocyt esOrdered By: Adamjaja Mckeon on 01-31-2023 Monocytes/100 WBC (Bld) 9.1 % 0-10 [facility] Blood platelet adequacy dete ction by light microscopyOrdered By: Adamjaja Mckeon on 01-31-2023 Platelets LM Ql (Bld) MOD DEC ADEQ [facility] Blood platelet mean volumeOr dered By: Adam Mckeon on 01-31-2023 Platelet mean volume (Bld) [Entitic vol] 12.1 fL 6.2-12.0 [facility] Determination of erythrocyte mean corpuscular volume (MCV)Ordered By: Adam Mckeon on 01-31-2023 MCV (RBC) [Entitic vol] 85.4 fL 80-94 [facility] Glucose Glucometer (BldC) [M ass/Vol]Ordered By: Adam Mckeon on 01-31-2023 Glucose [Mass/Vol] 340 mg/dL 74-106 [facility] Comment on above: MANAGEMENT OF PATIEN T CARE PER NURSING PROTOCOL Hematocrit Auto (Bld) [Volum e fraction]Ordered By: Adam Mckeon on 01-31-2023 Hematocrit (Bld) [Volume fraction] 46.9 % 40-54 [facility] Ketones Test strip Ql (U)Ord ered By: Adam Mckeon on 01-31-2023 Ketones Ql (U) 15 mg/dl Negative [facility] - Chemistry and C hemistry - challengeOrdered By: Adamjaja Mckeon on 01-31-2023 CO2 [Moles/Vol] 29.0 mmol/L 21.0-32.0 [facility] Urea nitrogen/Creatinine [Mass ratio] 15.5 mg/mg 10-20 [facility] Magnesium [Mass/Vol] 1.9 mg/dL 1.6-2.6 [facility] - Hematology and Cell countsOrdered By: Adamjaja Mckeon on 01-31-2023 Erythrocyte distribution width (RBC) [Entitic vol] 40.1 fL 35.1-43.9 [facility] Erythrocyte distribution width (RBC) [Ratio] 12.9 % 11.6-14.6 [facility] Immature granulocytes/100 WBC (Bld) 0.500 % 0.0-0.9 [facility] Comment on above: IG% - Immature Granu locytes (promyelocytes, myelocytes and metamyelocytes) > 1% indicates that a LEFT SHIFT is Present. MCH (RBC) [Entitic mass] 28.2 pg 27.0-32.0 [facility] Nucleated RBC/100 WBC (Bld) [Ratio] 0 % 0-5 [facility] MCHC Auto (RBC) [Mass/Vol]Or dered By: Adam Mckeon on 01-31-2023 MCHC (RBC) [Mass/Vol] 33.0 g/dL 32-36 [facility] Mucus LM Ql (Urine sed)Order ed By: Adam Mckeon on 01-31-2023 Mucus Ql (Urine sed) 0 SEEN /hpf [facility] Nitrite Test strip Ql (U)Ord ered By: Adamjaja Mckeon on 01-31-2023 Nitrite Ql (U) Negative Negative [facility] No Panel InformationOrdered By: Adamjaja Mckeon on 01-31-2023 Estimated Creatinine Clearance Calc 49.49 ml/min [facility] Estimated GFR (MDRD) Amer 54 mL/min >60 [facility] Comment on above: GFR Calc Estimated GFR (MDRD) Non-Af Amer 45 mL/min >60 [facility] Comment on above: Non- GFR Calc Platelets bldOrdered By: Adam Mckeon on 01-31-2023 Platelets (Bld) [#/Vol] 78 10*3/uL 150-450 [facility] Protein Test strip Ql (U)Ord ered By: Adam Mckeon on 01-31-2023 Protein Ql (U) 30 mg/dl Negative [facility] Serum or plasma calcium chandrakatn urement (mass/volume)Ordered By: Adam Mckeon on 01-31-2023 Calcium [Mass/Vol] 8.2 mg/dL 8.5-10.1 [facility] Serum or plasma creatinine m easurement (mass/volume)Ordered By: Adam Mckeon on 01-31-2023 Creatinine [Mass/Vol] 1.68 mg/dL 0.70-1.30 [facility] Comment on above: The validity of the calculated GFR & GFRAA in patients over 70 years has not been determined. Clinical correlation is essential. Serum or plasma urea nitroge n measurement (mass/volume)Ordered By: Adam Mckeon on 01-31-2023 Urea nitrogen [Mass/Vol] 26 mg/dL 7-18 [facility] Squamous epithelial cells de tection in urine sediment by light microscopyOrdered By: Adam Mckeon on 01-31-2023 Epithelial cells.squamous LM Ql (Urine sed) 0-5 SEEN /hpf 0-5 [facility] Thin prep Papanicolaou smear with manual screeningOrdered By: Adam Mckeon on 01-31-2023 Thin prep Papanicolaou smear with manual screening 1 5-15 [facility] Urine blood detectionOrdered By: Adam Mckeon on 01-31-2023 RBC Ql (U) 25 /ul Negative [facility] RBC Ql (U) 0-5 SEEN /hpf 0-5 [facility] Urine clarityOrdered By: Adam Mckeon on 01-31-2023 Clarity (U) Clear Clear [facility] Urine color determinationOrd ered By: Adam Mckeon on 01-31-2023 Color (U) Yellow Yellow [facility] Urine glucose detectionOrder ed By: Adam Mckeon on 01-31-2023 Glucose Ql (U) 1000 mg/dl Normal [facility] Urine leukocyte esterase det ection by dipstickOrdered By: Adam Mckeon on 01-31-2023 Leukocyte esterase Test strip Ql (U) Negative Negative [facility] Urine pHOrdered By: Adam wilkinson on 01-31-2023 pH (U) 6.0 [pH] 5.0 - 8.0 [facility] Urine sediment bacteria coun t by microscopy (number/high power field)Ordered By: Adam Mckeon on 01-31-2023 Bacteria LM.HPF (Urine sed) [#/Area] 0 /[HPF] None Seen [facility] Urine specific gravity measu rementOrdered By: Adamjaja Mckeon on 01-31-2023 Specific gravity (U) [Rel density] 1.010 1.002-1.030 [facility] Urobilinogen Auto test strip Ql (U)Ordered By: Adam Mckeon on 01-31-2023 Urobilinogen Ql (U) Normal mg/dl Normal [facility] Whole blood hemoglobin A1c/t otal hemoglobin ratio (mass fraction)Ordered By: Adam Mckeon on 01-31-2023 HbA1c (Bld) [Mass fraction] 12.7 % 3.8-5.6 [facility] Comment on above: Normal < 5.7 % Predi abetic 5.7 - 6.4 % Diabetic >or= 6.5 % Please note range changes. 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 He was treated with Keytruda. He elected not to go ahead with radiation therapy. I cannot appreciate any obvious tumor recurrence. Obstructive sleep apnea. Unfortunately the patient has not been able to tolerate the device. He was then tried on some other devices but could not afford the expense. I encouraged him to try to lose some weight. Impacted cerumen of the left ear. This was addressed with a small instrument. I will see him in 4 months. Provider Impressions Status post parotidectomy and neck dissection for what turned out to be a probable high-grade cancer most likely melanoma. He was treated with Keytruda. He elected not to go ahead with radiation therapy. I cannot appreciate any obvious tumor recurrence. Obstructive sleep apnea. Unfortunately the patient has not been able to tolerate the device. He was then tried on some other devices but could not afford the expense. I encouraged him to try to lose some weight. Impacted cerumen of the left ear. This was addressed with a small instrument. I will see him in 4 months. Chief Complaint Follow-up regarding the management of a neck malignancy. History of Present IllnessThis gentleman was seen in April at the [...] that scan and cannot appreciate anything worrisome. 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) Obstructive sleep apnea (327.23) (G47.33) Reflux laryngitis (464.00,530.81) (J04.0,K21.9) Reflux laryngitis (464.00,530.81) (J04.0,K21.9) Snoring (786.09) (R06.83) Past Medical History History of arthritis (V13.4) (Z87.39) History of depression (V11.8) (Z86.59) History of gastroesophageal reflux (GERD) (V12.79) (Z87.19) History of heartburn (V12.79) (Z87.898) History of hypertension (V12.59) (Z86.79) History of kidney disease (V13.09) (Z87.448) History of shortness of breath (V13.89) (Z87.898) Surgical History History of Appendectomy History of Carpal tunnel surgery Family History Family history of liver disease (V18.59) (Z83.79) Family history of lung cancer (V16.1) (Z80.1) Social History No alcohol use Non-smoker (V49.89) (Z78.9) Allergies No Known Drug Allergies Recorded By: Vini Tavera; 06/14/2020 2:10:05 PM Current Meds Medication NameInstruction No Reported Medications Vitals Vital Signs Recorded: [id number] 04:25PM [id number] F Height5 ft 10 in Thvzwz648 lb 12.8 oz BMI Kwhpghxwgc60.16 kg/m2 BSA Calculated2.51 Tobacco Useb) No PHQ-2 #1. Over the last 2 weeks have you felt down, depressed or hopeless? (If yes, answer PHQ-9 below)No PHQ-2 #2. Over the last 2 weeks have you felt little interest or pleasure in doing things? (If yes, answer PHQ-9 below)No Falls Screening (Age 18+)a) No falls within the last year Physical Exam Examination of the parotid, neck, and thyroid field does not show any evidence of worrisome masses or adenopathies. His facial nerve function is normal. The intraoral exam is also negative for any mucosal lesions. At (more content not included)... Normal [employer] Tobacco Screening.on 023 Adult depression screening assessment No [facility] g[facility] Work Phone: Fall risk assessment a) No falls within the last year [facility]tol[facility] gology[facility] Work Phone: Tobacco use status CPHS b) No [facility] g[facility] r[facility] Work Phone: Absolute lymphocyte countOrd ered By: Reva Baeza on 10-15-2022 Lymphocytes Auto (Unsp spec) [#/Vol] 1.65 10*3/uL 0.83-4.51 [facility] Basophil percentageOrdered B y: Reva Baeza on 10-15-2022 Basophils/100 WBC (Bld) 0.3 % 0-1 [facility] Bilirubin [Mass/Vol] 0.30 mg/dL 0.20-1.00 [facility] Comment on above: For patients on eltr ombopag therapy, use of Dimension [place] TBIL is not recommended. Chloride [Moles/Vol] 109 mmol/L 98-107 [facility] Eosinophils/100 WBC (Bld) 3.5 % 0-5 [facility] Glucose [Mass/Vol] 146 mg/dL 74-106 [facility] Comment on above: Fasting Glucose resu lt greater than or equal to 126 mg/dL suggests DIABETES MELLITUS per A.D.A. criteria. Neutrophils (Bld) [#/Vol] 3.9 10*3/uL 2.0-7.7 [facility] Neutrophils/100 WBC (Bld) 60.8 % 47-70 [facility] Potassium [Moles/Vol] 4.0 mmol/L 3.5-5.1 [facility] Protein [Mass/Vol] 6.5 g/dL 6.4-8.2 [facility] Sodium [Moles/Vol] 138 mmol/L 136-145 [facility] WBC (Bld) [#/Vol] 6.4 10*3/uL 4.4-11.0 [facility] Blood erythrocytes count (nu mber/volume)Ordered By: Reva Baeza on 10-15-2022 RBC (Bld) [#/Vol] 4.77 10*6/uL 4.6-6.2 [facility] Blood hemoglobin measurement (mass/volume)Ordered By: Reva Baeza on 10-15-2022 Hemoglobin (Bld) [Mass/Vol] 13.6 g/dL 13.0-16.5 [facility] Blood lymphocytes/100 leukoc ytesOrdered By: [facility] Aryan on 10-15-2022 Lymphocytes/100 WBC (Bld) 26.0 % 19-41 [facility] Blood monocytes/100 leukocyt esOrdered By: [facility] A[facility] on 10-15-2022 Monocytes/100 WBC (Bld) 8.3 % 0-10 [facility] Blood platelet mean volumeOr dered By: Reva Baeza on 10-15-2022 Platelet mean volume (Bld) [Entitic vol] 12.0 fL 6.2-12.0 [facility] Determination of erythrocyte mean corpuscular volume (MCV)Ordered By: Reva Baeza on 10-15-2022 MCV (RBC) [Entitic vol] 89.5 fL 80-94 [facility] Hematocrit Auto (Bld) [Volum e fraction]Ordered By: [facility] Aryan on 10-15-2022 Hematocrit (Bld) [Volume fraction] 42.7 % 40-54 [facility] - Chemistry and C hemistry - challengeOrdered By: [facility] Aryan on 10-15-2022 ALP [Catalytic activity/Vol] 70 U/L 45-117 [facility] ALT [Catalytic activity/Vol] 44 U/L 16-61 [facility] CO2 [Moles/Vol] 24.0 mmol/L 21.0-32.0 [facility] Free T4 [Mass/Vol] 1.09 ng/dL 0.76-1.46 [facility] Globulin (S) [Mass/Vol] 3.5 g/dL 2.2-4.2 [facility] Urea nitrogen/Creatinine [Mass ratio] 16.3 mg/mg 10-20 [facility] - Hematology and Cell countsOrdered By: Reva Baeza on 10-15-2022 Erythrocyte distribution width (RBC) [Entitic vol] 46.2 fL 35.1-43.9 [facility] Erythrocyte distribution width (RBC) [Ratio] 14.3 % 11.6-14.6 [facility] Immature granulocytes/100 WBC (Bld) 1.100 % 0.0-0.9 [facility] Comment on above: IG% - Immature Granu locytes (promyelocytes, myelocytes and metamyelocytes) > 1% indicates that a LEFT SHIFT is Present. MCH (RBC) [Entitic mass] 28.5 pg 27.0-32.0 [facility] Nucleated RBC/100 WBC (Bld) [Ratio] 0 % 0-5 [facility] MCHC Auto (RBC) [Mass/Vol]Or dered By: Reva Baeza on 10-15-2022 MCHC (RBC) [Mass/Vol] 31.9 g/dL 32-36 [facility] No Panel InformationOrdered By: Reva Baeza on 10-15-2022 Estimated GFR (MDRD) Amer 66 mL/min >60 [facility] Comment on above: GFR Calc Estimated GFR (MDRD) Non-Af Amer 55 mL/min >60 [facility] Comment on above: Non- GFR Calc Thyroid Stimulating Hormone (TSH) 2.20 uIU/mL 0.358-3.74 [facility] Platelets bldOrdered By: Ricco Baeza on 10-15-2022 Platelets (Bld) [#/Vol] 126 10*3/uL 150-450 [facility] Serum or plasma albumin chandrakant urement (mass/volume)Ordered By: Reva Baeza on 10-15-2022 Albumin [Mass/Vol] 3.0 g/dL 3.2-5.0 [facility] Serum or plasma albumin/glob ulin mass ratioOrdered By: Reva Baeza on 10-15-2022 Albumin/Globulin [Mass ratio] 0.9 {ratio} 0.9-2.4 [facility] Serum or plasma calcium chandrakant urement (mass/volume)Ordered By: Reva Baeza on 10-15-2022 Calcium [Mass/Vol] 9.2 mg/dL 8.5-10.1 [facility] Serum or plasma creatinine m easurement (mass/volume)Ordered By: Reva Baeza on 10-15-2022 Creatinine [Mass/Vol] 1.41 mg/dL 0.70-1.30 [facility] Comment on above: The validity of the calculated GFR & GFRAA in patients over 70 years has not been determined. Clinical correlation is essential. 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 Severe Class 3 Plan: I discussed the natural course of obstructive sleep apnea with the patient at length. I emphasized the health-related consequences of inadequate treatment. We reviewed medical treatments, particularly PAP therapy. I reinforced that PAP is the first-line treatment. As the patient is interested in surgical options due to difficulty adhering to PAP I will try other medical treatments (oral appliance therapy,weight loss). Patient's BMI limits possible surgical success. This is explained to patient. Specific to Mr. THORNTON, I have recommended: - It is explained to patient that if weight loss is achieved it can significantly improve LILY symptoms such as daytime sleepiness, irritability. There is also an overall improvement in cardiovascular and metabolic health. Patient is referred to Medical Weight Management program to help achieve and maintain weight loss success. - Patient is also referred to oral appliances clinic based on patient's location. Dental appliances or mandibular advancement devices advance the lower jaw forward preventing the tongue from blocking the throat. These devices help keep the airway open during sleep improving sleep quality. . Thank you very much and please do not hesitate to contact me to discuss care. Willard James MD, PhD [employer] Manager, Division of Sleep Surgery Otolaryngology - Head AND Neck Surgery Chief Complaint Virtual follow up visit for OAS and PAP intolerance History of Present IllnessMr. NORBERTO , 1965, referred for an initial consultation with a long history of reported loud snoring, waking up feeling unrefreshed, excessive daytime fatigue. [place] Sleepiness Scale Score is [] /24. Fatigue Severity Scale Score is [] /63. Snoring VAS [] /10 Sleep study histories: (personally reviewed raw data such as interpretation report, data sheet, hypnogram, and titration table) The patient has been previously diagnosed with obstructive [...] Rigth side AHI 34.2 and Left side 34.7/hr. For nocturnal symptoms (without or prior to treatment), he endorses that there is snoring, witnessed apneas, nocturia and restless sleep. For daytime symptoms (without or prior to treatment), he endorses that there is morning headaches, irritability and depression. Patient does reports nasal obstruction. It does fluctuate, and has been treated with nasal corticosteroids without significant improvements. He does not have a history of nasal surgery or upper airway surgery. He does not have a history of nasal trauma. He does not describe a history of facial pressure type of headaches. He does not report a history of nasal drainage, denies epistaxis. 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) Obstructive sleep apnea (327.23) (G47.33) Reflux laryngitis (464.00,530.81) (J04.0,K21.9) Reflux laryngitis (464.00,530.81) (J04.0,K21.9) Snoring (786.09) (R06.83) Past Medical History History of arthritis (V13.4) (Z87.39) History of depression (V11.8) (Z86.59) History of gastroesophageal reflux (GERD) (V12.79) (Z87.19) History of heartburn (V12.79) (Z87.898) History of hypertension (V12.59) (Z86.79) History of kidney disease (V13.09) (Z87.448) History of shortness of breath (V13.89) (Z87.898) Surgical History History of Appendectomy History of Carpal tunnel surgery Family History Family history of liver disease (V18.59) (Z83.79) Family history of lung cancer (V16.1) (Z80.1) Social History No alcohol use Non-smoker (V49.89) (Z78.9) Allergies No Known Drug Allergies Recorded By: Vini Tavera; 06/14/2020 2:10:05 PM Current Meds Medication NameInstruction Allopurinol 100 MG Oral Tablettake 1 tablet by mouth once daily Allopurinol 300 MG Oral Tablet Allopurinol 300 MG Oral Tablet Amitriptyline HCl - 25 MG Oral Tablettake 1 to 2 tablets by mouth every evening if needed for sleep Amitriptyline HCl - 25 MG Oral Tablettake 1 to 2 tablets by mouth every evening if needed for sleep Amoxicillin 500 MG Oral Capsule buPROPion HCl ER (XL) 150 MG Oral Tablet Extended Release 24 Hourtake 1 tablet by mouth every morning Raquel (more content not included)... 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 He was treated with Keytruda. He elected not to go ahead with radiation therapy. I cannot appreciate any obvious tumor recurrence. Obstructive sleep apnea. Unfortunately the patient has not been able to tolerate the device. I will have him seen by my partner. Feeling a presence in the throat. This is most likely related to reflux laryngitis. I given a list of instructions for dietary modifications and also put him on omeprazole 40 mg. I will see him in 3 months. Provider Impressions Status post parotidectomy and neck dissection for what turned out to be a probable high-grade see related to melanoma. He was treated with Keytruda. He elected not to go ahead with radiation therapy. I cannot appreciate any obvious tumor recurrence. Obstructive sleep apnea. Unfortunately the patient has not been able to tolerate the device. I will have him seen by my partner. Feeling a presence in the throat. This is most likely related to reflux laryngitis. I given a list of instructions for dietary modifications and also put him on omeprazole 40 mg. I will see him in 3 months. Chief Complaint Follow-up regarding the management of a neck malignancy. History of Present IllnessThis gentleman was seen in April at the [...] that scan and cannot appreciate anything worrisome. 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) Snoring (786.09) (R06.83) Past Medical History History of arthritis (V13.4) (Z87.39) History of depression (V11.8) (Z86.59) History of gastroesophageal reflux (GERD) (V12.79) (Z87.19) History of heartburn (V12.79) (Z87.898) History of hypertension (V12.59) (Z86.79) History of kidney disease (V13.09) (Z87.448) History of shortness of breath (V13.89) (Z87.898) Surgical History History of Appendectomy History of Carpal tunnel surgery Family History Family history of liver disease (V18.59) (Z83.79) Family history of lung cancer (V16.1) (Z80.1) Social History No alcohol use Non-smoker (V49.89) (Z78.9) Allergies No Known Drug Allergies Recorded By: Vini Tavera; 06/14/2020 2:10:05 PM Current Meds Medication NameInstruction Allopurinol 100 MG Oral Tablettake 1 tablet by mouth once daily Allopurinol 300 MG Oral Tablet Allopurinol 300 MG Oral Tablet Amitriptyline HCl - 25 MG Oral Tablettake 1 to 2 tablets by mouth every evening if needed for sleep Amitriptyline HCl - 25 MG Oral Tablettake 1 to 2 tablets by mouth every evening if needed for sleep Amoxicillin 500 MG Oral Capsule buPROPion HCl ER (XL) 150 MG Oral Tablet Extended Release 24 Hourtake 1 tablet by mouth every morning FeroSul 325 (65 Fe) MG Oral Tablettake 1 tablet by mouth once daily Keytruda 100 MG/4ML Intravenous SolutionEvery 3 weeks infusions, first treatment 10/10/20 Lidocaine Viscous HCl - 2 % Mouth/Throat SolutionSWISH AND SPIT 15 milliliters six times a day if needed for 5 days Lidocaine-Prilocaine 2.5-2.5 % External Creamapply topically to affected area once daily for 30 DAYS if needed for PORT ACCESS Nystatin 611873 UNIT/ML Mouth/Throat Suspensionswish and swallow (more content not included)... Normal [id number] Tobacco Screening.on 023 Adult depression screening assessment No [employer] Phone: Fall risk assessment a) No falls within the last year [employer] Phone: Tobacco use status CPHS b) No [employer] Phone: Absolute lymphocyte countOrd ered By: Dr. Baeza on 04-16-2022 Lymphocytes Auto (Unsp spec) [#/Vol] 2.35 10*3/uL 0.83-4.51 [facility] Basophil percentageOrdered B y: Dr. Baeza on 04-16-2022 Basophils/100 WBC (Bld) 0.5 % 0-1 [facility] Bilirubin [Mass/Vol] 0.50 mg/dL 0.20-1.00 [facility] Comment on above: For patients on eltr ombopag therapy, use of Dimension [place] TBIL is not recommended. Chloride [Moles/Vol] 105 mmol/L 98-107 [facility] Eosinophils/100 WBC (Bld) 4.0 % 0-5 [facility] Glucose [Mass/Vol] 200 mg/dL 74-106 [facility] Comment on above: Glucose result great er than or equal to 200 mg/dLsuggests DIABETES MELLITUS per A.D.A. criteria. Neutrophils (Bld) [#/Vol] 5.1 10*3/uL 2.0-7.7 [facility] Neutrophils/100 WBC (Bld) 59.9 % 47-70 [facility] Potassium [Moles/Vol] 4.1 mmol/L 3.5-5.1 [facility] Protein [Mass/Vol] 7.7 g/dL 6.4-8.2 [facility] Sodium [Moles/Vol] 137 mmol/L 136-145 [facility] WBC (Bld) [#/Vol] 8.5 10*3/uL 4.4-11.0 [facility] Blood erythrocytes count (nu mber/volume)Ordered By: Dr. Baeza on 04-16-2022 RBC (Bld) [#/Vol] 5.43 10*6/uL 4.6-6.2 [facility] Blood hemoglobin measurement (mass/volume)Ordered By: Dr. Baeza on 04-16-2022 Hemoglobin (Bld) [Mass/Vol] 16.0 g/dL 13.0-16.5 [facility] Blood lymphocytes/100 leukoc ytesOrdered By: Dr. Baeza on 04-16-2022 Lymphocytes/100 WBC (Bld) 27.7 % 19-41 [facility] Blood monocytes/100 leukocyt esOrdered By: Dr. Baeza on 04-16-2022 Monocytes/100 WBC (Bld) 7.2 % 0-10 [facility] Blood platelet mean volumeOr dered By: Dr. Baeza on 04-16-2022 Platelet mean volume (Bld) [Entitic vol] 11.5 fL 6.2-12.0 [facility] Determination of erythrocyte mean corpuscular volume (MCV)Ordered By: Dr. Baeza on 04-16-2022 MCV (RBC) [Entitic vol] 88.2 fL 80-94 [facility] Hematocrit Auto (Bld) [Volum e fraction]Ordered By: Dr. Baeza on 04-16-2022 Hematocrit (Bld) [Volume fraction] 47.9 % 40-54 [facility] Laboratory - Chemistry and C hemistry - challengeOrdered By: Dr. Baeza on 04-16-2022 ALP [Catalytic activity/Vol] 90 U/L 45-117 [facility] ALT [Catalytic activity/Vol] 76 U/L 16-61 [facility] CO2 [Moles/Vol] 26.0 mmol/L 21.0-32.0 [facility] Free T4 [Mass/Vol] 1.04 ng/dL 0.76-1.46 [facility] Globulin (S) [Mass/Vol] 4.2 g/dL 2.2-4.2 [facility] Urea nitrogen/Creatinine [Mass ratio] 15.4 mg/mg 10-20 [facility] Laboratory - Hematology and Cell countsOrdered By: Dr. Baeza on 04-16-2022 Erythrocyte distribution width (RBC) [Entitic vol] 44.5 fL 35.1-43.9 [facility] Erythrocyte distribution width (RBC) [Ratio] 13.8 % 11.6-14.6 [facility] Immature granulocytes/100 WBC (Bld) 0.700 % 0.0-0.9 [facility] Comment on above: IG% - Immature Granu locytes (promyelocytes, myelocytes and metamyelocytes) > 1% indicates that a LEFT SHIFT is Present. MCH (RBC) [Entitic mass] 29.5 pg 27.0-32.0 [facility] Nucleated RBC/100 WBC (Bld) [Ratio] 0 % 0-5 [facility] MCHC Auto (RBC) [Mass/Vol]Or dered By: Dr. Baeza on 04-16-2022 MCHC (RBC) [Mass/Vol] 33.4 g/dL 32-36 [facility] No Panel InformationOrdered By: Dr. Baeza on 04-16-2022 Estimated Creatinine Clearance Calc 56.48 ml/min [facility] Estimated GFR (MDRD) Amer 62 mL/min >60 [facility] Comment on above: GFR Calc Estimated GFR (MDRD) Non-Af Amer 52 mL/min >60 [facility] Comment on above: Non- GFR Calc Thyroid Stimulating Hormone (TSH) 2.96 uIU/mL 0.358-3.74 [facility] Platelets bldOrdered By: Dr. Baeza on 04-16-2022 Platelets (Bld) [#/Vol] 167 10*3/uL 150-450 [facility] Serum or plasma albumin chandrakant urement (mass/volume)Ordered By: Dr. Baeza on 04-16-2022 Albumin [Mass/Vol] 3.5 g/dL 3.2-5.0 [facility] Serum or plasma albumin/glob ulin mass ratioOrdered By: Dr. Baeza on 04-16-2022 Albumin/Globulin [Mass ratio] 0.8 {ratio} 0.9-2.4 [facility] Serum or plasma calcium chandrakant urement (mass/volume)Ordered By: Dr. Baeza on 04-16-2022 Calcium [Mass/Vol] 10.1 mg/dL 8.5-10.1 [facility] Serum or plasma creatinine m easurement (mass/volume)Ordered By: Dr. Baeza on 04-16-2022 Creatinine [Mass/Vol] 1.49 mg/dL 0.70-1.30 [facility] Comment on above: The validity of the calculated GFR & GFRAA in patients over 70 years has not been determined. Clinical correlation is essential. Serum or plasma urea nitroge n measurement (mass/volume)Ordered By: Dr. Baeza on 04-16-2022 Urea nitrogen [Mass/Vol] 23 mg/dL 7-18 [facility] Thin prep Papanicolaou smear with manual screeningOrdered By: Dr. Baeza on 04-16-2022 Thin prep Papanicolaou smear with manual screening 51 U/L 15-37 [facility] Thin prep Papanicolaou smear with manual screening 6 5-15 [facility] Absolute lymphocyte counton 12-17-2021 Lymphocytes Auto (Unsp spec) [#/Vol] 2.98 10*3/uL 0.83-4.51 [facility] Work Phone: Basophil percentageon 2021 Creatinine [Mass/Vol] 1.2 mg/dL 0.70-1.30 [facility] Work Phone: Basophil percentage 2.8 mg/dL 2.5-4.9 [facility] Work Phone: Basophils/100 WBC (Bld) 0.4 % 0-1 [facility] Work Phone: Bilirubin [Mass/Vol] 0.40 mg/dL 0.20-1.00 [facility] Work Phone: Comment on above: For patients on eltr ombopag therapy, use of Dimension [place] TBIL is not recommended. Chloride [Moles/Vol] 108 mmol/L 98-107 [facility] Work Phone: [phone] Eosinophils/100 WBC (Bld) 4.2 % 0-5 [facility] Work Phone: [phone] Glucose [Mass/Vol] 128 mg/dL 74-106 [facility] Work Phone: Comment on above: Fasting Glucose resu lt greater than or equal to 126 mg/dL suggests DIABETES MELLITUS per A.D.A. criteria. Neutrophils (Bld) [#/Vol] 3.9 10*3/uL 2.0-7.7 [facility] Work Phone: [phone] Neutrophils/100 WBC (Bld) 48.2 % 47-70 [facility] Work Phone: [phone] Potassium [Moles/Vol] 3.7 mmol/L 3.5-5.1 [facility] Work Phone: Protein [Mass/Vol] 6.9 g/dL 6.4-8.2 [facility] Work Phone: [phone] Sodium [Moles/Vol] 142 mmol/L 136-145 [facility] Work Phone: [phone] WBC (Bld) [#/Vol] 8.2 10*3/uL 4.4-11.0 [facility] Work Phone: [phone] Blood erythrocytes count (nu mber/volume)on 12-17-2021 RBC (Bld) [#/Vol] 4.90 10*6/uL 4.6-6.2 [facility] Work Phone: [phone] Blood hemoglobin measurement (mass/volume)on 12-17-2021 Hemoglobin (Bld) [Mass/Vol] 14.5 g/dL 13.0-16.5 [facility] Work Phone: Blood lymphocytes/100 leukoc yteson 12-17-2021 Lymphocytes/100 WBC (Bld) 36.6 % 19-41 [facility] Work Phone: Blood monocytes/100 leukocyt eson 12-17-2021 Monocytes/100 WBC (Bld) 9.6 % 0-10 [facility] Work Phone: Blood platelet mean volumeon 12-17-2021 Platelet mean volume (Bld) [Entitic vol] 11.9 fL 6.2-12.0 [facility] Work Phone: Determination of erythrocyte mean corpuscular volume (MCV)on 12-17-2021 MCV (RBC) [Entitic vol] 89.6 fL 80-94 [facility] Work Phone: Hematocrit Auto (Bld) [Volum e fraction]on 12-17-2021 Hematocrit (Bld) [Volume fraction] 43.9 % 40-54 [facility] Work Phone: Laboratory - Chemistry and C hemistry - challengeon 12-17-2021 ALP [Catalytic activity/Vol] 91 U/L 45-117 [facility] Work Phone: ALT [Catalytic activity/Vol] 76 U/L 16-61 [facility] Work Phone: CO2 [Moles/Vol] 28.0 mmol/L 21.0-32.0 [facility] Work Phone: Free T4 [Mass/Vol] 1.07 ng/dL 0.76-1.46 [facility] Work Phone: Globulin (S) [Mass/Vol] 3.7 g/dL 2.2-4.2 [facility] Work Phone: Magnesium [Mass/Vol] 2.2 mg/dL 1.6-2.6 [facility] Work Phone: Urea nitrogen/Creatinine [Mass ratio] 14.8 mg/mg 10-20 [facility] Work Phone: Laboratory - Hematology and Cell countson 12-17-2021 Erythrocyte distribution width (RBC) [Entitic vol] 44.2 fL 35.1-43.9 [facility] Work Phone: Erythrocyte distribution width (RBC) [Ratio] 13.5 % 11.6-14.6 [facility] Work Phone: Immature granulocytes/100 WBC (Bld) 1.000 % 0.0-0.9 [facility] Work Phone: Comment on above: IG% - Immature Granu locytes (promyelocytes, myelocytes and metamyelocytes) > 1% indicates that a LEFT SHIFT is Present. MCH (RBC) [Entitic mass] 29.6 pg 27.0-32.0 [facility] Work Phone: Nucleated RBC/100 WBC (Bld) [Ratio] 0 % 0-5 [facility] Work Phone: MCHC Auto (RBC) [Mass/Vol]on 12-17-2021 MCHC (RBC) [Mass/Vol] 33.0 g/dL 32-36 [facility] Work Phone: No Panel Informationon 12-17 Bedside Estimated GFR (eGFR) > 60.0000 mL/min >60 [facility] Work Phone: Estimated GFR (MDRD) Amer 66 mL/min >60 [facility] Work Phone: Comment on above: GFR Calc Estimated GFR (MDRD) Non-Af Amer 55 mL/min >60 [facility] Work Phone: Comment on above: Non- GFR Calc Thyroid Stimulating Hormone (TSH) 5.06 uIU/mL 0.358-3.74 [facility] Work Phone: Platelets bldon 12-17-2021 Platelets (Bld) [#/Vol] 172 10*3/uL 150-450 [facility] Work Phone: Serum or plasma albumin chandrakant urement (mass/volume)on 12-17-2021 Albumin [Mass/Vol] 3.2 g/dL 3.2-5.0 [facility] Work Phone: Serum or plasma albumin/glob ulin mass ratioon 12-17-2021 Albumin/Globulin [Mass ratio] 0.9 {ratio} 0.9-2.4 [facility] Work Phone: Serum or plasma calcium chandrakant urement (mass/volume)on 12-17-2021 Calcium [Mass/Vol] 8.6 mg/dL 8.5-10.1 [facility] Work Phone: Serum or plasma cortisol dm surement (mass/volume)on 12-17-2021 Cortisol [Mass/Vol] 15.10 ug/dL 3.44-22.45 [facility] Work Phone: Comment on above: Adult (AM) 5.27 - 22 .45 ug/dL Adult (PM) 3.44 - 16.76 ug/dLPlease note revised CORTISOL reference range effective 2019. Serum or plasma creatinine m easurement (mass/volume)on 12-17-2021 Creatinine [Mass/Vol] 1.42 mg/dL 0.70-1.30 [facility] Work Phone: Comment on above: The validity of the calculated GFR & GFRAA in patients over 70 years has not been determined. Clinical correlation is essential. Serum or plasma urea nitroge n measurement (mass/volume)on 12-17-2021 Urea nitrogen [Mass/Vol] 21 mg/dL 7-18 [facility] Work Phone: Thin prep Papanicolaou smear with manual screeningon 12-17-2021 Thin prep Papanicolaou smear with manual screening 46 U/L 15-37 [facility] Work Phone: Thin prep Papanicolaou smear with manual screening 6 5-15 [facility] Work Phone: Absolute lymphocyte counton 10-23-2021 Lymphocytes Auto (Unsp spec) [#/Vol] 2.42 10*3/uL 0.83-4.51 [facility] Work Phone: Basophil percentageOrdered B y: Dr. Baeza on 10-23-2021 Basophil percentage 2.9 mg/dL 2.5-4.9 [facility] Basophil percentageon 2021 Basophils/100 WBC (Bld) 0.4 % 0-1 [facility] Work Phone: Bilirubin [Mass/Vol] 0.30 mg/dL 0.20-1.00 [facility] Work Phone: Comment on above: For patients on eltr ombopag therapy, use of Dimension [place] TBIL is not recommended. Chloride [Moles/Vol] 109 mmol/L 98-107 [facility] Work Phone: Eosinophils/100 WBC (Bld) 5.1 % 0-5 [facility] Work Phone: Glucose [Mass/Vol] 181 mg/dL 74-106 [facility] Work Phone: Comment on above: Fasting Glucose resu lt greater than or equal to 126 mg/dL suggests DIABETES MELLITUS per A.D.A. criteria. Neutrophils (Bld) [#/Vol] 4.7 10*3/uL 2.0-7.7 [facility] Work Phone: Neutrophils/100 WBC (Bld) 56.2 % 47-70 [facility] Work Phone: [phone] Potassium [Moles/Vol] 4.0 mmol/L 3.5-5.1 [facility] Work Phone: Protein [Mass/Vol] 7.3 g/dL 6.4-8.2 [facility] Work Phone: Sodium [Moles/Vol] 140 mmol/L 136-145 [facility] Work Phone: WBC (Bld) [#/Vol] 8.3 10*3/uL 4.4-11.0 [facility] Work Phone: Blood erythrocytes count (nu mber/volume)on 10-23-2021 RBC (Bld) [#/Vol] 5.03 10*6/uL 4.6-6.2 [facility] Work Phone: Blood hemoglobin measurement (mass/volume)on 10-23-2021 Hemoglobin (Bld) [Mass/Vol] 15.1 g/dL 13.0-16.5 [facility] Work Phone: Blood lymphocytes/100 leukoc yteson 10-23-2021 Lymphocytes/100 WBC (Bld) 29.1 % 19-41 [facility] Work Phone: Blood monocytes/100 leukocyt eson 10-23-2021 Monocytes/100 WBC (Bld) 8.5 % 0-10 [facility] Work Phone: Blood platelet mean volumeon 10-23-2021 Platelet mean volume (Bld) [Entitic vol] 11.6 fL 6.2-12.0 [facility] Work Phone: Determination of erythrocyte mean corpuscular volume (MCV)on 10-23-2021 MCV (RBC) [Entitic vol] 88.9 fL 80-94 [facility] Work Phone: Hematocrit Auto (Bld) [Volum e fraction]on 10-23-2021 Hematocrit (Bld) [Volume fraction] 44.7 % 40-54 [facility] Work Phone: Laboratory - Chemistry and C hemistry - challengeon 10-23-2021 ALP [Catalytic activity/Vol] 80 U/L 45-117 [facility] Work Phone: ALT [Catalytic activity/Vol] 54 U/L 16-61 [facility] Work Phone: CO2 [Moles/Vol] 26.0 mmol/L 21.0-32.0 [facility] Work Phone: Globulin (S) [Mass/Vol] 3.8 g/dL 2.2-4.2 [facility] Work Phone: Urea nitrogen/Creatinine [Mass ratio] 14.2 mg/mg 10-20 [facility] Work Phone: Laboratory - Chemistry and C hemistry - challengeOrdered By: Dr. Baeza on 10-23-2021 Magnesium [Mass/Vol] 1.7 mg/dL 1.6-2.6 [facility] Laboratory - Hematology and Cell countson 10-23-2021 Erythrocyte distribution width (RBC) [Entitic vol] 45.0 fL 35.1-43.9 [facility] Work Phone: Erythrocyte distribution width (RBC) [Ratio] 13.9 % 11.6-14.6 [facility] Work Phone: Immature granulocytes/100 WBC (Bld) 0.700 % 0.0-0.9 [facility] Work Phone: Comment on above: IG% - Immature Granu locytes (promyelocytes, myelocytes and metamyelocytes) > 1% indicates that a LEFT SHIFT is Present. MCH (RBC) [Entitic mass] 30.0 pg 27.0-32.0 [facility] Work Phone: Nucleated RBC/100 WBC (Bld) [Ratio] 0 % 0-5 [facility] Work Phone: MCHC Auto (RBC) [Mass/Vol]on 10-23-2021 MCHC (RBC) [Mass/Vol] 33.8 g/dL 32-36 [facility] Work Phone: No Panel Informationon 10-23 Estimated Creatinine Clearance Calc 51.95 ml/min [facility] Work Phone: Estimated GFR (MDRD) Amer 57 mL/min >60 [facility] Work Phone: Comment on above: GFR Calc Estimated GFR (MDRD) Non-Af Amer 47 mL/min >60 [facility] Work Phone: Comment on above: Non- GFR Calc Platelets bldon 10-23-2021 Platelets (Bld) [#/Vol] 165 10*3/uL 150-450 [facility] Work Phone: Serum or plasma albumin chandrakant urement (mass/volume)on 10-23-2021 Albumin [Mass/Vol] 3.5 g/dL 3.2-5.0 [facility] Work Phone: Serum or plasma albumin/glob ulin mass ratioon 10-23-2021 Albumin/Globulin [Mass ratio] 0.9 {ratio} 0.9-2.4 [facility] Work Phone: Serum or plasma calcium chandrakant urement (mass/volume)on 10-23-2021 Calcium [Mass/Vol] 9.7 mg/dL 8.5-10.1 [facility] Work Phone: Serum or plasma creatinine m easurement (mass/volume)on 10-23-2021 Creatinine [Mass/Vol] 1.62 mg/dL 0.70-1.30 [facility] Work Phone: Comment on above: The validity of the calculated GFR & GFRAA in patients over 70 years has not been determined. Clinical correlation is essential. Serum or plasma urea nitroge n measurement (mass/volume)on 10-23-2021 Urea nitrogen [Mass/Vol] 23 mg/dL 7-18 [facility] Work Phone: Thin prep Papanicolaou smear with manual screeningon 10-23-2021 Thin prep Papanicolaou smear with manual screening 25 U/L 15-37 [facility] Work Phone: Thin prep Papanicolaou smear with manual screening 5 5-15 [facility] Work Phone: Laboratory - Chemistry and C hemistry - challengeon 08-21-2021 Free T4 [Mass/Vol] 1.04 ng/dL 0.76-1.46 [facility] Work Phone: Comment on above: Previous reported re sult: 1.06 ng/dLEdited by: KELI on 08/21/21:1002 AMENDED REPORT 08/21/21 1002 T4 FREE DIRECT previously reported as: 1.06 ng/dL No Panel Informationon 08-21 Thyroid Stimulating Hormone (TSH) 2.31 uIU/mL 0.358-3.74 [facility] Work Phone: Comment on above: Previous reported re sult: 2.01 uIU/mLEdited by: KELI on 08/21/21:1002 AMENDED REPORT 08/21/21 1002 TSH previously reported as: 2.01 uIU/mL Serum or plasma cortisol dm surement (mass/volume)on 08-21-2021 Cortisol [Mass/Vol] 18.70 ug/dL 3.44-22.45 [facility] Comment on above: Adult (AM) 5.27 - 22 .45 ug/dL Adult (PM) 3.44 - 16.76 ug/dLPlease note revised CORTISOL reference range effective 2019. No Panel Informationon 05-08 Vitamin D 25-Hydroxy 35.2 ng/mL [facility] Comment on above: Vitamin D 25(OH) Sta tus Range Deficiency <20 ng/mL (50nmol/L) Insufficiency 20 - 30 ng/mL (50 - 75 nmol/L) Sufficiency 30 - 100 ng/mL (75 - 250 nmol/L) Toxicity >100 ng/mL (>250 nmol/L) Serum or plasma uric acid me asurement (mass/volume)on 05-08-2021 Urate [Mass/Vol] 7.3 mg/dL 3.5-7.2 [facility] Comment on above: The drugs N-Acetylcy steine and Metamizole may falsely depress this assay. Whole blood hemoglobin A1c/t otal hemoglobin ratio (mass fraction)on 03-27-2021 HbA1c (Bld) [Mass fraction] 6.1 % 3.8-5.6 [facility] Comment on above: Normal < 5.7 % Predi abetic 5.7 - 6.4 % Diabetic >or= 6.5 % Please note range changes. Tobacco Screening.on 021 Fall risk assessment a) No falls within the last year [facility]-Otolaryn gology-Evie man Work Phone: Tobacco use status [facility] b) No MG-Otolaryn gology-Evie man Work Phone: Tobacco Screening.on 021 Fall risk assessment a) No falls within the last year MG-Otolaryn gology-Subu rban Work Phone: Tobacco use status [facility] b) No MG-Otolaryn gology-Subu rban Work Phone: [phone] Tobacco Screening.on 021 Fall risk assessment a) No falls within the last year [facility]tolaryn gology-[facility]u rban Work Phone: [phone] Tobacco Screening. b) No MG-Genaro laryn gology-Subu rban Work Phone: [phone] Laboratory - Hematology and Cell countson 07-23-2020 Erythrocyte distribution width (RBC) [Ratio] 14.2 % See Below MG-Otolaryn gology-Subu rban Work Phone: [phone] Comment on above: Reference Range: 11. 5 - 14.5 Hematocrit (Bld) [Volume fraction] 37.8 % below low threshold See Below [facility]tolaryn gology-Subu rban Work Phone: [phone] Comment on above: Reference Range: 41. 0 - 52.0 Hemoglobin (Bld) [Mass/Vol] 12.4 g/dL below low threshold See Below [facility]tolaryn gology-Subu rban Work Phone: [phone] Comment on above: Reference Range: 13. 5 - 17.5 MCHC (RBC) [Mass/Vol] 32.8 g/dL See Below MG- Otolaryn gology-Subu rban Work Phone: [phone] Comment on above: Reference Range: 32. 0 - 36.0 MCV (RBC) [Entitic vol] 90 fL 80 - 100 [facility]tolaryn gology-Subu rban Work Phone: [phone] Platelets (Bld) [#/Vol] 168 10*3/uL 150 - 450 MG-Otolaryn gology-Subu rban Work Phone: [phone] RBC (Bld) [#/Vol] 4.20 {x10E12/L} below low threshold See Below [facility]-Otolaryn gology-Subu rban Work Phone: [phone] Comment on above: Reference Range: 4.5 0 - 5.90 WBC (Bld) [#/Vol] 7.5 10*3/uL 4.4 - 11.3 MG-Genaro laryn gology-Subu [employer] Work Phone: Magnesium, Serumon Magnesium [Mass/Vol] 2.19 mg/dL See Below MG-O tolaryn gology-Subu [employer] Work Phone: Comment on above: Reference Range: 1.6 0 - 2.40 No Panel Informationon 07-23 0.0 {/100_WBC} 0.0-0.0 MG-Otolary n gology-Subu [employer] Work Phone: Laboratory - Hematology and Cell countson 07-22-2020 Erythrocyte distribution width (RBC) [Ratio] 14.2 % See Below MG-Otolaryn gology-Subu [employer] Work Phone: Comment on above: Reference Range: 11. 5 - 14.5 Hematocrit (Bld) [Volume fraction] 37.2 % below low threshold See Below MG-Otolaryn gology-Subu [employer] Work Phone: Comment on above: Reference Range: 41. 0 - 52.0 Hemoglobin (Bld) [Mass/Vol] 12.2 g/dL below low threshold See Below MG-Otolaryn gology-Subu [employer] Work Phone: Comment on above: Reference Range: 13. 5 - 17.5 MCHC (RBC) [Mass/Vol] 32.8 g/dL See Below MG- Otolaryn gology-Subu rban Work Phone: Comment on above: Reference Range: 32. 0 - 36.0 MCV (RBC) [Entitic vol] 89 fL 80 - 100 [facility]-Otolaryn gology-Subu rban Work Phone: Platelets (Bld) [#/Vol] 158 10*3/uL 150 - 450 [facility]Otolaryn gology-Subu rban Work Phone: RBC (Bld) [#/Vol] 4.20 {x10E12/L} below low threshold See Below MG-Otolaryn gology-Subu [employer] Work Phone: Comment on above: Reference Range: 4.5 0 - 5.90 WBC (Bld) [#/Vol] 6.3 10*3/uL 4.4 - 11.3 MG-Genaro laryn gology-Subu [employer] Work Phone: Magnesium, Serumon Magnesium [Mass/Vol] 2.17 mg/dL See Below MG-O tolaryn gology-Subu [employer] Work Phone: Comment on above: Reference Range: 1.6 0 - 2.40 No Panel Informationon 07-22 0.0 {/100_WBC} 0.0-0.0 MG-Otolary n gology-Subu [employer] Work Phone: Laboratory - Hematology and Cell countson 07-21-2020 Erythrocyte distribution width (RBC) [Ratio] 14.0 % See Below MG-Otolaryn gology-Subu [employer] Work Phone: Comment on above: Reference Range: 11. 5 - 14.5 Hematocrit (Bld) [Volume fraction] 36.9 % below low threshold See Below MG-Otolaryn gology-Subu [employer] Work Phone: Comment on above: Reference Range: 41. 0 - 52.0 Hemoglobin (Bld) [Mass/Vol] 12.3 g/dL below low threshold See Below MG-Otolaryn gology-Subu [employer] Work Phone: Comment on above: Reference Range: 13. 5 - 17.5 MCHC (RBC) [Mass/Vol] 33.3 g/dL See Below MG- Otolaryn gology-Subu rban Work Phone: Comment on above: Reference Range: 32. 0 - 36.0 MCV (RBC) [Entitic vol] 87 fL 80 - 100 MG-Otolaryn gology-Subu rban Work Phone: Platelets (Bld) [#/Vol] 168 10*3/uL 150 - 450 MG-Otolaryn gology-Subu rban Work Phone: [phone] RBC (Bld) [#/Vol] 4.23 {x10E12/L} below low threshold See Below MG-Otolaryn gology-Subu rban Work Phone: [phone] Comment on above: Reference Range: 4.5 0 - 5.90 WBC (Bld) [#/Vol] 9.4 10*3/uL 4.4 - 11.3 MG-Genaro laryn gology-Subu rban Work Phone: [phone] Hematocrit (Bld) [Volume fraction] Canceled MG-Otolaryn gology-Subu rban Work Phone: [phone] Hemoglobin (Bld) [Mass/Vol] Canceled MG-Otolaryn gology-Subu rban Work Phone: [phone] Platelets (Bld) [#/Vol] Canceled MG-Otolaryn gology-Subu rban Work Phone: [phone] RBC (Bld) [#/Vol] Canceled MG-Otol low gology-Subu rban Work Phone: [phone] Magnesium, Serumon 1 Magnesium [Mass/Vol] 2.40 mg/dL See Below MG-O tolaryn gology-Subu rban Work Phone: [phone] Comment on above: Reference Range: 1.6 0 - 2.40 No Panel Informationon 07-21 0.0 {/100_WBC} 0.0-0.0 MG-Otolary n gology-Subu rban Work Phone: [phone] Canceled MG-Otolaryn gology-Subu rban Work Phone: [phone] Laboratory - Blood bankon ABO group Nom (Bld) A MG-Ot olaryn gology-Subu rban Work Phone: [phone] Blood group antibody screen Ql Negative [facility]Otolaryn gology-Subu rban Work Phone: [phone] Rh immune globulin screen (Bld) [Interp] Positive MG-Otolary n gology-Subu rban Work Phone: [phone] Laboratory - Chemistry and C hemistry - challengeon 07-20-2020 Anion gap (Bld) [Moles/Vol] 12 mmol/L 10 - 25 MG[facility]Otolaryn gology-Subu rban Work Phone: [phone] Calcium.ionized (Bld) [Moles/Vol] 1.19 mmol/L See Below [facility]-Otolaryn gology-Subu rban Work Phone: [phone] Comment on above: Reference Range: 1.1 0 - 1.33 Chloride [Moles/Vol] 106 mmol/L 98 - 107 MG-O tolaryn gology-Subu rban Work Phone: [phone] CO2 (Bld) [Partial pressure] 47 mm[Hg] above high threshold 38 - 42 MG-Otolaryn gology-Subu rban Work Phone: [phone] Glucose [Mass/Vol] 150 mg/dL above high threshold 74 - 99 MG-Otolaryn gology-Subu rban Work Phone: [phone] HCO3 (Bld) [Moles/Vol] 25.4 mmol/L See Below M G-Otolaryn gology-Subu rban Work Phone: [phone] Comment on above: Reference Range: 22. 0 - 26.0 Lactate [Moles/Vol] 1.2 mmol/L 0.4 - 2.0 MG-Ot olaryn gology-Subu rban Work Phone: [phone] Oxygen (Bld) [Partial pressure] 154 mm[Hg] above high threshold 85 - 95 MG-[facility]tolaryn gology-[facility]u r[facility] Work Phone: [phone] pH (Bld) 7.34 [pH] below low threshold See Below MG-Otolaryn gology-Subu rban Work Phone: [phone] Comment on above: Reference Range: 7.3 8 - 7.42 Potassium [Moles/Vol] 4.1 mmol/L 3.5 - 5.3 MG- Otolaryn gology-Subu rban Work Phone: Sodium [Moles/Vol] 139 mmol/L 136 - 145 MG-[place] laryn gology-Subu rban Work Phone: Laboratory - Hematology and Cell countson 07-20-2020 Hematocrit (Bld) [Volume fraction] 36.0 % below low threshold See Below MG-Otolaryn gology-Subu rban Work Phone: Comment on above: Reference Range: 41. 0 - 52.0 Hemoglobin (Bld) [Mass/Vol] 12.2 g/dL below low threshold See Below [facility]Otolaryn gology-Subu rban Work Phone: Comment on above: Reference Range: 13. 5 - 17.5 No Panel Informationon 07-20 Inhaled oxygen concentration 60 % [facility]tolaryn gology-[facility]u r[facility] Work Phone: -0.8 mmol/L -2.0 - 3.0 MG[facility]tolaryn gology-[facility]u rban Work Phone: 100 % 94 - 100 [facility]tolaryn gology-[facility]u rban Work Phone: 37.1 {degrees_C} MG-Otola ryn gology-Subu rban Work Phone: Comment on above: NOTE: PATIENT RESULT S ARE NOT CORRECTED FOR TEMPERATURE. Coronavirus 2019 RNA by PCR, Screening Asymptomticon 07-18-2020 Coronavirus 2019 RNA by PCR, Screening Asymptomtic Not detected Normal See Below MG-Otolaryn gology-Subu rban Work Phone: Comment on above: SOURCE: Nasal, Nasop haryngealReference Range: Not Detected.This assay is designed to detect SARS-CoV-2 based on replication of specific regions of the RNA from the SARS-CoV-2 virus. A Not Detected result does not preclude 2019-nCoV infection since the adequacy of sample collection and/or low viral burden may result in presence of viral nucleic acids below the clinical sensitivity of this test method. Fact sheet for providers: https://www.fda.gov/media/272477/downloadFact sheet for patients: https://www.fda.gov/media/391786/downloadThis test has received FDA Emergency Use Authorization [EUA] and has been verified by [facility] ([facility]). This test is only authorized for the duration of time that circumstances exist to justify the authorization of the emergency use of in vitro diagnostic tests for the detection of SARS-CoV-2 virus and/or diagnosis of COVID-19 infection under section 564(b)(1) of the Act, 21 U.S.C. 360bbb-3(b)(1), unless the authorization is terminated or revoked sooner. [facility] is certified under CLIA-88 as qualified to perform high complexity testing. Testing is performed in the [facility] laboratories located at [address] [place] [address]. Laboratory - Hematology and Cell countson 07-17-2020 Lymphocytes/100 WBC (Bld) 2 % MG-Otolaryn gology-Subu rban Work Phone: No Panel Informationon 07-17 MG-Otolaryn gology-Subu rban Work Phone: [phone] LYMPHOMA CUTDOWN PANEL MG -Otolaryn gology-Subu rban Work Phone: [phone] TISSUE MG-Otolaryn gology-Subu rban Work Phone: [phone] Comment on above: Left Parotid Core Bx [id number] SEE BELOW MG-Otolaryn gology-Subu rban Work Phone: Comment on above: This test is a multi color, whole blood lysis assay. It was developed and its performance characteristics determined by the Department of Pathology, [facility], and has not been cleared or approved by the U.S. Food and Drug Administration. The laboratory is regulated under CLIA as qualified to perform high complexity testing. This test is used for clinical purposes. It should not be regarded as investigational or for research. Immunophenotypic analysis was performed using the following antibodies: CD3, CD4, CD5, CD7, CD8, CD10, CD19, CD20, CD23, CD38, CD43, CD45, CD56, KAPPA, LAMBDA.Additional Antibodies:TRBC1, TCRGD Very few lymphocytes present without abnormal immunophenotype.See also separate surgical pathology report. No definitive immuno phenotypic evidence of lymphoma. 3,000 - 17,000 MG-Otolary n gology-Subu rban Work Phone: [phone] 0.02 {x10E9/L} MG-Otolary n gology-Subu rban Work Phone: [phone] Acceptable MG-Otolaryn gology-Subu rban Work Phone: [phone] Left Parotid Core Bx MG-O tolaryn gology-Subu rban Work Phone: [phone] MG-Otolaryn gology-Subu rban Work Phone: [phone] Path Rev:9-15 Surface Marker on 07-17-2020 Path Rev:9-15 Surface Marker NORM MG-Otolaryn gology-Subu rban Work Phone: [phone] Comment on above: By her/his signature above, the Pathologist listed as making the final interpretation certifies that she/he has personally reviewed this case. Tobacco Screening.on Fall risk assessment a) No falls within the last year MG-Otolaryn gology-Subu rban Work Phone: [phone] Tobacco Screening. b) No MG-Genaro laryn gology-Subu rban Work Phone: [phone] NECK WITH CONTRASTon 06-22 CT NECK WITH CONTRAST Patient Name: ALEJANDRA THORNTON STUDY: CT NECK WITH CONTRAST; 07/05/2020 11:53 am INDICATION: neck mets. COMPARISON: None. ACCESSION NUMBER(S): [id number] ORDERING CLINICIAN: MORRIS FORD TECHNIQUE: Axial CT images of the neck were obtained. The patient received 90 cc Omnipaque 350 intravenous contrast agent. The images were reformatted in angled axial, coronal and sagittal planes. FINDINGS: There is a heterogeneously enhancing nodular mass within level 1B of the neck on the left. This measures approximately 43 mm in diameter. There are 2 heterogeneously enhancing nodular mass lesions within level 2 a of the neck on the left. These measure approximately 11 mm and 34 mm in diameter respectively. These would be consistent with malignant lymph nodes. The major salivary glands appear normal. The nasopharynx, oral cavity, oropharynx, hypopharynx, and larynx appear normal. The thyroid gland appears normal. 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 LEFT CORTEX Thickness: Mild atrophy Echogenicity: Unremarkable Mass: No discrete mass Cyst: None Calculi: No shadowing stone Hydronephrosis: None Moderately echogenic renal pyramids some shadowing noted which can be seen with medullary nephrocalcinosis. URINARY BLADDER: Unremarkable PROSTATE: Poorly visualized due to poor penetration of sound waves. IMPRESSION: 1. Findings suggesting bilateral medullary nephrocalcinosis which can be seen with medullary sponge kidney, hyperparathyroidism, among other etiologies. 2. Mild bilateral cortical atrophy. 3. Nonvisualized prostate. Interpreted By: Vero Nieves MD Preliminary Report By: Vero Nieves MD Electronically Signed By: Vero Nieves MD Dictated Date: 02/15/2019 2:15:37 PM Prelim Date: 02/15/2019 2:15:37 PM Sign Date: 02/15/2019 2:21:28 PM Ordering Provider:Phy Referring Normal [facility] ([place]) Vital Signs Date Time Vital Sign Value Performing Clinician Facility 05-27-2024 11:07-0500 Body mass index (BMI) [Ratio] 39.9 kg/m2 Marilyn Carbajal SENIOR PROGRAMMER-C Work Phone: 0(755)[phone] [place] [address] 05-27-2024 11:07-0500 Body temperature 97.2 [degF] Marilyn Carbajal SENIOR PROGRAMMER-C Work Phone: 4(362)251-484731 [place] [address] 05-27-2024 11:07-0500 Body weight 126.09 kg Marilyn Carbajal SENIOR PROGRAMMER-C Work Phone: 9(464)951-473031 [place] [address] 05-27-2024 11:07-0500 Diastolic blood pressure 81 mm[Hg] Marilyn Carbajal SENIOR PROGRAMMER-C Work Phone: 8(513)224-888831 [place] [address] 05-27-2024 11:07-0500 Heart rate 85 /min Marilyn Carbajal SENIOR PROGRAMMER-C Work Phone: 1(315)460-690731 [place] [address] 05-27-2024 11:07-0500 Respiratory rate 16 /min Marilyn Carbajal SENIOR PROGRAMMER-C Work Phone: 2(049)362-397331 [place] [address] 05-27-2024 11:07-0500 SaO2% (BldA) [Mass fraction] 95 % Marilyn Carbajal SENIOR PROGRAMMER-C Work Phone: 0(023)570-512131 [place] [address] 05-27-2024 11:07-0500 Systolic blood pressure 114 mm[Hg] Marilny Carbajal SENIOR PROGRAMMER-C Work Phone: 9(832)668-397131 [place] [address] 09-17-2023 16:41-0400 Body height 180.3 cm Morris Ford MD Work Phone: [facility] 09-17-2023 16:41-0400 Body mass index (BMI) [Ratio] 36.82 kg/m2 Morris Ford MD Work Phone: [facility] 09-17-2023 16:41-0400 Body temperature 97.59 [degF] Morris Ford MD Work Phone: [facility] 09-17-2023 16:41-0400 Body weight 119.75 kg Morris Ford MD Work Phone: [facility] 03-12-2023 16:04-0500 Body height 177.8 cm Morris Ford MD Work Phone: [facility] 03-12-2023 16:04-0500 Body mass index (BMI) [Ratio] 38.15 kg/m2 Morris Ford MD Work Phone: [facility] 03-12-2023 16:04-0500 Body temperature 97.59 [degF] Morris Ford MD Work Phone: [facility] 03-12-2023 16:04-0500 Body weight 120.61 kg Morris Ford MD Work Phone: [facility] 02-04-2023 15:24-0500 Body height 177.8 cm [facility] Work Phone: 9(203)073-865731 [place] [address] 02-04-2023 15:24-0500 Body mass index (BMI) [Ratio] 39.9 kg/m2 [facility] Work Phone: 5(808)307-250646 [address] 02-04-2023 15:24-0500 Body temperature 98.5 [degF] [facility] Work Phone: 4(620)038-347816 [place] [address] 02-04-2023 15:24-0500 Body weight 126.32 kg [facility] Work Phone: 6(627)948-685146 [address] 02-04-2023 15:24-0500 Diastolic blood pressure 73 mm[Hg] [facility] Work Phone: 2(127)429-721831 [place] [address] 02-04-2023 15:24-0500 Heart rate 99 /min [facility] Work Phone: 5(605)104-941631 [place] [address] 02-04-2023 15:24-0500 Respiratory rate 18 /min [facility] Work Phone: 8(409)314-195416 [place] [address] 02-04-2023 15:24-0500 SaO2% (BldA) [Mass fraction] 94 % [facility] Work Phone: 8(289)516-116046 [address] 02-04-2023 15:24-0500 Systolic blood pressure 107 mm[Hg] [facility] Work Phone: 0(775)541-307116 [place] [address] 01-31-2023 14:39-0500 Diastolic blood pressure 82 mm[Hg] [facility] Work Phone: 8(528)770-310616 [place] [address] 01-31-2023 14:39-0500 Heart rate 75 /min [facility] Work Phone: 6(730)916-951816 [place] [address] 01-31-2023 14:39-0500 Respiratory rate 18 /min [facility] Work Phone: 4(915)128-934516 [place] [address] 01-31-2023 14:39-0500 SaO2% (BldA) [Mass fraction] 98 % [facility] Work Phone: 2(500)131-548616 [place] [address] 01-31-2023 14:39-0500 Systolic blood pressure 125 mm[Hg] [facility] Work Phone: 2(950)469-265016 [place] [address] 01-31-2023 08:58-0500 Body mass index (BMI) [Ratio] 40.5 kg/m2 [facility] Work Phone: 6(865)304-377416 [place] [address] 01-31-2023 08:58-0500 Body temperature 96.8 [degF] [facility] Work Phone: 1(614)718-263316 [place] [address] 01-31-2023 08:58-0500 Body weight 128.04 kg [facility] Work Phone: 4(397)426-170216 [place] [address] 11-06-2022 16:25-0400 Body height 177.8 cm No PCP None MG-Otolaryngolog y-French burban Work Phone: 11-06-2022 16:25-0400 Body mass index (BMI) [Ratio] 44.16 kg/m2 No PCP None VS-Lxzalhxkhdosrp-Xg burban Work Phone: 11-06-2022 16:25-0400 Body surface area Derived from formula 2.51 m2 No PCP None IL-Tljxwvvlzbqtve-N u burban Work Phone: 11-06-2022 16:25-0400 Body temperature 99 [degF] No PCP None MG-Otolaryngolo gy-French burban Work Phone: 11-06-2022 16:25-0400 Body weight 139.62 kg No PCP None MG-Otolaryngolog y-Gillian stone Work Phone: 10-22-2022 13:09-0400 Body mass index (BMI) [Ratio] 43.9 kg/m2 [facility] Work Phone: 1(995)975-897516 [place] [address] 10-22-2022 13:09-0400 Body temperature 98.3 [degF] [facility] Work Phone: 5(226)063-966116 [place] [address] 10-22-2022 13:09-0400 Body weight 138.91 kg [facility] Work Phone: 3(495)430-242616 [place] [address] 10-22-2022 13:09-0400 Diastolic blood pressure 93 mm[Hg] [facility] Work Phone: 1(934)557-658416 [place] [address] 10-22-2022 13:09-0400 Heart rate 83 /min [facility] Work Phone: 7(881)985-416416 [place] [address] 10-22-2022 13:09-0400 Respiratory rate 18 /min [facility] Work Phone: 4(602)755-705516 [place] [address] 10-22-2022 13:09-0400 SaO2% (BldA) [Mass fraction] 95 % [facility] Work Phone: 5(993)942-306816 [place] [address] 10-22-2022 13:09-0400 Systolic blood pressure 144 mm[Hg] [facility] Work Phone: 3(124)418-328916 [place] [address] 07-23-2022 13:02-0400 Body height 177.8 cm [facility] Work Phone: 7(985)767-915616 [place] [address] 07-23-2022 13:00-0400 Body mass index (BMI) [Ratio] 43.9 kg/m2 [facility] Work Phone: 2(092)240-744216 [place] [address] 07-23-2022 13:00-0400 Body temperature 97.5 [degF] [facility] Work Phone: 4(057)217-663916 [place] [address] 07-23-2022 13:00-0400 Body weight 138.79 kg [facility] Work Phone: [facility] 07-23-2022 13:00-0400 Diastolic blood pressure 88 mm[Hg] [facility] Work Phone: 2(901)142-523131 [place] [address] 07-23-2022 13:00-0400 Heart rate 68 /min [facility] Work Phone: 8(414)136-208131 [place] [address] 07-23-2022 13:00-0400 Respiratory rate 16 /min [facility] Work Phone: 2(912)739-606816 [place] [address] 07-23-2022 13:00-0400 SaO2% (BldA) [Mass fraction] 97 % [facility] Work Phone: 7(529)803-760931 [place] [address] 07-23-2022 13:00-0400 Systolic blood pressure 131 mm[Hg] [facility] Work Phone: 1(409)244-749531 [place] [address] 05-08-2022 16:22-0500 Body height 177.8 cm No PCP None MG-Otolaryngolog y-We [place] Work Phone: 05-08-2022 16:22-0500 Body mass index (BMI) [Ratio] 43.36 kg/m2 No PCP None FD-Vsajvewnvnornk-Br [place] Work Phone: 05-08-2022 16:22-0500 Body surface area Derived from formula 2.49 m2 No PCP None SA-Bnzrkxaanznwjm-T e [place] Work Phone: 05-08-2022 16:22-0500 Body temperature 96.6 [degF] No PCP None MG-Otolaryngolo gy-We [place] Work Phone: 05-08-2022 16:22-0500 Body weight 137.07 kg No PCP None MG-Otolaryngolog y-We [place] Work Phone: 04-16-2022 15:26-0500 Body height 177.8 cm [facility] Work Phone: [facility] 04-16-2022 15:26-0500 Body mass index (BMI) [Ratio] 43.3 kg/m2 [facility] Work Phone: 4(970)932-130016 [place] [address] 04-16-2022 15:26-0500 Body temperature 99 [degF] [facility] Work Phone: 5(171)956-399916 [place] [address] 04-16-2022 15:26-0500 Body weight 137.04 kg [facility] Work Phone: 0(579)233-000316 [place] [address] 04-16-2022 15:26-0500 Diastolic blood pressure 88 mm[Hg] [facility] Work Phone: 6(103)111-664316 [place] [address] 04-16-2022 15:26-0500 Heart rate 107 /min [facility] Work Phone: 7(898)262-844616 [place] [address] 04-16-2022 15:26-0500 Respiratory rate 16 /min [facility] Work Phone: 7(262)200-053016 [place] [address] 04-16-2022 15:26-0500 SaO2% (BldA) [Mass fraction] 95 % [facility] Work Phone: 4(508)971-495516 [place] [address] 04-16-2022 15:26-0500 Systolic blood pressure 126 mm[Hg] [facility] Work Phone: 5(412)212-177716 [place] [address] 12-17-2021 09:03-0400 Body temperature 97.6 [degF] [facility] Work Phone: 7(404)536-897016 [place] [address] 12-17-2021 09:03-0400 Diastolic blood pressure 74 mm[Hg] [facility] Work Phone: 5(072)046-875116 [place] [address] 12-17-2021 09:03-0400 Heart rate 78 /min [facility] Work Phone: 1(814)324-153716 [place] [address] 12-17-2021 09:03-0400 Respiratory rate 16 /min [facility] Work Phone: 3(335)301-690516 [place] [address] 12-17-2021 09:03-0400 SaO2% (BldA) [Mass fraction] 98 % [facility] Work Phone: 2(119)607-105516 [place] [address] 12-17-2021 09:03-0400 Systolic blood pressure 133 mm[Hg] [facility] Work Phone: [facility] 12-17-2021 08:28-0400 Body mass index (BMI) [Ratio] 44.2 kg/m2 [facility] Work Phone: [facility] 10-23-2021 10:16-0400 Body height 177.8 cm [facility] Work Phone: [facility] Work Phone: 10-23-2021 10:16-0400 Body weight 139.93 kg [facility] Work Phone: [facility] 10-23-2021 09:55-0400 Body mass index (BMI) [Ratio] 44.2 kg/m2 [facility] Work Phone: [facility] Work Phone: 10-23-2021 09:55-0400 Body temperature 98.6 [degF] [facility] Work Phone: [facility] Work Phone: 10-23-2021 09:55-0400 Body weight 139.93 kg [facility] Work Phone: [facility] Work Phone: 10-23-2021 09:55-0400 Diastolic blood pressure 76 mm[Hg] [facility] Work Phone: [facility] Work Phone: 10-23-2021 09:55-0400 Heart rate 89 /min [facility] Work Phone: [facility] Work Phone: 10-23-2021 09:55-0400 Respiratory rate 18 /min [facility] Work Phone: [facility] Work Phone: 10-23-2021 09:55-0400 SaO2% (BldA) [Mass fraction] 95 % [facility] Work Phone: [facility] Work Phone: 10-23-2021 09:55-0400 Systolic blood pressure 115 mm[Hg] [facility] Work Phone: [facility] Work Phone: 10-02-2021 09:43-0400 Body mass index (BMI) [Ratio] 44.1 kg/m2 [facility] Work Phone: [facility] Work Phone: 10-02-2021 09:43-0400 Body temperature 97.9 [degF] [facility] Work Phone: [facility] Work Phone: 10-02-2021 09:43-0400 Body weight 139.42 kg [facility] Work Phone: [facility] Work Phone: 10-02-2021 09:43-0400 Diastolic blood pressure 82 mm[Hg] [facility] Work Phone: [facility] Work Phone: 10-02-2021 09:43-0400 Heart rate 80 /min [facility] Work Phone: [facility] Work Phone: 10-02-2021 09:43-0400 Respiratory rate 16 /min [facility] Work Phone: [facility] Work Phone: 10-02-2021 09:43-0400 SaO2% (BldA) [Mass fraction] 92 % [facility] Work Phone: [facility] Work Phone: 10-02-2021 09:43-0400 Systolic blood pressure 119 mm[Hg] [facility] Work Phone: [facility] Work Phone: 09-11-2021 09:54-0400 Body mass index (BMI) [Ratio] 43.8 kg/m2 [facility] Work Phone: [facility] Work Phone: 09-11-2021 09:54-0400 Body temperature 97.2 [degF] [facility] Work Phone: [facility] Work Phone: 09-11-2021 09:54-0400 Body weight 138.51 kg [facility] Work Phone: [facility] Work Phone: 09-11-2021 09:54-0400 Diastolic blood pressure 80 mm[Hg] [facility] Work Phone: [facility] Work Phone: 09-11-2021 09:54-0400 Heart rate 64 /min [facility] Work Phone: [facility] Work Phone: 09-11-2021 09:54-0400 Respiratory rate 16 /min [facility] Work Phone: [facility] Work Phone: 09-11-2021 09:54-0400 SaO2% (BldA) [Mass fraction] 97 % [facility] Work Phone: [facility] Work Phone: 09-11-2021 09:54-0400 Systolic blood pressure 122 mm[Hg] [facility] Work Phone: [facility] Work Phone: 02-07-2021 10:06-0500 Body height 177.8 cm No PCP None [facility]-Otolaryngolog y-Se idman Work Phone: 02-07-2021 10:06-0500 Body mass index (BMI) [Ratio] 44.09 kg/m2 No PCP None YA-Geqfqkqonpnzdu-Hr idman Work Phone: 02-07-2021 10:06-0500 Body surface area Derived from formula 2.51 m2 No PCP None FR-Kakslpzszksjto-X e idman Work Phone: 02-07-2021 10:06-0500 Body [...] (BMI) [Ratio] 44.69 kg/m2 No PCP None TQ-Mnabekliejzgfq-Po burban Work Phone: 10-18-2020 16:43-0400 Body surface area Derived from formula 2.52 m2 No PCP None AH-Zlzzpjgbsyntqx-B u burban Work Phone: 10-18-2020 16:43-0400 Body temperature 97.7 [degF] No PCP None MG-Otolaryngolo gy-French burban Work Phone: 10-18-2020 16:43-0400 Body weight 141.27 kg No PCP None [facility]-Otolaryngolog y-French [facility]ban Work Phone: 07-28-2020 10:30-0400 Body height 177.8 cm No PCP None [facility]-Otolaryngolog y-French burban Work Phone: 07-28-2020 10:30-0400 Body mass index (BMI) [Ratio] 44.27 kg/m2 No PCP None QA-Sthykmfjaexpro-Tr burban Work Phone: 07-28-2020 10:30-0400 Body surface area Derived from formula 2.51 m2 No PCP None LH-Yeumevtlnemkdu-A u burban Work Phone: 07-28-2020 10:30-0400 Body weight 139.93 kg No PCP None MG-Otolaryngolog y-French burban Work Phone: 07-17-2020 11:14-0400 Body height 177.8 cm No PCP None MG-Otolaryngolog y-French burban Work Phone: 07-17-2020 11:14-0400 Body mass index (BMI) [Ratio] 46.2 kg/m2 No PCP None FO-Ydnncuhotveehu-Qz burban Work Phone: 07-17-2020 11:14-0400 Body surface area Derived from formula 2.56 m2 No PCP None HY-Nixyjhcqrffido-J u burban Work Phone: 07-17-2020 11:14-0400 Body temperature 96.8 [degF] No PCP None MG-Otolaryngolo gy-French burban Work Phone: 07-17-2020 11:14-0400 Body weight 146.06 kg No PCP None MG-Otolaryngolog y-French burban Work Phone: 1965 00:00-0400 >na< [facility] Darling Dept. of Dermato logy Encounters Encounter Date Encounter Type Care Provider Facility Start: 05-27-2024 End: 05-27-[address] Reva Baeza MD -[facility] Work Phone: Start: 05-27-2024 End: 05-27-2024 ambulatory Reva Baeza Facility:[facility] Start: 05-20-2024 End: 05-20-2024 ambulatory Marilyn Carbajal NP-Satya Work Phone: [facility] Work Phone: Start: 05-20-2024 End: 05-20-[address] Reva Baeza MD -[facility] Work Phone: Start: 05-20-2024 End: 05-20-2024 ambulatory Reva Baeza Facility:[facility] Start: 04-21-2024 [facility] Start: 04-09-2024 End: 04-09-2024 Patient encounter procedure Yancy Gibson SENIOR PROGRAMMER-C -Laboratory Work Phone: Start: 04-09-2024 End: 04-09-2024 ambulatory Marcelinodomingohoward Gibson [facility] Facility:[facility] Start: 01-26-2024 End: 01-26-2024 [facility] Start: 01-14-2024 End: 01-14-2024 [facility] Start: 01-13-2024 End: 01-13-2024 ambulatory [facility] Facility:[facility] Start: 12-23-2023 Encounter for [facility]procedural [facility] Start: 12-11-2023 End: 12-11-2023 [facility] Start: 12-10-2023 End: 12-10-2023 [facility] Start: 12-03-2023 End: 12-03-2023 ambulatory [facility] Facility:[facility] Start: 12-01-2023 ambulatory Jessica Quiñones Facility: [facility] Start: 09-17-2023 End: 09-17-2023 Office outpatient visit 15 minutes Morris Ford MD Work Phone: [facility] Comment on above: 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 Work Phone: Start: 03-12-2023 End: 03-12-2023 Office outpatient visit 15 minutes Morris Ford MD Work Phone: [facility] Comment on above: Malignant neoplasm o f parotid gland (CMS/HCC) (Primary Dx); Obstructive sleep apnea Start: 03-12-2023 End: 03-12-2023 ambulatory [facility] Start: 02-14-2023 End: 02-14-2023 ambulatory [facility] Work Phone: [facility] Work Phone: Start: 02-14-2023 End: 02-14-2023 Patient encounter procedure [facility] Work Phone: [facility]-Radiology, [facility] Work Phone: Start: 02-04-2023 Registered [facility] Work Phone: [facility] Start: 02-04-2023 End: 02-04-2023 Patient encounter procedure [facility] Work Phone: [facility] Work Phone: Start: 01-31-2023 End: 01-31-2023 Emergency department patient visit [facility] Work Phone: [facility]-Emergency Department Work Phone: Start: 11-06-2022 Office outpatient vi sit 15 minutes No PCP None LG-Oqltmferlevkfi-Edsd rban Work Phone: Start: 11-06-[address] Morris Ford Facluanne lity:[phone] Start: 10-22-2022 End: 10-22-2022 Patient encounter procedure [facility] Work Phone: [facility] Work Phone: Start: 10-15-2022 End: 10-15-2022 ambulatory [facility] Work Phone: [facility] Work Phone: Start: 10-15-2022 End: 10-15-2022 Patient encounter procedure [facility] Work Phone: [facility] Work Phone: Start: 07-23-2022 End: 07-23-2022 Patient encounter procedure [facility] Work Phone: [facility] Work Phone: Start: 05-22-[address] Morris Alexandre lity:[phone] Start: 05-22-2022 Office outpatient vi sit 25 minutes No PCP None [facility] Work Phone: Start: 05-08-2022 Office outpatient vi sit 15 minutes No PCP None TC-Fzpkzdqpetqswz-[place] Work Phone: Start: 05-08-[address] Morris Alexandre lity:[phone] Start: 04-23-2022 End: 04-23-2022 ambulatory [facility] Work Phone: [facility] Work Phone: Start: 04-23-2022 End: 04-23-2022 Patient encounter procedure [facility] Work Phone: [facility] Start: 04-16-2022 Registered [facility] Work Phone: [facility] Start: 04-16-2022 End: 04-16-2022 Patient encounter procedure [facility] Work Phone: [facility] Start: 12-17-2021 Registered Rec[facility]ring [facility] Work Phone: [facility] Start: 12-17-2021 End: 12-17-2021 ambulatory [facility] Work Phone: [facility] Work Phone: Start: 12-17-2021 End: 12-17-2021 Patient encounter procedure [facility] Work Phone: [facility] Start: 10-23-2021 End: 10-23-2021 Patient encounter procedure [facility] Work Phone: [facility] Start: 10-05-2021 End: 10-05-2021 Patient encounter procedure [facility] Work Phone: [facility] Start: 10-02-2021 End: 10-02-2021 Patient encounter procedure [facility] Work Phone: [facility] Start: 09-11-2021 End: 09-11-2021 Patient encounter procedure [facility] Work Phone: [facility] Start: 05-07-2021 Telephone encounter No PCP None [facility]- Otolaryngology-[facility]mi n [place] [address] Work Phone: Start: 02-07-2021 Office outpatient vi sit 15 minutes No PCP None NP-Fphqvjzspflkzv-Uztq man Work Phone: Start: 10-18-2020 Office outpatient vi sit 15 minutes No PCP None CG-Rczfindrwfikjb-Mgyw rban Work Phone: Start: 09-13-2020 Dora Darling Dept. of D ermatology Start: 09-08-2020 Telephone encounter No PCP None [facility]- Otolaryngology-Admi n [place] [address] Work Phone: Start: 09-05-2020 AUDIT No PCP None MG-Otolary ngology-Evie man Work Phone: Start: 08-16-2020 Telephone encounter No PCP None MG- Otolaryngology-Subu rban Work Phone: Procedures Date Procedure Procedure Detail Performing Clinician Start: 05-20-2024 CT of soft tissues o f neck with contrast Marilyn Carbajal SENIOR PROGRAMMER-C Work Phone: Start: 05-20-2024 CT of thorax and abd omen with contrast Marilyn Carbajal SENIOR PROGRAMMER-C Work Phone: Start: 05-06-2023 CT of chest and abdomen [facility] Work Phone: Start: 05-06-2023 CT of soft tissues o f neck with contrast [facility] Work Phone: Start: 02-14-2023 Plain chest X-ray [facility] Work Phone: Start: 10-15-2022 CT of chest and abdomen [facility] Work Phone: Start: 10-15-2022 CT of soft tissues o f neck with contrast [facility] Work Phone: Start: 04-23-2022 CT of soft tissues o f neck with contrast [facility] Work Phone: Start: 12-17-2021 CT of chest and abdomen [facility] Work Phone: Start: 12-17-2021 CT of soft tissues o f neck with contrast [facility] Work Phone: Start: 09-13-2020 Dora Cai n Appendectomy No PCP None Decompression of med curt nerve No PCP None Plan of Treatment Date Care Activity Detail Author Start: 04-07-2024 End: 04-07-2024 Patient encounter procedure 04/07/2024 12:30 PM EST Office Visit [facility] [address] [place] [address] [place] [address] [place] [address] [facility] Start: 11-23-2023 Influenza vaccination Influenza Vaccine (Season Ended) [facility] Start: 09-17-2023 End: 09-17-2023 Patient encounter procedure 09/17/2023 4:45 PM EDT Office Visit [facility] [address] [place] [address] [place] [address] [facility] [place] [address] [facility] Start: 03-12-2023 FUV, Provider: Morris Ford, Status: Pen, Time: 4:15 PM FUV, Provider: Morris Ford, Status: Pen, Time: 4:15 PM TK-Aqefhjgwwofgkv-Gcu urban Work Phone: Start: 01-31-2023 [facility] Start: 11-22-2022 COVID-19 Vaccine ( season) COVID-19 Vaccine () [facility] Start: 11-22-2022 Influenza vaccination Influenza Vaccine (#1) [facility] Start: 11-06-2022 FUV, Provider: Morris Ford, Status: Pen, Time: 4:15 PM FUV, Provider: Morris Ford, Status: Pen, Time: 4:15 PM [facility] Work Phone: Start: 08-28-2022 FUV, Provider: Morris Ford, Status: Pen, Time: 4:15 PM FUV, Provider: Morris Ford, Status: Pen, Time: 4:15 PM YZ-Nbyquukmnbipiw-[place] Work Phone: Start: 05-22-2022 VIRFUVHOME, Provider: Willard Leyva, Status: Pen, Time: 3:20 PM VIRFUVHOME, Provider: Willard Leyva, Status: Pen, Time: 3:20 PM UX-Udheondyzzwqrn-Hdw [place] Work Phone: Start: 12-17-2021 Assay of free thyroxine ASSAY OF FREE THYROXINE [facility] Work Phone: Start: 12-17-2021 Assay of magnesium ASSAY OF MAGNESIUM [facility] Work Phone: Start: 12-17-2021 Assay of phosphorus inorganic ASSAY OF PHOSPHORUS [facility] Work Phone: Start: 12-17-2021 Assay of thyroid stimulating hormone tsh ASSAY THYROID STIM HORMONE [facility] Work Phone: Start: 12-17-2021 Blood count complete auto&auto difrntl wbc COMPLETE CBC W/AUTO DIFF WBC [facility] Work Phone: Start: 12-17-2021 Collection venous blood venipuncture ROUTINE VENIPUNCTURE [facility] Work Phone: Start: 12-17-2021 Comprehensive metabolic panel COMPREHEN METABOLIC PANEL [facility] Work Phone: Start: 12-17-2021 Cortisol total TOTAL CORTISOL [facility] Work Phone: Start: 12-17-2021 Ct abdomen & pelvis w/contrast material CT ABD & PELV W/CONTRAST [facility] Work Phone: Start: 12-17-2021 Ct soft tissue neck w/contrast material CT SOFT TISSUE NECK W/DYE [facility] Work Phone: Start: 12-17-2021 Ct thorax w/contrast material CT THORAX DX C+ [facility] Work Phone: Start: 10-02-2021 Patient referral [facility] Work Phone: Start: 04-17-2021 Venous catheter care management [facility] Start: 02-13-2021 Venous catheter care management [facility] Start: 01-01-2021 COVID-19 Vaccine (2 - Booster for Jessica series) COVID-19 Vaccine (2 - Booster for Jessica series) [facility] Start: 11-08-2020 Venous catheter care management [facility] Start: 10-25-2020 FUV, Provider: Morris Ford, Status: Pen, Time: 11:20 AM FUV, Provider: Morris Ford, Status: Pen, Time: 11:20 AM OE-Nxxgkdwdeaindb-Ndg urban Work Phone: Start: 10-05-2020 Venous catheter care management [facility] Start: 2014 Zoster Vaccines (1 of 2) Zoster Vaccines (1 of 2) [facility] Start: 1986 DTaP/Tdap/Td Vaccines (1 - Tdap) DTaP/Tdap/Td Vaccines (1 - Tdap) [facility] Start: 09-21-1983 Hepatitis B Vaccines (1 of 3 - 19+ 3-dose series) Hepatitis B Vaccines (1 of 3 - 19+ 3-dose series) [facility] Start: 1982 Hepatitis C screening Hepatitis C Screening [facility] Start: 1965 MMR Vaccines (1 of 1 - Standard series) MMR Vaccines (1 of 1 - Standard series) [facility] Start: 1964 Hepatitis B Vaccines (1 of 3 - 3-dose series) Hepatitis B Vaccines (1 of 3 - 3-dose series) [facility] Start: 1964 HIV screening HIV Screening [facility] Start: 1964 Lipid panel Lipid Panel [facility] Start: 1964 Screening for malignant neoplasm of colon [facility] Start: 1965 Yearly Adult Physical Yearly Adult Physical [facility] CBC W Auto Different ial panel - Blood [facility] CBC W Auto Different ial panel - Blood [facility] Comprehensive metabo lic 2000 panel - Serum or Plasma [facility] CT Chest and Abdomen W contrast IV [facility] CT Chest and Abdomen W contrast IV [facility] CT Neck W contrast IV [facility] CT Neck W contrast IV [facility] NM Whole body Bone Views [facility] Work Phone: Patient Education [facility] Work Phone: Patient referral [facility] Work Phone: T4 free measurement [facility] Thyroid stimulating hormone measurement [facility] Immunizations Immunization Date Immunization Notes Care Provider Samira goodman 11-04-2020 Covid ([employer]) [facility] Work Phone: [facility] 1965 pneumococcal conjuga te vaccine, 7 valent [facility]ora Darling Dept. of Dermatology Payers Date Payer Category Payer Self-pay [id number] 2020 Unknown 2020 Unknown [id number] 1965 Unknown [id number] 2.16. [id number] 1965 Unknown [id number] 2.16. [id number] 1965 Unknown [id number] 2.16. [id number] 1965 Unknown [id number] .16.8 [id number] 1965 Unknown [id number] 2.16.8 [id number] Unknown [id number] Unknown [id number] 2.16.8 [id number] Unknown [id number] 2.16.8 [id number] Unknown [id number] 2.16.8 [id number] Unknown [id number] 2.16.8 [id number] Unknown [id number] 2.16.8 [id number] Unknown [id number] 2.16.8 [id number] Unknown [id number] 2.16.8 [id number] Unknown [id number] 2.16.8 [id number] Unknown [id number] 2.16.8 [id number] Unknown [id number] 2.16.8 [id number] Unknown [id number] 2.16.8 [id number] Social History Date Type Detail Facility Start: 03-12-2023 Non-smoker Non-smoker MG-Otolary ngology-Subur ban Work Phone: Start: 10-05-2021 End: 01-31-2023 [facility] Start: 1965 Sex Assigned At Male [facility] Start: 03-12-2023 End: 01-14-2024 Tobacco smoking status NHIS Never smoked tobacco [facility] Work Phone: Start: 03-12-2023 Tobacco use and exposure Smokeless tobacco non-user [facility] Work Phone: Start: 03-12-2023 Tobacco use panel [facility] Work Phone: Start: 1965 Sex Assigned At Not on file U [facility] Work Phone: Start: 03-02-2023 End: 09-17-2023 Exposure to SARS-CoV-2 (event) Not sure [facility] Start: 06-03-2024 Sex Male (finding) [facility] Medical Equipment Procedure Code Equipment Code Equipment Origin al Text Equipment Identifier Dates Insertion, vascular access port PORT,6FR POWER PORT FDA Start: 10-06-2020 Insertion, vascular access port PORT,6FR POWER PORT FDA Start: 10-06-2020 Insertion, vascular access port PORT,6FR POWER PORT FDA Start: 10-06-2020 Insertion, vascular access port PORT,6FR POWER PORT FDA Start: 10-06-2020 Insertion, vascular access port PORT,6FR POWER PORT FDA Start: 10-06-2020 Insertion, vascular access port PORT,6FR POWER PORT FDA Start: 10-06-2020 [id number] Start: 02-05-2023 use 1 TEST STRIP to TEST BLOOD SUGAR four times a day [id number] Start: 03-06-2023 Goals Date Patient Goal Desired Activity /State Mental Status Date Assessment Result Facility 12-17-2021 Cognitive function Level Of Cons ciousness Awake;Alert;Appropriate;Follow s Commands [facility] Work Phone: Clinical Notes 04-24-2022 to 05-27-2024 Note Date & Type Note Facility 05-27-2024 Evaluation note Diagnosis Onset Date Resolution Malignant melanoma of unknown origin chronic May 27, 2024 9:57am 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 TECHNIQUE: Chest and abdomen CT with intravenous contrast. No oral contrast. CONTRAST: 100 cc of Isovue-300. COMPARISON: Comparison is made with prior study dated December 03, 2023. FINDINGS: CT CHEST: The previously seen 2.3 cm x 2.2 cm well-defined nodule in the subcutaneous tissues overlying the left upper posterior hemithorax was not imaged at this time. Lymph nodes: No mediastinal, hilar, or axillary lymphadenopathy. Heart and Vasculature: Normal heart size. No pericardial effusion. Thoracic aorta and pulmonary arteries are unremarkable. Coronary artery calcification. Lungs and Airways: The lungs are normally expanded and clear. Pleura: No pleural effusion. No pneumothorax. CT ABDOMEN: Liver: Unremarkable. Gallbladder: Unremarkable. Spleen: Unremarkable. Pancreas: Unremarkable. Adrenals: Unremarkable. Kidneys: Tiny nonobstructive calculus in the lower pole calyx of the right kidney. There is an 8 mmnonobstructive calculus in the lower pole calyx of the left kidney. Bowel: Visualized loops of bowel in the upper abdomen are unremarkable. Lymph nodes: No suspicious lymph node enlargement at the upper abdomen. Vasculature: Major vascular structures at the upper abdomen are unremarkable. Peritoneum / Retroperitoneum: No ascites or free air at the upper abdomen. Bones: Degenerative changes of the spine. CT/CT Chest AND Abd W/ Contrast IMPRESSION: The previously seen nodular density in the upper posterior left hemithorax was not imaged on this examination. The remainder of the examination is unchanged. One or more dose reduction techniques were used (e.g., Automated exposure control, adjustment of the mA and/or kV according to patient size, use of iterative reconstruction technique). Reading Location: [id number] CC: [facility] SENIOR PROGRAMMER-C Marilyn Carbajal; Dr. Reva Baeza MD ~ Oenologist: Signed [facility]02-27-2025 Radiology Diagnostic study note [facility] Imaging Services [address] [place] [address] [id number] Soft Tissue Neck WITH Contrast MR#: [id number] Acct: [id number] Name: ALEJANDRA THORNTON Rep #: [id number] 15 : 1965 M 58 From: Claudia French MD PCP: IRAIDA Jack, SENIOR PROGRAMMER-C Status: REG CLI Study:Soft Tissue Neck WITH Contrast Date of Exam: 05/20/24 Exam# [id number] Ordering Dr: Reva Baeza MD PROCEDURE: CT SOFT TISSUE NECK WITH CONTRAST REASON FOR EXAM: FOLLOW-UP MELANOMA. TECHNIQUE: Contiguous axial scans of 2.5 mm slice thicknesses. Sagittal and coronal reconstruction images wereobtained. One or more dose reduction techniques were used (e.g., automated exposure control, adjustment of mAand/or kv according to patient size, use of iterative reconstruction technique). CONTRAST: Isovue 370, 89 ml. COMPARISON: CT soft tissue neck dated 12/03/2023. FINDINGS: Airway: Midline and patent. Salivary glands: The left submandibular gland has been resected. The patient isstatus post partial left neck dissection. Remaining salivary glands are unremarkable. Lymph nodes: No cervical lymphadenopathy. Thyroid: Unremarkable. Vasculature: Carotid arteries and internal jugular veins are unremarkable. Orbits: Unremarkable at visualized levels. Paranasal sinuses and mastoids: Mild mucoperiosteal thickening, bilateral maxillary sinuses. Lung apices: Clear. Upper mediastinum: Visualized mediastinum is unremarkable. Bones: Unremarkable. Leftward deviation of the nasal septum. Beam hardening artifact related to dental enhancements. Multilevel spondylosis. Soft tissues: Stable scarring of the left sternocleidomastoid muscle. CT/Soft Tissue Neck WITH Contrast IMPRESSION: 1. Stable CT soft tissue neck when compared to the previous study. 2. Status post left partial neck resection. 3. Mild inflammation involving the maxillary sinuses. 4. Other nonacute findings detailed above Reading Location: [facility] CC: [facility] SENIOR PROGRAMMERKush Carbajal; Dr. Reva Baeza MD ~ Oenologist: Signed [facility]06-26-2024 History of Present illness Narrative* Morris Ford MD - 09/17/2023 4:45 PM EDT Provider Impressions Status post parotidectomy and neck dissection for what turned out to be a probable melanoma. He wastreated with Keytruda. He elected not to go ahead with radiation therapy. I cannot appreciate any obvious tumor recurrence. He will be scanned at home in the near future. Obstructive sleep apnea. Unfortunately the patient has not been able to tolerate the device. He wasthen tried on some other devices but could not afford the expense. He has lost approximately 40 pounds and he is now feeling better. I will see him in 6 months. Chief Complaint Follow-up regarding the management of a neck malignancy. History of Present Illness This gentleman was seen in April at the request of a local colleague. For more than a year or sohe had noticed some lumps on the left [...] to go ahead with radiation therapy. He was also diagnosed with sleep apnea and was provided with the machine but was not able touse it and returned it. He had a CT scan of his neck that was done in September 2022. It was felt to be normal. He is due to get some further scanning at home. Since I last saw him he got sick and was found to be diabetic. Since then he has lost 40 pounds. Physical Exam Examination of the parotid, neck, and thyroid field does not show any evidence of worrisome masses or adenopathies. His facial nerve function is normal. The intraoral exam is also negative for any mucosal lesions. At the same time his tongue occupies his entire mouth. The ear examination is negative. documented in this [facility] Work Phone: 1(164) 488-594312-20-2023 History of Present illness Narrative* Morris Ford MD - 03/12/2023 4:15 PM EST Provider Impressions Status post parotidectomy and neck [...] been able to tolerate the device. He wasthen tried on some other devices but could not afford the expense. I encouraged him to try to lose some weight. I will see him in 6 months. Chief Complaint Follow-up regarding the management of a neck malignancy. History of Present Illness This gentleman was seen in April at the request of a local colleague. For more than a year or sohe had noticed some lumps on the left [...] of something stuck in his throat on theleft side. He does have some issues with his stomach has frequent episodes of vomiting. He was alsodiagnosed with sleep apnea and was provided with [...] ear examination is negative. documented in this [facility] Work Phone: 1(786) 832-165402-01-2023 History of Present illness Merary gentleman was seen in April at the request of a local colleague. For more than a year or sohe had noticed some lumps on the left [...] not the a squamous cell carcinoma but anadenocarcinoma. The endoscopy was negative. A CT scan of his neck was performed on July 05, 2020. It shows this lesion to probably arise from the parotid gland. There is a large ewelina metastasis. OnJuly 20, 2020 he underwent a parotidectomy and [...] that scan and cannot appreciate anything worrisome. [id number] Work Phone: Evaluation noteN/ADept. of Dermatology Evaluation note* Diagnosis Onset Date Resolution Status Encounter for immunotherapy acute Malignant melanoma of unknown origin acute Melanoma metastatic to head and neck region acute Drug rash acute Malignant melanoma of unknown origin acute Melanoma metastatic to head and neck region acute Encounter for care related to vascular access port acute Drug rash acute Malignant melanoma of unknown origin acute Melanoma metastatic to head and neck region acute [facility] Work Phone: Evaluation note* Diagnosis Onset Date Resolution Status Impaired glucose tolerance a cute Malignant melanoma of unknown origin acute Melanoma metastatic to head and neck region acute [facility] Work Phone: Evaluation note* Diagnosis Onset Date Resolution Status Malignant melanoma of unknown origin chronic Melanoma metastatic to head and neck region [facility] Work Phone: Evaluation note* Diagnosis Onset Date Resolution Status Malignant melanoma of unknown origin chronic 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 Malignant melanoma of unknown origin chronic Melanoma metastatic to head and neck region [facility] Work Phone: Evaluation note* Diagnosis 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 For more than a year or sohe had noticed some lumps on the left [...] not the a squamous cell carcinoma but anadenocarcinoma. The endoscopy was negative. A CT scan of his neck was performed on July 05, 2020. It shows this lesion to probably arise from the parotid gland. There is a large ewelina metastasis. OnJuly 20, 2020 he underwent a parotidectomy and [...] not to go ahead with radiation therapy. Hewill be getting some repeat scans in early 2021. * On further questioning this gentleman admits to significant snoring. [id number][facility] Work Phone: History of Present illness Narrative* Mr. THORNTON , 1965, referred for an initial consultation with a long history of reported loud snoring, waking up feeling unrefreshed, excessive daytime fatigue. [place] Sleepiness Scale Score is [] /24. Fatigue Severity Scale Score is [] /63. Snoring VAS [] /10 * Sleep study histories: (personally reviewed raw data such as interpretation report, data sheet, hypnogram, and titration table) * The patient has been previously diagnosed with obstructive sleep apnea (LILY), in a in lab sleep test performed on 04/19/2021, that showed an Apnea Hypopnea Index (AHI) of 34.3 events per hour. During that night, the lowest 02 saturation was 83 %, and the patient spent 0.8 minutes of total sleep timewith 02 sat less than 88%. The apnea index (AI) was 0.0 events per hour. During supine sleep the AHI was N/A events per hour. Rigth side AHI 34.2 and Left side 34.7/hr. * For nocturnal symptoms (without or prior to treatment), he endorses that there is * snoring, witnessed apneas, nocturia and restless sleep. * For daytime symptoms (without or prior to treatment), he endorses that there is morning headaches, irritability and depression. * Patient does reports nasal obstruction. It does fluctuate, and has been treated with nasal corticosteroids without significant improvements. He does not have a history of nasal surgery or upper airway surgery. He does not have a history of nasal trauma. He does not describe a history of facial pressure type of headaches. He does not report a history of nasal drainage, denies epistaxis. * NOSE- [] / 20 * Nasal Obstruction VAS- [] /10 [facility] Work Phone: History of Present illness NarrativeThis gentleman was seen in April at the request of a local colleague. For more than a year or sohe had noticed some lumps on the left [...] not the a squamous cell carcinoma but anadenocarcinoma. The endoscopy was negative. A CT scan [...] that scan and cannot appreciate anything worrisome. [facility]juksbul[facility] Work Phone: reason for referral (narrative)* Name Reason for referral TERRI MURRAY Dept. of Dermatology Reason for referral (narrative)No reason for referral information availableWKettering Health Work Phone: Summary Purpose Family History No Family History [...] of liver dise ase: Other(V18.59, Z83.79) Status:Active Relationship Condition Age at Onset Recorded Date/T nilda mother Disorder of liver Unknown father Malignant neoplasm of lung Unknown Hypertension Unknown Unknown Family Member Name Dates Details Family [...] Status:Active Advance Directives No Advanced Directives Records Found Advance Directive Response Recorded Date/ Time Advance Directives on File No 2021 10:35am Advance Directives Yes October 23 10:35am Living Will Yes October 23, 2021 10:35am Power of Lead Injection Mold Technician Yes October 23 10:35am Advance Directive Response Recorded Date/ Time Advance Directives on File No 2021 9:35am Advance Directives Yes October 23 9:35am Living Will Yes October 23, 2021 9:35am Power of Lead Injection Mold Technician Yes October 23 9:35am Advance Directive Response Recorded Date/ Time Advance Directives Yes October 23 10:35am Living Will Yes October 23, 2021 10:35am Power of Lead Injection Mold Technician Yes October 23 10:35am Advance Directive Response Recorded Date/ Time Advance Directives on File No 2021 9:35am Advance Directives Yes October 23 9:35am Living Will No January 31 9:25am Power of Lead Injection Mold Technician No January 31, 2023 9:25am Documents on File Type Date Recorded 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 Chief Complaint and Reason for Visit Chief Complaint 3 WKS - LABS - KEYTR UDA 3 WKS - LABS - KEYTRUDA PORT REMOVAL 3 WKS - LABS - KEYTRUDA FOLLOW UP MELANOMA *IV ONLY* 3 WKS - LABS - KEYTRUDA Reason for Visit Encounter for immuno therapy Malignant melanoma of unknown origin Melanoma metastatic to head and neck region Drug rash Malignant melanoma of unknown origin Melanoma metastatic to head and neck region Encounter for care related to vascular access port Drug rash Malignant melanoma of unknown origin Melanoma metastatic to head and neck region Chief Complaint 3 MO - LABS 3 WKS - LABS - KEYTRUDA MELANOMA Reason for Visit Impaired glucose sho erance Malignant melanoma of unknown origin Melanoma metastatic to head and neck region Chief Complaint 3MO NO LABS MELANOMA Reason for Visit Malignant melanoma o f unknown origin Melanoma metastatic to head and neck region Chief Complaint 3 MO - LABS (DOING W ITH CT) REVIEW SCANS FLANK PAIN 3MO LABS 3 WKS - LABS - KEYTRUDA Reason for Visit Malignant melanoma o f unknown origin Melanoma metastatic to head and neck region Malignant melanoma of unknown origin Melanoma metastatic to head and neck region Chief Complaint FLANK PAIN 3MO LABS 3 WKS - LABS - KEYTRUDA MELENOMA Reason for Visit Malignant melanoma o f unknown origin Melanoma metastatic to head and neck region Chief Complaint Admit Date . May 20, 2024 12:56pm 6 MO - LABS 1 WK PRIOR - REVIEW SCANS [facility] 2024 9:57am Reason for Visit Admit Date Malignant melanoma of unknown origin Mar 2024 9:57am Melanoma metastatic to head and neck reg ion May 27, 2024 9:57am Additional Source Comments (unrecognized sect ion and content) No Status Records FoundNo Status Records FoundNo Status Records FoundNo Status Records FoundNo Status Records FoundNo Status Records FoundNo Status Records Found INFORMATION SOURCE (unrecogn ized section and content) DATE CREATED AUTHOR 11/10/2019 [facility] ([place]) DATE CREATED AUTHOR AUTHOR'S ORGANIZ ATION 07/11/2020 [facility] DATE CREATED AUTHOR AUTHOR'S ORGANIZ ATION 11/08/2022 [facility] DATE CREATED AUTHOR AUTHOR'S ORGANIZ ATION 11/08/2022 [employer] DATE CREATED AUTHOR AUTHOR'S ORGANIZ ATION 03/13/2023 [facility] DATE CREATED AUTHOR AUTHOR'S ORGANIZ ATION 09/19/2023 [facility] DATE CREATED AUTHOR AUTHOR'S ORGANIZ ATION 11/21/2024 [facility] Goals (unrecognized section and content) Goals may be documented in a n alternate sectionGoals may be documented in an alternate sectionGoals may be documented in an alternate sectionGoals may be documented in an alternate sectionGoals may be documented in an alternate sectionGoals may be documented in an alternate section Care Teams (unrecognized sec tion and content) Team Status: Active Member Role Status Dates No Primary Care Physician Family Provider Active [facility] Primary Care Provider A ctive Team Status: Inactive Member Role Status Dates [facility] Primary Care Provider A ctive Dr. Reva Baeza MD Attending Provider Active Dr. Rudolph Larios MD Referring Provider Active Team Status: Active Member Role Status Dates [facility] Primary Care Provider A ctive Dr. Bennie Julian DO Attending Provider Active Dr. Morris Ford MD Referring Provider Active Team Status: Inactive Member Role Status Dates [facility] Primary Care Provider A ctive Dr. Reva Baeza MD Attending Provider Active Team Status: Inactive Member Role Status Dates [facility] Primary Care Provider A ctive Dr. Reva Baeza MD Attending Provider, Referrin g Provider Active Team Status: Inactive Member Role Status Dates [facility] Primary Care Provider, Referring Provider Active Dr. Reva Baeza MD Attending Provider Active Team Status: Inactive Member Role Status Dates [facility] Primary Care Provider A ctive Marilyn Carbajal SENIOR PROGRAMMER, SENIOR PROGRAMMER-C Attending Provider, Referrin g Provider Active Team Status: Inactive Member Role Status Dates [facility] Primary Care Provider A ctive Dr. Adam Mckeon MD Attending Provider, Emergency Provi daniel Active Oncology Social Worker Relationship Specialty Start Date End Date Jimmy Julian DO [address] [facility] [address] [place] [address] Radiation Oncologist Radiation Oncology 02/28/23 Alfredo Chance MD [address] [place] [address] Referring Physician Otolaryngology 02/28/23 Reva Baeza MD [address] as of 05/03/2016 [place] [address] Medical Oncologist Hematology and Oncology 02/28/23 Team Status: Active Member Role Status Dates Marilyn CHAPAC, SENIOR PROGRAMMER-C Primary Care Provider Activ e Team Status: Inactive Member Role Status Dates Marilyn CHAPAC, SENIOR PROGRAMMER-C Primary Care Provider Activ e Start: April 09, 2024 End: April 09, 2024 Zebuluashley Gibson VSC, SENIOR PROGRAMMER-C Attending Provider Active Start: April 09, 2024 End: April 09, 2024 Yancy Gibson VSC, SENIOR PROGRAMMER-C Referring Provider Active Start: April 09, 2024 End: April 09, 2024 Team Status: Inactive Member Role Status Dates Marilyn Carbajal VSC, SENIOR PROGRAMMER-C Primary Care Provider Activ e Start: May 20, 2024 End: May 20, 2024 Dr. Reva Baeza MD Attending Provider Active Start: May 20, 2024 End: May 20, 2024 Dr. Reva Baeza MD Referring Provider Active Start: May 20, 2024 End: May 20, 2024 Team Status: Inactive Member Role Status Dates Marilyn Nelson CHAPAC, SENIOR PROGRAMMER-C Primary Care Provider Activ e Start: May 27, 2024 End: May 27, 2024 Marilyn Carbajal VSC, SENIOR PROGRAMMER-C Referring Provider Active Start: May 27, 2024 End: May 27, 2024 Dr. Reva Baeza MD Attending Provider Active Start: May 27, 2024 End: May 27, 2024 Reason for Visit (unrecogniz ed section and content) Reason Comments Follow-up FOR RECORDS PERTAINING TO PATIENTS WHO ARE [...] BE BASED ON THE PRIMARY CLINICAL RECORDS. [facility] [employer] provides no warranty or guarantee of the accuracy or completeness of information in this document.
--- NOTE | 2024-11-25 07:04 | CT_ITS ---
PROCEDURE: SOFT TISSUE NECK WITH CONTRAST 11/25/2024 REASON FOR EXAM: F/U METS MELANOMA TECHNIQUE: Procedure Code: CTNEW Modality: CT Procedure: SOFT TISSUE NECK WITH CONTRAST CONTRAST: Information not supplied One or more dose reduction techniques were used (e.g., Automated exposure control, adjustment of the mA and/or kV according to patient size, use of iterative reconstruction technique). RADIATION DOSE SUMMARY: Information not supplied COMPARISON: 05/20/2024 FINDINGS: Normal appearance of the orbits. Normal appearance of the nasopharynx. There is no parotid mass. There are some postsurgical changes dorsal to the left parotid gland. Oral cavity and tongue base intact. Left submandibular gland resected. Left internal jugular vein sacrificed. Normal thoracic inlet. Normal thyroid. No enlarged cervical lymph nodes. No discrete subcutaneous soft tissue masses. Lung apices are clear. CT/Soft Tissue Neck WITH Contrast IMPRESSION: No recurrent tumor. Prior left neck dissection Reading Location: [id number]
--- NOTE | 2024-11-25 07:04 | CT_ITS ---
PROCEDURE: CT CHEST AND ABD W/ CONTRAST 11/25/2024 REASON FOR EXAM: F/U METS MELANOMA IV CONTRAST ONLY TECHNIQUE: Chest and abdomen CT with intravenous contrast. Coronal and Sagittal reconstruction series were provided. One or more dose reduction techniques were used (e.g., Automated exposure control, adjustment of the mA and/or kV according to patient size, use of iterative reconstruction technique. PATIENT PREPARATION: Per protocol ORAL CONTRAST TYPE: None. CONTRAST: Isovue 370 VOLUME: 75mL RADIATION DOSE SUMMARY: CTDlvol: 80 mGy DLP: 2557 mGycm COMPARISON: April 2024. FINDINGS: CT chest. Thyroid gland: Negative. Lungs: Mild emphysematous changes. No pulmonary nodules or masses. No new areas of concern. Pleura: Negative for pleural effusion or pneumothorax. Airways: Imaged bronchi and trachea negative. Mediastinum: Negative for mediastinal mass. Lymph nodes: Negative for axillary, mediastinal or hilar adenopathy. Heart and Vasculature: Heart normal size. Mild vascular calcifications of the thoracic aorta. Coronary Artery Calcifications: Severe vascular calcifications of the coronary arteries Hardware: None. Bones: No lytic or sclerotic lesions. Age-appropriate degenerative changes of the thoracic spine. ABDOMEN Liver: Minimally heterogeneous liver but no focal mass. Biliary system: Negative. Negative for intrahepatic or extrahepatic ductal dilatation. Gallbladder: Negative. Negative for cholecystitis. Spleen: Negative. Pancreas: Negative. Adrenals: Negative. Kidneys: Mild bilateral renal atrophy. Nonobstructing left kidney stones. Negative for renal mass. Bowel: Mild increased stool throughout the colon. Negative for small or large- bowel obstruction. Appendix: Negative. Vasculature: Negative for atherosclerotic vascular calcifications of the abdominal aorta and its branches. Peritoneum / Retroperitoneum: Negative. Bones and Soft Tissues: Mild and age appropriate degenerative changes of the lumbar spine hips and pelvis. CT/CT Chest AND Abd W/ Contrast IMPRESSION: Negative for acute cardiopulmonary disease Negative for acute intra-abdominal pathology. Negative for hepatic or adrenal bony metastatic disease No focal skin lesions Reading Location: [id number]
[2024-11-25 07:11] LABS: Hematocrit 45.2 % (40-54); Hemoglobin 14.9 g/dL (13.0-16.5); Immature Granulocytes Count 0.080 X10^3/uL (0.0-0.0); Mean Corp Hgb Conc 33.0 g/dL (32-36); Mean Corpuscular Volume 84.8 fL (80-94); Mean Platelet Vol. 12.0 fl (6.2-12.0); NRBC Flagged by Analyzer 0 % (0-5); Platelet Count 144 K/mm3 (150-450); RBC Distribution Width CV 14.4 % (11.6-14.6); RBC Distribution Width SD 43.5 fl (35.1-43.9); Red Blood Count 5.33 M/mm3 (4.6-6.2); White Blood Count 7.3 K/mm3 (4.4-11.0)
[2024-11-25 07:37] LABS: CREATININE FINGERSTICK 1.4 mg/dL (0.70-1.30); EGFR FINGERSTICK 56.0000 mL/min (>60)
[2024-11-25 08:03] LABS: AST(SGOT) 23 U/L (<=37); Alanine Aminotransfer ALT/SGPT 29 U/L (<=46); Albumin, Serum 4.0 g/dL (3.4-4.8); Alkaline Phosphatase 72 U/L (40-129); Anion Gap 10 (5-15); BUN 22 mg/dL (4-19); BUN/Creat Ratio 15.9 RATIO (10-20); Calcium,Total 9.3 mg/dL (7.6-11.0); Carbon Dioxide 22.6 mmol/L (21.0-32.0); Chloride 110 mmol/L (98-108); Globulin 2.7 g/dL (2.2-4.2); Glucose 131 mg/dL (70-99); Potassium 4.2 mmol/L (3.3-5.1)
== END | disposition home or self-care (01) ==
LOC: CT 06:56
PROVIDERS: PCP Nurse Practitioner Family; Referring Provider Internal Medicine Hematology & Oncology; Visit Provider Internal Medicine Hematology & Oncology
DX: Z01.812 Encounter for preprocedural laboratory examination (principal); C79.89 Secondary malignant neoplasm of other specified sites; C43.9 Malignant melanoma of skin, unspecified
CPT/HCPCS: 36415; 70491; 71260; 74160; 80053; 85025; Q9967